=== PATIENT | male | born 1950 | race Caucasian/White ===

== ENCOUNTER → 2020-05-10 09:50 | Outpatient (BNVA) | payer OTHER, MEDICARE, SELFPAY | PROVIDERS: PCP Family Medicine; Visit Provider Anesthesiology | DX: S24.102D Unspecified injury at T2-T6 level of thoracic spinal cord, subsequent encounter (principal); G82.20 Paraplegia, unspecified; G89.4 Chronic pain syndrome; G89.0 Central pain syndrome | CPT/HCPCS: 99202 ==

== ENCOUNTER 2020-10-02 02:15 | Emergency (ER) | payer OTHER, SELFPAY ==
--- NOTE | 2020-10-02 | ECG_ITS ---
Test Reason : ABN LAB Blood Pressure : / mmHG Vent. Rate : 063 BPM Atrial Rate : 063 BPM P-R Int : 156 ms QRS Dur : 080 ms QT Int : 386 ms P-R-T Axes : 055 031 040 degrees QTc Int : 395 ms Normal sinus rhythm Normal ECG When compared with ECG of 20-JUN-2009 01:33, Vent. rate has decreased BY 67 BPM Non-specific change in ST segment in Inferior leads ST no longer depressed in Lateral leads Nonspecific T wave abnormality, improved in Inferior leads Nonspecific T wave abnormality no longer evident in Lateral leads Referred By: Generic ED Physician Electronically Signed By:BERRY MATT
[2020-10-02 02:21] VITALS: BP 155/72; PULSE 75; RESP 16; TEMP 36.9; O2SAT 98
[2020-10-02 02:29] VITALS: BP 125/60; BP 155/72; PULSE 63; PULSE 80; RESP 11; TEMP 36.9; O2SAT 98; O2SAT 99; BMI 21.6
[2020-10-02 02:38] VITALS: BP 138/72; PULSE 71; RESP 12; O2SAT 98
[2020-10-02 03:01] LABS: MANUAL DIFF FLAG NO
[2020-10-02 03:05] LABS: Basophils Absolute Auto 0.1 X10*3/uL (0.0-0.2); Eosinophils Absolute Auto 0.3 X10*3/uL (0.0-0.4); Eosinophils Percent Auto 3.4 % (0-4); Hematocrit 38.6 % (42-52); Hemoglobin 12.8 g/dl (14.0-18.0); Imm Gran Pct Auto 1.1 % (0.0-0.4); Lymphocytes Absolute Auto 2.2 X10*3/uL (1.2-4.9); Lymphocytes Percent Auto 23.4 % (20-40); Mean Corpuscular HGB Conc 33.2 g/dl (31.0-36.0); Mean Corpuscular Hemoglobin 29.6 pg (27.0-33.0); Mean Corpuscular Volume 89.1 fL (80-98); Mean Platelet Volume 9.3 fL (9.4-12.4); Monocytes Absolute Auto 1.1 X10*3/uL (0.1-1.2); Monocytes Percent Auto 11.9 % (2-11); Neutrophils Absolute Auto 5.5 X10*3/uL (2.0-8.3); Neutrophils Percent Auto 59.2 % (45-73); Platelet Count 299 X10*3/uL (160-400); Red Blood Count 4.33 X10*6/uL (4.60-5.80); Red Cell Distribution Width 14.1 % (11.0-16.0); White Blood Count 9.3 X10*3/uL (4.8-10.8)
[2020-10-02 03:26] LABS: Glucose Urine UA NEG (NEG); Leukocyte Esterase Urine 3+ (NEG); Nitrite Urine POS (NEG); PH 6.5 (5.0-8.0); Specific Gravity - Urine <= 1.005 (1.005-1.025); UACC Culture Trigger YES; Urine Blood TRACE (NEG); Urine Ketones NEG (NEG); Urine Protein NEG (NEG-TRACE)
[2020-10-02 03:27] LABS: Appearance Urine CLEAR; Color Urine STRAW
[2020-10-02 03:45] LABS: Amorphous Sediment Urine 3+ /LPF; Bacteria Urine 1+ /LPF; RBC Urine 0-2 /HPF (0)
[2020-10-02 04:30] VITALS: BP 101/53; PULSE 70; RESP 13; O2SAT 98
[2020-10-02 04:46] LABS: Osmolality Urine 169 mosm/kg (373-1093)
[2020-10-02 05:33] LABS: Alanine Aminotransferase 15 U/L (0-40); Albumin Level 4.1 g/dL (3.5-5.0); Alkaline Phosphatase 110 U/L (39-117); Anion Gap 13 (12-20); Aspartate Amino Transferase 16 U/L (5-37); Blood Urea Nitrogen 12 mg/dL (9-16); Calcium 9.4 mg/dL (8.4-10.2); Carbon Dioxide 25 mmol/L (22-29); Chloride 104 mmol/L (96-108); Creatinine Clr Calc Pharmacy 101.9; Estimated Glomerular Filt Rate > 60; Glucose Random 92 mg/dL (60-115); Potassium 4.4 mmol/L (3.3-5.1); Sodium 138 mmol/L (135-145); Total Protein 7.3 g/dL (6.5-8.0)
[2020-10-02 05:49] LABS: Bilirubin Total 0.4 mg/dL (0.0-1.0)
--- NOTE | 2020-10-02 06:03 | PC.NURSE ---
Addendum entered by Devika Lawson 10/02/20 07:00: Dr Florez's response to this RN and [place], vendor representatives when being made aware of pt's requests for home meds states he will be discharged home and he can take his home meds then. Original Note: Pt rang call [facility] requesting his home doses of gabapentin and valium. Dr Florez made aware.
[2020-10-02 06:46] VITALS: BP 103/63; PULSE 72; RESP 14; O2SAT 98
--- NOTE | 2020-10-02 07:00 | ED_ITS ---
HPI - Recheck/Abnormal Lab/Rx General Chief Complaint: Recheck/Abnormal Lab/Rx Stated Complaint: low sodium Time Seen by Provider: 10/02/20 06:51 Source: patient History of Present Illness HPI narrative: I started my shift at 6.30 I went to see a very upset pt , I want to get out now give me a phone so I can call for ride .pt was sent here by Dr Conklin because low sodium,sodium was rechecked here and was 138 MD complaint: abnormal lab Description of abnormal result: reported low sodium Symptoms since prior visit: no new symptoms Associated symptoms: none Related Data Home Medications Medication Instructions Recorded Confirmed baclofen 10/02/20 diazepam 10 mg tablet 10 mg PO QID 10/02/20 10/02/20 gabapentin 600 mg tablet 600 mg PO Q4H 10/02/20 10/02/20 Allergies Allergy/AdvReac Type Severity Reaction Status Date / Time No Known Allergies Allergy Mild NOT Verified 10/02/20 02:28 APPLICABLE Review of Systems Review of Systems: Yes all other systems are reviewed and are negative Constitutional: Constitutional: Reports no additional constitutional complaints Cardiovascular: Cardiovascular: Reports no additional cardiovascular [facility] Past Medical History Medical History Central pain syndrome Chronic pain syndrome Paraplegia T5 spinal cord injury Social History Social History Advance Directives: No Advance Directives Information Provided: No Physical Exam Vital Signs: Vital Signs: Last Vital Signs Temp 98.5 F 10/02/20 02:29 Pulse 72 10/02/20 06:46 Resp 14 10/02/20 06:46 BP 103/63 10/02/20 06:46 Pulse Ox 98 10/02/20 06:46 Body Mass Index 21.6 Const: General: alert, awake and other (uncoperative,belligerant) Nutritional Appearance: well nourished Orientation/consciousness: oriented to time HENMT: Head: Yes normal to inspection Resp: Effort & Inspection: normal respiratory effort and able to speak in complete sentences Cardio: Jugular venous distension: no JVD Rate: regular rate GI: Inspection: Yes normal to inspection Skin: General skin exam: no rashes or lesions noted Neuro: General: oriented to time Psych: Mental Status: mental status grossly normal Affect: Animated affect present and Anxious affect present Course Course Course Narrative: pt was very uncoperative,upset,he signed AMA his sodium was wnl; I came for nothing MDM - Recheck/Abnormal Lab/Rx Lab Data Result diagrams: 10/02/20 02:53 10/02/20 02:53 Labs: Lab Results 10/02/20 10/02/20 10/02/20 Range/Units 02:44 02:44 02:53 WBC 9.3 (4.8-10.8) X10*3/uL RBC 4.33 L (4.60-5.80) X10*6/uL Hgb 12.8 L (14.0-18.0) g/dl Hct 38.6 L (42-52) % MCV 89.1 (80-98) fL MCH 29.6 (27.0-33.0) pg MCHC 33.2 (31.0-36.0) g/dl RDW 14.1 (11.0-16.0) % Plt Count 299 (160-400) X10*3/uL MPV 9.3 L (9.4-12.4) fL Immature Gran % (Auto) 1.1 H (0.0-0.4) % Neut % (Auto) 59.2 (45-73) % Lymph % (Auto) 23.4 (20-40) % [place] % (Auto) 11.9 H (2-11) % Eos % (Auto) 3.4 (0-4) % Baso % (Auto) 1.0 (0-2) % Lymph # (Auto) 2.2 (1.2-4.9) X10*3/uL [place] # (Auto) 1.1 (0.1-1.2) X10*3/uL Eos # (Auto) 0.3 (0.0-0.4) X10*3/uL Baso # (Auto) 0.1 (0.0-0.2) X10*3/uL Abs Immat Gran (auto) 0.10 H (0.00-0.03) X10*3/uL Absolute Neuts (auto) 5.5 (2.0-8.3) X10*3/uL Absolute Nucleated RBC 0.000 (0.0-0.012) X10*3/uL Nucleated RBC % (auto) 0.0 (0.0-0.2) /100WBC Sodium (135-145) mmol/L Potassium (3.3-5.1) mmol/L Chloride (96-108) mmol/L Carbon Dioxide (22-29) mmol/L Anion Gap (12-20) BUN (9-16) mg/dL Creatinine (0.5-1.4) mg/dL Estim Creat Clear Calc Estimated GFR Random Glucose (60-115) mg/dL Calcium (8.4-10.2) mg/dL Total Bilirubin (0.0-1.0) mg/dL AST (5-37) U/L ALT (0-40) U/L Alkaline Phosphatase (39-117) U/L Total Protein (6.5-8.0) g/dL Albumin (3.5-5.0) g/dL Urine Color STRAW Urine Appearance CLEAR Urine pH 6.5 (5.0-8.0) Ur Specific [place] <= 1.005 (1.005-1.025) Urine Protein NEG (NEG-TRACE) MG/DL Urine Glucose (UA) NEG (NEG) MG/DL Urine Ketones NEG (NEG) MG/DL Urine Blood TRACE (NEG) Urine Nitrite POS H (NEG) Ur Leukocyte Esterase 3+ H (NEG) Urine RBC 0-2 (0) /HPF Urine WBC 5-9 H (0-4) /HPF Ur Squamous Epith Cells NONE /LPF Amorphous Sediment 3+ /LPF Urine Bacteria 1+ /LPF Urine Osmolality 169 L (373-1093) mosm/kg 10/02/20 Range/Units 02:53 WBC (4.8-10.8) X10*3/uL RBC (4.60-5.80) X10*6/uL Hgb (14.0-18.0) g/dl Hct (42-52) % MCV (80-98) fL MCH (27.0-33.0) pg MCHC (31.0-36.0) g/dl RDW (11.0-16.0) % Plt Count (160-400) X10*3/uL MPV (9.4-12.4) fL Immature Gran % (Auto) (0.0-0.4) % Neut % (Auto) (45-73) % Lymph % (Auto) (20-40) % [place] % (Auto) (2-11) % Eos % (Auto) (0-4) % Baso % (Auto) (0-2) % Lymph # (Auto) (1.2-4.9) X10*3/uL [place] # (Auto) (0.1-1.2) X10*3/uL Eos # (Auto) (0.0-0.4) X10*3/uL Baso # (Auto) (0.0-0.2) X10*3/uL Abs Immat Gran (auto) (0.00-0.03) X10*3/uL Absolute Neuts (auto) (2.0-8.3) X10*3/uL Absolute Nucleated RBC (0.0-0.012) X10*3/uL Nucleated RBC % (auto) (0.0-0.2) /100WBC Sodium 138 (135-145) mmol/L Potassium 4.4 (3.3-5.1) mmol/L Chloride 104 (96-108) mmol/L Carbon Dioxide 25 (22-29) mmol/L Anion Gap 13 (12-20) BUN 12 (9-16) mg/dL Creatinine 0.68 (0.5-1.4) mg/dL Estim Creat Clear Calc 101.9 Estimated GFR > 60 Random Glucose 92 (60-115) mg/dL Calcium 9.4 (8.4-10.2) mg/dL Total Bilirubin 0.4 (0.0-1.0) mg/dL AST 16 (5-37) U/L ALT 15 (0-40) U/L Alkaline Phosphatase 110 (39-117) U/L Total Protein 7.3 (6.5-8.0) g/dL Albumin 4.1 (3.5-5.0) g/dL Urine Color Urine Appearance Urine pH (5.0-8.0) Ur Specific [place] (1.005-1.025) Urine Protein (NEG-TRACE) MG/DL Urine Glucose (UA) (NEG) MG/DL Urine Ketones (NEG) MG/DL Urine Blood (NEG) Urine Nitrite (NEG) Ur Leukocyte Esterase (NEG) Urine RBC (0) /HPF Urine WBC (0-4) /HPF Ur Squamous Epith Cells /LPF Amorphous Sediment /LPF Urine Bacteria /LPF Urine Osmolality (373-1093) mosm/kg Discharge Plan Discharge Clinical Impression: Chronic pain syndrome, Acute hyponatremia Patient Disposition: Home, Self-Care Prescriptions: No Action gabapentin 600 mg Tablet 600 mg PO Q4H RF: 0 diazepam 10 mg Tablet 10 mg PO QID RF: 0 baclofen RF: 0 Interventions: ED Discharge Assessment Last Done: 10/02/20 07:20 Discharge Date/Time: 10/02/20 07:55
== END 2020-10-02 07:55 | disposition home or self-care (01) ==
PROVIDERS: Emergency Provider Emergency Medicine
DX: G89.4 Chronic pain syndrome (principal); E87.1 Hypo-osmolality and hyponatremia; G82.20 Paraplegia, unspecified
CPT/HCPCS: 36415; 80053; 81001; 81003; 83935; 85025; 87086; 87088; 87186; 93005; 99283; 99284

== ENCOUNTER → 2021-10-13 10:40 | Outpatient (BNVA) | payer OTHER, SELFPAY | PROVIDERS: PCP Family Medicine; Visit Provider Surgery | DX: L89.159 Pressure ulcer of sacral region, unspecified stage (principal); K59.09 Other constipation; G82.20 Paraplegia, unspecified | CPT/HCPCS: 99202 ==

== ENCOUNTER 2021-11-02 07:15 | Inpatient (IN) | payer OTHER, SELFPAY ==
[2021-11-02] VITALS (17 sets, daily range): BP systolic 98–141; BP diastolic 54–78; PULSE 58–80; RESP 12–18; TEMP 36.1–36.8; O2SAT 94–99; BMI 23.0
--- NOTE | 2021-11-02 07:16 | MHC.SHP ---
Pre-Procedural Eval Section A Date of Service: 11/02/21 The patient is an INPATIENT: No Changes since office visit: Yes Patient answered all questions; No Cold of Flu in the past 2 weeks, No New Medical Problems and No Changes in Medication The History & Physical has been completed within 30 days and I have reviewed it.: Yes Section B Chief Complaint: Paraplegia, pressure ulcer of sacral region Allergies: Allergies Allergy/AdvReac Type Severity Reaction Status Date / Time No Known Allergies Allergy Mild NOT Verified 10/13/21 10:46 APPLICABLE Plan Diagnosis/Plan: Unchanged I have reviewed the history and physical and performed a pertinent physical examination on my patient. No changes have occurred unless specified.
--- NOTE | 2021-11-02 07:35 | PC.NURSE ---
open area to buttock and right heel noted
[2021-11-02 07:44] LABS: Hematocrit 35.5 % (42.0-52.0); Hemoglobin 11.9 g/dl (14.0-18.0); Mean Corpuscular HGB Conc 33.5 g/dl (31.0-36.0); Mean Corpuscular Hemoglobin 29.2 pg (27.0-33.0); Mean Platelet Volume 9.2 fL (9.4-12.4); Platelet Count 310 X10*3/uL (160-400); Red Blood Count 4.08 X10*6/uL (4.60-5.80); Red Cell Distribution Width 14.4 % (11.0-16.0); White Blood Count 9.1 X10*3/uL (4.8-10.8)
[2021-11-02 07:48] LABS: COVID-19 Test Negative (Negative); IDNOW Serial# 9DB6401D
[2021-11-02] MEDS: Lactated Ringers 1,000 ML 100 ML IVCONT (07:54)
[2021-11-02 08:00] LABS: Anion Gap 14 (12-20); Blood Urea Nitrogen 11 mg/dL (9-16); Calcium 9.4 mg/dL (8.4-10.2); Carbon Dioxide 26 mmol/L (22-29); Chloride 100 mmol/L (96-108); Estimated Glomerular Filt Rate > 60; Glucose Fasting 92 mg/dL (60-99); Potassium 4.8 mmol/L (3.3-5.1); Sodium 135 mmol/L (135-145)
--- NOTE | 2021-11-02 08:00 | PC.NURSE ---
pt has rivera cath emptied for 100ml
--- NOTE | 2021-11-02 09:27 | P.CONAN_ITS ---
[facility] Active Problems Active Problems: All Active Problems (Updated 10/13/21 @ 16:26 by Riley Serrano MD) Chronic constipation (Acute) Sacral decubitus ulcer (Acute) Acute hyponatremia (Acute) Central pain syndrome (Acute) Chronic pain syndrome (Acute) Paraplegia (Acute) T5 spinal cord injury (Acute) Past Medical History Medical History Central pain syndrome Chronic pain syndrome Paraplegia T5 spinal cord injury Family History Family history of problems with anesthesia: No Surgical History History of Problems with Anesthesia: No Social History Social History Patient Tobacco Use Status: Never used Tobacco Substance Use Type: Marijuana Are you DNR?: Yes Advance Directives: No Advance Directives Information Provided: No Recently lost weight without trying: No Meds Allergies Allergy/AdvReac Type Severity Reaction Status Date / Time No Known Allergies Allergy Mild NOT Verified 10/13/21 10:46 APPLICABLE Active Medications: Current Medications Fentanyl (Fentanyl Citrate/Pf 100 Mcg/2 Ml Vial) 25 mcg IVPUSH Q5M PRN; Protocol PRN Reason: Pain, Moderate (Pain Scale 4-6 Lactated Ringer's (Lr) 1,000 mls @ 100 mls/hr IVCONT .Q10H [facility] Last Admin: 11/02/21 07:54 Dose: 100 mls/hr Ondansetron HCl (Ondansetron Hcl 4 Mg/2 Ml Vial) 4 mg IVPUSH ONCE PRN PRN Reason: Nausea and Vomiting Oxycodone HCl (Oxycodone Hcl Immed Release 5 Mg Tablet) 5 mg PO ONCE PRN PRN Reason: Pain, Severe (Pain Scale 7-10) Home Medications Medication Instructions Recorded Confirmed Last Taken Type baclofen 10/02/20 Unknown History diazepam 10 mg tablet 10 mg PO QID 10/02/20 10/02/20 11/01/21 History gabapentin 600 mg tablet 600 mg PO Q4H 10/02/20 11/02/21 11/02/21 History sulfamethoxazole 800 1 tab PO BID 11/02/21 11/02/21 11/02/21 History mg-trimethoprim 160 mg tablet Exam Exam Date and Time: November 02, [id number] Height,Weight and Vital Signs: Height 5 ft 11 in Weight 74.843 kg Last Vital Signs Temp 97 F 11/02/21 08:01 Pulse 64 11/02/21 08:01 Resp 18 11/02/21 08:01 BP 103/61 11/02/21 08:01 Pulse Ox 97 11/02/21 08:01 O2 Del Method 11/02/21 08:01 Pertinent Lab Results Pertinent Lab Results: Laboratory Tests 11/02/21 11/02/21 11/02/21 07:08 07:30 07:30 WBC 9.1 RBC 4.08 L Hgb 11.9 L Hct 35.5 L MCV 87.0 MCH 29.2 MCHC 33.5 RDW 14.4 Plt Count 310 MPV 9.2 L Absolute Nucleated RBC 0.000 Nucleated RBC % (auto) 0.0 Sodium 135 Potassium 4.8 Chloride 100 Carbon Dioxide 26 Anion Gap 14 BUN 11 Creatinine 0.72 Estim Creat Clear Calc 101.0 Estimated GFR > 60 Fasting Glucose 92 Calcium 9.4 COVID-19 (NIKUNJ) Negative COVID-19 Clin Com See Note Blood Type Antibody Screen 11/02/21 07:30 WBC RBC Hgb Hct MCV MCH MCHC RDW Plt Count MPV Absolute Nucleated RBC Nucleated RBC % (auto) Sodium Potassium Chloride Carbon Dioxide Anion Gap BUN Creatinine Estim Creat Clear Calc Estimated GFR Fasting Glucose Calcium COVID-19 (NIKUNJ) COVID-19 Clin Com Blood Type O Negative Antibody Screen NEGATIVE Airway Mallampati Class: I Neck ROM: Full Loose/Missing/Broken Teeth: No Heart: rrr Lungs: clear Assessment and Plan Final Anesthetic Review Family History of Problems with Anesthesia: No History of Problems with Anesthesia: No NPO: Yes ASA Class: II Final Preanesthetic Review: No Changes in Pt Med Stat, Meds/Allgs Chart Reviewed, Consent Obtained/Reviewed and Anes Risks/Benef Reviewed Patient Risk: Intermediate Procedure Risk: Intermediate Anesthetic Plan Anesthetic Plan: GA Disposition: Standard PACU
--- NOTE | 2021-11-02 11:27 | P.OP_ITS ---
Operative Note Operative Note Date of Service: 11/02/21 Narrative: Preoperative diagnosis: paraplegia, sacral decubitus ulcer Postoperative diagnosis: same Procedure: laparoscopic diverting loop transverse colostomy Surgeon: Riley Serrano MD Upholsterer Assembly Line: JOELLE Boothe Anesthesia: general endotracheal Indications for procedure: 71-year-old male patient with a history of paraplegia now with a nonhealing decubitus ulcer related to the need for prolonged sitting on the toilet. Patient presents today for diverting loop colostomy. Operative findings: Normal appearing transverse colon. Specimen: none Estimated blood loss: 10 mL Complications: none Procedure details: patient was brought to the OR placed in a supine position. After administering general anesthesia patient's abdomen was prepped with ChloraPrep and draped in a sterile fashion. A surgical time-out was called the consent confirmed. Patient received preoperative antibiotics and Venodyne boots placed. A 5 mm incision was then made in the periumbilical skin carried out through subcutaneous tissue. A Veress needle was then inserted while elevating abdominal cavity with towel clips. After a positive drop test the abdomen was insufflated to a pressure of 15 mmHg. The Veress needle was removed and a 5 mm trocar inserted under direct vision. The camera was then inserted in the abdomen explored. A 5 mm trocar was placed in the right upper quadrant and a 2nd 12 mm trocar placed in a periumbilical locations on the right side. The abdomen was again explored and the transverse colon identified. An area to the left of midline was identified in the transverse colon. The omentum was cole en down off of the upper portion of the colon along the gastrocolic ligament. This the mesentery was then below this and a [place] drain placed below the bowel wall. The insufflation was then evacuated and a circular incision made in the left upper quadrant. This was carried out through subcutaneous tissue up to fascia. A cruciate incision was then made in the fascia. The peritoneum was then entered and the opening dilated with 2 fingers. The Jolly drain was then brought up through the circular incision and the transverse colostomy pulled up into the incision. A bridge was placed below the [place] drain. The transverse colostomy was then matured using 3-0 Polysorb sutures circumferentially. With this was completed the incisions were all closed using interrupted 4-0 Polysorb sutures. Dressings were applied including Steri- Strips, 2 x 2 gauze and Tegaderm. An ostomy appliance was then applied to the colostomy. The patient tolerated the procedure well. Sponge, instrument, and needle counts were reported as correct. The patient was transferred to PACU in stable condition.
[2021-11-02] MEDS: Dextrose 5 % and Lactated Ring 1,000 ML 125 ML IVCONT ×2 (12:05→20:39)
--- NOTE | 2021-11-02 13:00 | PHA.MEDREC ---
Pharmacy Consult ? Medication Reconciliation Pharmacy has completed the medication reconciliation. Patient confirmed all medicaiton. Report he has one more tablet of the Bactrim left. Patient also has a balcofen pump. Kori Hartman, PeteD
[2021-11-02] MEDS: HYDROmorphone HCl 0.5 MG/0.5 ML SYRINGE IVPUSH (13:16)
[2021-11-02] MEDS: Gabapentin 600 MG TABLET PO ×3 (13:24→20:40)
[2021-11-02] MEDS: 0.9 % Sodium Chloride Flush 3 ML SYRINGE IVFLUSH (15:22)
--- NOTE | 2021-11-02 15:45 | PC.NURSE ---
Patient has baclofen pump to right side of abdomen. Patient unsure of dose that he gets through it. Pharmacy notified and MD aware.
--- NOTE | 2021-11-02 16:18 | MHC.CLN ---
NUTRITION CONSULT FOR NON HEALING PRESSURE ULCER. PATIENT WITH STAGE II PRESSURE INJURY TO COCCYX. DIET=CLEAR LIQUID. ADDED ENSURE CLEAR TID TO PROVIDE 720 KCALS, 24 G PROTEIN. PATIENT STATED THAT HE TAKES BOOST AT HOME. WHEN DIET ADVANCES, CHANGE SUPPLEMENT TO ENSURE TID. WILL PROVIDE ADDITIONAL 1050 KCALS, 60 G PROTEIN TO PROMOTE WOUND HEALING.
[2021-11-02] MEDS: diazePAM 5 MG TABLET 10 MG PO (20:40)
[2021-11-02] MEDS: Sulfamethox/Trimeth 800/160 TABLET 1 TAB PO (20:40)
[2021-11-03] MEDS: Gabapentin 600 MG TABLET PO ×7 (00:55→23:58)
[2021-11-03 03:14] VITALS: BP 151/73; PULSE 94; RESP 18; TEMP 36.6; O2SAT 97
[2021-11-03] MEDS: Dextrose 5 % and Lactated Ring 1,000 ML 125 ML IVCONT (04:52)
[2021-11-03 06:15] LABS: MANUAL DIFF FLAG NO
[2021-11-03 06:20] LABS: Basophils Percent Auto 0.3 % (0-2); Eosinophils Absolute Auto 0.1 X10*3/uL (0.0-0.4); Eosinophils Percent Auto 0.9 % (0-4); Hematocrit 33.3 % (42.0-52.0); Hemoglobin 10.9 g/dl (14.0-18.0); Imm Gran Abs Auto 0.11 X10*3/uL (0.00-0.03); Imm Gran Pct Auto 0.7 % (0.0-0.4); Lymphocytes Absolute Auto 1.6 X10*3/uL (1.2-4.9); Lymphocytes Percent Auto 10.1 % (20-40); Mean Corpuscular HGB Conc 32.7 g/dl (31.0-36.0); Mean Corpuscular Hemoglobin 28.8 pg (27.0-33.0); Mean Corpuscular Volume 87.9 fL (80.0-98.0); Mean Platelet Volume 9.2 fL (9.4-12.4); Monocytes Absolute Auto 1.5 X10*3/uL (0.1-1.2); Monocytes Percent Auto 9.6 % (2-11); Neutrophils Absolute Auto 12.3 x10*3/uL (2.0-8.3); Neutrophils Percent Auto 78.4 % (45-73); Platelet Count 262 X10*3/uL (160-400); Red Blood Count 3.79 X10*6/uL (4.60-5.80); Red Cell Distribution Width 14.3 % (11.0-16.0); White Blood Count 15.7 X10*3/uL (4.8-10.8)
[2021-11-03 06:33] LABS: Anion Gap 12 (12-20); Blood Urea Nitrogen 7 mg/dL (9-16); Calcium 8.7 mg/dL (8.4-10.2); Carbon Dioxide 27 mmol/L (22-29); Chloride 103 mmol/L (96-108); Creatinine Clr Calc Pharmacy 110.2; Estimated Glomerular Filt Rate > 60; Glucose Random 114 mg/dL (60-115); Potassium 4.5 mmol/L (3.3-5.1); Sodium 137 mmol/L (135-145)
[2021-11-03 07:29] VITALS: BP 121/60; PULSE 80; RESP 18; TEMP 36.2; O2SAT 97
[2021-11-03] MEDS: diazePAM 5 MG TABLET 10 MG PO ×2 (08:07→20:03)
[2021-11-03] MEDS: Sulfamethox/Trimeth 800/160 TABLET 1 TAB PO ×2 (08:07→20:08)
--- NOTE | 2021-11-03 09:09 | PM.PNGS ---
Subjective Subjective Date of Service: 11/03/21 Interval history: Patient reports nerve pain this morning which is limiting his ability to move around in bed this morning. He was able to eat the liquids yesterday but would like to try a regular diet today. Physical Exam Vital Signs: Vital Signs: Last Vital Signs Temp 97.2 F 11/03/21 07:29 Pulse 80 11/03/21 07:29 Resp 18 11/03/21 07:29 BP 121/60 11/03/21 07:29 Pulse Ox 97 11/03/21 07:29 O2 Del Method 11/03/21 07:29 O2 Flow Rate 2 11/03/21 07:29 BMI result Body Mass Index 23.0 Const: General: comfortable and no acute distress Nutritional Appearance: well nourished Orientation/consciousness: patient oriented x3 Limitations: wheelchair Resp: Effort & Inspection: normal respiratory effort, no audible wheezes, no cough and no respiratory distress GI: Other: Trocar incisions are clean, dry, and intact. Ostomy is pink and viable, no stool or gas noted bag. Skin: Other: Warm, dry, no rash Neuro: General: patient oriented x3 Extrem: Other: No peripheral edema Objective Data Active Medications Diazepam (Diazepam 5 Mg Tablet) 10 mg PO BID [facility] Last Admin: 11/03/21 08:07 Dose: 10 mg Documented By: ANDRE Diazepam (Diazepam 5 Mg Tablet) 1 mg PO DAILY PRN PRN Reason: Insomnia Gabapentin (Gabapentin 600 Mg Tablet) 600 mg PO Q4H [facility] Last Admin: 11/03/21 08:08 Dose: 600 mg Documented By: ANDRE Hydromorphone HCl (Hydromorphone Hcl 0.5 Mg/0.5 Ml Syringe) 0.5 mg IVPUSH Q10M PRN; Protocol PRN Reason: Pain, Moderate (Pain Scale 4-6 Last Admin: 11/02/21 13:16 Dose: 0.5 mg Documented By: KHADAR Hydromorphone HCl (Hydromorphone Hcl 0.5 Mg/0.5 Ml Syringe) 0.5 mg IVPUSH Q3H PRN; Protocol PRN Reason: Pain, Severe (Pain Scale 7-10) Dextrose/Lactated Ringer's (D5lr) 1,000 mls @ 125 mls/hr IVCONT .Q8H [facility] Last Admin: 11/03/21 04:52 Dose: 125 mls/hr Documented By: ALLYSON Non-Formulary Medication (Baclofen) 0 device .ROUTE .COMPLEX [facility] Ondansetron HCl (Ondansetron Hcl 4 Mg/2 Ml Vial) 4 mg IVPUSH QID PRN PRN Reason: Nausea Oxycodone HCl (Oxycodone Hcl Immed Release 5 Mg Tablet) 5 mg PO Q4H PRN PRN Reason: Pain, Moderate (Pain Scale 4-6 Pharmacy Consult (Consult Rx Perform Med Rec) 1 each MISCELLANE ONCE PRN PRN Reason: Consult order Sodium Chloride (0.9 % Sodium Chloride Flush 3 Ml Syringe) 3 ml IVFLUSH QSHIFT [facility] Last Admin: 11/03/21 08:09 Dose: Not Given Documented By: ANDRE Non-Admin Reason: IV Running Trimethoprim/Sulfamethoxazole (Sulfamethox/Trimeth 800/160 Tablet) 1 tab PO BID [facility] Last Admin: 11/03/21 08:07 Dose: 1 tab Documented By: ANDRE Zolpidem Tartrate (Zolpidem Tartrate 5 Mg Tablet) 5 mg PO BEDTIME PRN PRN Reason: Insomnia Labs CBC & Chem 7: 11/03/21 05:38 11/03/21 05:38 Labs: Laboratory Results - last 24 hr 11/03/21 11/03/21 05:38 05:38 MCV 87.9 MCH 28.8 MCHC 32.7 RDW 14.3 Plt Count 262 MPV 9.2 L Immature Gran % (Auto) 0.7 H Neut % (Auto) 78.4 H Lymph % (Auto) 10.1 L [place] % (Auto) 9.6 Eos % (Auto) 0.9 Baso % (Auto) 0.3 Lymph # (Auto) 1.6 [place] # (Auto) 1.5 H Eos # (Auto) 0.1 Baso # (Auto) 0.0 Abs Immat Gran (auto) 0.11 H Absolute Neuts (auto) 12.3 H Absolute Nucleated RBC 0.000 Nucleated RBC % (auto) 0.0 Anion Gap 12 Estim Creat Clear Calc 110.2 Estimated GFR > 60 Random Glucose 114 Calcium 8.7 D Procedures Date of Service Date of Service: 11/03/21 Progress Note: A&P Assessment and plan (1) Sacral decubitus ulcer: Status: Acute (2) Chronic constipation: Status: Acute (3) Colostomy in place: Status: Acute Plan 71-year-old male patient with a nonhealing sacral wound presenting for a diverting loop transverse colostomy. He has pod 1 following a laparoscopic colostomy placement. He tolerated the procedure well. Wounds are clean and intact. There is increase in the WBC this morning, likely reactive. Awaiting return to bowel function. Will advance to a regular diet today. Time Spent With Patient Time: Total time spent is greater than 50% in coordination of care (as documented) at patient's floor/unit and/or counseling patient: Quality Stroke Does the patient have a stroke diagnosis?: No VTE Prior VTE?: No VTE Risk Level:: Surgical - moderate VTE Device Contraindication: N/A - Device Ordered VTE Drug Contraindication: Treatment Not Indicated
--- NOTE | 2021-11-03 09:52 | MHC.CM.PN ---
EMR REVIEWED IMM DELIVERED 11/03 CM MET WITH PATIENT, LIVES WITH SPOUSE IN A SINGLE FAMILY HOME. SPOUSE ASSISTS WITH SOME ASPECTS OF CARE. PT IS A PARAPLEGIC, HAS A BACLOFEN PUMP, GUIDO CATHETER.SPOUSE TRANSPORTS TO APPOINTMENTS BUT PATIENT HAS THE ABILITY TO DRIVE VIA CUSTOM VAN DESIRED. PT HAS ELECTRIC W/C, SLIDE BOARD AND STANDING FRAME. PT ATTEN[facility]. NO HOME SERVICES BUT IS OPEN TO A REFERRAL FOR HOME SERVICES IF NEEDED. + HCP AT HOME, WILL REQUEST BRING IN, NOT COVID VAXXED.
[2021-11-03 11:30] VITALS: BP 117/62; PULSE 86; RESP 18; TEMP 36.7; O2SAT 95
[2021-11-03 16:17] VITALS: BP 124/58; PULSE 88; RESP 18; TEMP 37.6; O2SAT 94
[2021-11-03] MEDS: 0.9 % Sodium Chloride Flush 3 ML SYRINGE IVFLUSH (16:23)
[2021-11-03 19:24] VITALS: BP 124/58; PULSE 102; RESP 16; TEMP 37.7; O2SAT 95
--- NOTE | 2021-11-03 20:46 | PC.NURSE ---
P patient c/o nausea,refuses Zofran,unable to eat supper,states he feels like his lunch still sitting in his stomache I abdomen round,positive bowel sounds,,small amt of bloody drainage present in colostomy,Dr. Kim made aware E will keep patient NPO,IV fluids ordered
[2021-11-03] MEDS: Lactated Ringers 1,000 ML 80 ML IVCONT (21:01)
[2021-11-03 23:37] VITALS: BP 132/67; PULSE 104; RESP 18; TEMP 37; O2SAT 96
[2021-11-04] VITALS (7 sets, daily range): BP systolic 127–160; BP diastolic 66–79; PULSE 65–90; RESP 16–18; TEMP 36.3–37; O2SAT 91–99
[2021-11-04] MEDS: Gabapentin 600 MG TABLET PO ×5 (04:57→20:23)
[2021-11-04] MEDS: diazePAM 5 MG TABLET 10 MG PO ×2 (08:06→20:23)
[2021-11-04] MEDS: Lactated Ringers 1,000 ML 80 ML IVCONT ×2 (08:07→19:55)
[2021-11-04] MEDS: Sulfamethox/Trimeth 800/160 TABLET 1 TAB PO ×2 (08:07→20:23)
--- NOTE | 2021-11-04 13:33 | MHC.CLN ---
F/U DIET CHANGED TO NPO 11/03 DUE TO NAUSEA. ADVANCED TO FULL LIQUID 11/04. ADDED ENSURE TID TO PROVIDE ADDITIONAL 1050 KCALS, 60 G PROTEIN, STAGE II WOUND TO COCCYX. SUPPLEMENT TO PROMOTE WOUND HEALING. FOLLOW FOR DIET ADVANCEMENT, INTAKE, AND WOUND HEALING.
--- NOTE | 2021-11-04 14:16 | MHC.CM.PN ---
EMR REVIEWED, PER SURGICAL PT STILL AWAITING RETURN OF BOWEL FX, DIET ADVANCED TO FULL LIQUIDS, [facility] UPDATED OVER [facility].
--- NOTE | 2021-11-04 14:56 | P.PNGS_ITS ---
Subjective Subjective Date of Service: 11/04/21 Interval history: Patient complaining of nerve pain mainly in the right side. Was nauseous after eating a regular diet yesterday there for his meal was stopped. Feels left nauseous today. Physical Exam Vital Signs: Vital Signs: Last Vital Signs Temp 97.9 F 11/04/21 11:18 Pulse 76 11/04/21 11:18 Resp 16 11/04/21 11:18 BP 127/71 11/04/21 11:18 Pulse Ox 99 11/04/21 11:18 O2 Del Method 11/04/21 11:18 O2 Flow Rate 2 11/03/21 07:29 BMI result Body Mass Index 23.0 Const: General: no acute distress Nutritional Appearance: well nourished Orientation/consciousness: patient oriented x3 Resp: Effort & Inspection: normal respiratory effort, no audible wheezes and Actively coughing Auscultation: rhonchi GI: Other: Trocar incisions are clean, dry, and intact. Ostomy is pink and patent with some stool within the bag. Minimal gas noted. Inspection: Yes normal to inspection Palpation (GI): Soft to palpation, nontender, no guarding and not rigid Skin: General skin exam: no rashes or lesions noted Neuro: General: patient oriented x3 Extrem: General: Yes no clubbing, cyanosis or edema Objective Data Active Medications Diazepam (Diazepam 5 Mg Tablet) 10 mg PO BID [facility] Last Admin: 11/04/21 08:06 Dose: 10 mg Documented By: REGINALDO Diazepam (Diazepam 5 Mg Tablet) 10 mg PO DAILY PRN PRN Reason: Insomnia Gabapentin (Gabapentin 600 Mg Tablet) 600 mg PO Q4H [facility] Last Admin: 11/04/21 12:09 Dose: 600 mg Documented By: REGINALDO Hydromorphone HCl (Hydromorphone Hcl 0.5 Mg/0.5 Ml Syringe) 0.5 mg IVPUSH Q10M PRN; Protocol PRN Reason: Pain, Moderate (Pain Scale 4-6 Last Admin: 11/02/21 13:16 Dose: 0.5 mg Documented By: KHADAR Hydromorphone HCl (Hydromorphone Hcl 0.5 Mg/0.5 Ml Syringe) 0.5 mg IVPUSH Q3H PRN; Protocol PRN Reason: Pain, Severe (Pain Scale 7-10) Lactated Ringer's (Lr) 1,000 mls @ 80 mls/hr IVCONT .[id number] [facility] Last Admin: 11/04/21 08:07 Dose: 80 mls/hr Documented By: REGINALDO Non-Formulary Medication (Baclofen) 0 device .ROUTE .COMPLEX [facility] Ondansetron HCl (Ondansetron Hcl 4 Mg/2 Ml Vial) 4 mg IVPUSH QID PRN PRN Reason: Nausea Oxycodone HCl (Oxycodone Hcl Immed Release 5 Mg Tablet) 5 mg PO Q4H PRN PRN Reason: Pain, Moderate (Pain Scale 4-6 Pharmacy Consult (Consult Rx Perform Med Rec) 1 each MISCELLANE ONCE PRN PRN Reason: Consult order Sodium Chloride (0.9 % Sodium Chloride Flush 3 Ml Syringe) 3 ml IVFLUSH QSHIFT [facility] Last Admin: 11/04/21 08:06 Dose: Not Given Documented By: REGINALDO Non-Admin Reason: IV Running Trimethoprim/Sulfamethoxazole (Sulfamethox/Trimeth 800/160 Tablet) 1 tab PO BID [facility] Last Admin: 11/04/21 08:07 Dose: 1 tab Documented By: REGINALDO Zolpidem Tartrate (Zolpidem Tartrate 5 Mg Tablet) 5 mg PO BEDTIME PRN PRN Reason: Insomnia Labs CBC & Chem 7: 11/03/21 05:38 11/03/21 05:38 Procedures Date of Service Date of Service: 11/04/21 Progress Note: A&P Assessment and plan (1) Colostomy in place: Status: Acute (2) Sacral decubitus ulcer: Status: Acute (3) Paraplegia: Status: Acute Plan Pod 2 following laparoscopic transverse colostomy. Wounds are clean and intact in abdomen is soft. There is some stool in his ostomy bag although he is still having the nerve pain on the right side. Recommended patient get out of bed. He has not gotten out of bed since surgery and is becoming deconditioned as a results. Will consult physical therapy to assist in and out of bed. Continue incentive spirometry. Will restart full liquid diet today. Consult neurology for persistent nerve pain. Patient due for Daniels catheter change. Will check urine culture. Patient has a chronic indwelling Daniels catheter changed weekly. Time Spent With Patient Time: Total time spent is greater than 50% in coordination of care (as documented) at patient's floor/unit and/or counseling patient: Quality Stroke Does the patient have a stroke diagnosis?: No VTE Prior VTE?: No VTE Risk Level:: Surgical - moderate VTE Device Contraindication: N/A - Device Ordered VTE Drug Contraindication: Treatment Not Indicated
--- NOTE | 2021-11-04 18:21 | PC.NURSE ---
Daniels changed per MD order. Specimen sent to lab. Dressing to coccyx changed. Colostomy beginning to drain small amount brown stool. Verbally instructed pt how to empty ostomy bag and release gas when bag fills. Verfbalized understanding
[2021-11-05 04:00] VITALS: RESP 17
[2021-11-05] MEDS: Gabapentin 600 MG TABLET PO ×6 (05:29→21:03)
[2021-11-05] MEDS: diazePAM 5 MG TABLET 10 MG PO ×3 (05:34→21:03)
[2021-11-05 07:21] VITALS: BP 160/86; PULSE 76; RESP 18; TEMP 36.4; O2SAT 93
[2021-11-05] MEDS: Lactated Ringers 1,000 ML 80 ML IVCONT (08:57)
[2021-11-05] MEDS: 0.9 % Sodium Chloride Flush 3 ML SYRINGE IVFLUSH ×2 (08:57→16:58)
[2021-11-05] MEDS: Sulfamethox/Trimeth 800/160 TABLET 1 TAB PO ×2 (08:57→21:03)
--- NOTE | 2021-11-05 10:26 | P.PNGS_ITS ---
Subjective Subjective Date of Service: 11/05/21 Interval history: Abdominal pain is improving. Ostomy is producing stool. He felt a little nauseous after eating this morning but would like to try a regular diet. He was able to sit up several times yesterday. Physical Exam Vital Signs: Vital Signs: Last Vital Signs Temp 97.6 F 11/05/21 07:21 Pulse 76 11/05/21 07:21 Resp 18 11/05/21 07:21 BP 160/86 H 11/05/21 07:21 Pulse Ox 93 11/05/21 07:21 O2 Del Method 11/05/21 07:21 O2 Flow Rate 2 11/03/21 07:29 BMI result Body Mass Index 23.0 Const: General: cooperative and comfortable Nutritional Appearance: well nourished Orientation/consciousness: patient oriented x3 Limitations: no limitations Resp: Effort & Inspection: normal respiratory effort, no audible wheezes, no cough and no respiratory distress GI: Other: Trocar incisions are clean and intact. Ostomy is producing solid and liquid stool Inspection: Yes normal to inspection Palpation (GI): Soft to palpation, nontender, no guarding and not rigid Skin: General skin exam: no rashes or lesions noted Neuro: General: patient oriented x3 Objective Data Active Medications Diazepam (Diazepam 5 Mg Tablet) 10 mg PO BID [facility] Last Admin: 11/05/21 08:57 Dose: 10 mg Documented By: ELAYNE Diazepam (Diazepam 5 Mg Tablet) 10 mg PO DAILY PRN PRN Reason: Insomnia Last Admin: 11/05/21 05:34 Dose: 10 mg Documented By: JULIANA Gabapentin (Gabapentin 600 Mg Tablet) 600 mg PO Q4H [facility] Last Admin: 11/05/21 08:57 Dose: 600 mg Documented By: ELAYNE Hydromorphone HCl (Hydromorphone Hcl 0.5 Mg/0.5 Ml Syringe) 0.5 mg IVPUSH Q10M PRN; Protocol PRN Reason: Pain, Moderate (Pain Scale 4-6 Last Admin: 11/02/21 13:16 Dose: 0.5 mg Documented By: KHADAR Hydromorphone HCl (Hydromorphone Hcl 0.5 Mg/0.5 Ml Syringe) 0.5 mg IVPUSH Q3H PRN; Protocol PRN Reason: Pain, Severe (Pain Scale 7-10) Lactated Ringer's (Lr) 1,000 mls @ 80 mls/hr IVCONT .[id number] [facility] Last Admin: 11/05/21 08:57 Dose: 80 mls/hr Documented By: ELAYNE Patient Own(Baclofen 20,000 Mcg/20ml (1, 000 Mcg/Ml) Solution ) 0 device INTRATHECA .COMPLEX [facility] Ondansetron HCl (Ondansetron Hcl 4 Mg/2 Ml Vial) 4 mg IVPUSH QID PRN PRN Reason: Nausea Oxycodone HCl (Oxycodone Hcl Immed Release 5 Mg Tablet) 5 mg PO Q4H PRN PRN Reason: Pain, Moderate (Pain Scale 4-6 Pharmacy Consult (Consult Rx Perform Med Rec) 1 each MISCELLANE ONCE PRN PRN Reason: Consult order Sodium Chloride (0.9 % Sodium Chloride Flush 3 Ml Syringe) 3 ml IVFLUSH QSHIFT [facility] Last Admin: 11/05/21 08:57 Dose: 3 ml Documented By: ELAYNE Trimethoprim/Sulfamethoxazole (Sulfamethox/Trimeth 800/160 Tablet) 1 tab PO BID [facility] Last Admin: 11/05/21 08:57 Dose: 1 tab Documented By: ELAYNE Zolpidem Tartrate (Zolpidem Tartrate 5 Mg Tablet) 5 mg PO BEDTIME PRN PRN Reason: Insomnia Labs CBC & Chem 7: 11/03/21 05:38 11/03/21 05:38 Procedures Date of Service Date of Service: 11/05/21 Progress Note: A&P Assessment and plan (1) Colostomy in place: Status: Acute Plan Patient is making progress with decreased abdominal pain and increased output the ostomy. Will advance his diet to a regular this morning. Anticipate discharge in 1-2 days. Continue to encourage patient to get out of bed and into his wheelchair. Continue incentive spirometry. Time Spent With Patient Time: Total time spent is greater than 50% in coordination of care (as documented) at patient's floor/unit and/or counseling patient: Quality Stroke Does the patient have a stroke diagnosis?: No VTE Prior VTE?: No VTE Risk Level:: Surgical - moderate VTE Device Contraindication: N/A - Device Ordered VTE Drug Contraindication: Treatment Not Indicated
[2021-11-05 11:39] VITALS: BP 149/72; PULSE 73; RESP 18; TEMP 36.8; O2SAT 95
--- NOTE | 2021-11-05 13:16 | PM.NEUROCN ---
History of Present Illness Data of Consult Service Date: 11/05/21 Primary Care Provider: DO FROY Real Reason for consult: Neuropathic pain 71 years old man with paraplegia related to a work related injury in [address] Paz and pine years poor since spine for pain management. He was in hospital for a colostomy procedure and also suffered from decubitus ulcer. He stated that he used to suffer from constant pain for number of years until high dose of gabapentin was given which took care of his pain. He said that as long as he was getting his medicine pain was not there otherwise his whole body including both legs and his waist up to mid of his waist suffered from constant pain. [facility] Past Medical History Medical History Central pain syndrome Chronic pain syndrome Paraplegia T5 spinal cord injury Social History Social History Household Members: Spouse Housing: House Do you presently have visiting nurse or other home services: Yes Patient Tobacco Use Status: Never used Tobacco Substance Use Type: Marijuana service: No Current occupational status: retired Meds Allergies Allergy/AdvReac Type Severity Reaction Status Date / Time No Known Allergies Allergy Mild NOT Verified 10/13/21 10:46 APPLICABLE Active Medications: Current Medications Diazepam (Diazepam 5 Mg Tablet) 10 mg PO BID [facility] Last Admin: 11/05/21 08:57 Dose: 10 mg Diazepam (Diazepam 5 Mg Tablet) 10 mg PO DAILY PRN PRN Reason: Insomnia Last Admin: 11/05/21 05:34 Dose: 10 mg Gabapentin (Gabapentin 600 Mg Tablet) 600 mg PO Q4H [facility] Last Admin: 11/05/21 12:55 Dose: 600 mg Hydromorphone HCl (Hydromorphone Hcl 0.5 Mg/0.5 Ml Syringe) 0.5 mg IVPUSH Q3H PRN; Protocol PRN Reason: Pain, Severe (Pain Scale 7-10) Patient Own(Baclofen 20,000 Mcg/20ml (1, 000 Mcg/Ml) Solution ) 0 device INTRATHECA .COMPLEX [facility] Ondansetron HCl (Ondansetron Hcl 4 Mg/2 Ml Vial) 4 mg IVPUSH QID PRN PRN Reason: Nausea Oxycodone HCl (Oxycodone Hcl Immed Release 5 Mg Tablet) 5 mg PO Q4H PRN PRN Reason: Pain, Moderate (Pain Scale 4-6 Pharmacy Consult (Consult Rx Perform Med Rec) 1 each MISCELLANE ONCE PRN PRN Reason: Consult order Sodium Chloride (0.9 % Sodium Chloride Flush 3 Ml Syringe) 3 ml IVFLUSH QSHIFT [facility] Last Admin: 11/05/21 08:57 Dose: 3 ml Trimethoprim/Sulfamethoxazole (Sulfamethox/Trimeth 800/160 Tablet) 1 tab PO BID [facility] Last Admin: 11/05/21 08:57 Dose: 1 tab Zolpidem Tartrate (Zolpidem Tartrate 5 Mg Tablet) 5 mg PO BEDTIME PRN PRN Reason: Insomnia Home Medications Medication Instructions Recorded Confirmed Last Taken Type diazepam 10 mg tablet 10 mg PO BID 10/02/20 11/02/21 11/01/21 History gabapentin 600 mg tablet 600 mg PO Q4H 10/02/20 11/02/21 11/02/21 05:00 History baclofen 20,000 mcg/20 mL (1,000 See Rx Instructions .Route .COMPLEX 11/02/21 11/02/21 Unknown History mcg/mL) intrathecal solution diazepam 10 mg tablet 1 tab PO DAILY PRN Insomnia 11/02/21 11/02/21 Unknown History sulfamethoxazole 800 1 tab PO BID 11/02/21 11/02/21 11/02/21 History mg-trimethoprim 160 mg tablet Physical Exam Vital Signs: Vital Signs: Last Vital Signs Temp 98.3 F 11/05/21 11:39 Pulse 73 11/05/21 11:39 Resp 18 11/05/21 11:39 BP 149/72 H 11/05/21 11:39 Pulse Ox 95 11/05/21 11:39 O2 Del Method 11/05/21 11:39 O2 Flow Rate 2 11/03/21 07:29 BMI result Body Mass Index 23.0 Neuro: Other: Alert and awake with normal spontaneity of speech fluency comprehension and affect. There was no obvious arm weakness. He was not able to move his legs. Deep tendon reflexes were absent in legs. Results Labs CBC & Chem 7: 11/03/21 05:38 11/03/21 05:38 Assessment and Plan (1) Neuropathic pain: Status: Acute 72 years old man with traumatic paraplegia and constant neuropathic pain controlled with gabapentin. In many patients gabapentin is effective in high doses and if patient does not have any obvious side effects it could be utilized. In this case he was not suffering from any significant side effects from this medicine and stated that taken this way his pain was controlled. I would recommend continuing the medicine and follow up with his regular pain management doctor Procedures Date of Service Date of Service: 11/05/21
[2021-11-05 15:51] VITALS: BP 144/73; PULSE 75; RESP 17; TEMP 36.5; O2SAT 95
[2021-11-05 19:37] VITALS: BP 136/66; PULSE 80; RESP 20; TEMP 36.8; O2SAT 94
[2021-11-06] VITALS: BP 141/74; PULSE 70; RESP 20; TEMP 37.1; O2SAT 93
[2021-11-06] MEDS: Gabapentin 600 MG TABLET PO ×6 (01:00→20:37)
[2021-11-06] MEDS: 0.9 % Sodium Chloride Flush 3 ML SYRINGE IVFLUSH ×4 (01:02→20:38)
[2021-11-06 04:00] VITALS: BP 130/60; PULSE 73; RESP 18; TEMP 36.8; O2SAT 93
[2021-11-06 07:41] VITALS: BP 145/72; PULSE 72; RESP 18; TEMP 37.2; O2SAT 92
[2021-11-06] MEDS: Sulfamethox/Trimeth 800/160 TABLET 1 TAB PO (08:15)
--- NOTE | 2021-11-06 09:18 | PM.PNGS ---
Subjective Subjective Date of Service: 11/06/21 Interval history: Overall the patient is feeling improved with decreased nerve pain. He does have the sensation of need to have a bowel movement per rectum. Ostomy is now producing liquid stool and gas. He is tolerating a regular diet without nausea or vomiting. He does not have much of an appetite at night but was able to take Ensure with each meal. Physical Exam Vital Signs: Vital Signs: Last Vital Signs Temp 98.9 F 11/06/21 07:41 Pulse 72 11/06/21 07:41 Resp 18 11/06/21 07:41 BP 145/72 H 11/06/21 07:41 Pulse Ox 92 11/06/21 07:41 O2 Del Method 11/06/21 07:41 O2 Flow Rate 2 11/03/21 07:29 BMI result Body Mass Index 23.0 Const: General: cooperative and comfortable Nutritional Appearance: well nourished Orientation/consciousness: patient oriented x3 Limitations: no limitations Resp: Effort & Inspection: normal respiratory effort, no audible wheezes, no cough and no respiratory distress GI: Other: Trocar incisions are clean and intact. Ostomy is producing solid and liquid stool Inspection: Yes normal to inspection Palpation (GI): Soft to palpation, nontender, no guarding and not rigid Skin: General skin exam: no rashes or lesions noted Neuro: General: patient oriented x3 Objective Data Active Medications Diazepam (Diazepam 5 Mg Tablet) 10 mg PO BID [facility] Last Admin: 11/06/21 08:14 Dose: Not Given Documented By: CHELO Non-Admin Reason: Patient Refused Diazepam (Diazepam 5 Mg Tablet) 10 mg PO DAILY PRN PRN Reason: Insomnia Last Admin: 11/05/21 05:34 Dose: 10 mg Documented By: JULIANA Gabapentin (Gabapentin 600 Mg Tablet) 600 mg PO Q4H [facility] Last Admin: 11/06/21 08:15 Dose: 600 mg Documented By: CHELO Hydromorphone HCl (Hydromorphone Hcl 0.5 Mg/0.5 Ml Syringe) 0.5 mg IVPUSH Q3H PRN; Protocol PRN Reason: Pain, Severe (Pain Scale 7-10) Patient Own(Baclofen 20,000 Mcg/20ml (1, 000 Mcg/Ml) Solution ) 0 device INTRATHECA .COMPLEX [facility] Ondansetron HCl (Ondansetron Hcl 4 Mg/2 Ml Vial) 4 mg IVPUSH QID PRN PRN Reason: Nausea Oxycodone HCl (Oxycodone Hcl Immed Release 5 Mg Tablet) 5 mg PO Q4H PRN PRN Reason: Pain, Moderate (Pain Scale 4-6 Pharmacy Consult (Consult Rx Perform Med Rec) 1 each MISCELLANE ONCE PRN PRN Reason: Consult order Psyllium Hydrophilic Mucilloid (Psyllium Seed 3.4 Gm Powd.Pack) 3.4 gm PO DAILY [facility] Sodium Chloride (0.9 % Sodium Chloride Flush 3 Ml Syringe) 3 ml IVFLUSH QSHIFT [facility] Last Admin: 11/06/21 08:15 Dose: 3 ml Documented By: CHELO Trimethoprim/Sulfamethoxazole (Sulfamethox/Trimeth 800/160 Tablet) 1 tab PO BID [facility] Last Admin: 11/06/21 08:15 Dose: 1 tab Documented By: CHELO Zolpidem Tartrate (Zolpidem Tartrate 5 Mg Tablet) 5 mg PO BEDTIME PRN PRN Reason: Insomnia Labs CBC & Chem 7: 11/03/21 05:38 11/03/21 05:38 Microbiology Microbiology Results: Microbiology 11/04/21 15:57 Urine Culture - Preliminary Urine Catheterized - Daniels Catheter Enterococcus faecalis Gram negative karine Procedures Date of Service Date of Service: 11/06/21 Progress Note: A&P Assessment and plan (1) Colostomy in place: Status: Acute Plan Patient is making progress with decreased abdominal pain and increased output the ostomy. Continue with regular diet and add Metamucil. Anticipate discharge in 1-2 days. Continue to encourage patient to get out of bed and into his wheelchair. Continue incentive spirometry. Time Spent With Patient Time: Total time spent is greater than 50% in coordination of care (as documented) at patient's floor/unit and/or counseling patient: Quality Stroke Does the patient have a stroke diagnosis?: No VTE Prior VTE?: No VTE Risk Level:: Surgical - moderate VTE Device Contraindication: N/A - Device Ordered VTE Drug Contraindication: Treatment Not Indicated
[2021-11-06] MEDS: levoFLOXacin 500 MG TABLET PO (10:43)
[2021-11-06 11:32] VITALS: BP 157/69; PULSE 87; RESP 18; TEMP 37.2; O2SAT 95
[2021-11-06 15:30] VITALS: BP 130/62; PULSE 70; RESP 19; TEMP 37.2; O2SAT 92
[2021-11-06] MEDS: diazePAM 5 MG TABLET 10 MG PO ×2 (17:02→20:37)
[2021-11-06 20:08] VITALS: BP 138/66; PULSE 63; RESP 18; TEMP 36.9; O2SAT 95
[2021-11-06] MEDS: Zolpidem Tartrate 5 MG TABLET PO (20:37)
[2021-11-07] MEDS: Gabapentin 600 MG TABLET PO ×6 (01:02→20:10)
[2021-11-07 01:07] VITALS: BP 148/78; PULSE 83; RESP 16; TEMP 36.9; O2SAT 93
[2021-11-07 07:40] VITALS: BP 137/67; PULSE 70; RESP 18; TEMP 36.8; O2SAT 95
[2021-11-07 07:47] LABS: Hemoglobin 10.8 g/dl (14.0-18.0); Mean Corpuscular HGB Conc 33.8 g/dl (31.0-36.0); Mean Corpuscular Hemoglobin 29.1 pg (27.0-33.0); Mean Corpuscular Volume 86.3 fL (80.0-98.0); Mean Platelet Volume 9.6 fL (9.4-12.4); Platelet Count 241 X10*3/uL (160-400); Red Blood Count 3.71 X10*6/uL (4.60-5.80); Red Cell Distribution Width 14.5 % (11.0-16.0); White Blood Count 12.3 X10*3/uL (4.8-10.8)
[2021-11-07 08:28] LABS: Anion Gap 14 (12-20); Blood Urea Nitrogen 15 mg/dL (9-16); Calcium 8.7 mg/dL (8.4-10.2); Carbon Dioxide 22 mmol/L (22-29); Chloride 102 mmol/L (96-108); Creatinine Clr Calc Pharmacy 113.6; Estimated Glomerular Filt Rate > 60; Glucose Random 100 mg/dL (60-115); Potassium 3.9 mmol/L (3.3-5.1); Sodium 134 mmol/L (135-145)
[2021-11-07] MEDS: diazePAM 5 MG TABLET 10 MG PO ×3 (08:47→20:10)
[2021-11-07] MEDS: 0.9 % Sodium Chloride Flush 3 ML SYRINGE IVFLUSH ×3 (08:47→20:10)
--- NOTE | 2021-11-07 09:58 | PM.PNGS ---
Subjective Subjective Date of Service: 11/07/21 <Kylah Mosley PA-C - Last Filed: 11/07/21 10:11> 11/07/21 <Riley Serrano MD - Last Filed: 11/07/21 11:53> Interval history: Feels better this morning. Was able to sleep better last night. Nerve pain improved overall with air loss bed. Abdominal pain improved. <Kylah Mosley PA-C - Last Filed: 11/07/21 10:11> Physical Exam Vital Signs: Vital Signs: Last Vital Signs Temp 98.3 F 11/07/21 07:40 Pulse 70 11/07/21 07:40 Resp 18 11/07/21 07:40 BP 137/67 11/07/21 07:40 Pulse Ox 95 11/07/21 07:40 O2 Del Method 11/07/21 07:40 O2 Flow Rate 2 11/03/21 07:29 BMI result Body Mass Index 23.0 <Kylah Mosley PA-C - Last Filed: 11/07/21 10:11> Const: General: comfortable and no acute distress <Kylah Mosley PA-C - Last Filed: 11/07/21 10:11> Orientation/consciousness: patient oriented x3 <Kylah Mosley PA-C - Last Filed: 11/07/21 10:11> Resp: Effort & Inspection: normal respiratory effort <Kylah Mosley PA-C - Last Filed: 11/07/21 10:11> GI: Other: ostomy pink, slightly edematous, large amount of flatus in appliance <Kylah Mosley PA-C - Last Filed: 11/07/21 10:11> Inspection: Yes distended and Yes incision (clean) <JOSUE Ureña Last Filed: 11/07/21 10:11> Palpation (GI): Soft to palpation and Tenderness to palpation present (GI) (mild, incisional) <JOSUE Ureña Last Filed: 11/07/21 10:11> Percussion: Yes tympanic to percussion <JOSUE Ureña Last Filed: 11/07/21 10:11> Neuro: General: patient oriented x3 <Kylah Mosley PA-C - Last Filed: 11/07/21 10:11> Objective Data Active Medications Diazepam (Diazepam 5 Mg Tablet) 10 mg PO BID [facility] Last Admin: 11/07/21 08:47 Dose: 10 mg Documented By: REGINALDO Diazepam (Diazepam 5 Mg Tablet) 10 mg PO DAILY PRN PRN Reason: Insomnia Last Admin: 11/06/21 17:02 Dose: 10 mg Documented By: CHELO Gabapentin (Gabapentin 600 Mg Tablet) 600 mg PO Q4H [facility] Last Admin: 11/07/21 08:47 Dose: 600 mg Documented By: REGINALDO Hydromorphone HCl (Hydromorphone Hcl 0.5 Mg/0.5 Ml Syringe) 0.5 mg IVPUSH Q3H PRN; Protocol PRN Reason: Pain, Severe (Pain Scale 7-10) Levofloxacin (Levofloxacin 500 Mg Tablet) 500 mg PO Q24H [facility] Last Admin: 11/06/21 10:43 Dose: 500 mg Documented By: CHELO Patient Own(Baclofen 20,000 Mcg/20ml (1, 000 Mcg/Ml) Solution ) 0 device INTRATHECA .COMPLEX [facility] Ondansetron HCl (Ondansetron Hcl 4 Mg/2 Ml Vial) 4 mg IVPUSH QID PRN PRN Reason: Nausea Oxycodone HCl (Oxycodone Hcl Immed Release 5 Mg Tablet) 5 mg PO Q4H PRN PRN Reason: Pain, Moderate (Pain Scale 4-6 Pharmacy Consult (Consult Rx Perform Med Rec) 1 each MISCELLANE ONCE PRN PRN Reason: Consult order Psyllium Hydrophilic Mucilloid (Psyllium Seed 3.4 Gm Powd.Pack) 3.4 gm PO DAILY [facility] Last Admin: 11/07/21 08:48 Dose: 3.4 gm Documented By: REGINALDO Sodium Chloride (0.9 % Sodium Chloride Flush 3 Ml Syringe) 3 ml IVFLUSH QSHIFT [facility] Last Admin: 11/07/21 08:47 Dose: 3 ml Documented By: REGINALDO Zolpidem Tartrate (Zolpidem Tartrate 5 Mg Tablet) 5 mg PO BEDTIME PRN PRN Reason: Insomnia Last Admin: 11/06/21 20:37 Dose: 5 mg Documented By: BREANNA <Kylah Mosley PA-C - Last Filed: 11/07/21 10:11> Labs CBC & Chem 7: : 11/07/21 07:25 11/07/21 07:25 <Kylah Mosley PA-C - Last Filed: 11/07/21 10:11> Labs: Laboratory Results - last 24 hr 11/07/21 11/07/21 07:25 07:25 MCV 86.3 MCH 29.1 MCHC 33.8 RDW 14.5 Plt Count 241 MPV 9.6 Absolute Nucleated RBC 0.000 Nucleated RBC % (auto) 0.0 Anion Gap 14 Estim Creat Clear Calc 113.6 Estimated GFR > 60 Random Glucose 100 Calcium 8.7 <Kylah Mosley PA-C - Last Filed: 11/07/21 10:11> Microbiology Microbiology Results: Microbiology 11/04/21 15:57 Urine Culture - Preliminary Urine Catheterized - Daniels Catheter Enterococcus faecalis Gram negative karine <Kylah Mosley PA-C - Last Filed: 11/07/21 10:11> Procedures Date of Service Date of Service: 11/07/21 <Kylah Mosley PA-C - Last Filed: 11/07/21 10:11> Progress Note: A&P Assessment and plan (1) Colostomy in place: Status: Acute <Kylah Mosley PA-C - Last Filed: 11/07/21 10:11> (2) Chronic constipation: Status: Acute <Kylah Mosley PA-C - Last Filed: 11/07/21 10:11> (3) Sacral decubitus ulcer: Status: Acute <JOSUE Ureña Last Filed: 11/07/21 10:11> (4) Paraplegia: Status: Acute <JOSUE Ureña Last Filed: 11/07/21 10:11> Assessment and Plan: Patient with nonhealing sacral decubitus ulcer aggravated by the need for prolonged sitting to have a bowel movement s/p diverting loop colostomy for assistance of wound care and closure. Feeling improved today with overall decreased pain. Ostomy functioning well. Continue with regular diet and add Metamucil. Ostomy care and education today, appliance change. Continue to encourage patient to get out of bed and into his wheelchair. Plan for discharge tomorrow. <Kylah Mosley PA-C - Last Filed: 11/07/21 10:11> Patient with nonhealing sacral decubitus ulcer aggravated by the need for prolonged sitting to have a bowel movement s/p diverting loop colostomy for assistance of wound care and closure. Feeling improved today with overall decreased pain. Ostomy functioning well. Continue with regular diet and add Metamucil. Ostomy care and education today, appliance change. Continue to encourage patient to get out of bed and into his wheelchair. Plan for discharge tomorrow. Patient feels improved today with decreased nerve pain. Agree with the above assessment and plan. Abdomen is soft and nondistended. Ostomy pink with liquid stool. Incisions are clean and intact. Ostomy training plan for today. Possible discharge in a.m.. <Riley Serrano MD - Last Filed: 11/07/21 11:53> Time Spent With Patient Time: Total time spent is greater than 50% in coordination of care (as documented) at patient's floor/unit and/or counseling patient: <Kylah Mosley PA-C - Last Filed: 11/07/21 10:11> Quality Stroke Does the patient have a stroke diagnosis?: No <Kylah Mosley PA-C - Last Filed: 11/07/21 10:11> VTE Prior VTE?: No <Kylah Mosley PA-C - Last Filed: 11/07/21 10:11> VTE Risk Level:: Surgical - moderate <Kylah Mosley PA-C - Last Filed: 11/07/21 10:11> VTE Device Contraindication: N/A - Device Ordered <Kylah Mosley PA-C - Last Filed: 11/07/21 10:11> VTE Drug Contraindication: Treatment Not Indicated <Kylah Mosley PA-C - Last Filed: 11/07/21 10:11>
--- NOTE | 2021-11-07 10:27 | MHC.CLN ---
F/U DIET ADVANCED TO REGULAR ON 11/05.[facility] PROVIDES ADDITIONAL 1050 KCALS, 60 G PROTEIN STAGE II WOUND TO COCCYX. SUPPLEMENT TO PROMOTE WOUND HEALING. INTAKE X 2 DAYS=50-100%. FOLLOW FOR DIET TOLERANCE, INTAKE, AND WOUND HEALING.
[2021-11-07] MEDS: levoFLOXacin 500 MG TABLET PO (10:38)
[2021-11-07 11:24] VITALS: BP 155/77; PULSE 66; RESP 18; TEMP 37.4; O2SAT 95
--- NOTE | 2021-11-07 13:08 | P.DS_ITS ---
DS: Providers Provider Date of Service: 11/08/21 Date of admission: 11/02/21 07:15 Primary care physician: Ish Umanzor DO Attending physician on admission: Riley Serrano Consults: 11/04/21 13:20 Consult to Neurology Routine Consulting Provider: [facility] Reason for consultation: paraplegia, persistent nerve pain, s/p colostomy Attending physician on discharge: Riley Serrano DS: Diagnosis Discharge Diagnosis (1) Colostomy in place: Status: Acute (2) Chronic constipation: Status: Acute (3) Sacral decubitus ulcer: Status: Acute (4) Paraplegia: Status: Acute DS: Summary Hospital Course Hospital Course: BRIEF HPI: 71-year-old male patient with a history of paraplegia now with a nonhealing decubitus ulcer related to the need for prolonged sitting on the toilet. Patient presents today for diverting loop colostomy. HOSPITAL COURSE: On 11/02/21,a laparoscopic diverting loop transverse colostomy was performed by Dr. Serrano without complication. The patient tolerated the procedure well and was admitted for observation. The patient had an uncomplicated but slower recovery course due to his nerve pain. He was started on clear liquids post operatively which he was tolerating and he was therefore advanced to solid food. He however developed some nausea and was put back on clears. This resolved and his diet was advanced as tolerated again. His ostomy remained viable appearing and began to have stool output on POD #3. Ostomy education was performed. His indwelling catheter, which is changed weekly, was changed during his stay on 11/04/21. The patient felt overrall improved and ready for discharge. He was tolerating a solid diet, only had mild abdominal pain and good ostomy function. He was discharged to home on 11/08/21 in stable condition with VNA services. Neurology was consulted during his stay given his persistent nerve pain who recommended continuing current medication and follow up with his pain specialist. Status at Discharge Functional status at discharge: wheelchair bound Overall status at discharge: patient is progressing back to baseline Time Spent with Patient Time attestation: Total time spent providing and/or coordinating discharge services: Discharge coordination time: Greater than 30 minutes Quality: Safe Use of Opioids Does Pt have an Active Cancer Diagnosis on the Problem List?: No Quality: Stroke Does the patient have a stroke diagnosis?: No Physical Exam Vital Signs: Vital Signs: Last Vital Signs Temp 99.3 F 11/07/21 11:24 Pulse 66 11/07/21 11:24 Resp 18 11/07/21 11:24 BP 155/77 H 11/07/21 11:24 Pulse Ox 95 11/07/21 11:24 O2 Del Method 11/07/21 11:24 O2 Flow Rate 2 11/03/21 07:29 BMI result Body Mass Index 23.0 Const: General: comfortable, no acute distress and alert Orientation/consciousness: patient oriented x3 Resp: Effort & Inspection: normal respiratory effort GI: Other: colostomy pink, stool and gas in appliance Inspection: No distended and Yes incision (clean) Palpation (GI): Soft to palpation, nontender, no guarding and not rigid Skin: General skin exam: no rashes or lesions noted Neuro: General: patient oriented x3 DS: Data Data Completed and Pending Labs on day of discharge: Laboratory Results - last 24 hr 11/07/21 11/07/21 07:25 07:25 WBC 12.3 H RBC 3.71 L Hgb 10.8 L Hct 32.0 L MCV 86.3 MCH 29.1 MCHC 33.8 RDW 14.5 Plt Count 241 MPV 9.6 Absolute Nucleated RBC 0.000 Nucleated RBC % (auto) 0.0 Sodium 134 L Potassium 3.9 Chloride 102 Carbon Dioxide 22 Anion Gap 14 BUN 15 D Creatinine 0.64 Estim Creat Clear Calc 113.6 Estimated GFR > 60 Random Glucose 100 Calcium 8.7 Preliminary micro results at discharge 11/04/21 15:57 Urine Culture - Preliminary Urine Catheterized - Daniels Catheter Enterococcus faecalis Gram negative karine Discharge Plan Discharge Anticipated Discharge Date/Time: 11/08/21 13:15 Patient Disposition: Home Health Service Discharge Diagnosis: s/p diverting loop colostomy Referrals: Riley Serrano MD [Physician] - 1 Week Ish Umanzor DO [Primary Care Provider] - 1 Week Discharge Medications: New levofloxacin 500 mg Tablet 500 mg PO Q24H Qty: 10 0RF oxycodone 5 mg Tablet 5 mg PO Q4H PRN (Reason: Pain, Moderate (Pain Scale 4-6) Qty: 15 0RF Rx Instructions: Partial Fill upon patient request. Continued gabapentin 600 mg Tablet 600 mg PO Q4H diazepam 10 mg Tablet 10 mg PO BID diazepam 10 mg tablet 1 tab PO DAILY PRN (Reason: Insomnia) baclofen 20,000 mcg/20mL (1,000 mcg/mL) Solution See Rx Instructions .ROUTE .COMPLEX Rx Instructions: patient has a pump Discontinued sulfamethoxazole-trimethoprim 800-160 mg tablet 1 tab PO BID Label Comments: patient only has 1 more tablets Discharge Orders: Discharge Order (Routine); Ordered 11/08/21 Ordered By: Riley Serrano Diet: Advance to usual diet Activity on Discharge: No heavy lifting Stand Alone Forms: Patient Portal Discharge page Activity Restrictions/Additional Instructions: If the incision area is tender, you may apply an ice pack for short intervals (No more than 20 minutes on, followed by at least 20 minutes off). Do not apply heat. Do not use creams, lotions, or topical antibiotics unless instructed to do so by your surgeon. These can cause infection or allergic reaction. Ok to shower. You have steri strips covering your incision and these will fall off in ~1 week. COLOSTOMY APPLIANCE: COLOPLAST #[id number] APPLY TO COLOSTOMY Q3-4 DAYS AND PRN. Follow up in office. ([phone]) Call Your Doctor If: -Your temperature exceeds 101.5? F -You experience excessive pain or swelling -You have an unexpected reaction to medication -You have excessive bleeding -You experience continued vomiting/nausea -Your incision begins to separate -Your incision shows signs of infection such as increased redness, swelling , excessive pain, drainage (light blood or clear fluid is normal) or heat Care Plan Goals: Return to baseline health and gradual return to normal activity following recovery period. Health Concerns: sacral decubitus ulcer, paraplegia, s/p diverting loop colostomy Plan of Treatment: Pain management Colostomy care Assessment: Doing well post op, colostomy functioning well.
[2021-11-07 15:11] VITALS: BP 141/75; PULSE 75; RESP 15; TEMP 37.2; O2SAT 95
[2021-11-07 19:21] VITALS: BP 153/74; PULSE 77; RESP 15; TEMP 37.2; O2SAT 97
[2021-11-08] VITALS: BP 160/79; PULSE 76; RESP 16; TEMP 36.8; O2SAT 98
[2021-11-08] MEDS: Gabapentin 600 MG TABLET PO ×4 (00:55→12:42)
[2021-11-08] MEDS: Zolpidem Tartrate 5 MG TABLET PO (00:55)
[2021-11-08 04:00] VITALS: BP 166/91; PULSE 83; RESP 16; TEMP 37; O2SAT 94
[2021-11-08 07:24] VITALS: BP 143/82; PULSE 78; RESP 18; TEMP 37; O2SAT 94
--- NOTE | 2021-11-08 07:40 | P.PNGS_ITS ---
Subjective Subjective Date of Service: 11/08/21 Interval history: Had difficulty sleeping, being did not help. Nerve pain is okay today. Passing lots of flatus and some liquid stool. Physical Exam Vital Signs: Vital Signs: Last Vital Signs Temp 98.6 F 11/08/21 07:24 Pulse 78 11/08/21 07:24 Resp 18 11/08/21 07:24 BP 143/82 H 11/08/21 07:24 Pulse Ox 94 11/08/21 07:24 O2 Del Method 11/08/21 07:24 O2 Flow Rate 2 11/03/21 07:29 BMI result Body Mass Index 23.0 Const: General: comfortable and no acute distress Nutritional Appearance: well nourished Orientation/consciousness: patient oriented x3 Limitations: wheelchair Resp: Effort & Inspection: normal respiratory effort, no cough, respiratory effort not decreased and no respiratory distress GI: Other: Ostomy pink and viable, back full of gas and stool. Trocar sites clean Inspection: Yes normal to inspection and No distended Palpation (GI): Soft to palpation, nontender, no guarding and not rigid Percussion: Yes normal to percussion Auscultation: normal bowel sounds Skin: General skin exam: no rashes or lesions noted Neuro: General: patient oriented x3 Objective Data Active Medications Diazepam (Diazepam 5 Mg Tablet) 10 mg PO BID [facility] Last Admin: 11/07/21 20:10 Dose: 10 mg Documented By: BREANNA Diazepam (Diazepam 5 Mg Tablet) 10 mg PO DAILY PRN PRN Reason: Insomnia Last Admin: 11/07/21 17:01 Dose: 10 mg Documented By: REGINALDO Gabapentin (Gabapentin 600 Mg Tablet) 600 mg PO Q4H [facility] Last Admin: 11/08/21 04:47 Dose: 600 mg Documented By: BREANNA Hydromorphone HCl (Hydromorphone Hcl 0.5 Mg/0.5 Ml Syringe) 0.5 mg IVPUSH Q3H PRN; Protocol PRN Reason: Pain, Severe (Pain Scale 7-10) Levofloxacin (Levofloxacin 500 Mg Tablet) 500 mg PO Q24H [facility] Last Admin: 11/07/21 10:38 Dose: 500 mg Documented By: REGINALDO Patient Own(Baclofen 20,000 Mcg/20ml (1, 000 Mcg/Ml) Solution ) 0 device INTRATHECA .COMPLEX GONZÁLEZ Ondansetron HCl (Ondansetron Hcl 4 Mg/2 Ml Vial) 4 mg IVPUSH QID PRN PRN Reason: Nausea Oxycodone HCl (Oxycodone Hcl Immed Release 5 Mg Tablet) 5 mg PO Q4H PRN PRN Reason: Pain, Moderate (Pain Scale 4-6 Pharmacy Consult (Consult Rx Perform Med Rec) 1 each MISCELLANE ONCE PRN PRN Reason: Consult order Psyllium Hydrophilic Mucilloid (Psyllium Seed 3.4 Gm Powd.Pack) 3.4 gm PO DAILY [facility] Last Admin: 11/07/21 08:48 Dose: 3.4 gm Documented By: REGINALDO Sodium Chloride (0.9 % Sodium Chloride Flush 3 Ml Syringe) 3 ml IVFLUSH QSHIFT [facility] Last Admin: 11/07/21 20:10 Dose: 3 ml Documented By: RAJNIILManfred Zolpidem Tartrate (Zolpidem Tartrate 5 Mg Tablet) 5 mg PO BEDTIME PRN PRN Reason: Insomnia Last Admin: 11/08/21 00:55 Dose: 5 mg Documented By: BREANNA Labs CBC & Chem 7: 11/07/21 07:25 11/07/21 07:25 Labs: Laboratory Results - last 24 hr 11/07/21 11/07/21 07:25 07:25 MCV 86.3 MCH 29.1 MCHC 33.8 RDW 14.5 Plt Count 241 MPV 9.6 Absolute Nucleated RBC 0.000 Nucleated RBC % (auto) 0.0 Anion Gap 14 Estim Creat Clear Calc 113.6 Estimated GFR > 60 Random Glucose 100 Calcium 8.7 Microbiology Microbiology Results: Microbiology 11/04/21 15:57 Urine Culture - Preliminary Urine Catheterized - Daniels Catheter Enterococcus faecalis Gram negative karine Procedures Date of Service Date of Service: 11/08/21 Progress Note: A&P Assessment and plan (1) Colostomy in place: Status: Acute (2) Chronic constipation: Status: Acute (3) Sacral decubitus ulcer: Status: Acute Plan Patient doing well, tolerating regular diet. Ostomy is functioning properly. Wounds are clean and intact. Patient is ready for discharge to home. Will need visiting nurses to assist with transition to home, ostomy care. Plan follow-up in 1 week in office. Time Spent With Patient Time: Total time spent is greater than 50% in coordination of care (as documented) at patient's floor/unit and/or counseling patient: Quality Stroke Does the patient have a stroke diagnosis?: No VTE Prior VTE?: No VTE Risk Level:: Surgical - moderate VTE Device Contraindication: N/A - Device Ordered VTE Drug Contraindication: Treatment Not Indicated
--- NOTE | 2021-11-08 07:48 | W.MHC.F2F ---
Service Date Service Date: 11/08/21 Encounter Date of encounter: 11/08/21 Encounter: In-hospital examination Reasons for Services Signs and symptoms assessed: Vital signs reviewed, abdominal exam an ostomy output reviewed. Reason for fpc: wound care, postoperative assessment and/or care and other (Daniels catheter chronically indwelling) Reason for physical therapy: home safety and mobility, therapeutic exercises and gait/transfer training Overseeing Care: Riley Serrano Homebound: Leaving the home is medically contraindicated at this time without the asist of a device and/or another person due th the listed conditions above and below. Reason homebound: unsteady gait / fall risk, bedbound/chairbound and weakness related to hospital stay Homebound supporting statement: Status post transverse colostomy to assist with wound healing, sacral decubitus. Certification: Based on the above findings, I certify that this patient is confined to the home and needs intermittent fpc care, physical therapy and/or speech therapy, or continues to need occupational therapy. The patient is under my care, and I have initiated the establishment of the plan of care. The patient will be followed by a physician who will periodically review the plan of care.
--- NOTE | 2021-11-08 08:14 | P.CDIC_ITS ---
CDI Concurrent Query Documentation Clarification: PHYSICIAN'S DOCUMENTATION REQUEST Date of Query: 11/08/2114 Patient Name: Timothy Keating Admit Date: 11/02/21 Dear Doctor, A review of the medical record indicates additional documentation may be indicated. Please review below and update the documentation accordingly. Clinical Indicators: Is there a diagnosis that correlates with the findings below: Risk Factors/Clinical Indicators/Treatments Per provider note: Patient with rivera catheter chronically indwelling Catheter Urine Culture on 11/04 (+) for: -enterococcus faecalis -gram negative rods LABS on 11/03: WBC - 15.7 Please provide further specificity regarding the site, etiology, acuity, and known or suspected organism: * Device associated UTI (i.e. indwelling catheter, etc.) * UTI (please specify organism if known) * Other (please specify) * Unable to determine site Use of terms such as suspected, likely, concern for, or probable (associated with a specific diagnosis that is being evaluated, monitored, or treated as if it exists) are acceptable and can be coded in the inpatient setting, when documented at the time of discharge. Thank you, Martha Mccormick MS, RN, CCRN Extension: [phone] Please use your independent medical judgment in providing your response. THIS QUERY IS PART OF THE PERMANENT MEDICAL RECORD Provider Response: Other Other Diagnosis: Chronic UTI due to chronic indwelling catheter, changed weekly.
[2021-11-08] MEDS: diazePAM 5 MG TABLET 10 MG PO (08:58)
[2021-11-08] MEDS: 0.9 % Sodium Chloride Flush 3 ML SYRINGE IVFLUSH (08:58)
--- NOTE | 2021-11-08 09:18 | MHC.CM.PN ---
IMM DELIVERED 11/08 ,PT MEDICALLY CLEARED FOR DC HOME TODAY, [facility] NOTIFIED OF DC, OSTOMY SUPPLIES TO BE SENT HOME WITH PT, NURSE AWARE. WILL TRANSPORT HOME
[2021-11-08] MEDS: levoFLOXacin 500 MG TABLET PO (10:59)
[2021-11-08 11:08] VITALS: BP 137/85; PULSE 95; RESP 18; TEMP 36.9; O2SAT 95
== END 2021-11-08 14:19 | disposition home health service (06) | DRG 982 ==
LOC: HO.SSSA 07:20 → HO.S3 13:26
PROVIDERS: Nurse Practitioner; Admitting Provider Surgery; PCP Family Medicine; Visit Provider Surgery
PROC: 0D1L4Z4 Bypass Transverse Colon to Cutaneous, Percutaneous Endoscopic Approach (ICD-10-PCS; principal; 2021-11-02 09:50)
DX: L89.152 Pressure ulcer of sacral region, stage 2 (principal); G82.20 Paraplegia, unspecified; N39.0 Urinary tract infection, site not specified; T83.518A Infection and inflammatory reaction due to other urinary catheter, initial encounter; B95.2 Enterococcus as the cause of diseases classified elsewhere; K59.09 Other constipation; S24.102S Unspecified injury at T2-T6 level of thoracic spinal cord, sequela; G89.0 Central pain syndrome; Z20.822 Contact with and (suspected) exposure to COVID-19; Z79.2 Long term (current) use of antibiotics; Z79.899 Other long term (current) drug therapy
CPT/HCPCS: 36415; 80048; 85025; 85027; 86850; 86900; 86901; 87086; 87088; 87186; 87635; 97162; C1758; J0131; J1100; J1170; J2250; J2405; J2795; J3010

== ENCOUNTER → 2021-12-01 14:01 | Outpatient (RCR) | payer OTHER, SELFPAY ==
[2020-11-24 12:46] LABS: MANUAL DIFF FLAG NO
[2020-11-24 13:14] LABS: Basophils Absolute Auto 0.1 X10*3/uL (0.0-0.2); Basophils Percent Auto 0.4 % (0-2); Eosinophils Absolute Auto 0.1 X10*3/uL (0.0-0.4); Eosinophils Percent Auto 0.8 % (0-4); Hematocrit 36.8 % (42-52); Hemoglobin 12.1 g/dl (14.0-18.0); Imm Gran Pct Auto 0.7 % (0.0-0.4); Lymphocytes Absolute Auto 1.8 X10*3/uL (1.2-4.9); Lymphocytes Percent Auto 13.3 % (20-40); Mean Corpuscular HGB Conc 32.9 g/dl (31.0-36.0); Mean Corpuscular Hemoglobin 29.9 pg (27.0-33.0); Mean Corpuscular Volume 90.9 fL (80-98); Mean Platelet Volume 9.6 fL (9.4-12.4); Monocytes Absolute Auto 1.4 X10*3/uL (0.1-1.2); Monocytes Percent Auto 10.4 % (2-11); Neutrophils Percent Auto 74.4 % (45-73); Platelet Count 302 X10*3/uL (160-400); Red Blood Count 4.05 X10*6/uL (4.60-5.80); Red Cell Distribution Width 13.8 % (11.0-16.0); White Blood Count 13.4 X10*3/uL (4.8-10.8)
[2020-11-24 13:22] LABS: Estimated Average Glucose 100 mg/dL; Hemoglobin A1c % 5.1 %
[2020-11-24 13:40] LABS: Anion Gap 10 (12-20); Blood Urea Nitrogen 15 mg/dL (9-16); C Reactive Protein 2.86 mg/dL (< or = 0.50); Calcium 9.5 mg/dL (8.4-10.2); Carbon Dioxide 29 mmol/L (22-29); Chloride 101 mmol/L (96-108); Estimated Glomerular Filt Rate > 60; Glucose Random 90 mg/dL (60-115); Potassium 4.3 mmol/L (3.3-5.1); Sodium 136 mmol/L (135-145)
[2020-11-24 13:55] LABS: Erythrocyte Sedimentation Rate 42 MM/HR (0-15)
--- NOTE | ~2021-12-01 | XR_ITS ---
EXAMINATION: XR SACRUM AND COCCYX CLINICAL INFORMATION: Chronic sacral bone. COMPARISON: None TECHNIQUE: 2 views of the sacrum and 2 views of the coccyx were obtained. FINDINGS: The SI joints are symmetrical with mild sclerosis of the right SI joint.. Large calcified stone is seen in the right bladder. No bony erosive changes seen involving the sacrum is a large hypertrophied bone overlying the right iliac bone likely hypertrophic bony changes. XR/XR sacrum coccyx min 2V IMPRESSION: Mild sacroiliitis right SI joint. Hypertrophic bone overlying the right iliac bone and the hip joint.
== END | disposition home or self-care (01) ==
LOC: HO.WCC 11-22 12:26
PROVIDERS: Absent Provider Physical Medicine & Rehabilitation; PCP Family Medicine; Visit Provider Physician Assistant
DX: L89.153 Pressure ulcer of sacral region, stage 3 (principal); G82.21 Paraplegia, complete; E44.1 Mild protein-calorie malnutrition; N18.30 Chronic kidney disease, stage 3 unspecified; F12.90 Cannabis use, unspecified, uncomplicated; F17.200 Nicotine dependence, unspecified, uncomplicated; Z93.2 Ileostomy status; Z86.19 Personal history of other infectious and parasitic diseases
CPT/HCPCS: 11042; 15271; 36415; 72220; 80048; 83036; 84134; 85025; 85652; 86140; 97597; 99212; 99213; Q4187

== ENCOUNTER 2022-09-17 16:27 | Emergency (ER) | payer OTHER, SELFPAY ==
--- NOTE | 2022-09-17 | ECG_ITS ---
Test Reason : chest pain Blood Pressure : / mmHG Vent. Rate : 082 BPM Atrial Rate : 082 BPM P-R Int : 142 ms QRS Dur : 084 ms QT Int : 346 ms P-R-T Axes : 054 032 043 degrees QTc Int : 404 ms Normal sinus rhythm Low voltage QRS Borderline ECG When compared with ECG of 02-OCT-2020 02:33, No significant change was found Referred By: Jordan Beebe Electronically Signed By:GHISLAINE ROBERSON MD
--- NOTE | ~2022-09-17 | XR_ITS ---
EXAMINATION: XR CHEST CLINICAL INFORMATION: Shortness of breath. COMPARISON: CTA chest 06/20/2009. Chest radiograph 06/20/2009. TECHNIQUE: Frontal view of the chest was obtained. FINDINGS: No significant cardiomediastinal contour abnormality. Increased asymmetric elevation of the left hemidiaphragm. Increase mild diffuse interstitial prominence as well as bibasilar streaky opacities. No pleural effusion or pneumothorax. Chronic right-sided rib deformities with associated pleural-based thickening. Chronic left-sided anterior first and second rib deformities. Redemonstration of extensive thoracic hardware. XR/XR chest 1V IMPRESSION: 1. Findings are most suggestive of small airways disease or atypical/viral infection with bibasilar subsegmental atelectasis versus less likely early bibasilar infiltrates. 2. Nonspecific asymmetric elevation of the left hemidiaphragm.
[2022-09-17 16:36] VITALS: BP 108/72; BP 126/82; PULSE 101; PULSE 98; RESP 18; O2SAT 92; O2SAT 98; BMI 23.8
--- NOTE | 2022-09-17 16:36 | ED_ITS ---
HPI - General Adult General Chief complaint: General Medical Stated complaint: ABD PAIN NAUSEA VOMITING Time Seen by Provider: 09/17/22 16:36 Source: patient, EMS and old records reviewed Mode of arrival: EMS Limitations: no limitations History of Present Illness HPI narrative: Patient is a 72 year old assigned male at with a history of paraplegia, colostomy in place, and urinary catheter in place presenting to the emergency department today with nausea, vomiting, and lower abdominal pain. Patient states that over the last 2 days he has had nausea, vomiting, and lower abdominal pain. Patient denies any dizziness, lightheadedness, fever, chills, blurry vision, double vision, loss of vision, chest pain, difficulty breathing, shortness of breath, back pain, night sweats, pain with urination, increased urinary frequency, increased urinary urgency, blood in his urine or stool, syncope or a near syncopal episode, recent trauma or falls, bowel incontinence, bladder incontinence, bowel retention, bladder retention, or any other complaints at this time. Onset (ago): day(s) (2) Location: abdomen Radiation: non-radiation Severity: mild Severity scale (1-10): 3 Quality: aching and dull Pain Consistency: constant Relieving factors: none Exacerbating factors: none Associated symptoms: nausea/vomiting Treatments prior to arrival: none Related Data Home Medications Medication Instructions Recorded Confirmed diazepam 10 mg tablet 10 mg PO BID 10/02/20 11/21/21 gabapentin 600 mg tablet 600 mg PO Q4H 10/02/20 11/21/21 baclofen 20,000 mcg/20 mL (1,000 See Rx Instructions .Route .COMPLEX 11/02/21 11/21/21 mcg/mL) intrathecal solution diazepam 10 mg tablet 1 tab PO DAILY PRN Insomnia 11/02/21 11/21/21 Previous Rx's Medication Instructions Recorded levofloxacin 500 mg tablet 500 mg PO Q24H #10 tabs 11/08/21 oxycodone 5 mg tablet 5 mg PO Q4H PRN Pain, Moderate 11/08/21 (Pain Scale 4-6 #15 tabs levofloxacin 750 mg tablet 750 mg PO DAILY #7 tabs 09/17/22 Allergies Allergy/AdvReac Type Severity Reaction Status Date / Time No Known Allergies Allergy Mild NOT Verified 09/17/22 16:36 APPLICABLE Review of Systems Constitutional: Constitutional: Reports no additional constitutional complaints, Denies chills, Denies fever(s) and Denies night sweats Eyes: Eyes: Reports no additional eye complaints, Denies blurry vision, Denies change in vision, Denies diplopia, Denies eye discharge, Denies loss of vision and Denies eye pain ENT: Denies dizziness Cardiovascular: Cardiovascular: Reports no additional cardiovascular complaints, Denies chest pain, Denies lightheadedness, Denies Loss of Consciousness and Denies dyspnea Respiratory: Respiratory: Reports no additional respiratory complaints and Denies dyspnea Gastrointestinal: Gastrointestinal: Reports no additional gastrointestinal complaints, Reports abdominal pain, Denies melena, Denies hematochezia, Denies change in bowel habits, Denies change in stool character, Reports nausea and Reports vomiting Genitourinary: Genitourinary: Reports no additional male genitourinary complaints, Denies hematuria, Denies oliguria, Denies difficulty urinating, Denies dysuria, Denies urinary frequency, Denies urinary hesitancy, Denies urinary incontinence and Denies urinary urgency Musculoskeletal: Musculoskeletal: Reports no additional musculoskeletal complaints, Denies numbness and Denies tingling Neurologic: Denies dizziness, Denies loss of vision, Denies numbness and Denies tingling Psychiatric: Psychiatric: Reports no additional psychiatric complaints Endocrine: Endocrine: Reports no additional endocrine complaints Hematologic/Lymphatic: Hematologic/Lymphatic: Reports no additional hematologic/lymphatic complaints Allergic/Immunologic: Allergic/Immunologic: Reports no additional allergic/immunologic complaints [facility] Past Medical History Attestation statement: The following information was validated with the patient. Source: old records reviewed and nursing notes reviewed Medical History Acute hyponatremia Central pain syndrome Chronic pain syndrome Paraplegia T5 spinal cord injury Surgical History History of creation of ostomy (11/02/21) Social History Social History Household Members: Spouse Housing: House Do you presently have visiting nurse or other home services: Yes Alcohol intake: never Patient Tobacco Use Status: Never used Tobacco Smoked in Last 30 Days: No Use of substances other than those prescribed or required for medical reasons: No Substance Use Type: Marijuana Advance Directives: No Advance Directives Information Provided: No service: No Current occupational status: retired Physical Exam ED Vital Signs: Vital Signs - 24 hr 09/17/22 16:36 09/17/22 19:05 Pulse Rate 101 H 77 Respiratory Rate 18 16 Blood Pressure 108/72 132/85 Pulse Oximetry 92 99 Oxygen Delivery Method Room Air Nasal Cannula Oxygen Flow Rate 3 BMI result Body Mass Index 23.8 Const General: cooperative, no acute distress, alert and awake Nutritional Appearance: well nourished Orientation/consciousness: patient oriented x3 Limitations: no limitations HENMT Head: Yes normal to inspection and Yes atraumatic Ears: hearing grossly normal bilaterally and external ears normal General nose exam: Normal external nose present, no nasal discharge noted and no epistaxis Face and sinus: Yes normal facial exam, No abrasion and No laceration Mouth: Normal oral and palatal mucosa present, no drooling and no muffled voice Eyes General: appearance normal, both eyes and all related structures Periorbital: periorbital findings normal Eyelids: Yes eyelids normal Conjunctivae: conjunctivae normal Pupils: Equal, round and reactive pupils present EOM: EOMs intact bilaterally Neck Neck: Yes normal visual inspection, Yes full ROM and Yes no lymphadenopathy Chest Chest palpation & inspection: normal inspection of the chest Resp Effort & Inspection: normal respiratory effort and able to speak in complete sentences Auscultation: clear to auscultation bilaterally Cardio Rate: regular rate Rhythm: regular rhythm GI Other: colostomy in place - working appropriately Palpation (GI): Soft to palpation, not firm, nontender and no guarding Other: rivera catheter in place - draining appropriately Neuro Other: patient is paraplegic General: patient oriented x3 Cranial nerves: Yes Equal, round and reactive pupils present Cognition (Neuro): normal cognition Coordination: [id number] test normal Extrem General: Yes normal to inspection and Yes capillary refill normal Psych Appearance: grossly normal Mental Status: mental status grossly normal Affect: normal affect Attitude: cooperative Thought process: Normal thought process present Thought content: Normal thought content present Insight: Good insight present (Psych) Medications Administered Discontinued Medications Generic Name Dose Route Start Last Admin Trade Name Freq PRN Reason Stop Dose Admin Sodium Chloride 1,000 mls @ 999 mls/hr 09/17/22 18:30 09/17/22 19:03 Ns IV 09/17/22 19:30 999 mls/hr .Q1H1M GONZÁLEZ Administration Levofloxacin 750 mg 09/17/22 18:40 09/17/22 19:03 Levofloxacin 750 Mg Tablet PO 09/17/22 18:41 750 mg ONCE ONE Administration Medical Decision Making Medical Decision Making [facility] Narrative: Patient is a 72 year old assigned male at with a history of paraplegia, colostomy in place, and rivera catheter in place presenting to the emergency department today with lower abdominal pain, nausea, and vomiting. Patient's physical exam was as noted in the physical exam portion of this chart. Patient's blood work was showed a WBC count of 12 which is chronic for the patient and a sodium of 131. The rest of the patient's lab results are grossly normal. Patient's urine showed a possible urinary tract infection. Given the patient's symptoms, will treat it. When reviewing the patient's previous urine cultures, the grown bacteria are only susceptible to one out patient antibiotic and that is levaquin. Patient's EKG was unremarkable. Patient's chest x-ray showed no acute process. I explained my physical exam findings as well as all test results to the patient. I answered all questions asked by the patient. Patient received a liter of fluids while in the department. I stressed the importance of the patient taking his medication as prescribed. I stressed the importance of the patient following up with his primary care provider. I stressed the importance of the patient returning to the emergency department immediately if his symptoms were to worsen or if he were to develop any dizziness, shortness of breath, difficulty breathing, chest pain, blurry vision, loss of vision, nausea, vomiting, abdominal pain, fever, chills, back pain, or any other complaints. Patient verbalized agreement and understanding with this treatment plan and discharge. Differential Diagnosis Differential Diagnoses: The differential diagnosis associated with the presentation includes Abdominal pain Nausea Vomiting Urinary tract infection Admission/Observation Consideration of admission/observation: Escalation of care including admission/observation considered Patient would have been admitted to the hospital had his work up had any finding s where hospital admission was appropriate and his clinical presentation warranted hospital admission. Lab Data [facility] Lab Attestation statement: I reviewed the patient's lab results. My interpretation of the patient's lab results are in the MDM portion of this note. 09/17/22 17:26 09/17/22 17:26 Labs: Lab Results 09/17/22 09/17/22 09/17/22 Range/Units 17:26 17:26 17:26 WBC 12.0 H (4.8-10.8) X10*3/uL RBC 4.15 L (4.60-5.80) X10*6/uL Hgb 12.1 L (14.0-18.0) g/dl Hct 36.0 L (42.0-52.0) % MCV 86.7 (80.0-98.0) fL MCH 29.2 (27.0-33.0) pg MCHC 33.6 (31.0-36.0) g/dl RDW 14.6 (11.0-16.0) % Plt Count 294 (160-400) X10*3/uL MPV 9.3 L (9.4-12.4) fL Immature Gran % (Auto) 1.8 H (0.0-0.4) % Neut % (Auto) 73.5 H (45-73) % Lymph % (Auto) 11.9 L (20-40) % Long % (Auto) 10.7 (2-11) % Eos % (Auto) 1.3 (0-4) % Baso % (Auto) 0.8 (0-2) % Lymph # (Auto) 1.4 (1.2-4.9) X10*3/uL Long # (Auto) 1.3 H (0.1-1.2) X10*3/uL Eos # (Auto) 0.2 (0.0-0.4) X10*3/uL Baso # (Auto) 0.1 (0.0-0.2) X10*3/uL Abs Immat Gran (auto) 0.21 H (0.00-0.03) X10*3/uL Absolute Neuts (auto) 8.8 H (2.0-8.3) x10*3/uL Absolute Nucleated RBC 0.000 (0.0-0.012) X10*3/uL Nucleated RBC % (auto) 0.0 (0.0-0.2) /100WBC Sodium 131 L (135-145) mmol/L Potassium 4.1 (3.3-5.1) mmol/L Chloride 100 (96-108) mmol/L Carbon Dioxide 22 (22-29) mmol/L Anion Gap 13 (12-20) BUN 15 (9-16) mg/dL Creatinine 0.70 (0.5-1.4) mg/dL Estim Creat Clear Calc 103.0 Estimated GFR > 60 Random Glucose 108 (60-115) mg/dL Calcium 9.8 D (8.4-10.2) mg/dL Total Bilirubin 0.4 (0.0-1.0) mg/dL AST 14 (5-37) U/L ALT 12 (0-40) U/L Alkaline Phosphatase 94 (39-117) U/L Troponin I High Sens < 2.7 (<3.5-35.0) ng/L Total Protein 7.4 (6.5-8.0) g/dL Albumin 3.8 (3.5-5.0) g/dL Urine Color Urine Appearance Urine pH (5.0-9.0) Ur Specific [place] (1.005-1.025) Urine Protein (Neg-Trace) mg/dL Urine Glucose (UA) (Negative) mg/dL Urine Ketones (Negative) mg/dL Urine Blood (Negative) Urine Nitrite (Negative) Ur Leukocyte Esterase (Negative) Urine RBC (0-2) /HPF Urine WBC (0-5) /HPF Ur Squamous Epith Cells (0-2) /HPF Urine Bacteria (None Seen) Hyaline Casts (0-2) /LPF COVID-19 (NIKUNJ) (Negative) COVID-19 Clin Com Influenza Type A (ANTONIETA) (Negative) Influenza Type B (ANTONIETA) (Negative) Influenza A & B Note 09/17/22 09/17/22 09/17/22 Range/Units 17:26 17:26 17:28 WBC (4.8-10.8) X10*3/uL RBC (4.60-5.80) X10*6/uL Hgb (14.0-18.0) g/dl Hct (42.0-52.0) % MCV (80.0-98.0) fL MCH (27.0-33.0) pg MCHC (31.0-36.0) g/dl RDW (11.0-16.0) % Plt Count (160-400) X10*3/uL MPV (9.4-12.4) fL Immature Gran % (Auto) (0.0-0.4) % Neut % (Auto) (45-73) % Lymph % (Auto) (20-40) % Long % (Auto) (2-11) % Eos % (Auto) (0-4) % Baso % (Auto) (0-2) % Lymph # (Auto) (1.2-4.9) X10*3/uL Long # (Auto) (0.1-1.2) X10*3/uL Eos # (Auto) (0.0-0.4) X10*3/uL Baso # (Auto) (0.0-0.2) X10*3/uL Abs Immat Gran (auto) (0.00-0.03) X10*3/uL Absolute Neuts (auto) (2.0-8.3) x10*3/uL Absolute Nucleated RBC (0.0-0.012) X10*3/uL Nucleated RBC % (auto) (0.0-0.2) /100WBC Sodium (135-145) mmol/L Potassium (3.3-5.1) mmol/L Chloride (96-108) mmol/L Carbon Dioxide (22-29) mmol/L Anion Gap (12-20) BUN (9-16) mg/dL Creatinine (0.5-1.4) mg/dL Estim Creat Clear Calc Estimated GFR Random Glucose (60-115) mg/dL Calcium (8.4-10.2) mg/dL Total Bilirubin (0.0-1.0) mg/dL AST (5-37) U/L ALT (0-40) U/L Alkaline Phosphatase (39-117) U/L Troponin I High Sens (<3.5-35.0) ng/L Total Protein (6.5-8.0) g/dL Albumin (3.5-5.0) g/dL Urine Color Yellow Urine Appearance Cloudy Urine pH 7.0 (5.0-9.0) Ur Specific [place] 1.015 (1.005-1.025) Urine Protein Negative (Neg-Trace) mg/dL Urine Glucose (UA) Negative (Negative) mg/dL Urine Ketones Trace (Negative) mg/dL Urine Blood Small (1+) H (Negative) Urine Nitrite Negative (Negative) Ur Leukocyte Esterase Large (3+) H (Negative) Urine RBC 6-10 H (0-2) /HPF Urine WBC >50 H (0-5) /HPF Ur Squamous Epith Cells 0-2 (0-2) /HPF Urine Bacteria 4+ (None Seen) Hyaline Casts 0-2 (0-2) /LPF COVID-19 (NIKUNJ) Negative (Negative) COVID-19 Clin Com See Note Influenza Type A (ANTONIETA) Negative (Negative) Influenza Type B (ANTONIETA) Negative (Negative) Influenza A & B Note See Note Independent Interpretation I performed an independent interpretation of an: EKG and Plain X-Ray Interpretation: My interpretation is in agreement with the radiologist's impression of this imaging study. EXAMINATION: XR CHEST CLINICAL INFORMATION: Shortness of breath. COMPARISON: CTA chest 06/20/2009. Chest radiograph 06/20/2009. TECHNIQUE: Frontal view of the chest was obtained. FINDINGS: No significant cardiomediastinal contour abnormality. Increased asymmetric elevation of the left hemidiaphragm. Increase mild diffuse interstitial prominence as well as bibasilar streaky opacities. No pleural effusion or pneumothorax. Chronic right-sided rib deformities with associated pleural-based thickening. Chronic left-sided anterior first and second rib deformities. Redemonstration of extensive thoracic hardware. XR/XR chest 1V IMPRESSION: 1.? Findings are most suggestive of small airways disease or atypical/viral infection with bibasilar subsegmental atelectasis versus less likely early bibasilar infiltrates. 2.? Nonspecific asymmetric elevation of the left hemidiaphragm. Dictated By: Theodora Crow Signed By: Electronically signed by Theodora Crow 09/17/22 3652 --- Vent. Rate: 082 BPM ? ? Atrial Rate: 082 BPM P-R Int: 142 ms? QRS Dur: 084 ms QT Int: 346 ms ? ? ? P-R-T Axes: 054 032 043 degrees QTc Int: 404 ms ? Normal sinus rhythm Low voltage QRS Borderline ECG When compared with ECG of 02-OCT-2020 02:33, No significant change was found ? DD/ [id number] Radiology Impression Discussion of test interpretation with radiology: I have reviewed the radiologist's reading. Independent Historian Clinical information obtained from an independent historian. History obtained from or confirmed by: EMS (EMS provided additional history and confirmed the history provided by the patient.) External Record Review External record reviewed: Other (previous lab results and ED records reviewed) Prescription Management I considered prescription management with: Antibiotic (patient prescribed levaquin as noted in the MDM portion of this note) Chronic Conditions Patient?s care impacted by: Other (paraplegia, chronic rivera catheter, chronic colostomy ) Discharge Plan Discharge Clinical Impression: Urinary tract infection, Acute hyponatremia Patient Disposition: Home, Self-Care Instructions: Urinary Tract Infection in Men (DC), Hyponatremia (ED) Additional Instructions: Follow up with your primary care provider. Return to the emergency department immediately if your symptoms worsen or if you develop any dizziness, shortness of breath, difficulty breathing, chest pain, blurry vision, loss of vision, nausea, vomiting, abdominal pain, fever, chills, back pain, or any other complaints. Prescriptions: New levofloxacin 750 mg tablet 750 mg PO DAILY Qty: 7 0RF No Action gabapentin 600 mg Tablet 600 mg PO Q4H diazepam 10 mg Tablet 10 mg PO BID diazepam 10 mg tablet 1 tab PO DAILY PRN (Reason: Insomnia) baclofen 20,000 mcg/20mL (1,000 mcg/mL) Solution See Rx Instructions .ROUTE .COMPLEX Rx Instructions: patient has a pump levofloxacin 500 mg Tablet 500 mg PO Q24H Qty: 10 0RF oxycodone 5 mg Tablet 5 mg PO Q4H PRN (Reason: Pain, Moderate (Pain Scale 4-6) Qty: 15 0RF Rx Instructions: Partial Fill upon patient request. Referrals: Christina Lovell NP [Primary Care Provider] - Interventions: ED Discharge Assessment Last Done: 09/17/22 21:13 Discharge Date/Time: 09/17/22 21:13 Print Language: Angolan
--- NOTE | 2022-09-17 17:12 | PC.NURSE ---
pt a&ox3, vss, nsr on the diagnostic cardiac sonographer. ekg performed, documented and given to provider. 20gIV placed in the right AC w/o complications. tech currently drawing labs - will send when completed.
[2022-09-17 17:39] LABS: MANUAL DIFF FLAG NO
[2022-09-17 17:44] LABS: Basophils Absolute Auto 0.1 X10*3/uL (0.0-0.2); Basophils Percent Auto 0.8 % (0-2); Eosinophils Absolute Auto 0.2 X10*3/uL (0.0-0.4); Eosinophils Percent Auto 1.3 % (0-4); Hemoglobin 12.1 g/dl (14.0-18.0); Imm Gran Abs Auto 0.21 X10*3/uL (0.00-0.03); Imm Gran Pct Auto 1.8 % (0.0-0.4); Lymphocytes Absolute Auto 1.4 X10*3/uL (1.2-4.9); Lymphocytes Percent Auto 11.9 % (20-40); Mean Corpuscular HGB Conc 33.6 g/dl (31.0-36.0); Mean Corpuscular Hemoglobin 29.2 pg (27.0-33.0); Mean Corpuscular Volume 86.7 fL (80.0-98.0); Mean Platelet Volume 9.3 fL (9.4-12.4); Monocytes Absolute Auto 1.3 X10*3/uL (0.1-1.2); Monocytes Percent Auto 10.7 % (2-11); Neutrophils Absolute Auto 8.8 x10*3/uL (2.0-8.3); Neutrophils Percent Auto 73.5 % (45-73); Platelet Count 294 X10*3/uL (160-400); Red Blood Count 4.15 X10*6/uL (4.60-5.80); Red Cell Distribution Width 14.6 % (11.0-16.0)
[2022-09-17 17:46] LABS: Appearance Urine Cloudy; Color Urine Yellow; Glucose Urine UA Negative (Negative); Leukocyte Esterase Urine Large (3+) (Negative); Nitrite Urine Negative (Negative); Specific Gravity - Urine 1.015 (1.005-1.025); UMIC TRIGGER UACC YES; Urine Blood Small (1+) (Negative); Urine Ketones Trace mg/dL (Negative); Urine Protein Negative (Neg-Trace)
[2022-09-17 17:52] LABS: Bacteria Urine 4+ (None Seen); Hyaline Casts Urine 0-2 /LPF (0-2); Squamous Epithelial Cell Urine 0-2 /HPF (0-2); UACC Culture Trigger YES; WBC Urine >50 /HPF (0-5)
[2022-09-17 17:53] LABS: COVID-19 Test Negative (Negative); IDNOW Serial# 08D9AD1C
[2022-09-17 17:59] LABS: IDNOW Serial# BCCEAD1C; Influenza A Negative (Negative); Influenza B2 Negative (Negative)
[2022-09-17 18:00] LABS: Alanine Aminotransferase 12 U/L (0-40); Albumin Level 3.8 g/dL (3.5-5.0); Alkaline Phosphatase 94 U/L (39-117); Anion Gap 13 (12-20); Aspartate Amino Transferase 14 U/L (5-37); Bilirubin Total 0.4 mg/dL (0.0-1.0); Blood Urea Nitrogen 15 mg/dL (9-16); Calcium 9.8 mg/dL (8.4-10.2); Carbon Dioxide 22 mmol/L (22-29); Chloride 100 mmol/L (96-108); Estimated Glomerular Filt Rate > 60; Glucose Random 108 mg/dL (60-115); Potassium 4.1 mmol/L (3.3-5.1); Sodium 131 mmol/L (135-145); Total Protein 7.4 g/dL (6.5-8.0)
[2022-09-17 18:18] LABS: Troponin-I High Sensitivity < 2.7 ng/L (<3.5-35.0)
[2022-09-17] MEDS: levoFLOXacin 750 MG TABLET PO (19:03)
[2022-09-17] MEDS: 0.9 % Sodium Chloride 1,000 ML 999 ML IV (19:03)
--- NOTE | 2022-09-17 19:04 | PC.NURSE ---
medications administered per provider order.
[2022-09-17 19:05] VITALS: BP 132/85; PULSE 77; RESP 16; O2SAT 99
== END 2022-09-17 21:13 | disposition home or self-care (01) ==
PROVIDERS: Physician Assistant Medical; Emergency Provider Internal Medicine; PCP Nurse Practitioner Family
DX: N39.0 Urinary tract infection, site not specified (principal); E87.1 Hypo-osmolality and hyponatremia; R07.89 Other chest pain; Z20.822 Contact with and (suspected) exposure to COVID-19; Z20.828 Contact with and (suspected) exposure to other viral communicable diseases; Z79.899 Other long term (current) drug therapy
CPT/HCPCS: 36415; 71045; 80053; 81001; 84484; 85025; 87086; 87502; 87635; 93005; 96360; 99285

== ENCOUNTER → 2022-09-17 16:56 | Outpatient (BNV) | payer OTHER, SELFPAY | PROVIDERS: Emergency Provider Internal Medicine; PCP Nurse Practitioner Family; Visit Provider Internal Medicine Cardiovascular Disease | DX: R07.9 Chest pain, unspecified (principal) | CPT/HCPCS: 93010 ==

== ENCOUNTER 2022-10-10 08:23 | Emergency (ER) | payer OTHER, MEDICARE, SELFPAY ==
--- NOTE | ~2022-10-10 | CT_ITS ---
EXAMINATION: CT ABDOMEN AND PELVIS WITH CONTRAST CLINICAL INFORMATION: Abdominal pain, nausea and vomiting. History of paraplegia. COMPARISON: 06/20/2018 TECHNIQUE: Multidetector volumetric images were obtained from the superior aspect of the liver through the pubic symphysis following administration 85 mL of Omnipaque 350 intravenous contrast. Sagittal and coronal reformatted images were obtained on the technologist's workstation. This CT examination was performed using dose optimization techniques as appropriate, variously including the following: *Automated exposure control *Adjustment of mA and/or kV according to patient size (this includes techniques or standardized protocols for targeted exams where dose is matched to indication/reason for exam; i.e. extremities or head) *Use of iterative reconstruction technique DLP: 504 mGy-cm FINDINGS: LUNG BASES: Chronic findings include old curvilinear opacity of scarring in the right lower lobe. No pulmonary consolidation or pleural effusion. HEPATOBILIARY: Liver has normal size and contour. No evidence of liver mass or abscess. Cholecystectomy. No dilated bile ducts. PANCREAS: Normal. No edema, pancreatic ductal dilatation or mass. SPLEEN: Normal. ADRENAL GLANDS: Normal. KIDNEYS AND URETERS: The kidneys have normal size and cortical thickness. No perinephric edema or fluid collection. No urolithiasis or hydroureteronephrosis. BLADDER: Daniels catheter within the bladder. The bladder wall is chronically thickened. Increased size of a stone within the bladder; this stone measures up to 4 cm AP diameter. BOWEL, PERITONEUM AND ABDOMINAL WALL: Moderate hiatal hernia. Although there appears to be thickened mucosa within the hernia, the stomach is underdistended and pseudothickening of the wall from lack of distention is possible. A prominent paraesophageal lymph node in the lower posterior mediastinum is 1.1 cm in short axis dimension. No dilated bowel loops. No evidence of edematous wall thickening of small or large bowel. There is a diverting colostomy of the abdominal wall. No abdominal free fluid or free air. VASCULATURE: Atherosclerotic calcification of the abdominal aorta without aortic aneurysm. 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 Inferior vena cava filter in place. One of the arms of the IVC filter has chronically penetrated into/through the wall of the abdominal aorta. LYMPH NODES: Prominent lymph nodes are seen in the region of the gastrohepatic ligament, largest 1.2 cm in short axis dimension. No retroperitoneal, iliac or inguinal lymphadenopathy. PELVIC VISCERA: Prostate gland is chronically enlarged. No pelvic free fluid. MUSCULOSKELETAL: Thoracic spine fusion hardware is partially included in [id number]. Chronic severe multilevel degenerative disc disease of the lumbar spine. Chronic foci of calcification or ossification are present within the left multifidus muscle of the lumbar spine. Chronic degenerative arthropathy of sacroiliac joints. There appear to be old healed decubitus ulcers overlying regions of femoral greater trochanters. Findings include chronic dystrophic calcification lateral to left greater trochanter and heterotopic ossification around right hip region. Neurostimulator wire enters the lumbar spinal canal at L1-L2 and ascends into the thoracic canal. CT/CT abdomen pelvis w IV con IMPRESSION: * Compared to 06/20/2018, interval development of lymphadenopathy in the visualized lower posterior mediastinum and along the gastrohepatic ligament. * Moderate hiatal hernia. Given presence of lymphadenopathy in the region, consider correlation with upper endoscopy to exclude proximal gastric carcinoma in this patient with abdominal pain, nausea and vomiting. * No evidence of bowel obstruction. * Chronic prostatomegaly and chronically thickened urinary bladder wall. Urinary bladder wall thickening can seen in patients with neurogenic bladder, detrusor muscle hypertrophy or cystitis. A large stone within the bladder has increased in size compared to 06/20/2018.
--- NOTE | ~2022-10-10 | XR_ITS ---
EXAMINATION: XR CHEST CLINICAL INFORMATION: Cough COMPARISON: Chest x-ray September 17, 2022 TECHNIQUE: Frontal view of the chest was obtained. FINDINGS: Cardiac silhouette is normal in size. The lungs are adequately aerated. Subtle patchy opacity of the right lower lung, nonspecific. Chronic right-sided pleural thickening adjacent to several healed right-sided rib fractures. No gross pleural effusion. 1 cm nodular density projecting over the right costophrenic angle is nonspecific but felt to represent a nipple shadow. Extensive postsurgical changes of the visualized spine. XR/XR chest 1V IMPRESSION: Subtle patchy opacity of the right lower lung. This is a nonspecific finding. This may represent atelectasis, however, a developing infiltrate is also within the differential. Follow-up imaging recommended status post treatment to ensure resolution.
[2022-10-10 08:29] VITALS: BP 135/79; BP 148/94; PULSE 72; PULSE 74; RESP 18; TEMP 36.7; O2SAT 97; O2SAT 98; BMI 22.3
--- NOTE | 2022-10-10 08:33 | ED_ITS ---
HPI - General Adult General Chief complaint: General Medical Stated complaint: paraplegic w/ nerve pain, abd pain Time Seen by Provider: 10/10/22 08:25 Source: patient, EMS, RN notes reviewed and old records reviewed Mode of arrival: EMS History of Present Illness HPI narrative: 72-year-old male with past medical history paraplegia, colostomy, urinary catheter, presenting to the via EMS complaining of abdominal pain/discomfort, nausea, vomiting, and decreased p.o. intake x2 weeks. Also reports loose diarrhea x1 day, resolved at present, nonproductive cough, mild SOB, and dark urine. Of note patient was recently seen and treated in our ED on 09/17 diagnosed with UTI and hyponatremia discharge on Levaquin which he reports compliance/finishing course. Denies fever/chills, CP, dysuria Onset (ago): week(s) Related Data Home Medications Medication Instructions Recorded Confirmed diazepam 10 mg tablet 10 mg PO BID 10/02/20 11/21/21 gabapentin 600 mg tablet 600 mg PO Q4H 10/02/20 11/21/21 baclofen 20,000 mcg/20 mL (1,000 See Rx Instructions .Route .COMPLEX 11/02/21 11/21/21 mcg/mL) intrathecal solution diazepam 10 mg tablet 1 tab PO DAILY PRN Insomnia 11/02/21 11/21/21 Previous Rx's Medication Instructions Recorded levofloxacin 500 mg tablet 500 mg PO Q24H #10 tabs 11/08/21 oxycodone 5 mg tablet 5 mg PO Q4H PRN Pain, Moderate 11/08/21 (Pain Scale 4-6 #15 tabs levofloxacin 750 mg tablet 750 mg PO DAILY #7 tabs 09/17/22 Allergies Allergy/AdvReac Type Severity Reaction Status Date / Time No Known Allergies Allergy Mild NOT Verified 09/17/22 16:36 APPLICABLE Review of Systems Review of Systems: Constitutional: No Fever, No Chills, No Fatigue, No Malaise ENT/Mouth: No Ear Pain, No Nasal Congestion, No sore throat, No Rhinorrhea, No Swallowing Difficulty Eyes: No Eye Pain, No Swelling, No Redness, No Vision Changes Cardiovascular: No Chest Pain, + SOB, No Dyspnea on Exertion, No Orthopnea, No Edema, No Palpitations Respiratory: + Cough, No Sputum, No Wheezing, No Dyspnea Gastrointestinal: + Nausea, + Vomiting, + Diarrhea, No Constipation, + Abdominal pain Genitourinary:No Dysuria, No Urinary Frequency, No Hematuria, No Urinary Incontinence/retention, No Flank Pain Musculoskeletal: No joint pain, No Myalgias, No Joint Swelling Skin: No Skin Lesions, No rash Neuro: No Weakness, No Dizziness, No Headache Yes all other systems are reviewed and are negative Constitutional: Constitutional: Reports as per [facility] Past Medical History Attestation statement: The following information was validated with the patient. Source: old records reviewed Medical History Acute hyponatremia Central pain syndrome Chronic pain syndrome Paraplegia T5 spinal cord injury Surgical History History of creation of ostomy (11/02/21) Social History Social History Household Members: Spouse Housing: House Do you presently have visiting nurse or other home services: Yes Alcohol intake: never Patient Tobacco Use Status: Never used Tobacco Substance Use Type: Marijuana Advance Directives: Yes Advance Directives Information Provided: Yes Advance Directives on File: No service: No Current occupational status: retired Physical Exam ED Vital Signs: Vital Signs - 24 hr 10/10/22 08:29 Temperature 98.1 F Pulse Rate 72 Respiratory Rate 18 Blood Pressure 148/94 H Pulse Oximetry 98 Oxygen Delivery Method Room Air BMI result Body Mass Index 22.3 Const General: cooperative, healthy appearing and no acute distress Orientation/consciousness: patient oriented x3 Limitations: no limitations HENNV Head: Yes normal to inspection and Yes atraumatic Ears: hearing grossly normal bilaterally General nose exam: Normal external nose present Face and sinus: Yes normal facial exam Eyes General: appearance normal, both eyes and all related structures EOM: EOMs intact bilaterally Neck Neck: Yes normal visual inspection and Yes no meningeal signs Resp Other: coarse lung sounds bibasilarly Effort & Inspection: normal respiratory effort and no respiratory distress Cardio Rate: regular rate Heart sounds: S1 normal heart sound present and S2 normal heart sound present GI Other: colostomy in place Inspection: Yes normal to inspection Palpation (GI): Soft to palpation, nontender, no guarding and not rigid Skin Rashes: no rashes Wounds: no wounds Neuro General: patient oriented x3 and no meningeal signs Cranial nerves: Yes CN's II-XII intact bilaterally Extrem General: Yes normal to inspection Course Course Course Narrative: -1017--no leukocytosis, labs otherwise reassuring. UA infected -viral testing negative XR chest 1V IMPRESSION: Subtle patchy opacity of the right lower lung. This is a nonspecific finding. This may represent atelectasis, however, a developing infiltrate is also within the differential. Follow-up imaging recommended status post treatment to ensure resolution. > due to symptomatology will obtain lactic/blood cultures in given. IV Zosyn 1347--CT abdomen pelvis w IV con IMPRESSION: *? Compared to 06/20/2018, interval development of lymphadenopathy in the visualized lower posterior mediastinum and along the gastrohepatic ligament. *? Moderate hiatal hernia. Given presence of lymphadenopathy in the region, consider correlation with upper endoscopy to exclude proximal gastric carcinoma in this patient with abdominal pain, nausea and vomiting. *? No evidence of bowel obstruction. *? Chronic prostatomegaly and chronically thickened urinary bladder wall. Urinary bladder wall thickening can seen in patients with neurogenic bladder, detrusor muscle hypertrophy or cystitis. A large stone within the bladder has increased in size compared to 06/20/2018. > abdomen remains soft and nontender despite patient complaining of abdominal discomfort. Tolerating p.o., discussed results including need close follow-up with Urology and GI for outpatient further workup Results discussed with patient including worrisome signs and symptoms and strict return precautions, and when to return to the emergency department. They verbalized understanding and feel safe for discharge at this time. Medications Administered Discontinued Medications Generic Name Dose Route Start Last Admin Trade Name Jb PRN Reason Stop Dose Admin Gabapentin 600 mg 10/10/22 10:39 10/10/22 10:55 Gabapentin 600 Mg Tablet PO 10/10/22 10:40 600 mg ONCE ONE Administration Sodium Chloride 1,000 mls @ 999 mls/hr 10/10/22 09:00 10/10/22 09:49 Ns IV 10/10/22 10:00 Infused .Q1H1M GONZÁLEZ Infusion Piperacillin Sod/Tazobactam 50 mls @ 100 mls/hr 10/10/22 10:17 10/10/22 12:52 Sod 3.375 gm/ Sodium Chloride IV 10/10/22 10:46 Infused ONCE ONE Infusion Iohexol 100 ml 10/10/22 12:09 10/10/22 12:10 Iohexol 350 Mg/Ml 100 Ml Infus..Btl IV 10/10/22 12:10 85 ml ONCE ONE Administration Ondansetron HCl 4 mg 10/10/22 08:47 10/10/22 08:57 Ondansetron Hcl 4 Mg/2 Ml Vial IVPUSH 10/10/22 08:48 4 mg ONCE ONE Administration Medical Decision Making Medical Decision Making [facility] Narrative: 72-year-old male with past medical history paraplegia, colostomy, urinary catheter, presenting to the via EMS complaining of abdominal pain/discomfort, nausea, vomiting, and decreased p.o. intake x2 weeks. Also reports loose diar lisa x1 day, resolved at present, nonproductive cough, mild SOB, and dark urine. On exam vital signs stable, NAD, nontoxic appearing, coarse lung sounds noted bibasilarly, abdomen soft/nontender with colostomy in place. Urine in catheter bag appears clean. Concern for metabolic abnormalities/dehydration vs intra- abdominal pathology including gastroenteritis/SBO vs UTI vs PNA. Lower suspicion for diverticulitis/appendicitis at this time. Unlikely sepsis or ACS Plan: EKG, labs, UA, CXR, CT AP, IVF, Zofran, re-evaluate Please refer to course for remaining clinical decision making, interpretation of labs/imaging results, and discussions with consultants and/or family members. Differential Diagnosis Differential Diagnoses: The differential diagnosis associated with the presentation includes As above Admission/Observation Consideration of admission/observation: Escalation of care including admission/observation considered Lab Data [facility] Lab Attestation statement: I reviewed the patient's lab results. 10/10/22 09:30 10/10/22 09:30 Labs: Lab Results 10/10/22 10/10/22 10/10/22 Range/Units 09:30 09:30 09:30 WBC 8.5 (4.8-10.8) X10*3/uL RBC 4.05 L (4.60-5.80) X10*6/uL Hgb 11.7 L (14.0-18.0) g/dl Hct 35.3 L (42.0-52.0) % MCV 87.2 (80.0-98.0) fL MCH 28.9 (27.0-33.0) pg MCHC 33.1 (31.0-36.0) g/dl RDW 14.9 (11.0-16.0) % Plt Count 268 (160-400) X10*3/uL MPV 9.7 (9.4-12.4) fL Immature Gran % (Auto) 0.9 H (0.0-0.4) % Neut % (Auto) 66.7 (45-73) % Lymph % (Auto) 19.1 L (20-40) % [place] % (Auto) 10.4 (2-11) % Eos % (Auto) 2.1 (0-4) % Baso % (Auto) 0.8 (0-2) % Lymph # (Auto) 1.6 (1.2-4.9) X10*3/uL [place] # (Auto) 0.9 (0.1-1.2) X10*3/uL Eos # (Auto) 0.2 (0.0-0.4) X10*3/uL Baso # (Auto) 0.1 (0.0-0.2) X10*3/uL Abs Immat Gran (auto) 0.08 H (0.00-0.03) X10*3/uL Absolute Neuts (auto) 5.6 (2.0-8.3) x10*3/uL Absolute Nucleated RBC 0.000 (0.0-0.012) X10*3/uL Nucleated RBC % (auto) 0.0 (0.0-0.2) /100WBC PT 13.1 (11.1-13.3) SEC INR 1.1 (0.9-1.1) Sodium 136 (135-145) mmol/L Potassium 3.8 (3.3-5.1) mmol/L Chloride 106 (96-108) mmol/L Carbon Dioxide 25 (22-29) mmol/L Anion Gap 9 L (12-20) BUN 9 (9-16) mg/dL Creatinine 0.60 (0.5-1.4) mg/dL Estim Creat Clear Calc 115.9 Estimated GFR > 60 Random Glucose 84 (60-115) mg/dL Lactic Acid (0.5-2.0) mmol/L Calcium 8.9 D (8.4-10.2) mg/dL Magnesium 1.9 (1.6-2.6) mg/dL Total Bilirubin 0.5 (0.0-1.0) mg/dL Direct Bilirubin 0.2 (0.0-0.5) mg/dL AST 13 (5-37) U/L ALT 11 (0-40) U/L Alkaline Phosphatase 84 (39-117) U/L B-Natriuretic Peptide (<100) pg/mL Total Protein 6.6 (6.5-8.0) g/dL Albumin 3.5 (3.5-5.0) g/dL Lipase 12 (8-78) U/L Urine Color Urine Appearance Urine pH (5.0-9.0) Ur Specific [place] (1.005-1.025) Urine Protein (Neg-Trace) mg/dL Urine Glucose (UA) (Negative) mg/dL Urine Ketones (Negative) mg/dL Urine Blood (Negative) Urine Nitrite (Negative) Ur Leukocyte Esterase (Negative) Urine RBC (0-2) /HPF Urine WBC (0-5) /HPF Ur Squamous Epith Cells (0-2) /HPF Urine Bacteria (None Seen) Hyaline Casts (0-2) /LPF COVID-19 (NIKUNJ) (Negative) COVID-19 Clin Com Influenza Type A (ANTONIETA) (Negative) Influenza Type B (ANTONIETA) (Negative) Influenza A & B Note 10/10/22 10/10/22 10/10/22 Range/Units 09:30 09:30 09:30 WBC (4.8-10.8) X10*3/uL RBC (4.60-5.80) X10*6/uL Hgb (14.0-18.0) g/dl Hct (42.0-52.0) % MCV (80.0-98.0) fL MCH (27.0-33.0) pg MCHC (31.0-36.0) g/dl RDW (11.0-16.0) % Plt Count (160-400) X10*3/uL MPV (9.4-12.4) fL Immature Gran % (Auto) (0.0-0.4) % Neut % (Auto) (45-73) % Lymph % (Auto) (20-40) % [place] % (Auto) (2-11) % Eos % (Auto) (0-4) % Baso % (Auto) (0-2) % Lymph # (Auto) (1.2-4.9) X10*3/uL [place] # (Auto) (0.1-1.2) X10*3/uL Eos # (Auto) (0.0-0.4) X10*3/uL Baso # (Auto) (0.0-0.2) X10*3/uL Abs Immat Gran (auto) (0.00-0.03) X10*3/uL Absolute Neuts (auto) (2.0-8.3) x10*3/uL Absolute Nucleated RBC (0.0-0.012) X10*3/uL Nucleated RBC % (auto) (0.0-0.2) /100WBC PT (11.1-13.3) SEC INR (0.9-1.1) Sodium (135-145) mmol/L Potassium (3.3-5.1) mmol/L Chloride (96-108) mmol/L Carbon Dioxide (22-29) mmol/L Anion Gap (12-20) BUN (9-16) mg/dL Creatinine (0.5-1.4) mg/dL Estim Creat Clear Calc Estimated GFR Random Glucose (60-115) mg/dL Lactic Acid (0.5-2.0) mmol/L Calcium (8.4-10.2) mg/dL Magnesium (1.6-2.6) mg/dL Total Bilirubin (0.0-1.0) mg/dL Direct Bilirubin (0.0-0.5) mg/dL AST (5-37) U/L ALT (0-40) U/L Alkaline Phosphatase (39-117) U/L B-Natriuretic Peptide 34 (<100) pg/mL Total Protein (6.5-8.0) g/dL Albumin (3.5-5.0) g/dL Lipase (8-78) U/L Urine Color Urine Appearance Urine pH (5.0-9.0) Ur Specific [place] (1.005-1.025) Urine Protein (Neg-Trace) mg/dL Urine Glucose (UA) (Negative) mg/dL Urine Ketones (Negative) mg/dL Urine Blood (Negative) Urine Nitrite (Negative) Ur Leukocyte Esterase (Negative) Urine RBC (0-2) /HPF Urine WBC (0-5) /HPF Ur Squamous Epith Cells (0-2) /HPF Urine Bacteria (None Seen) Hyaline Casts (0-2) /LPF COVID-19 (NIKUNJ) Negative (Negative) COVID-19 Clin Com See Note Influenza Type A (ANTONIETA) Negative (Negative) Influenza Type B (ANTONIETA) Negative (Negative) Influenza A & B Note See Note 10/10/22 10/10/22 Range/Units 09:30 11:41 WBC (4.8-10.8) X10*3/uL RBC (4.60-5.80) X10*6/uL Hgb (14.0-18.0) g/dl Hct (42.0-52.0) % MCV (80.0-98.0) fL MCH (27.0-33.0) pg MCHC (31.0-36.0) g/dl RDW (11.0-16.0) % Plt Count (160-400) X10*3/uL MPV (9.4-12.4) fL Immature Gran % (Auto) (0.0-0.4) % Neut % (Auto) (45-73) % Lymph % (Auto) (20-40) % [place] % (Auto) (2-11) % Eos % (Auto) (0-4) % Baso % (Auto) (0-2) % Lymph # (Auto) (1.2-4.9) X10*3/uL [place] # (Auto) (0.1-1.2) X10*3/uL Eos # (Auto) (0.0-0.4) X10*3/uL Baso # (Auto) (0.0-0.2) X10*3/uL Abs Immat Gran (auto) (0.00-0.03) X10*3/uL Absolute Neuts (auto) (2.0-8.3) x10*3/uL Absolute Nucleated RBC (0.0-0.012) X10*3/uL Nucleated RBC % (auto) (0.0-0.2) /100WBC PT (11.1-13.3) SEC INR (0.9-1.1) Sodium (135-145) mmol/L Potassium (3.3-5.1) mmol/L Chloride (96-108) mmol/L Carbon Dioxide (22-29) mmol/L Anion Gap (12-20) BUN (9-16) mg/dL Creatinine (0.5-1.4) mg/dL Estim Creat Clear Calc Estimated GFR Random Glucose (60-115) mg/dL Lactic Acid 1.7 (0.5-2.0) mmol/L Calcium (8.4-10.2) mg/dL Magnesium (1.6-2.6) mg/dL Total Bilirubin (0.0-1.0) mg/dL Direct Bilirubin (0.0-0.5) mg/dL AST (5-37) U/L ALT (0-40) U/L Alkaline Phosphatase (39-117) U/L B-Natriuretic Peptide (<100) pg/mL Total Protein (6.5-8.0) g/dL Albumin (3.5-5.0) g/dL Lipase (8-78) U/L Urine Color Yellow Urine Appearance Cloudy Urine pH 8.0 (5.0-9.0) Ur Specific [place] 1.010 (1.005-1.025) Urine Protein Negative (Neg-Trace) mg/dL Urine Glucose (UA) Negative (Negative) mg/dL Urine Ketones 15 (Negative) mg/dL Urine Blood Trace H (Negative) Urine Nitrite Positive H (Negative) Ur Leukocyte Esterase Large (3+) H (Negative) Urine RBC 3-5 H (0-2) /HPF Urine WBC >50 H (0-5) /HPF Ur Squamous Epith Cells 0-2 (0-2) /HPF Urine Bacteria 4+ (None Seen) Hyaline Casts 3-5 (0-2) /LPF COVID-19 (NIKUNJ) (Negative) COVID-19 Clin Com Influenza Type A (ANTONIETA) (Negative) Influenza Type B (ANTONIETA) (Negative) Influenza A & B Note Independent Interpretation I performed an independent interpretation of an: EKG Radiology Impression Discussion of test interpretation with radiology: I have reviewed the radiologist's reading. Independent Historian Clinical information obtained from an independent historian. History obtained from or confirmed by: EMS External Record Review External record reviewed: Inpatient record, Office record, Outpatient record, Prior outpatient labs, Prior outpatient radiology, Primary care record and Outside ED record Tests considered The following testing was considered but not selected: As above Prescription Management I considered prescription management with: Pain Medication and Antibiotic Chronic Conditions Patient?s care impacted by: Other (Paraplegic, colostomy, indwelling catheter) Discharge Plan Discharge Clinical Impression: Acute UTI, Pneumonia, Bladder stone, Lymphadenopathy Prescriptions: No Action gabapentin 600 mg Tablet 600 mg PO Q4H diazepam 10 mg Tablet 10 mg PO BID diazepam 10 mg tablet 1 tab PO DAILY PRN (Reason: Insomnia) baclofen 20,000 mcg/20mL (1,000 mcg/mL) Solution See Rx Instructions .ROUTE .COMPLEX Rx Instructions: patient has a pump levofloxacin 500 mg Tablet 500 mg PO Q24H Qty: 10 0RF oxycodone 5 mg Tablet 5 mg PO Q4H PRN (Reason: Pain, Moderate (Pain Scale 4-6) Qty: 15 0RF Rx Instructions: Partial Fill upon patient request. levofloxacin 750 mg tablet 750 mg PO DAILY Qty: 7 0RF
--- NOTE | 2022-10-10 08:48 | ECG_ITS ---
Test Reason : ABD PAIN Blood Pressure : / mmHG Vent. Rate : 062 BPM Atrial Rate : 062 BPM P-R Int : 126 ms QRS Dur : 092 ms QT Int : 394 ms P-R-T Axes : 053 040 032 degrees QTc Int : 399 ms Normal sinus rhythm Low voltage QRS Septal infarct , age undetermined Abnormal ECG When compared with ECG of 17-SEP-2022 16:56, No significant change was found Referred By: Suzy Mehta Electronically Signed By:BERRY MATT
[2022-10-10] MEDS: ondansetron HCL 4 MG/2 ML VIAL IVPUSH (08:57)
[2022-10-10] MEDS: 0.9 % Sodium Chloride 1,000 ML 999 ML IV (08:58)
--- NOTE | 2022-10-10 09:38 | PC.NURSE ---
patient resting in bed, appears to be in no distress, VSS. patient has iv in the right hand from EMS, NS running. patient has call mascorro at side, able to make needs known
[2022-10-10 09:42] LABS: MANUAL DIFF FLAG NO
[2022-10-10 09:45] LABS: Basophils Absolute Auto 0.1 X10*3/uL (0.0-0.2); Basophils Percent Auto 0.8 % (0-2); Eosinophils Absolute Auto 0.2 X10*3/uL (0.0-0.4); Eosinophils Percent Auto 2.1 % (0-4); Hematocrit 35.3 % (42.0-52.0); Hemoglobin 11.7 g/dl (14.0-18.0); Imm Gran Abs Auto 0.08 X10*3/uL (0.00-0.03); Imm Gran Pct Auto 0.9 % (0.0-0.4); Lymphocytes Absolute Auto 1.6 X10*3/uL (1.2-4.9); Lymphocytes Percent Auto 19.1 % (20-40); Mean Corpuscular HGB Conc 33.1 g/dl (31.0-36.0); Mean Corpuscular Hemoglobin 28.9 pg (27.0-33.0); Mean Corpuscular Volume 87.2 fL (80.0-98.0); Mean Platelet Volume 9.7 fL (9.4-12.4); Monocytes Absolute Auto 0.9 X10*3/uL (0.1-1.2); Monocytes Percent Auto 10.4 % (2-11); Neutrophils Absolute Auto 5.6 x10*3/uL (2.0-8.3); Neutrophils Percent Auto 66.7 % (45-73); Platelet Count 268 X10*3/uL (160-400); Red Blood Count 4.05 X10*6/uL (4.60-5.80); Red Cell Distribution Width 14.9 % (11.0-16.0); White Blood Count 8.5 X10*3/uL (4.8-10.8)
[2022-10-10 09:51] LABS: INTERNATIONAL NORM RATIO 1.1 (0.9-1.1); Prothrombin Time 13.1 SEC (11.1-13.3)
[2022-10-10 09:59] LABS: Appearance Urine Cloudy; Color Urine Yellow; Glucose Urine UA Negative (Negative); Leukocyte Esterase Urine Large (3+) (Negative); Nitrite Urine Positive (Negative); UMIC TRIGGER UACC YES; Urine Blood Trace (Negative); Urine Ketones 15 mg/dL (Negative); Urine Protein Negative (Neg-Trace)
[2022-10-10 10:01] LABS: COVID-19 Test Negative (Negative); IDNOW Serial# 08D9AD1C
[2022-10-10 10:04] LABS: IDNOW Serial# BCCEAD1C; Influenza A Negative (Negative); Influenza B2 Negative (Negative)
[2022-10-10 10:08] LABS: Alanine Aminotransferase 11 U/L (0-40); Albumin Level 3.5 g/dL (3.5-5.0); Alkaline Phosphatase 84 U/L (39-117); Anion Gap 9 (12-20); Aspartate Amino Transferase 13 U/L (5-37); Bilirubin Direct 0.2 mg/dL (0.0-0.5); Bilirubin Total 0.5 mg/dL (0.0-1.0); Blood Urea Nitrogen 9 mg/dL (9-16); Calcium 8.9 mg/dL (8.4-10.2); Carbon Dioxide 25 mmol/L (22-29); Chloride 106 mmol/L (96-108); Creatinine Clr Calc Pharmacy 115.9; Estimated Glomerular Filt Rate > 60; Glucose Random 84 mg/dL (60-115); Lipase 12 U/L (8-78); Magnesium 1.9 mg/dL (1.6-2.6); Potassium 3.8 mmol/L (3.3-5.1); Sodium 136 mmol/L (135-145); Total Protein 6.6 g/dL (6.5-8.0)
[2022-10-10 10:09] LABS: B Type Natriuretic Peptide 34 pg/mL (<100)
[2022-10-10 10:15] LABS: Bacteria Urine 4+ (None Seen); Squamous Epithelial Cell Urine 0-2 /HPF (0-2); UACC Culture Trigger YES; WBC Urine >50 /HPF (0-5)
[2022-10-10] MEDS: Gabapentin 600 MG TABLET PO (10:55)
[2022-10-10] MEDS: Piperacillin Sodium/Tazobactam 3.375 GM in 0.9 % Sodium Chloride 50 ML IV (11:47)
[2022-10-10 12:00] LABS: Lactic Acid 1.7 mmol/L (0.5-2.0)
[2022-10-10] MEDS: iohexoL 350 MG/ML 100 ML INFUS..BTL IV (12:10)
--- NOTE | 2022-10-10 12:54 | PC.NURSE ---
patient is resting in bed, able to make needs known. call mascorro within reach, awaiting test results
[2022-10-10 14:23] VITALS: BP 138/79; PULSE 80; RESP 18; TEMP 36.6; O2SAT 97
== END 2022-10-10 14:45 | disposition home or self-care (01) ==
PROVIDERS: Physician Assistant; Emergency Provider Emergency Medicine
DX: J18.9 Pneumonia, unspecified organism (principal); G82.20 Paraplegia, unspecified; N39.0 Urinary tract infection, site not specified; R06.02 Shortness of breath; N21.0 Calculus in bladder; R59.1 Generalized enlarged lymph nodes; R10.2 Pelvic and perineal pain; Z20.822 Contact with and (suspected) exposure to COVID-19; Z20.828 Contact with and (suspected) exposure to other viral communicable diseases; Z79.899 Other long term (current) drug therapy
CPT/HCPCS: 36415; 71045; 74177; 80048; 80076; 81001; 83605; 83690; 83735; 83880; 85025; 85610; 87040; 87086; 87502; 87635; 93005; 96361; 96365; 96375; 99284; J2405; J2543; Q9967

== ENCOUNTER 2022-10-17 06:21 | Emergency (ER) | payer OTHER, MEDICARE, SELFPAY ==
--- NOTE | ~2022-10-17 | XR_ITS ---
EXAMINATION: XR CHEST CLINICAL INFORMATION: Cough COMPARISON: 10/10/2022 TECHNIQUE: Frontal view of the chest was obtained. FINDINGS: Lungs are well expanded and grossly clear, although there appears to be a curvilinear opacity of chronic scarring of the right lower lung. No acute abnormality. No consolidation, pleural effusion or pneumothorax. Cardiac silhouette is normal in size. Pulmonary vascular pattern is normal. Multiple old right rib fracture deformities. Old healed fracture of left anterior second rib and healed fracture of left clavicle. No evidence of loosening of the visualized thoracic spinal fusion hardware. XR/XR chest 1V IMPRESSION: No evidence of pneumonia. No acute cardiopulmonary abnormality.
--- NOTE | ~2022-10-17 | CT_ITS ---
EXAMINATION: CT ABDOMEN AND PELVIS WITH CONTRAST CLINICAL INFORMATION: Abdominal pain, rectal leak, post colostomy. COMPARISON: 10/10/2022 TECHNIQUE: Multidetector volumetric images were obtained from the superior aspect of the liver through the pubic symphysis following administration 85 mL of Omnipaque 350 intravenous contrast. Sagittal and coronal reformatted images were obtained on the technologist's workstation. Oral contrast: No This CT examination was performed using dose optimization techniques as appropriate, variously including the following: *Automated exposure control *Adjustment of mA and/or kV according to patient size (this includes techniques or standardized protocols for targeted exams where dose is matched to indication/reason for exam; i.e. extremities or head) *Use of iterative reconstruction technique DLP: 466 mGy-cm FINDINGS: LUNG BASES: Secretions are present within multiple right lower lobe bronchi. This could be a manifestation of bronchitis or aspiration. Mild atelectasis in lower lobes. Chronic curvilinear opacity of scarring in right lower lobe. No pleural effusion. HEPATOBILIARY: Liver has normal size and contour. No evidence of liver mass or abscess. Cholecystectomy interval development of mild intrahepatic ductal dilatation. The mildly dilated common bile duct is 0.8 cm diameter. No stones are seen within the common duct. Also, no evidence of an obstructing mass. PANCREAS: Normal. No edema, pancreatic ductal dilatation or mass. SPLEEN: Normal. ADRENAL GLANDS: Normal. KIDNEYS AND URETERS: The kidneys have normal size and enhance symmetrically. No renal mass. No perinephric edema. No urolithiasis or hydroureteronephrosis. BLADDER: Daniels catheter within the bladder. The bladder wall is chronically thickened. Large 3.6 x 4.2 cm calcified stone within the bladder. BOWEL, PERITONEUM AND ABDOMINAL WALL: Again noted is a moderate hiatal hernia. There is either true thickening of gastric mucosa within the herniated stomach or an apparent thickening due to the lack of gastric distention. Two prominent paraesophageal lymph nodes in the lower posterior mediastinum are approximately 1.2 cm in short axis dimension. No dilated bowel loops. No evidence of edematous wall thickening of small or large bowel. There is a diverting colostomy of the abdominal wall. No abdominal free fluid or free air. VASCULATURE: Atherosclerotic calcification of the abdominal aorta without aortic aneurysm. 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 Inferior vena cava filter in place. One of the arms of the IVC filter has chronically penetrated into the wall of the abdominal aorta. LYMPH NODES: No change in lymphadenopathy along the gastrohepatic ligament compared to 10/10/2022. The left periaortic lymph nodes are in the normal size range. No retroperitoneal, iliac or inguinal lymphadenopathy. PELVIC VISCERA: Prostate gland is chronically enlarged. No pelvic free fluid. MUSCULOSKELETAL: Thoracic spine fusion hardware is intact. Chronic severe multilevel degenerative disc disease of the lumbar spine. Hypertrophic degenerative changes of the spine. Articular surface irregularity and sclerosis at multiple vertebral endplates. Chronic foci of calcification or ossification are present within the left multifidus muscle of the lumbar spine. There is symmetric appearance of erosive change at sacroiliac joints. Query if there is any history of HLA-B27 test positivity. Again, there appear to be old healed decubitus ulcers overlying regions of femoral greater trochanters. Findings include chronic dystrophic calcification lateral to left greater trochanter and heterotopic ossification around right hip region. Neurostimulator wire enters the lumbar spinal canal at L1-L2 and ascends into the thoracic canal. CT/CT abdomen pelvis w IV con IMPRESSION: * Again noted is the lymphadenopathy in the visualized lower posterior mediastinum and along the gastrohepatic ligament, and a moderate hiatal hernia. Given presence of lymphadenopathy in the region, if not already performed, consider correlation with upper endoscopy to exclude proximal gastric carcinoma. * No evidence of bowel obstruction. No acute findings in smaller large bowel compared to 10/10/2022. * Chronic prostatomegaly and chronically thickened urinary bladder wall. A large stone is present within the bladder. * Interval development of intrahepatic ductal dilatation. Mildly dilated common bile duct is 0.8 cm diameter. The cause of the ductal dilatation is uncertain. No stones are seen within the common duct. Consider correlation with bilirubin levels and liver function tests.
[2022-10-17 06:43] VITALS: BP 139/70; BP 150/90; PULSE 87; PULSE 99; RESP 18; TEMP 36.9; O2SAT 95; O2SAT 97; BMI 24.3
--- NOTE | 2022-10-17 07:02 | ED.GENADULT ---
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 He feels weakness, cramping and now for the past week his rectum has been leaking stool. He has been on augmentin for pneumonia dx recently. He also had recent UTI - kleb and entero S to levofloxacin. He has a chronic catheter. He states he just feels bad. MD complaint: pain Onset (ago): month(s) (1) Location: chest, back, abdomen, left, right and lower extremity Radiation: non-radiation Severity: moderate Quality: other (spasms) Pain Consistency: constant Relieving factors: none Exacerbating factors: none Associated symptoms: loss of appetite and malaise Treatments prior to arrival: other (has 4 doses of augmentin left) Related Data Home Medications Medication Instructions Recorded Confirmed diazepam 10 mg tablet 10 mg PO BID 10/02/20 11/21/21 gabapentin 600 mg tablet 600 mg PO Q4H 10/02/20 11/21/21 baclofen 20,000 mcg/20 mL (1,000 See Rx Instructions .Route .COMPLEX 11/02/21 11/21/21 mcg/mL) intrathecal solution diazepam 10 mg tablet 1 tab PO DAILY PRN Insomnia 11/02/21 11/21/21 Previous Rx's Medication Instructions Recorded levofloxacin 500 mg tablet 500 mg PO Q24H #10 tabs 11/08/21 oxycodone 5 mg tablet 5 mg PO Q4H PRN Pain, Moderate 11/08/21 (Pain Scale 4-6 #15 tabs levofloxacin 750 mg tablet 750 mg PO DAILY #7 tabs 09/17/22 amoxicillin 875 mg-potassium 1 tab PO BID 7 days #14 tabs 10/10/22 clavulanate 125 mg tablet azithromycin 250 mg tablet See Rx Instructions PO .COMPLEX #6 10/10/22 tabs ascorbate calcium (vitamin C) 500 500 mg PO DAILY #30 tabs 10/17/22 mg tablet famotidine 20 mg tablet (Pepcid) 20 mg PO DAILY #30 tabs 10/17/22 levofloxacin 500 mg tablet 500 mg PO Q24H #6 tabs 10/17/22 ondansetron 4 mg disintegrating 4 mg PO Q8H PRN nausea and 10/17/22 tablet vomiting #20 tabs Allergies Allergy/AdvReac Type Severity Reaction Status Date / Time No Known Allergies Allergy Mild NOT Verified 09/17/22 16:36 APPLICABLE Review of Systems Review of Systems: Constitutional : No Weight loss, No Fever, No Chills ENT/Mouth : No sore throat, No Rhinorrhea Eyes: No Swelling, No Redness Cardiovascular : pos Chest Pain, No SOB, NoEdema Respiratory : No Cough, No Sputum, No Wheezing Gastrointestinal : Positive Nausea, no Vomiting, positive Diarrhea, positive abdominal Pain, No Hematochezia, No Melena Genitourinary : No Dysuria, No Urinary Frequency, No Hematuria, No Urgency Musculoskeletal : No joint pain, pos Myalgias, No Joint Swelling Skin : No Skin Lesions, No rash Neuro : pos Weakness, No Numbness, No Dizziness, No Headache Psych : No Anxiety/Panic, No Depression Heme/Lymph: No Bruising, No Lymphadenopathy Endocrine : No Polyuria, No Polydipsia All other systems reviewed and are negative. [facility] Past Medical History Medical History Acute hyponatremia Central pain syndrome Chronic pain syndrome Paraplegia T5 spinal cord injury Surgical History History of creation of ostomy (11/02/21) Social History Social History Household Members: Spouse Housing: House Do you presently have visiting nurse or other home services: Yes Alcohol intake: never Patient Tobacco Use Status: Never used Tobacco Smoked in Last 30 Days: No Use of substances other than those prescribed or required for medical reasons: Yes Substance Use Type: Marijuana Advance Directives: Yes Advance Directives Information Provided: Yes Advance Directives on File: No service: No Current occupational status: retired Physical Exam ED Vital Signs: Vital Signs - 24 hr 10/17/22 06:43 10/17/22 07:12 10/17/22 09:15 Temperature 98.4 F 98.8 F Pulse Rate 87 94 96 Respiratory Rate 18 16 16 Blood Pressure 139/70 125/75 138/81 Pulse Oximetry 95 97 100 Oxygen Delivery Method Room Air Room Air Room Air 10/17/22 10:38 Temperature 98.7 F Pulse Rate 82 Respiratory Rate 16 Blood Pressure 108/73 Pulse Oximetry 97 Oxygen Delivery Method Room Air BMI result Body Mass Index 24.3 Appearance: Alert. Oriented X3. No acute distress. Eyes: Pupils equal, round and reactive to light. ENT: Pharynx normal. Neck: Normal inspection. Neck supple. CVS: Normal heart rate and rhythm. Pulses normal. Respiratory: No respiratory distress. Breath sounds diminished at the bases : urine is clean and clear yellow Abdomen: Soft and nontender. ostomy is pink/patent/productive Skin: Skin warm and dry. Normal skin color. Normal skin turgor. Extremities: No lower extremity edema. No calf ttp Neuro: Oriented X 3. T5 paraplegia Course Course Course Narrative: pending CT scan will hold off antibiotics - suspect due to colonization from chronic rivera could have colitis will hold antibiotics. 1031am Reevaluation(s) Reevaluation #1: at this time possible UTI 1033am infection suspected will dose with levofloxacin Medications Administered Discontinued Medications Generic Name Dose Route Start Last Admin Trade Name Hadleyq PRN Reason Stop Dose Admin Hydromorphone HCl 1 mg 10/17/22 10:07 10/17/22 10:12 Hydromorphone Hcl 1 Mg/Ml Syringe IVPUSH 10/17/22 10:08 1 mg ONCE ONE Administration Protocol Sodium Chloride 500 mls @ 500 mls/hr 10/17/22 07:30 10/17/22 08:23 Ns IV 10/17/22 08:29 Infused .Q1H GONZÁLEZ Infusion Levofloxacin 750 mg in 150 mls @ 100 mls/hr 10/17/22 10:34 10/17/22 10:51 Levaquin IV 10/17/22 12:03 100 mls/hr ONCE ONE Administration Iohexol 85 ml 10/17/22 09:37 10/17/22 09:39 Iohexol 350 Mg/Ml 100 Ml Infus..Btl IV 10/17/22 09:38 85 ml ONCE ONE Administration Morphine Sulfate 4 mg 10/17/22 07:18 10/17/22 07:28 Morphine Sulfate 4 Mg/Ml Cartridge IVPUSH 10/17/22 07:19 4 mg ONCE ONE Administration Protocol Ondansetron HCl 4 mg 10/17/22 07:18 10/17/22 07:28 Ondansetron Hcl 4 Mg/2 Ml Vial IVPUSH 10/17/22 07:19 4 mg ONCE ONE Administration Medical Decision Making Medical Decision Making [facility] Narrative: 72 yo male wihth PMH of ulcers, 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 UA, CXR for pneumonia, basic labs and EKG. IV morphine for pain. Differential Diagnosis Differential Diagnoses: The differential diagnosis associated with the presentation includes colitis, obstruction, pneumonia, UTI Admission/Observation Consideration of admission/observation: Escalation of care including admission/observation considered this seems chronic no acute findings on CT scan will switch antibiotics to levofloxacin and he is not vomiting, pain is chronic he notes it's inside this is not something he needs to be admitted for. he has pain medications at home. Consult Healthcare Provider Management of the patient was discussed with: Bankruptcy Paralegal (Dr. Zach mitchell - normal post surgery anticipated) Dr. Tom mitchell will see as outpatient - start on antibiotics and Vit C for bladder stone Lab Data [facility] Lab Attestation statement: I reviewed the patient's lab results. 10/17/22 07:54 10/17/22 07:54 Labs: Lab Results 10/17/22 10/17/22 Range/Units 07:53 07:54 WBC 9.2 (4.8-10.8) X10*3/uL RBC 4.10 L (4.60-5.80) X10*6/uL Hgb 12.0 L (14.0-18.0) g/dl Hct 35.1 L (42.0-52.0) % MCV 85.6 (80.0-98.0) fL MCH 29.3 (27.0-33.0) pg MCHC 34.2 (31.0-36.0) g/dl RDW 14.9 (11.0-16.0) % Plt Count 262 (160-400) X10*3/uL MPV 9.5 (9.4-12.4) fL Immature Gran % (Auto) 1.1 H (0.0-0.4) % Neut % (Auto) 73.4 H (45-73) % Lymph % (Auto) 7.2 L (20-40) % [place] % (Auto) 16.0 H (2-11) % Eos % (Auto) 1.9 (0-4) % Baso % (Auto) 0.4 (0-2) % Lymph # (Auto) 0.7 L (1.2-4.9) X10*3/uL [place] # (Auto) 1.5 H (0.1-1.2) X10*3/uL Eos # (Auto) 0.2 (0.0-0.4) X10*3/uL Baso # (Auto) 0.0 (0.0-0.2) X10*3/uL Abs Immat Gran (auto) 0.10 H (0.00-0.03) X10*3/uL Absolute Neuts (auto) 6.7 (2.0-8.3) x10*3/uL Absolute Nucleated RBC 0.000 (0.0-0.012) X10*3/uL Nucleated RBC % (auto) 0.0 (0.0-0.2) /100WBC Sodium 133 L (135-145) mmol/L Potassium 4.2 (3.3-5.1) mmol/L Chloride 101 (96-108) mmol/L Carbon Dioxide 25 (22-29) mmol/L Anion Gap 11 L (12-20) BUN 7 L (9-16) mg/dL Creatinine 0.55 (0.5-1.4) mg/dL Estim Creat Clear Calc 131.2 Estimated GFR > 60 Random Glucose 98 (60-115) mg/dL Lactic Acid 0.8 (0.5-2.0) mmol/L Calcium 9.1 (8.4-10.2) mg/dL Magnesium 2.0 (1.6-2.6) mg/dL Total Bilirubin 0.8 (0.0-1.0) mg/dL Direct Bilirubin 0.3 (0.0-0.5) mg/dL AST 14 (5-37) U/L ALT 13 (0-40) U/L Alkaline Phosphatase 86 (39-117) U/L Total Creatine Kinase 21 L (38-174) U/L Troponin I High Sens < 2.7 (<3.5-35.0) ng/L Total Protein 7.1 (6.5-8.0) g/dL Albumin 3.7 (3.5-5.0) g/dL Lipase 10 (8-78) U/L Urine Color Yellow Urine Appearance Clear Urine pH 7.0 (5.0-9.0) Ur Specific Moran 1.010 (1.005-1.025) Urine Protein Negative (Neg-Trace) mg/dL Urine Glucose (UA) Negative (Negative) mg/dL Urine Ketones 15 (Negative) mg/dL Urine Blood Small (1+) H (Negative) Urine Nitrite Positive H (Negative) Ur Leukocyte Esterase Large (3+) H (Negative) Urine RBC 6-10 H (0-2) /HPF Urine WBC >50 H (0-5) /HPF Ur Squamous Epith Cells 0-2 (0-2) /HPF Urine Bacteria Trace (None Seen) Hyaline Casts 0-2 (0-2) /LPF COVID-19 (NIKUNJ) Negative (Negative) COVID-19 Clin Com See Note Independent Interpretation I performed an independent interpretation of an: EKG and CT Scan Interpretation: Rate: 84 Rhythm: NSR [place]: normal Normal P waves. Normal OFE. Normal QRS complex. ST T wave : normal no GRACE qTC: normal prior studies: no acute ischemia The study has been interpreted contemporaneously by me. . Radiology Impression Discussion of test interpretation with radiology: I have reviewed the radiologist's reading. Independent Historian Clinical information obtained from an independent historian. History obtained from or confirmed by: Spouse External Record Review External record reviewed: Inpatient record Prescription Management I considered prescription management with: Antibiotic Discharge Plan Discharge Clinical Impression: Recurrent UTI, Bladder stone, Abdominal pain, Hernia, hiatal Patient Disposition: Home, Self-Care Instructions: Hiatal Hernia (ED), Urinary Tract Infection in Men (ED), Acute Abdominal Pain (DC), Chronic Abdominal Pain (ED) Additional Instructions: STOP TAKING ALL OTHER ANTIBIOTICS. NEXT DOSE OF LEVOFLOXACIN IS TOMORROW. RETURN FOR FEVERS, WORSENING PAIN, CONFUSION, OR ANY OTHER CONCERNS. Prescriptions: New levofloxacin 500 mg tablet 500 mg PO Q24H Qty: 6 0RF famotidine [Pepcid] 20 mg tablet 20 mg PO DAILY Qty: 30 0RF ondansetron 4 mg tablet,disintegrating 4 mg PO Q8H PRN (Reason: nausea and vomiting) Qty: 20 0RF ascorbate calcium (vitamin C) 500 mg tablet 500 mg PO DAILY Qty: 30 0RF No Action gabapentin 600 mg Tablet 600 mg PO Q4H diazepam 10 mg Tablet 10 mg PO BID diazepam 10 mg tablet 1 tab PO DAILY PRN (Reason: Insomnia) baclofen 20,000 mcg/20mL (1,000 mcg/mL) Solution See Rx Instructions .ROUTE .COMPLEX Rx Instructions: patient has a pump levofloxacin 500 mg Tablet 500 mg PO Q24H Qty: 10 0RF oxycodone 5 mg Tablet 5 mg PO Q4H PRN (Reason: Pain, Moderate (Pain Scale 4-6) Qty: 15 0RF Rx Instructions: Partial Fill upon patient request. levofloxacin 750 mg tablet 750 mg PO DAILY Qty: 7 0RF azithromycin 250 mg tablet See Rx Instructions .ROUTE .COMPLEX Qty: 6 0RF Rx Instructions: take 500 mg today (day 1), then 250 mg for 4 days (days 2-5) amoxicillin-pot clavulanate 875-125 mg tablet 1 tab PO BID 7 Days Qty: 14 0RF Referrals: Rocky Santos MD [Physician] - (urologist call for appointment) Joan Doty MD [Physician] - (punchboard filling machine operator call for appointment)
[2022-10-17 07:12] VITALS: BP 125/75; PULSE 94; RESP 16; TEMP 37.1; O2SAT 97
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
--- NOTE | 2022-10-17 07:20 | ECG_ITS ---
Test Reason : WEAKNESS Blood Pressure : / mmHG Vent. Rate : 084 BPM Atrial Rate : 084 BPM P-R Int : 138 ms QRS Dur : 092 ms QT Int : 346 ms P-R-T Axes : 060 029 042 degrees QTc Int : 408 ms Normal sinus rhythm Low voltage QRS Borderline ECG When compared with ECG of 10-OCT-2022 09:01, Criteria for Septal infarct are no longer Present Referred By: Oriana Ortiz Electronically Signed By:BERRY MATT
[2022-10-17] MEDS: 0.9 % Sodium Chloride 500 ML IV (07:23)
[2022-10-17] MEDS: Morphine Sulfate 4 MG/ML CARTRIDGE IVPUSH (07:28)
[2022-10-17] MEDS: ondansetron HCL 4 MG/2 ML VIAL IVPUSH (07:28)
--- NOTE | 2022-10-17 07:33 | PC.NURSE ---
medications and IVF administered per provider order. ekg performed and seen by ED provider. pt being changed over by techs and are preparing to obtain labs.
[2022-10-17 08:01] LABS: MANUAL DIFF FLAG NO
[2022-10-17 08:03] LABS: Basophils Percent Auto 0.4 % (0-2); Eosinophils Absolute Auto 0.2 X10*3/uL (0.0-0.4); Eosinophils Percent Auto 1.9 % (0-4); Hematocrit 35.1 % (42.0-52.0); Imm Gran Pct Auto 1.1 % (0.0-0.4); Lymphocytes Absolute Auto 0.7 X10*3/uL (1.2-4.9); Lymphocytes Percent Auto 7.2 % (20-40); Mean Corpuscular HGB Conc 34.2 g/dl (31.0-36.0); Mean Corpuscular Hemoglobin 29.3 pg (27.0-33.0); Mean Corpuscular Volume 85.6 fL (80.0-98.0); Mean Platelet Volume 9.5 fL (9.4-12.4); Monocytes Absolute Auto 1.5 X10*3/uL (0.1-1.2); Neutrophils Absolute Auto 6.7 x10*3/uL (2.0-8.3); Neutrophils Percent Auto 73.4 % (45-73); Platelet Count 262 X10*3/uL (160-400); Red Cell Distribution Width 14.9 % (11.0-16.0); White Blood Count 9.2 X10*3/uL (4.8-10.8)
[2022-10-17 08:07] LABS: Appearance Urine Clear; Color Urine Yellow; Glucose Urine UA Negative (Negative); Leukocyte Esterase Urine Large (3+) (Negative); Nitrite Urine Positive (Negative); UMIC TRIGGER UACC YES; Urine Blood Small (1+) (Negative); Urine Ketones 15 mg/dL (Negative); Urine Protein Negative (Neg-Trace)
--- NOTE | 2022-10-17 08:07 | PC.NURSE ---
pain level reassessed and pt verbalizing that pain level did not change despite medication administration.
[2022-10-17 08:13] LABS: Bacteria Urine Trace (None Seen); Hyaline Casts Urine 0-2 /LPF (0-2); Squamous Epithelial Cell Urine 0-2 /HPF (0-2); UACC Culture Trigger YES; WBC Urine >50 /HPF (0-5)
[2022-10-17 08:20] LABS: Lactic Acid 0.8 mmol/L (0.5-2.0)
[2022-10-17 08:26] LABS: Alanine Aminotransferase 13 U/L (0-40); Albumin Level 3.7 g/dL (3.5-5.0); Alkaline Phosphatase 86 U/L (39-117); Anion Gap 11 (12-20); Aspartate Amino Transferase 14 U/L (5-37); Bilirubin Direct 0.3 mg/dL (0.0-0.5); Bilirubin Total 0.8 mg/dL (0.0-1.0); Blood Urea Nitrogen 7 mg/dL (9-16); Calcium 9.1 mg/dL (8.4-10.2); Carbon Dioxide 25 mmol/L (22-29); Chloride 101 mmol/L (96-108); Creatinine Clr Calc Pharmacy 131.2; Estimated Glomerular Filt Rate > 60; Glucose Random 98 mg/dL (60-115); Lipase 10 U/L (8-78); Potassium 4.2 mmol/L (3.3-5.1); Sodium 133 mmol/L (135-145); Total Protein 7.1 g/dL (6.5-8.0)
[2022-10-17 08:26] LABS: COVID-19 Test Negative (Negative); IDNOW Serial# 08D9AD1C
[2022-10-17 08:36] LABS: Troponin-I High Sensitivity < 2.7 ng/L (<3.5-35.0)
--- NOTE | 2022-10-17 09:04 | PC.NURSE ---
pt currently in CT.
[2022-10-17 09:15] VITALS: BP 138/81; PULSE 96; RESP 16; O2SAT 100
--- NOTE | 2022-10-17 09:17 | PC.NURSE ---
pt returned from CT. vss. pt verbalizes that pain level has increased since returning from CT and since medication administration. pt resting comfortably with the lights dimmed in no apparent distress. respirations even and unlabored. call mascorro placed within reach.
[2022-10-17] MEDS: iohexoL 350 MG/ML 100 ML INFUS..BTL 85 ML IV (09:39)
[2022-10-17] MEDS: HYDROmorphone HCl 1 MG/ML SYRINGE IVPUSH (10:12)
--- NOTE | 2022-10-17 10:17 | PC.NURSE ---
medication administered per provider order. will reassess pain level shortly.
[2022-10-17 10:38] VITALS: BP 108/73; PULSE 82; RESP 16; TEMP 37.1; O2SAT 97
[2022-10-17] MEDS: levoFLOXacin/D5W 750 MG/150 ML PIGGYBACK 100 MG IV (10:51)
--- NOTE | 2022-10-17 10:57 | PC.NURSE ---
provider w/ pt and spoke to him about results of CT scan. pt aware of plan of care. abx administered per provider order d/t pt's UTI. pt resting comfortably in no apparent distress. respirations even and unlabored. call mascorro placed within reach.
--- NOTE | 2022-10-17 11:43 | PC.NURSE ---
pt's ostomy emptied and cleaned. 350ml of dark yellow urine drained from rivera bag. pt resting comfortably in no apparent distress. respirations even and unlabored. will d/c pt when abx are completely infused. call mascorro placed within reach.
--- NOTE | 2022-10-17 12:40 | PC.NURSE ---
pt's medication completely infused per provider order. pt verbalizing that he needs his dose of gabapentin for 1300. pt states that he takes 1, 600mg tablet 6 times a day. will notify provider of pt's request.
[2022-10-17] MEDS: Gabapentin 600 MG TABLET PO (12:47)
== END 2022-10-17 13:10 | disposition home or self-care (01) ==
PROVIDERS: Emergency Provider Emergency Medicine; PCP Internal Medicine
DX: N21.0 Calculus in bladder (principal); N39.0 Urinary tract infection, site not specified; B96.5 Pseudomonas (aeruginosa) (mallei) (pseudomallei) as the cause of diseases classified elsewhere; Z20.822 Contact with and (suspected) exposure to COVID-19; R07.9 Chest pain, unspecified; G82.20 Paraplegia, unspecified; F12.90 Cannabis use, unspecified, uncomplicated; Z87.440 Personal history of urinary (tract) infections; Z79.899 Other long term (current) drug therapy
CPT/HCPCS: 36415; 71045; 74177; 80048; 80076; 81001; 82550; 83605; 83690; 83735; 84484; 85025; 87040; 87086; 87088; 87186; 87635; 93005; 96361; 96365; 96375; 99284; J1170; J1956; J2270; J2405; Q9967

== ENCOUNTER 2022-11-01 12:29 | Outpatient (AMB) | payer OTHER, MEDICARE, SELFPAY ==
--- NOTE | 2022-11-01 12:39 | MHC.OFFVIS ---
Intake Vital Signs 11/01/22 12:42 Height 5 ft 11 in BMI Reason not done Patient refused/unable BP 128/78 Blood Pressure Location Lt brachial Position Sitting Pulse 67 Intake Visit Reasons: ER follow up for abdominal pain Intake Note: Timothy presents in the office as a ER follow up for abdominal pains. CC: He states that he is unsure of his weight but he has been losing weight. He has a loss of appetite. Allergies No Known Allergies Allergy (Mild, Verified 11/01/22 12:43) NOT APPLICABLE HPI HPI Comments History of Present Illness Details 72y.o F with hx of T5 injury leading to paraplegia, who is here for poor PO intake. Pt reports that around a month ago he had rather rapid onset of postprandial abdominal pain and nausea that limits his intake. Occurs with both solids and fluids. Only able to take 25-30% of what he used to eat. Has a colostomy due to hx of perineal ulcers. Stools are formed without any blood. No discharge from the rectum at baseline but did have it one day while he was taking levaquin. No fevers or chills. Has lost significant weight subjectively, where he his baclofen pump is now visible dermally, whereas previously needed to be palpated to locate the pump. Last colo was 10 years ago at [facility]. Labs reviewed and notable for chronic normocytic anemia which has not progressed in a few years and hyponatremia. CT Abd/pel done in ER showed: BOWEL, PERITONEUM AND ABDOMINAL WALL: Again noted is a moderate hiatal hernia. There is either true thickening of gastric mucosa within the herniated stomach or an apparent thickening due to the lack of gastric distention. Two prominent paraesophageal lymph nodes in the lower posterior mediastinum are approximately 1.2 cm in short axis dimension. No dilated bowel loops. No evidence of edematous wall thickening of small or large bowel. There is a diverting colostomy of the abdominal wall. No abdominal free fluid or free air. VASCULATURE: Atherosclerotic calcification of the abdominal aorta without aortic aneurysm. 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 Inferior vena cava filter in place. One of the arms of the IVC filter has chronically penetrated into the wall of the abdominal aorta. LYMPH NODES: No change in lymphadenopathy along the gastrohepatic ligament compared to 10/10/2022. The left periaortic lymph nodes are in the normal size range. No retroperitoneal, iliac or inguinal lymphadenopathy. [facility] Medical History (Updated 11/01/22 @ 14:51 by Joan Doty MD) Acute hyponatremia Central pain syndrome Chronic pain syndrome Paraplegia T5 spinal cord injury Surgical History (Updated 11/01/22 @ 12:43 by KATHE Miller) Hx of colonoscopy History of esophagogastroduodenoscopy (EGD) History of creation of ostomy (11/02/21) Social History Household Members: Spouse Housing: House Do you presently have visiting nurse or other home services: Yes Alcohol intake: never Patient Tobacco Use Status: Never used Tobacco Substance Use Type: Marijuana service: No Current occupational status: retired Review of Systems Const All systems reviewed & are unremarkable except as noted in HPI and below Physical Exam Vital Signs: Last Vital Signs Pulse 67 11/01/22 12:42 BP 128/78 11/01/22 12:42 Seated in wheelchair Undernourished Nontoxic appearing Abd soft, nontender, ostomy in LUQ with formed brown stool Assessment & Plan Assessment & Plan (1) Abdominal pain: Code(s): R10.9 - Unspecified abdominal pain Qualifiers: Abdominal location: generalized Qualified Code(s): R10.84 - Generalized abdominal pain (2) Abnormal CT of the abdomen: Code(s): R93.5 - Abnormal findings on diagnostic imaging of other abdominal regions, including retroperitoneum (3) Lymphadenopathy of lesser curvature of stomach: Code(s): R59.0 - Localized enlarged lymph nodes Plan Discussed with the pt that given relatively rapid and severe onset of abdominal pain with early satiety, weight loss and abnormal lymphadenopathy on CT scan, would recommend urgent endoscopic evaluation. Ddx include malignancy, PUD, gastritis/esophagitis. No GOO noted on contrasted CT scan. Since also due for colonoscopy, ideally can do this at the same time as EGD however pt declines this at this time as does not think he will be able to drink enough of the prep due to severe abdominal pain. Willing to review this at a later time. Plan: - Urgent EGD as above Coding Level of Care Code New Pt Level 4 (91875) Diagnoses Abdominal pain R10.84 Abdominal location: generalized Abnormal CT of the abdomen R93.5 Lymphadenopathy of lesser curvature of stomach R59.0
[2022-11-01 12:42] VITALS: BP 128/78; PULSE 67
== END 2022-11-01 13:48 | disposition home or self-care (01) ==
PROVIDERS: PCP Internal Medicine; Visit Provider Internal Medicine
DX: R10.84 Generalized abdominal pain (principal); R93.5 Abnormal findings on diagnostic imaging of other abdominal regions, including retroperitoneum; R59.0 Localized enlarged lymph nodes
CPT/HCPCS: 99204

== ENCOUNTER → 2022-11-01 12:29 | Outpatient (BNVA) | payer OTHER, MEDICARE, SELFPAY | PROVIDERS: PCP Internal Medicine; Visit Provider Internal Medicine ==

== ENCOUNTER 2022-11-02 13:33 | Day surgery (SDC) | payer MEDICARE, SELFPAY ==
[2022-11-02 13:53] VITALS: BMI 20.9
[2022-11-02 13:57] VITALS: BP 124/73; PULSE 74; RESP 16; TEMP 36.4; O2SAT 97
--- NOTE | 2022-11-02 14:08 | PC.NURSE ---
patient is parapelegic, able to transfer to bed with minimal assistance. He has a rivera catheter with yellow output ostomy bag in place
--- NOTE | 2022-11-02 14:35 | P.CONAN_ITS ---
[facility] Active Problems Active Problems: All Active Problems (Updated 11/01/22 @ 14:51 by Joan Doty MD) Lymphadenopathy of lesser curvature of stomach (Acute) Abnormal CT of the abdomen (Acute) Neuropathic pain (Acute) Colostomy in place (Acute) Chronic constipation (Acute) Sacral decubitus ulcer (Acute) Central pain syndrome (Acute) Chronic pain syndrome (Acute) Paraplegia (Acute) T5 spinal cord injury (Acute) Past Medical History Medical History Acute hyponatremia Central pain syndrome Chronic pain syndrome Paraplegia T5 spinal cord injury Family History Family history of problems with anesthesia: No Surgical History Surgical History Hx of colonoscopy History of esophagogastroduodenoscopy (EGD) History of creation of ostomy (11/02/21) History of Problems with Anesthesia: No Social History Social History Household Members: Spouse Housing: House Do you presently have visiting nurse or other home services: Yes Alcohol intake: never Patient Tobacco Use Status: Never used Tobacco Use of substances other than those prescribed or required for medical reasons: Yes Substance Use Type: Marijuana Substance Use Frequency: Occasionally Advance Directives: No Advance Directives Information Provided: Yes Nutrition Risks: Anorexia service: No Current occupational status: retired [employer] Allergies Allergy/AdvReac Type Severity Reaction Status Date / Time No Known Allergies Allergy Mild NOT Verified 11/01/22 12:43 APPLICABLE Home Medications Medication Instructions Recorded Confirmed Last Taken Type diazepam 10 mg tablet 10 mg PO BID 10/02/20 11/21/21 11/01/21 History gabapentin 600 mg tablet 600 mg PO Q4H 10/02/20 11/21/21 11/02/21 05:00 History baclofen 20,000 mcg/20 mL (1,000 See Rx Instructions .Route .COMPLEX 11/02/21 11/21/21 Unknown History mcg/mL) intrathecal solution diazepam 10 mg tablet 1 tab PO DAILY PRN Insomnia 11/02/21 11/21/21 Unknown History Exam Exam Date and Time: November 02, 2022 1435 Height,Weight and Vital Signs: Height 5 ft 11 in Weight 68.06 kg Last Vital Signs Temp 97.6 F 11/02/22 13:57 Pulse 74 11/02/22 13:57 Resp 16 11/02/22 13:57 BP 124/73 11/02/22 13:57 Pulse Ox 97 11/02/22 13:57 O2 Del Method Room Air 11/02/22 13:57 Airway Mallampati Class: II TM Dist: >3cm Neck ROM: Full Loose/Missing/Broken Teeth: No Heart: RRR Lungs: CTA Assessment and Plan Assessment Anesthesia Assessment: Anesthesia Plan Discussed and Chart Reviewed Final Anesthetic Review Family History of Problems with Anesthesia: No History of Problems with Anesthesia: No ASA Class: III Final Preanesthetic Review: Meds/Allgs Chart Reviewed, Consent Obtained/Reviewed and Anes Risks/Benef Reviewed Patient Risk: Intermediate Procedure Risk: Intermediate Anesthetic Plan Anesthetic Plan: MAC: Disposition: Standard PACU
--- NOTE | 2022-11-02 15:00 | MHC.SHP ---
Pre-Procedural Eval Section A Date of Service: 11/02/22 The History & Physical has been completed within 30 days and I have reviewed it.: Yes Section B Chief Complaint: Abnormal CT scan, weight loss Allergies: Allergies Allergy/AdvReac Type Severity Reaction Status Date / Time No Known Allergies Allergy Mild NOT Verified 11/01/22 12:43 APPLICABLE Plan Diagnosis/Plan: Unchanged I have reviewed the history and physical and performed a pertinent physical examination on my patient. No changes have occurred unless specified. Time Spent With Patient Time: Total time managing care of this patient today ____ minutes.
--- NOTE | 2022-11-02 15:04 | P.OP_ITS ---
Operative Note Operative Note Date of Service: 11/02/22 Narrative: Procedure: Esophagogastroduodenoscopy Endoscopist: Joan Doty MD Indication: Abd pain, weight loss Anesthesia Provider: Maribel Lima CRNA Anesthesia Type: MAC ?? EGD Procedure:?? The procedure, indications, preparation and potential complications were reviewed with the patient, who indicated understanding and gave written informed consent to proceed. A physical exam was performed. The endoscope was introduced through the mouth, and advanced to the second part of duodenum. The mucosa was carefully examined on slow withdrawal of the endoscope. The patient tolerated the procedure well. There were no immediate complications.? ? EGD Findings:? * Esophagus:? Friable, ulcerated and fungating partially obstructing mass was noted at the GEJ from 37 cm to 40 cm. The gastroscope was able to traverse through this with contact oozing. Multiple cold forceps biopsies were taken for histology. * Stomach:? Abnormal mucosa was noted in the cardia with prominent reticular pattern. Cold forceps biopsies were taken. Remaing stomach mucosa appeared no rmal. * Duodenum:? Normal mucosa was noted in the whole of the examined duodenum. ? EGD Impressions:? * 3 cm partially obstructing GEJ mass suspicious for malignancy (biopsy) * Abnormal mucosa in cardia (biopsy) * Normal duodenum ?? Recommendations:?? * Follow biopsy results. Our office will call or send a letter with results within 7-10 days. * CT chest ordered * If biopsies confirm malignant mass, referral to oncology and thoracic surgery will be placed. Above has been reviewed with the patient.
[2022-11-02 15:08] VITALS: BP 114/74; PULSE 83; RESP 16; TEMP 36.4; O2SAT 96
[2022-11-02 15:23] VITALS: BP 134/82; PULSE 73; RESP 14; TEMP 36.1; O2SAT 97
== END 2022-11-02 15:44 | disposition home or self-care (01) ==
PROVIDERS: PCP Internal Medicine; Visit Provider Internal Medicine
PROC: 0DJ08ZZ Inspection of Upper Intestinal Tract, Via Natural or Artificial Opening Endoscopic (ICD-10-PCS; CPT 43235; principal; 2022-11-02 15:40)
DX: C16.9 Malignant neoplasm of stomach, unspecified (principal); R59.0 Localized enlarged lymph nodes; R10.84 Generalized abdominal pain; E87.1 Hypo-osmolality and hyponatremia; G89.0 Central pain syndrome; G89.4 Chronic pain syndrome; R63.4 Abnormal weight loss; L98.499 Non-pressure chronic ulcer of skin of other sites with unspecified severity; G82.20 Paraplegia, unspecified; S24.102S Unspecified injury at T2-T6 level of thoracic spinal cord, sequela; X58.XXXS Exposure to other specified factors, sequela; Z93.3 Colostomy status; F12.90 Cannabis use, unspecified, uncomplicated; Z79.899 Other long term (current) drug therapy
CPT/HCPCS: 43239; 88305; 88341; 88342; 88360

== ENCOUNTER → 2022-11-02 13:33 | Outpatient (BNV) | payer MEDICARE, SELFPAY | PROVIDERS: PCP Internal Medicine; Visit Provider Internal Medicine | DX: R10.9 Unspecified abdominal pain (principal); R63.4 Abnormal weight loss; C16.1 Malignant neoplasm of fundus of stomach | CPT/HCPCS: 43239 ==

== ENCOUNTER → 2022-11-06 10:38 | Outpatient (BNV) | payer MEDICARE, SELFPAY | PROVIDERS: PCP Internal Medicine; Visit Provider Internal Medicine Medical Oncology | DX: C15.9 Malignant neoplasm of esophagus, unspecified (principal) | CPT/HCPCS: 99204; 99214 ==

== ENCOUNTER 2022-11-08 11:45 | Outpatient (REF) | payer MEDICARE, SELFPAY ==
--- NOTE | ~2022-11-08 | CT_ITS ---
EXAMINATION: CT CHEST WITH CONTRAST CLINICAL INFORMATION: Mass at the gastroesophageal junction. COMPARISON: CT abdomen/pelvis 10/17/2022 CTA chest 06/20/2009 TECHNIQUE: Multidetector volumetric CT imaging of the chest was obtained after the administration of 65 mL of Omnipaque 350 intravenous contrast without immediate adverse reactions. Axial MIP volume rendering provided. Sagittal and coronal reformatted images were obtained. This CT examination was performed using dose optimization techniques as appropriate, variously including the following: *Automated exposure control *Adjustment of mA and/or kV according to patient size (this includes techniques or standardized protocols for targeted exams where dose is matched to indication/reason for exam; i.e. extremities or head) *Use of iterative reconstruction technique DLP: 195 mGy-cm FINDINGS: LUNGS: No suspicious pulmonary nodule. No focal consolidation. Central airways are patent. MEDIASTINUM: The thyroid gland is unremarkable. Left paratracheal lymph nodes measure 1.1 x 1.2 cm and 0.8 x 1.1 cm. Dilated fluid-filled esophagus. Paraesophageal lymph nodes measure 1.5 x 1.0 cm, 1.4 x 1.9 cm, 1.7 x 1.7 cm, 1.1 x 1.4 cm and 1.3 x 1.4 cm. Great vessels are of normal caliber. Heart size is normal. No pericardial effusion. PLEURA: No pleural effusion. UPPER ABDOMEN: There is marked irregular wall thickening/soft tissue mass with luminal narrowing at the gastroesophageal junction extending to the gastric cardia. IVC filter is in place with apex below the level of the renal veins. No adrenal mass. Hepatic steatosis. Status post cholecystectomy. Gastrohepatic ligament lymph nodes measure 1.9 x 1.5 cm and 1.3 x 1.4 cm. OSSEOUS STRUCTURES: Multiple old healed right-sided rib fractures. Spinal fixation hardware in the thoracic spine with destruction of the T7 vertebral body. There is marked sclerosis of the T12-L3 vertebral bodies. CT/CT chest w IV con IMPRESSION: Marked irregular wall thickening/soft tissue mass at the gastroesophageal junction extending to the gastric cardia with luminal narrowing and proximal dilatation of the esophagus. Enlarged mediastinal, paraesophageal and gastrohepatic ligament lymph nodes most likely pathologic.
[2022-11-08] MEDS: iohexoL 350 MG/ML 100 ML INFUS..BTL IV (14:24)
[2022-11-15 09:44] LABS: HCV RNA PCR Qn <1.18 NOT DETECTED Log IU/mL (NOT DETECTED); HCV RNA PCR Qn <15 NOT DETECTED IU/mL (NOT DETECTED)
== END 2022-11-08 11:46 | disposition home or self-care (01) ==
LOC: HO.CT 11:45
PROVIDERS: PCP Internal Medicine; Visit Provider Internal Medicine
DX: K31.89 Other diseases of stomach and duodenum (principal); R76.8 Other specified abnormal immunological findings in serum
CPT/HCPCS: 36415; 71260; 87522; Q9967

== ENCOUNTER 2022-11-15 11:22 | Outpatient (AMB) | payer MEDICARE, SELFPAY ==
--- NOTE | 2022-11-15 11:29 | A.OFFVIS_ITS ---
Intake Vital Signs 11/15/22 11:35 Height 5 ft 11 in BP 119/69 Blood Pressure Location Lt brachial Position Sitting Pulse 75 Intake Visit Reasons: S/p egd Intake Note: Timothy presents in the office as a follow up EGD. CC: He states that he is not having any concerns since his procedure. He states he is feeling the same and he is still unable to eat. [employer] Required: No Allergies No Known Allergies Allergy (Mild, Verified 11/15/22 11:32) NOT APPLICABLE HPI HPI Comments History of Present Illness Details 72y.o F with hx of T5 injury leading to paraplegia, who is here for follow up after recent diagnosis of GEJ malignancy. 11/01/22: Pt reports that around a month ago he had rather rapid onset of postprandial abdominal pain and nausea that limits his intake. Occurs with both solids and fluids. Only able to take 25-30% of what he used to eat. Has a colostomy due to hx of perineal ulcers. Stools are formed without any blood. No discharge from the rectum at baseline but did have it one day while he was taking levaquin. No fevers or chills. Has lost significant weight subjectively, where he his baclofen pump is now visible dermally, whereas previously needed to be palpated to locate the pump. Last colo was 10 years ago at [facility]. Labs reviewed and notable for chronic normocytic anemia which has not progressed in a few years and hyponatremia. CT Abd/pel done in ER showed: BOWEL, PERITONEUM AND ABDOMINAL WALL: Again noted is a moderate hiatal hernia. T here is either true thickening of gastric mucosa within the herniated stomach or an apparent thickening due to the lack of gastric distention. Two prominent paraesophageal lymph nodes in the lower posterior mediastinum are approximately 1.2 cm in short axis dimension. No dilated bowel loops. No evidence of edematous wall thickening of small or large bowel. There is a diverting colostomy of the abdominal wall. No abdominal free fluid or free air. VASCULATURE: Atherosclerotic calcification of the abdominal aorta without aortic aneurysm. 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 Inferior vena cava filter in place. One of the arms of the IVC filter has chronically penetrated into the wall of the abdominal aorta. LYMPH NODES: No change in lymphadenopathy along the gastrohepatic ligament compared to 10/10/2022. The left periaortic lymph nodes are in the normal size range. No retroperitoneal, iliac or inguinal lymphadenopathy. 11/02/22: EGD 3 cm partially obstructing GEJ mass susp icious for malignancy (biopsy) Abnormal mucosa in cardia (biopsy) Normal duodenum Path: A. Gastric cardia, biopsy: Gastric mucosa with moderate chronic inflammation; negative for intestinal metaplasia, dysplasia and carcinoma (see comment). B. Gastroesophageal junction, mass, biopsy: Poorly-differentiated adenocarcinoma with signet ring cells, within ulcerated squamocolumnar mucosa, with no intestinal metaplasia or dysplasia seen (see comment) 11/15/22: Comes in with his . Has been seen by Oncology and awaiting PET scan as well as visit with thoracic surgery for further management. Reports nutrition remains the main concern as limited to mostly liquid diet. Accurate weights difficult to determine since hes on wheelchair but he again shows the baclofen pump which is now easily visible subdermally i.e has been losing body fat and muscle mass. A new Boost shakes Rx was sent for TID shakes by our office which he is still waiting to hear if it got approved through his insurance. He also voices frustration with scheduling imaging/office visits that they are not getting booked as quickly as he thought they would. [facility] Medical History Acute hyponatremia Central pain syndrome Chronic pain syndrome Paraplegia T5 spinal cord injury Surgical History Hx of colonoscopy History of esophagogastroduodenoscopy (EGD) History of creation of ostomy (11/02/21) Family History Brother Liver cancer Social History Household Members: Spouse Housing: House Do you presently have visiting nurse or other home services: Yes Alcohol intake: never Patient Tobacco Use Status: Never used Tobacco Substance Use Type: Marijuana service: No Current occupational status: retired Review of Systems Const All systems reviewed & are unremarkable except as noted in HPI and below Physical Exam Vital Signs: Last Vital Signs Pulse 75 11/15/22 11:35 BP 119/69 11/15/22 11:35 Seated in wheelchair Undernourished Nontoxic appearing Abd soft, nontender, ostomy in LUQ with formed brown stool Assessment & Plan Assessment & Plan (1) Mass of gastroesophageal junction: Code(s): K31.89 - Other diseases of stomach and duodenum (2) Abdominal pain: Code(s): R10.9 - Unspecified abdominal pain Qualifiers: Abdominal location: generalized Qualified Code(s): R10.84 - Generalized abdominal pain (3) Abnormal CT of the abdomen: Code(s): R93.5 - Abnormal findings on diagnostic imaging of other abdominal regions, including retroperitoneum (4) Lymphadenopathy of lesser curvature of stomach: Code(s): R59.0 - Localized enlarged lymph nodes Plan Reviewed with the pt that main management will be through his Oncologist, surgeon as well as possibly Rad Onc. He was advised to call our office if Boost shakes not covered so we may assist with PA or peer to peer. For sustainable nutrition however he will likely need a feeding tube. - Given partial obstruction noted during EGD as well as the theoretical risk of tumor implantation would recommend this to be placed surgically vs under fluoroscopic guidance with IR. - Pt has been already referred to thoracic surgery by Dr Sebastian and was encouraged to discuss this with his surgeon. If a surgical G tube is not feasible, will be happy to refer him to IR. At previous office visit prior to this diagnosis, we also reviewed indication for screening colo. This of course is being deferred for now given new diagnosis of poorly differentiated adenoca of the GEJ. A follow up is not being scheduled at this time but patient was encouraged to call our office for any questions or concerns that may arise in future. Coding Level of Care Code Est Pt Level 4 (26114) Diagnoses Mass of gastroesophageal junction K31.89 Abdominal pain R10.84 Abdominal location: generalized Abnormal CT of the abdomen R93.5 Lymphadenopathy of lesser curvature of stomach R59.0
[2022-11-15 11:35] VITALS: BP 119/69; PULSE 75
== END 2022-11-15 13:14 | disposition home or self-care (01) ==
PROVIDERS: PCP Internal Medicine; Visit Provider Internal Medicine
DX: K31.89 Other diseases of stomach and duodenum (principal); R10.84 Generalized abdominal pain; R93.5 Abnormal findings on diagnostic imaging of other abdominal regions, including retroperitoneum; R59.0 Localized enlarged lymph nodes
CPT/HCPCS: 99214

== ENCOUNTER → 2022-11-15 11:22 | Outpatient (BNVA) | payer MEDICARE, SELFPAY | PROVIDERS: PCP Internal Medicine; Visit Provider Internal Medicine | DX: K31.89 Other diseases of stomach and duodenum (principal); R10.84 Generalized abdominal pain; R93.5 Abnormal findings on diagnostic imaging of other abdominal regions, including retroperitoneum; R59.0 Localized enlarged lymph nodes | CPT/HCPCS: 99212 ==

== ENCOUNTER 2022-11-24 11:09 | Outpatient (AMB) | payer OTHER, MEDICARE, SELFPAY ==
--- NOTE | 2022-11-24 11:20 | A.OFFVIS_ITS ---
Intake Intake Visit Reasons: bladder stone, chronic rivera, UTI Intake Note: NEW Patient presents today to established treatment for Bladder Stone, Chronic Rivera & UTI: Meds- None Allergies to Antibiotic- No Known Allergies Blood Thinner- None Patient Symptoms: None Personnel Administrator Required: No Accompanied by: Self / Same As Patient Allergies No Known Allergies Allergy (Mild, Verified 11/24/22 11:40) NOT APPLICABLE HPI HPI Comments History of Present Illness Details Timothy is a 72-year-old male who presents today to the office to establish as a new patient for an evaluation of bladder stone, chronic Rivera, UTI. 11/24/2022? 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 The patient states he changes the rivera himself, every 2 - 3 weeks, depending on if the catheter clogs. He is here today because he had a bladder stone found in recent CT imaging. He states he was told there was a small stone in the bladder in 2019. Patient has a history of creation of colostomy, 11/02/21. He states that he had a recent endoscopy and a biopsy done which was positive for cancer. 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 He has followed up scheduledwith general surgery, and pending PET scan. Review of testing: I reviewed the urine culture results from 10/17/2022 which came back Pseudomonas fluorescens 10,000 to 50,000 cfu/mL. I reviewed the CT abdomen/pelvis results from 10/17/2022 revealed chronic prostatomegaly and chronically thickened urinary bladder wall. A large stone is present within the bladder- Plan: Office Cystoscopy for further evaluation. I have discussed with Dr. Santos and we will work together in regards to the treatment and plan of care. [facility] Medical History Acute hyponatremia Central pain syndrome Chronic pain syndrome Paraplegia T5 spinal cord injury Surgical History Hx of colonoscopy History of esophagogastroduodenoscopy (EGD) History of creation of ostomy (11/02/21) Family History Brother Liver cancer Social History Household Members: Spouse Housing: House Do you presently have visiting nurse or other home services: Yes Alcohol intake: never Patient Tobacco Use Status: Never used Tobacco Substance Use Type: Marijuana service: No Current occupational status: retired Review of Systems Const All systems reviewed & are unremarkable except as noted in HPI and below Reports no additional complaints Eyes Reports no additional complaints ENT Reports no additional complaints Card Denies dyspnea Resp Denies cough and Denies dyspnea GI Reports no additional complaints Musc Reports no additional complaints Skin/Breast Denies rash and Denies unusual bruising Neuro Reports no additional complaints Psych Reports no additional complaints Endo Reports no additional complaints Garfield/Lymph Reports no additional complaints Aller/Immun Reports no additional complaints Physical Exam Const General: healthy appearing, no acute distress and well developed Orientation/consciousness: patient oriented x3 HEENT Head: Yes normocephalic and Yes atraumatic Eyes Conjunctivae: conjunctivae normal Neck Neck: Yes normal visual inspection Chest Chest palpation & inspection: normal inspection of the chest Resp Effort & Inspection: normal respiratory effort Cardio Rate: regular rate GI Other: colostomy present, stool in bag Palpation (GI): Soft to palpation Other: Rivera in place Penis: normal penis Scrotum: scrotum normal Skin General skin exam: no rashes or lesions noted Neuro General: patient oriented x3 Extrem Other: lower extremity paraplegia General: No pedal edema Psych Appearance: grossly normal Affect: normal affect Results Reviewed Results Reviewed: Date of Service: 10/17/22 EXAMINATION: CT ABDOMEN AND PELVIS WITH CONTRAST?? CLINICAL INFORMATION: Abdominal pain, rectal leak, post colostomy.?? COMPARISON: 10/10/2022 FINDINGS: LUNG BASES: Secretions are present within multiple right lower lobe bronchi. This could be a manifestation of bronchitis or aspiration. Mild atelectasis in lower lobes. Chronic curvilinear opacity of scarring in right lower lobe. No pleural effusion.? HEPATOBILIARY: Liver has normal size and contour. No evidence of liver mass or abscess. Cholecystectomy interval development of mild intrahepatic ductal dilatation. The mildly dilated common bile duct is 0.8 cm diameter. No stones are seen within the common duct. Also, no evidence of an obstructing mass. PANCREAS: Normal. No edema, pancreatic ductal dilatation or mass.?? SPLEEN: Normal.?? ADRENAL GLANDS: Normal.?? KIDNEYS AND URETERS: The kidneys have normal size and enhance symmetrically. No renal mass. No perinephric edema. No urolithiasis or hydroureteronephrosis. BLADDER:? Rivera catheter within the bladder. The bladder wall is chronically thickened. Large 3.6 x 4.2 cm calcified stone within the bladder. BOWEL, PERITONEUM AND ABDOMINAL WALL: Again noted is a moderate hiatal hernia. There is either true thickening of gastric mucosa within the herniated stomach or an apparent thickening due to the lack of gastric distention. Two prominent paraesophageal lymph nodes in the lower posterior mediastinum are approximately 1.2 cm in short axis dimension. No dilated bowel loops. No evidence of edematous wall thickening of small or large bowel. There is a diverting colostomy of the abdominal wall. No abdominal free fluid or free air. VASCULATURE: Atherosclerotic calcification of the abdominal aorta without aortic aneurysm. 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 Inferior vena cava filter in place. One of the arms of the IVC filter has chronically penetrated into the wall of the abdominal aorta. LYMPH NODES: No change in lymphadenopathy along the gastrohepatic ligament compared to 10/10/2022. The left periaortic lymph nodes are in the normal size range. No retroperitoneal, iliac or inguinal lymphadenopathy. PELVIC VISCERA: Prostate gland is chronically enlarged. No pelvic free fluid. MUSCULOSKELETAL: Thoracic spine fusion hardware is intact. Chronic severe multilevel degenerative disc disease of the lumbar spine. Hypertrophic degenerative changes of the spine. Articular surface irregularity and sclerosis at multiple vertebral endplates. Chronic foci of calcification or ossification are present within the left multifidus muscle of the lumbar spine. There is symmetric appearance of erosive change at sacroiliac joints. Query if there is any history of? HLA-B27 test positivity. Again, there appear to be old healed decubitus ulcers overlying regions of femoral greater trochanters. Findings include chronic dystrophic calcification lateral to left greater trochanter and heterotopic ossification around right hip region. Neurostimulator wire enters the lumbar spinal canal at L1-L2 and ascends into the thoracic canal. IMPRESSION:? *? Again noted is the lymphadenopathy in the visualized lower posterior mediastinum and along the gastrohepatic ligament, and a moderate hiatal hernia. Given presence of lymphadenopathy in the region, if not already performed, consider correlation with upper endoscopy to exclude proximal gastric carcinoma. *? No evidence of bowel obstruction. No acute findings in smaller large bowel compared to 10/10/2022. *? Chronic prostatomegaly and chronically thickened urinary bladder wall. A large stone is present within the bladder. *? Interval development of intrahepatic ductal dilatation. Mildly dilated common bile duct is 0.8 cm diameter. The cause of the ductal dilatation is uncertain. No stones are seen within the common duct. Consider correlation with bilirubin levels and liver function tests. Ordered:? Urine Culture? Procedure?Result?Verified?Site ? Urine Culture? Final?10/20/22 ? ? ?Organism 1?Pseudomonas aeruginosa ? Quant?> 100,000 cfu/mL ? ? ?Organism 2?Pseudomonas fluorescens ? Quant?10,000 to 50,000 cfu/mL ? P aerugino?P fluoresc? M.I.C.? ? RX? ? ?M.I.C.? ? RX? --------- ---? ? --------- ---?Cefepime?4? S?Gentamicin?8? I? ? ?4? S?Levofloxacin?1? S? ? ?2? S?Meropenem? <=0.25? ? ?S? ? ?4? S?Tetracycline? >=16?R?Piperacillin/Tazobactam? 8? S? Assessment & Plan Assessment & Plan (1) Colostomy in place: Code(s): Z93.3 - Colostomy status (2) T5 spinal cord injury: Code(s): S24.102A - Unspecified injury at T2-T6 level of thoracic spinal cord, initial encounter (3) Paraplegia: Code(s): G82.20 - Paraplegia, unspecified (4) Bladder stone: Code(s): N21.0 - Calculus in bladder (5) Chronic indwelling Rivera catheter: Code(s): Z97.8 - Presence of other specified devices Plan Office Cystoscopy for further evaluation. I have discussed with Dr. Santos and we will work together in regards to the treatment and plan of care. Orders: Orders AMB Urinalysis Automated 11/24/22 Z13.9 - Encounter for screening, unspecified Patient Instructions: The patient had an opportunity to ask questions regarding treatment plan. All questions were answered. Imaging, Laboratory studies and physical exam results were discussed and reviewed in detail. No major barriers to understanding were identified. The patient expressed understanding and agreement with the above treatment plan.? ? ? The patient is aware they should contact our office by phone for worsening of their current condition or the appearance of new symptoms. Compliance is encouraged with any medications and followup testing that is ordered.? ? ? It is a privilege to be allowed the opportunity to participate in the urologic care of your patient. If you have any questions or concerns regarding treatment for the above conditions please do not hesitate to contact me. The office telephone contact is [phone].? ? ? This note is constructed in part using voice recognition software. While every effort has been made to ensure accuracy employee relations advisor errors may have been included.? ? ? Yours sincerely,? ? ? Les Flores MD? Coding Level of Care Code New Pt Level 4 (70654) Diagnoses Colostomy in place Z93.3 T5 spinal cord injury S24.102A Paraplegia G82.20 Bladder stone N21.0 Chronic indwelling Rivera catheter Z97.8
== END 2022-11-24 12:20 | disposition home or self-care (01) ==
PROVIDERS: PCP Internal Medicine; Visit Provider Urology
DX: Z93.3 Colostomy status (principal); S24.102A Unspecified injury at T2-T6 level of thoracic spinal cord, initial encounter; G82.20 Paraplegia, unspecified; N21.0 Calculus in bladder; Z97.8 Presence of other specified devices
CPT/HCPCS: 99204

== ENCOUNTER → 2022-11-24 11:09 | Outpatient (BNVA) | payer OTHER, MEDICARE, SELFPAY | PROVIDERS: PCP Internal Medicine; Visit Provider Urology ==

== ENCOUNTER 2022-12-04 10:58 | Outpatient (AMB) | payer MEDICARE, SELFPAY ==
[2022-12-04 11:11] VITALS: PULSE 78; BMI 20.9
--- NOTE | 2022-12-04 11:11 | A.OFFVIS_ITS ---
Intake Vital Signs 12/04/22 11:11 Height 5 ft 11 in Weight 150 lb BMI 20.9 Blood Pressure Location Lt brachial Position Sitting Pulse 78 Intake Visit Reasons: Carcinoma of the GE junction Intake Note: Patient referred by Dr. Sebastian for carcinoma of the GE junction. Hemotherapist Required: No Accompanied by: Spouse Allergies No Known Allergies Allergy (Mild, Verified 12/04/22 11:13) NOT APPLICABLE HPI HPI Comments History of Present Illness Details Patient presents for his for evaluation of recently diagnosed GE junction carcinoma. Patient has had dysphagia for the last few months time is Saleh appreciable amount of weight. He has had endoscopy and PET scan at [facility], the latter of which demonstrated significant regional and distant adenopathy as well as the GE junction tumor. Patient is a very complicated past medical surgical history. He currently has a left upper quadrant her colostomy as diversion for significant sacral decubitus. Chart was reviewed patient evaluated. [facility] Medical History Acute hyponatremia Central pain syndrome Chronic pain syndrome Paraplegia T5 spinal cord injury Surgical History Hx of colonoscopy History of esophagogastroduodenoscopy (EGD) History of creation of ostomy (11/02/21) Family History Brother Liver cancer Social History Household Members: Spouse Housing: House Do you presently have visiting nurse or other home services: Yes Alcohol intake: never Patient Tobacco Use Status: Never used Tobacco Substance Use Type: Marijuana service: No Current occupational status: retired Physical Exam Vital Signs: Last Vital Signs Pulse 78 12/04/22 11:11 BMI result Body Mass Index 20.9 HEENT Other: No obvious cervical periclavicular or axillary adenopathy demonstrated although the PET scan demonstrates and left supraclavicular lymph node which I could not appreciate. Chest Other: Chest breath sounds bilaterally, HS 1 in 2 GI Other: Abdomen soft. Left upper quadrant ostomy. Right flank generator for sacral pain stimulator. Daniels catheter Assessment & Plan Assessment & Plan (1) Mass of gastroesophageal junction: Code(s): K31.89 - Other diseases of stomach and duodenum Plan At the present time, patient would most likely be best served with neoadjuvant or definitive radiation and chemotherapy. In the meantime, he would most likely benefit from a G-tube placement as well as Port-A-Cath placement for nutrition and IV access for his therapy, respectively. I will discuss the case Dr. Sebastian and direct further therapy based on the consensus of opinion and recommendations. Coding Level of Care Code New Pt Level 5 (38178) Diagnoses Mass of gastroesophageal junction K31.89
== END 2022-12-04 11:36 | disposition home or self-care (01) ==
PROVIDERS: PCP Internal Medicine; Referring Provider Internal Medicine Medical Oncology; Visit Provider Surgery
DX: K31.89 Other diseases of stomach and duodenum (principal)
CPT/HCPCS: 99204

== ENCOUNTER → 2022-12-04 10:58 | Outpatient (BNVA) | payer MEDICARE, SELFPAY | PROVIDERS: PCP Internal Medicine; Referring Provider Internal Medicine Medical Oncology; Visit Provider Surgery | DX: K31.89 Other diseases of stomach and duodenum (principal) | CPT/HCPCS: 99202 ==

== ENCOUNTER 2022-12-07 09:41 | Day surgery (SDC) | payer MEDICARE, SELFPAY ==
--- NOTE | 2022-12-06 13:00 | MHC.SHP ---
Pre-Procedural Eval Section A Date of Service: 12/06/22 The patient is an INPATIENT: No Changes since office visit: No Cold of Flu in the past 2 weeks, No New Medical Problems, No Changes in Medication and No Patient answered all questions The History & Physical has been completed within 30 days and I have reviewed it.: Yes Section B Chief Complaint: Other diseases of stomach and duodenum Allergies: Allergies Allergy/AdvReac Type Severity Reaction Status Date / Time No Known Allergies Allergy Mild NOT Verified 12/04/22 11:13 APPLICABLE Plan I have reviewed the history and physical and performed a pertinent physical examination on my patient. No changes have occurred unless specified. Time Spent With Patient Time: Total time managing care of this patient today ____ minutes.
--- NOTE | 2022-12-06 13:44 | HO.ANESPROP2 ---
Documented by User: Betty Orozco NP 12/13/22 14:41 HPI - Anesthesia Eval Consult details Narrative: 72yo M for Port-a-Cath Insertion, Gastrostomy Tube Open Placement T5 spinal cord injury with paraplegia PMFSH Active Problems Active Problems: All Active Problems (Updated 11/26/22 @ 17:57 by Les Flores MD) Chronic indwelling Daniels catheter (Acute) Hepatitis C antibody positive in blood (Acute) Mass of gastroesophageal junction (Acute) Lymphadenopathy of lesser curvature of stomach (Acute) Abnormal CT of the abdomen (Acute) Neuropathic pain (Acute) Colostomy in place (Acute) Chronic constipation (Acute) Sacral decubitus ulcer (Acute) Central pain syndrome (Acute) Chronic pain syndrome (Acute) Paraplegia (Acute) T5 spinal cord injury (Acute) Past Medical History Medical History Acute hyponatremia Central pain syndrome Chronic pain syndrome Paraplegia T5 spinal cord injury Family History Family History Brother Liver cancer Family history of problems with anesthesia: No Surgical History Surgical History Hx of colonoscopy History of esophagogastroduodenoscopy (EGD) History of creation of ostomy (11/02/21) History of Problems with Anesthesia: No Social History Social History Household Members: Spouse Housing: House Do you presently have visiting nurse or other home services: Yes Alcohol intake: never Patient Tobacco Use Status: Never used Tobacco Substance Use Type: Marijuana service: No Current occupational status: retired [employer] Allergies Allergy/AdvReac Type Severity Reaction Status Date / Time No Known Allergies Allergy Mild NOT Verified 12/11/22 13:02 APPLICABLE Home Medications Medication Instructions Recorded Confirmed Last Taken Type gabapentin 600 mg tablet 600 mg PO Q4H 10/02/20 12/11/22 12/07/22 06:00 History baclofen 20,000 mcg/20 mL (1,000 See Rx Instructions .Route .COMPLEX 11/02/21 12/11/22 Unknown History mcg/mL) intrathecal solution diazepam 10 mg tablet 10 mg PO DAILY PRN Insomnia 11/24/22 12/11/22 Unknown History Exam Exam Date and Time: December 06, 2022 1344 Pertinent Lab Results Pertinent Lab Results: Laboratory Tests 11/06/22 11:40 WBC 8.6 Hgb 12.2 L Hct 37.4 L Plt Count 283 Sodium 137 Potassium 4.7 Chloride 102 Carbon Dioxide 28 BUN 8 L Creatinine 0.63 Narrative Narrative: EKG 10/2022 Vent. Rate : 084 BPM Atrial Rate : 084 BPM P-R Int : 138 ms QRS Dur : 092 ms QT Int : 346 ms P-R-T Axes : 060 029 042 degrees QTc Int : 408 ms Normal sinus rhythm Low voltage QRS Borderline ECG When compared with ECG of 10-OCT-2022 09:01, Criteria for Septal infarct are no longer Present Assessment and Plan Assessment Anesthesia Assessment: Chart Reviewed Final Anesthetic Review Family History of Problems with Anesthesia: No History of Problems with Anesthesia: No Documented by User: Ernst Kenyon MD 12/17/22 12:14 PMF Past Medical History Medical History Acute hyponatremia Central pain syndrome Chronic pain syndrome Paraplegia T5 spinal cord injury Family History Family History Brother Liver cancer Surgical History Surgical History Hx of colonoscopy History of esophagogastroduodenoscopy (EGD) History of creation of ostomy (11/02/21) Social History Social History Household Members: Spouse Housing: House Do you presently have visiting nurse or other home services: Yes Alcohol intake: never Patient Tobacco Use Status: Never used Tobacco Substance Use Type: Marijuana service: No Current occupational status: retired Meds Allergies Allergy/AdvReac Type Severity Reaction Status Date / Time No Known Allergies Allergy Mild NOT Verified 12/11/22 13:02 APPLICABLE Home Medications Medication Instructions Recorded Confirmed Last Taken Type gabapentin 600 mg tablet 600 mg PO Q4H 10/02/20 12/11/22 12/07/22 06:00 History baclofen 20,000 mcg/20 mL (1,000 See Rx Instructions .Route .COMPLEX 11/02/21 12/11/22 Unknown History mcg/mL) intrathecal solution diazepam 10 mg tablet 10 mg PO DAILY PRN Insomnia 11/24/22 12/11/22 Unknown History Exam Airway Mallampati Class: II TM Dist: >3cm Neck ROM: Limited Heart: rrr Lungs: cta Assessment and Plan Assessment Anesthesia Assessment: Anesthesia Plan Discussed Final Anesthetic Review NPO: Yes ASA Class: III Final Preanesthetic Review: No Changes in Pt Med Stat, Meds/Allgs Chart Reviewed, Consent Obtained/Reviewed and Anes Risks/Benef Reviewed Patient Risk: Intermediate Procedure Risk: Intermediate Anesthetic Plan Anesthetic Plan: GA Disposition: Standard PACU
[2022-12-07] VITALS (7 sets, daily range): BP systolic 109–146; BP diastolic 76–90; PULSE 69–99; RESP 16–18; TEMP 36.1–36.6; O2SAT 97–100; BMI 20.9
--- NOTE | ~2022-12-07 | FL_ITS ---
EXAMINATION: XR FLUOROSCOPY WITH IMAGES CLINICAL INFORMATION: Port placement. COMPARISON: None available. TECHNIQUE: Fluoroscopy Supervised By: Dr. Felix Fluoroscopy Time: 10.2 seconds. Cumulative Dose: 1.41 mGy. DAP: Gycm2. Images: 2. FINDINGS: Images demonstrate right jugular port with tip projecting over the SVC. FL/FL guidance in OR IMPRESSION: Fluoroscopy guidance for Port-A-Cath placement
--- OUTSIDE RECORDS SUMMARY | 2022-12-07 09:43 | XMS_ITS | Continuity of Care Document ---
Author Name Unknown Organization [facility] Address [address], [address], [address] [place] [id number] Care Team Providers Care Radio News Anchor Name Role Phone Nas EVERETT, García Primary Care Physician [phone] Encounter [facility] Date(s): 10/10/22 - 11/09/22 [facility] [address], [address], [address] [place] [id number] Allergies, Adverse Reactions, Alerts No Known Allergies Immunizations Given and Recorded Vaccine Date Status Refusal Reason Influenza Virus Vaccine (oldterm) 1 10/22/08 Given Tetanus Toxoid Vaccine (oldterm) 02/05/06 Given 1Admin Note: declines Medications acetaminophen-oxycodone 325 mg-5 mg oral tablet 2 tablet, By Mouth, Every 4 hours, PRN Pain , Moderate, May take less, # 24 tablet, 0 Refills, Maintenance, Tablet Start Date: 05/07/09 Status: Ordered baclofen 0.5 mg/mL intrathecal solution See Instructions, 500MCG/ML X 20ML KIT#[id number], # 1 kit, 0 Refills, Maintenance, 01/02/17 9:13:57 Start Date: 01/02/17 Status: Ordered Colace sodium 100 mg oral capsule 1 capsule = 100 mg, By Mouth, 2 times a day, Hold for loose stool or diarrhea, # 30 capsule, 0 Refills, Maintenance, Capsule Start Date: 05/07/09 Status: Ordered collagenase topical 250 u/gm ointment 30 gm tube, Topically, Every Sunday and , 1, each, 1, 1, 10/22/06 14:02:59, apply nickel thick to wound, cover with duoderm CGF, change every 3 days, Print SLIM Number, [id number], [id number], Constant Indicator Start Date: 10/22/06 Stop Date: 11/19/06 Status: Ordered Diazepam = 10 mg, By Mouth, 4 times a day, PRN as needed for muscle spasm, 0 Refills, Maintenance, 01/12/17 15:27:59 Start Date: 01/12/17 Status: Ordered Fentanyl 37.5mg/patch, Every 48 hours, 0 Refills, Maintenance, 01/12/17 15:30:59 Start Date: 01/12/17 Status: Ordered ferrous sulfate 325 mg oral enteric coated tablet 325, mg, 1, tablet, By Mouth, Daily, 30, tablet, 5, 5, 06/18/06 10:25:40, Print SLIM Number, [id number], Constant Indicator Start Date: 06/18/06 Stop Date: 12/15/06 Status: Ordered Gabapentin = 900 mg, By Mouth, 4 times a day, 0 Refills, Maintenance, 01/12/17 15:28:40 Start Date: 01/12/17 Status: Ordered omeprazole 20 mg oral enteric coated tablet 1 tablet = 20 mg, By Mouth, Daily, # 90 tablet, 3 Refills, Maintenance Start Date: 04/21/09 Status: Ordered Problem List Condition Confirmation Course Effective Dates Status Health St atus Informant Erosive esophagitis Confirmed Active Hepatitis C Confirmed Active Paraplegia Confirmed 03/08/06 Active Paraplegic immobility syndrome Confirmed Active Pressure ulcer Confirmed Active Urinary tract infection Confirmed Active Patient Care team information Care Team Personnel Name: García Lovell MD Position: [facility] Physician - Pediatrics Member Role: PCP Address: Address: [address] [place] [id number] Name: Alfredo Donnelly RN Position: [facility] RN Member Role: Primary Care Nurse Name: Radha Kulkarni RN Position: [facility] RN Member Role: Primary Care Nurse Name: Tianna Traore RN Position: [facility] RN Member Role: Primary Care Nurse Name: Rafa Peterson RN Position: [facility] RN Member Role: Primary Care Nurse Name: Liliana Rojas RN Position: [facility] ED RN W/OE and Tasks Member Role: Primary Care Nurse Name: Alexia Rey RN Position: S RN Member Role: Primary Care Nurse Care Team Related Persons Name: NILAY DAVILA Address: home [address] [place] [address] Name: JUAN TAPIA Address: home [address] [place] [id number]
[2022-12-07] MEDS: Lactated Ringers 1,000 ML 100 ML IVCONT (10:24)
--- NOTE | 2022-12-07 12:39 | W.PM.OPN ---
Operative Note Operative Note Date of Service: 12/07/22 Narrative: Preoperative diagnosis: [] Advanced esophageal cancer, dysphagia Postop diagnosis: [] Same Procedure [] 1. Right internal jugular vein Port-A-Cath placement with Doppler ultrasound guidance and fluoroscopy 2. Open G-tube placement Surgeon: [] [employer] Brake Technician: [] Melany Type of Anesthesia: [] MAC Indication for surgery: [] Patient is an unfortunate man with history of paraplegia and has a left upper quadrant ostomy. 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 He requires IV access for chemotherapy as well as enteral nutrition Findings: [] Patient brought to the operating room, placed on operative table supine position, after adequate level of MAC anesthesia was induced, 1. Patient's right neck and chest were prepped and draped in usual sterile fashion. Using Doppler ultrasound guidance, the right internal jugular vein was identified and cannulated using Seldinger technique. A wire was advanced level of superior vena cava under fluoroscopic guidance. A pocket was fashioned approximately 3 finger breaths below the the wire and tunnel to the wire. Catheter was placed the subcutaneous tunnel, connected to a port, and the port secured to the pocket using 3-0 Vicryl sutures. Dilating sheath was then placed over the wire again under fluoroscopic guidance and the wire retrieved. Pre hep flush catheter was advanced to the level of the distal superior vena cava under fluoroscopic guidance. Peel-away sheath was removed without incident. Antegrade and retrograde flow were easily established. Wounds were irrigated, secured hemostasis, and closed using interrupted inverted dermal 3-0 Vicryl sutures followed by Steri-Strips and sterile dressings. Postprocedure film in operating room demonstrated catheter in good position with no pneumothorax. 2. Patient has a left upper quadrant ostomy. This was prepped out of the operative field and the abdomen was approached through an upper midline incision and carried down through skin, subcutaneous tissue, and linea alba. Posterior fascia and peritoneum were opened and extended along the length of the incision. Stomach was identified and brought onto the field and grasped using Alireza cock clamps. Two pursestring sutures of 2-0 silk were placed on the mid stomach. The right upper quadrant stab wound incision, a 24 [place] Daniels catheter was advanced into the abdominal cavity. A gastrotomy was made in the center of the 2 pursestring sutures and the feeding tube was advanced into the distal stomach. Approximately 3 cc of saline was infused into the 5 cc balloon. Pursestring sutures were each secured. Stomach was then pexied to the anterior abdominal wall using interrupted 2-0 silk sutures. G- tube was flushed and gastric contents were retrieved. Plug was then placed in distal end of feeding tube. Wound was irrigated and secured hemostasis. Feeding tube was secured to the skin using 2-0 nylon. Incision was closed in the following manner; mass closure using 0. Maxon suture was used to close fascia. Interrupted inverted deep dermal 3-0 Vicryl sutures followed by running subcuticular 4-0 Vicryl sutures were placed. Steri-Strips and sterile dressings applied. Sponge, needle, instrument counts reported correct. Patient tolerated the procedure well and emerged anesthesia stable condition. EBL minimal
[2022-12-07] MEDS: Gabapentin 300 MG CAPSULE 600 MG PO (13:30)
[2022-12-07] MEDS: Acetaminophen 1,000 MG/100 ML PIGGYBACK 400 MG IV (13:33)
== END 2022-12-07 15:12 | disposition home or self-care (01) ==
PROVIDERS: PCP Internal Medicine; Visit Provider Surgery
PROC: (CPT 36561; principal; 2022-12-07 11:40)
PROC: (CPT 36561; 2022-12-07 11:40)
DX: Z45.2 Encounter for adjustment and management of vascular access device (principal); Z93.3 Colostomy status; C16.0 Malignant neoplasm of cardia; R13.10 Dysphagia, unspecified; R59.9 Enlarged lymph nodes, unspecified; G89.4 Chronic pain syndrome; G89.0 Central pain syndrome; G82.20 Paraplegia, unspecified; E87.1 Hypo-osmolality and hyponatremia; R63.4 Abnormal weight loss; Z68.20 Body mass index [BMI] 20.0-20.9, adult
CPT/HCPCS: 36561; 49440; C1788; J0131; J0690; J1643; J2371; J2795

== ENCOUNTER → 2022-12-07 09:41 | Outpatient (BNV) | payer MEDICARE, SELFPAY | PROVIDERS: PCP Internal Medicine; Visit Provider Surgery | DX: C15.9 Malignant neoplasm of esophagus, unspecified (principal) | CPT/HCPCS: 36561; 76937; 77001 ==

== ENCOUNTER 2023-01-02 10:39 | Outpatient (AMB) | payer OTHER, MEDICARE, SELFPAY ==
--- NOTE | 2023-01-02 11:16 | MHC.OFFVIS ---
Intake Intake Visit Reasons: cysto Intake Note: Patient is Present for follow up Urology Med: None Antibiotic Allergy: Blood Thinner: Pharmacy: Allergies No Known Allergies Allergy (Mild, Verified 01/30/23 10:49) NOT APPLICABLE HPI HPI Comments History of Present Illness Details Timothy is a pleasant male. He is a patient Dr. Lovell. He seen for the following urologic cnditions - neurogenic bladder - history of T5 spinal injury in 2006 with equipment malfunction - bladder stone with recurrent UTI Manages with Daniels catheter which he changes every 2-3 weeks. This could secondary to bladder spasm with leakage when performing intermittent catheterization. Has not seen Urology in many years. Recent diagnosis of GE junction adenocarcinoma. Scheduled for radiation with chemotherapy Has consents chemotherapy result and UTI given stone in bladder Prior surgery consist of colostomy Recommendation for high-powered holmium laser of bladder stone with suprapubic tube placement He understands this may disrupt his radiation Printed copy of CT scan provided [facility] Medical History Acute hyponatremia Central pain syndrome Chronic pain syndrome Paraplegia T5 spinal cord injury Surgical History Hx of colonoscopy History of esophagogastroduodenoscopy (EGD) History of creation of ostomy (11/02/21) Family History Brother Liver cancer Social History Household Members: Spouse Housing: House Do you presently have visiting nurse or other home services: Yes Alcohol intake: never Comment: . Patient Tobacco Use Status: Never used Tobacco Substance Use Type: Marijuana service: No Current occupational status: retired Review of Systems Const Denies chills and Denies fever(s) Card Reports no additional complaints and Denies syncope Resp Denies cough GI Denies abdominal pain and Denies heartburn Reports as per HPI and Denies change in libido Neuro Denies syncope Psych Denies change in libido Endo Denies change in libido Physical Exam Const General: cooperative, healthy appearing, comfortable and no acute distress Orientation/consciousness: patient oriented x3 HEENT Face and sinus: Yes normal facial exam Mouth: moist mucous membranes Neck Neck: Yes normal visual inspection, Yes full ROM and Yes trachea midline Chest Chest palpation & inspection: normal inspection of the chest Resp Effort & Inspection: normal respiratory effort, able to speak in complete sentences and no respiratory distress GI Inspection: Yes normal to inspection Back/Spine/Pelvis Cervical Spine: normal cervical lordosis Thoracic/Lumbar Spine: thoracic and lumbar spine normal to inspection Skin General skin exam: no rashes or lesions noted Neuro General: patient oriented x3, gait normal, tone normal and moves all extremities Extrem General: Yes normal to inspection and Yes capillary refill normal Assessment & Plan Assessment & Plan (1) Chronic indwelling Daniels catheter: Code(s): Z97.8 - Presence of other specified devices (2) Bladder stone: Code(s): N21.0 - Calculus in bladder (3) T5 spinal cord injury: Code(s): S24.102A - Unspecified injury at T2-T6 level of thoracic spinal cord, initial encounter Plan Risks, benefits and alternatives to therapy were discussed. These include but are not limited to infection, bleeding, damage to local organs and tissues, need for further interventions. Anesthetic risks regarding cardiac arrhythmia, blood clots, and potential mortality were discussed. The patient understands the typical recovery time and the outpatient nature of the procedure. After consideration of these risks the patient gives full informed consent and they wish to move ahead with the procedure. Cystoscopy, bladder stone holmium laser, suprapubic tube placement Patient Instructions: Imaging studies, laboratory and physical exam results were discussed and reviewed in detail. No major barriers to patient understanding were identified. An opportunity to ask questions regarding the treatment plan was provided. All questions were answered. The patient expressed understanding and agreement with the above treatment plan. The patient is aware they should contact our office by phone for worsening of their current condition or the appearance of new urologic symptoms. Compliance is encouraged with any medications and followup testing that is ordered. It is a privilege to participate in the urologic care of your patient. If you have any questions or concerns regarding treatment for the above conditions, or other urologic issues, please do not hesitate to contact me. The office telephone contact is [phone]. This note is constructed using voice recognition software. While every effort has been made to ensure accuracy pharmaceutical laboratory technician errors may have been included. Yours sincerely, Dr Rocky Santos MD, [facility] - Urology Providers of Expert, Compassionate Care for the Genitourinary System Coding Level of Care Code Est Pt Level 4 (50415) Diagnoses Chronic indwelling Daniels catheter Z97.8 Bladder stone N21.0 T5 spinal cord injury S24.102A
== END 2023-01-02 14:03 | disposition home or self-care (01) ==
PROVIDERS: PCP Internal Medicine; Visit Provider Urology
DX: Z97.8 Presence of other specified devices (principal); N21.0 Calculus in bladder; S24.102A Unspecified injury at T2-T6 level of thoracic spinal cord, initial encounter
CPT/HCPCS: 99214

== ENCOUNTER → 2023-01-02 10:39 | Outpatient (BNVA) | payer OTHER, MEDICARE, SELFPAY | PROVIDERS: PCP Internal Medicine; Visit Provider Urology ==

== ENCOUNTER 2023-01-10 11:41 | Outpatient (REF) | payer MEDICARE, SELFPAY ==
--- NOTE | ~2023-01-10 | MR_ITS ---
EXAMINATION: MR ABDOMEN WITHOUT AND WITH CONTRAST CLINICAL INFORMATION: Esophageal carcinoma, liver mass lesion found on PET scan, evaluate metastatic tumor. COMPARISON: CT scan of abdomen and pelvis on 10/17/2022 TECHNIQUE: Examination was performed in a high field strength MRI scanner. Multiplanar multiphasic imaging of the abdomen was performed without IV contrast enhancement. Multiphasic Axial T1 weighted fat suppressed images of the upper abdomen were obtained after IV injection of 6.5 mL Gadavist. Coronal T1 weighted fat-suppressed images of the abdomen were obtained following the dynamic axial series. FINDINGS: LIVER: The liver shows no focal lesion in the visualized portion. However, the lower portion of right hepatic lobe segment 5 and segment 6 are obscured by extensive signal drop off, presumably caused by the baclofen pump. The calculated hepatic fat percentage is 3.7%, compatible with normal. HEPATOBILIARY: Gallbladder is surgically absent. Common bile duct is not dilated. PANCREAS: No focal pancreatic lesion with abnormal signal can be seen. SPLEEN: Spleen is normal in size without focal lesion. ADRENAL: Bilateral adrenal glands are normal in shape and size. KIDNEYS: Bilateral kidneys are normal in size without focal lesion. Extensive circumferential mural thickening of the lower thoracic esophagus extending to gastroesophageal junction is seen compatible with diffuse tumor infiltration. Right parasagittal upper abdominal percutaneous gastrostomy feeding tube is seen, possibly ending in the descending duodenum. Left parasagittal anterior abdominal colostomy is present. Lower thoracic spine fixation with transpedicular screws and vertical bars is seen. Multilevel significant lumbar spinal stenosis is seen from L2-L3 to L3-L4 level due to posterior disc protrusion and impingement by hypertrophic ligamentum flavum. MR/MR abdomen wo/w con IMPRESSION: 1. Very limited examination, unable to evaluate the lower lateral portion of right hepatic lobe due to magnetic artifact is from the right abdominal baclofen pump. No definite liver mass lesion could be seen in the visible portion. 2. Status post cholecystectomy. No evidence of hepatobiliary duct dilatation. 3. No focal pancreatic lesion is found. 4. Diffuse mural thickening of the lower thoracic esophagus and gastroesophageal junction could be due to hiatus hernia or tumor infiltration.
[2023-01-10] MEDS: gadobutroL 7.5 ML VIAL IVPUSH (12:54)
== END 2023-01-10 11:42 | disposition home or self-care (01) ==
LOC: HO.MRI 11:41
PROVIDERS: PCP Internal Medicine; Visit Provider Internal Medicine Medical Oncology
DX: K76.9 Liver disease, unspecified (principal)
CPT/HCPCS: 74183; A9585

== ENCOUNTER 2023-01-17 13:06 | Outpatient (REF) | payer MEDICARE, SELFPAY ==
--- NOTE | ~2023-01-17 | CT_ITS ---
EXAMINATION: CT ABDOMEN AND PELVIS WITH CONTRAST CLINICAL INFORMATION: Evaluate liver lesion. COMPARISON: MRI abdomen 01/10/2023. CT abdomen and pelvis 01/30/2023. TECHNIQUE: Exam submitted for interpretation 02/01/2023. Multidetector volumetric images were obtained from the superior aspect of the liver through the pubic symphysis following administration 85 mL of Omnipaque 350 intravenous contrast. Sagittal and coronal reformatted images were obtained on the technologist's workstation. Oral contrast: No This CT examination was performed using dose optimization techniques as appropriate, variously including the following: *Automated exposure control *Adjustment of mA and/or kV according to patient size (this includes techniques or standardized protocols for targeted exams where dose is matched to indication/reason for exam; i.e. extremities or head) *Use of iterative reconstruction technique DLP: 312 mGy-cm FINDINGS: LUNG BASES: No evidence of pulmonary metastasis. LIVER, GALLBLADDER, AND BILIARY TREE: Exam was performed in portal venous phase only. No discrete lesion within the liver no biliary ductal dilatation. Cholecystectomy. PANCREAS: No discrete pancreatic mass. No pancreatic ductal dilatation. SPLEEN: Normal size. No discrete mass. ADRENAL GLANDS: Normal; no mass. KIDNEYS AND URETERS: The kidneys are normal in size, shape, and attenuation. No hydronephrosis, hydroureter, or calculi seen. No perinephric stranding. BLADDER: Daniels catheter. Diffusely thick-walled urinary bladder may relate to chronic bladder outlet obstruction or chronic cystitis. There is a large right posterolateral lamellated calculus measuring 7.8 x 3.7 cm with adjacent 2.2 cm calculus. GASTROINTESTINAL TRACT: Moderate hiatal hernia. Large mass involving the distal esophagus and proximal stomach consistent with the given history of carcinoma. There is new gastroenteric tube placement with catheter tip in the second portion of the duodenum. The small bowel and large bowel are normal in caliber. Transverse colostomy. ABDOMINAL WALL: No significant hernia is appreciated. Baclofen pump in the right lateral superficial abdominal wall. Nodular densities in the omentum consistent with peritoneal carcinomatosis. LYMPH NODES: There are abnormal lymph nodes in the celiac and gastrohepatic regions with largest single node measuring approximately 2.5 x 1.6 cm. These are new compared to the study of 10/17/2022. Additional paraesophageal, peripancreatic lymphadenopathy. VASCULAR: Moderate aortic atherosclerosis. 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 IVC filter. PELVIC VISCERA: Enlarged prostate. OSSEOUS STRUCTURES: Severe degenerative changes in the spine. No discrete metastatic disease. Severe posttraumatic and degenerative changes in the right hip. CT/CT abdomen pelvis w IV con IMPRESSION: Single phase imaging of the liver reveals no focal liver mass. Large mass involving the distal esophagus and proximal stomach in keeping with history of esophageal carcinoma. Paraesophageal, gastrohepatic, peripancreatic lymphadenopathy. Carcinomatosis. Fleischner guidelines were followed.
[2023-01-17] MEDS: iohexoL 350 MG/ML 75 ML INFUS..BTL 85 ML IV (14:22)
== END 2023-01-17 13:07 | disposition home or self-care (01) ==
LOC: HO.CT 13:06
PROVIDERS: PCP Internal Medicine; Visit Provider Internal Medicine Medical Oncology
DX: K76.9 Liver disease, unspecified (principal)
CPT/HCPCS: 74177; Q9967

== ENCOUNTER 2023-01-24 15:45 | Emergency (ER) | payer MEDICARE, SELFPAY ==
[2023-01-24 15:52] VITALS: BP 130/70; PULSE 80; O2SAT 95
[2023-01-24 15:54] VITALS: BP 118/69; PULSE 100; RESP 20; TEMP 37.2; O2SAT 95
--- NOTE | 2023-01-24 16:06 | PC.NURSE ---
Addendum entered by Leah العلي 01/24/23 16:08: Correction: pt has baseline paraplegia Original Note: Pt BIBA from home, per his he had an episode of unresponsiveness at home followed by weakness. Pt has baseline weakness in general. Pt is alert and oriented x3, is completely responsive at this time, denies any complaints
--- NOTE | 2023-01-24 16:14 | ECG_ITS ---
Test Reason : SYNCOPE Blood Pressure : / mmHG Vent. Rate : 080 BPM Atrial Rate : 080 BPM P-R Int : 130 ms QRS Dur : 084 ms QT Int : 344 ms P-R-T Axes : 066 054 054 degrees QTc Int : 396 ms Normal sinus rhythm with sinus arrhythmia Normal ECG When compared with ECG of 17-OCT-2022 07:27, No significant change was found Referred By: Olivia Florez Electronically Signed By:GHISLAINE ROBERSON MD
[2023-01-24 16:26] LABS: Appearance Urine Cloudy; Color Urine Yellow; Glucose Urine UA 250 mg/dL (Negative); Leukocyte Esterase Urine Large (3+) (Negative); Nitrite Urine Positive (Negative); PH 5.5 (5.0-9.0); UMIC TRIGGER UACC YES; Urine Blood Moderate (2+) (Negative); Urine Ketones 15 mg/dL (Negative); Urine Protein 30 (1+) mg/dL (Neg-Trace)
--- NOTE | 2023-01-24 16:51 | ED_ITS ---
HPI - General Adult General Chief complaint: Weakness Stated complaint: syncopal episode,ams Time Seen by Provider: 01/24/23 16:14 Source: patient, family and EMS Mode of arrival: EMS History of Present Illness HPI narrative: 72-year-old male arrives via EMS with history of chronic paraplegia, indwelling catheter, esophageal cancer with reports that shortly after he gave himself his tube feeds and disconnected the 2 being he began to shake he otherwise remembers no parts of the event, his is at bedside and relates the remainder history and states that she noted that he started to shake and then did not respond her and was breathing heavily but denies any cyanotic skin changes, but states he was cool and diaphoretic. Patient states that he has chronically been feeling unwell for approximately an hour after his tube feeds. Patient states that today was the 1st time he had increase the volume and also his 1st radiation treatment. Related Data Home Medications Medication Instructions Recorded Confirmed gabapentin 600 mg tablet 600 mg PO Q4H 10/02/20 12/11/22 baclofen 20,000 mcg/20 mL (1,000 See Rx Instructions .Route .COMPLEX 11/02/21 12/11/22 mcg/mL) intrathecal solution diazepam 10 mg tablet 10 mg PO DAILY PRN Insomnia 11/24/22 12/11/22 Previous Rx's Medication Instructions Recorded food supplemt, lactose-reduced 1 ea PO TID 30 days #21,330 mL 11/06/22 0.06 gram-1 kcal/mL oral liquid (Boost High Protein) cefdinir 250 mg/5 mL oral 300 mg (6 mL) PO Q12H 14 days #168 01/24/23 suspension mL Allergies Allergy/AdvReac Type Severity Reaction Status Date / Time No Known Allergies Allergy Mild NOT Verified 12/11/22 13:02 APPLICABLE Review of Systems 2 Review of Systems: Pertinent positives and negatives as stated in HPI PMF Past Medical History Source: nursing notes reviewed Medical History Acute hyponatremia Central pain syndrome Chronic pain syndrome Paraplegia T5 spinal cord injury Surgical History Hx of colonoscopy History of esophagogastroduodenoscopy (EGD) History of creation of ostomy (11/02/21) Family History Family History Brother Liver cancer Social History Social History Household Members: Spouse Housing: House Do you presently have visiting nurse or other home services: Yes Alcohol intake: never Comment: . Patient Tobacco Use Status: Never used Tobacco Smoked in Last 30 Days: No Use of substances other than those prescribed or required for medical reasons: No Substance Use Type: Marijuana Advance Directives: No service: No Current occupational status: retired Physical Exam ED Vital Signs: Vital Signs - 24 hr 01/24/23 15:54 01/24/23 16:55 01/24/23 17:52 Temperature 99.0 F Pulse Rate 100 83 83 Respiratory Rate 20 16 15 Blood Pressure 118/69 99/70 111/69 Pulse Oximetry 95 96 97 Oxygen Delivery Method Room Air Room Air Room Air BMI result Body Mass Index 20.0 VITAL SIGNS: Reviewed. GENERAL: Well developed, well nourished, in no acute distress. HEAD: Normocephalic/atraumatic EYES: PERRLA, EOMI EARS: Ext canals without abnormality NOSE: Nares patent bilateral OROPHARYNX: no oral lesions noted, posterior pharynx clear NECK: Supple, no adenopathy LUNGS: Normal breath sounds. No adventitious sounds or accessory muscle use. SpO2<95> CARDIOVASCULAR: Regular rate and rhythm without noted murmurs, no JVD or lower extremity edema. ABDOMEN: Soft, non-tender, non-distended with bowel sounds, ostomy is positive for brown stool and gas. MUSCULOSKELETAL: No tenderness, deformities, or effusions noted on gross inspection. EXTREMITIES: No cyanosis, clubbing or edema. SKIN: Inspection of the skin reveals no rashes, ulcerations, jaundice, pallor, or petechiae. NEUROLOGIC: Alert and oriented x 4, contracted at baseline from the mid abdomen down Medications Administered Discontinued Medications Generic Name Dose Route Start Last Admin Trade Name Freq PRN Reason Stop Dose Admin Sodium Chloride 1,000 mls @ 999 mls/hr 01/24/23 16:45 01/24/23 18:25 Ns IV 01/24/23 17:45 Infused .Q1H1M GONZÁLEZ Infusion Ceftriaxone Sodium 1 gm/ 50 mls @ 100 mls/hr 01/24/23 17:44 01/24/23 18:24 Sodium Chloride IV 01/24/23 18:13 Infused ONCE ONE Infusion Medical Decision Making Medical Decision Making [facility] Narrative: 1645: 72-year-old male with history and clinical presentation, DDX: Vasovagal syncope for which we will rule out volume/infection/electrolyte/anemia/arrhythmia etiologies 1700: I discussed case with Kayleigh Umanozr at at [facility] oncology: Recommends that patient go back to original tube feeding volumes and call Tianna in the morning. I reviewed all investigations and hematologic indices demonstrate a leukocytosis with left shift and given positive values of the urinalysis will treat for urinary tract infection as well as administer IV fluids. Patient has a stable normocytic anemia no thrombocytopenia. Likely dominguez studies are within normal limits. Chemistry indices are grossly within normal limits and there is no demonstrated MARINA her electrolytes/liver enzyme derangements, patient does demonstrate a lactic acidosis for which he received IV fluids and on re- evaluation patient is feeling much better. As mentioned above urinalysis is significantly positive for nitrites with 4+ bacteria and greater than 50 wbc's. Patient does have a known bladder stone and given the fact that he has experienced a vasovagal syncopal episode as well as chills and nausea will treat for the urinary tract infection and he received 1 g of Rocephin. Viral testing negative for COVID/influenza. I discussed all findings and results with patient at bedside and he understands and is otherwise discharged home. Differential Diagnosis Differential Diagnoses: The differential diagnosis associated with the presentation includes Please see the discussion above Admission/Observation Consideration of admission/observation: Escalation of care including admission/observation considered Please see the discussion above Consult Healthcare Provider Management of the patient was discussed with: [employer] Please see the discussion above Lab Data [facility] Lab Attestation statement: I reviewed the patient's lab results. Please see the discussion above 01/24/23 17:13 01/24/23 17:13 Labs: Lab Results 01/24/23 01/24/23 01/24/23 Range/Units 15:59 17:13 17:34 WBC 12.2 H (4.8-10.8) X10*3/uL RBC 3.12 L (4.60-5.80) X10*6/uL Hgb 9.4 L (14.0-18.0) g/dl Hct 28.4 L (42.0-52.0) % MCV 91.0 (80.0-98.0) fL MCH 30.1 (27.0-33.0) pg MCHC 33.1 (31.0-36.0) g/dl RDW 15.0 (11.0-16.0) % Plt Count 349 (160-400) X10*3/uL MPV 9.3 L (9.4-12.4) fL Immature Gran % (Auto) 1.6 H (0.0-0.4) % Neut % (Auto) 79.6 H (45-73) % Lymph % (Auto) 5.2 L (20-40) % Campbell % (Auto) 12.8 H (2-11) % Eos % (Auto) 0.3 (0-4) % Baso % (Auto) 0.5 (0-2) % Lymph # (Auto) 0.6 L (1.2-4.9) X10*3/uL Campbell # (Auto) 1.6 H (0.1-1.2) X10*3/uL Eos # (Auto) 0.0 (0.0-0.4) X10*3/uL Baso # (Auto) 0.1 (0.0-0.2) X10*3/uL Abs Immat Gran (auto) 0.20 H (0.00-0.03) X10*3/uL Absolute Neuts (auto) 9.7 H (2.0-8.3) x10*3/uL Absolute Nucleated RBC 0.000 (0.0-0.012) X10*3/uL Nucleated RBC % (auto) 0.0 (0.0-0.2) /100WBC Smear Tech's Comments VERIFIED PT 12.2 (11.1-13.3) SEC INR 1.0 (0.9-1.1) Sodium 136 (135-145) mmol/L Potassium 3.8 (3.3-5.1) mmol/L Chloride 102 (96-108) mmol/L Carbon Dioxide 26 (22-29) mmol/L Anion Gap 12 (12-20) BUN 11 (9-16) mg/dL Creatinine 0.60 (0.5-1.4) mg/dL Estim Creat Clear Calc 103.9 Estimated GFR > 60 Random Glucose 95 (60-115) mg/dL Lactic Acid 2.8 H* (0.5-2.0) mmol/L Calcium 9.3 (8.4-10.2) mg/dL Total Bilirubin 0.4 (0.0-1.0) mg/dL AST 20 (5-37) U/L ALT 10 (0-40) U/L Alkaline Phosphatase 107 (39-117) U/L Total Protein 6.7 (6.5-8.0) g/dL Albumin 3.6 (3.5-5.0) g/dL Urine Color Yellow Urine Appearance Cloudy Urine pH 5.5 (5.0-9.0) Ur Specific [place] 1.020 (1.005-1.025) Urine Protein 30 (1+) H (Neg-Trace) mg/dL Urine Glucose (UA) 250 H (Negative) mg/dL Urine Ketones 15 (Negative) mg/dL Urine Blood Moderate (2+) H (Negative) Urine Nitrite Positive H (Negative) Ur Leukocyte Esterase Large (3+) H (Negative) Urine RBC >20 H (0-2) /HPF Urine WBC >50 H (0-5) /HPF Ur Squamous Epith Cells 0-2 (0-2) /HPF Urine Bacteria 4+ (None Seen) Hyaline Casts 6-10 (0-2) /LPF Granular Casts Present COVID-19 (NIKUNJ) Negative (Negative) COVID-19 Clin Com See Note Influenza Type A (ANTONIETA) Negative (Negative) Influenza Type B (ANTONIETA) Negative (Negative) Influenza A & B Note See Note Independent Interpretation I performed an independent interpretation of an: EKG Interpretation: Normal sinus rhythm, HR-80, no STEMI, AR/QRS/QTC is within normal limits. External Record Review External record reviewed: Outpatient record, Prior outpatient labs and Prior outpatient radiology Critical Care Time Critical Care Time Critical Care Time: Yes Total Critical Care Time: 30 Attestation: I personally attest to this time spent taking care of the patient. Discharge Plan Discharge Clinical Impression: Pyelonephritis, Indwelling Daniles catheter present, Acute UTI, Bladder stone Patient Disposition: Home, Self-Care Instructions: Kidney Infection (ED), Catheter-associated Urinary Tract Infection (ED), Bladder Stones (ED) Additional Instructions: 1. Resume all home medications as prescribed. 2. Complete the entire course of antibiotics as prescribed. 3. Please follow-up with primary care doctor and urologist in the next 1-2 days. 4. Please follow-up with Tianna by calling her in the morning and discussing the volume of your tube feeds. Return to the ER for any worsening symptoms. Prescriptions: New cefdinir 250 mg/5 mL suspension for reconstitution 300 mg PO Q12H 14 Days Qty: 168 0RF No Action Boost High Protein 0.06 gram- 1 kcal/mL liquid 1 ea PO TID 30 Days Qty: 14130 3RF gabapentin 600 mg Tablet 600 mg PO Q4H baclofen 20,000 mcg/20mL (1,000 mcg/mL) Solution See Rx Instructions .ROUTE .COMPLEX Rx Instructions: patient has a pump diazepam 10 mg tablet 10 mg PO DAILY PRN (Reason: Insomnia) Rx Instructions: 4 TABS Referrals: Les Flores MD [Physician] -
[2023-01-24 16:55] VITALS: BP 99/70; PULSE 83; RESP 16; O2SAT 96
[2023-01-24 17:02] LABS: Bacteria Urine 4+ (None Seen); Granular Casts Urine Present; RBC Urine >20 /HPF (0-2); Squamous Epithelial Cell Urine 0-2 /HPF (0-2); UACC Culture Trigger YES; WBC Urine >50 /HPF (0-5)
[2023-01-24] MEDS: 0.9 % Sodium Chloride 1,000 ML 999 ML IV (17:16)
[2023-01-24 17:23] LABS: Basophils Absolute Auto 0.1 X10*3/uL (0.0-0.2); Basophils Percent Auto 0.5 % (0-2); Eosinophils Percent Auto 0.3 % (0-4); Hematocrit 28.4 % (42.0-52.0); Hemoglobin 9.4 g/dl (14.0-18.0); Imm Gran Pct Auto 1.6 % (0.0-0.4); Lymphocytes Absolute Auto 0.6 X10*3/uL (1.2-4.9); Lymphocytes Percent Auto 5.2 % (20-40); MANUAL DIFF FLAG SCAN; Mean Corpuscular HGB Conc 33.1 g/dl (31.0-36.0); Mean Corpuscular Hemoglobin 30.1 pg (27.0-33.0); Mean Platelet Volume 9.3 fL (9.4-12.4); Monocytes Absolute Auto 1.6 X10*3/uL (0.1-1.2); Monocytes Percent Auto 12.8 % (2-11); Neutrophils Absolute Auto 9.7 x10*3/uL (2.0-8.3); Neutrophils Percent Auto 79.6 % (45-73); Platelet Count 349 X10*3/uL (160-400); Red Blood Count 3.12 X10*6/uL (4.60-5.80); SCAN SMEAR FLAG 1; White Blood Count 12.2 X10*3/uL (4.8-10.8)
[2023-01-24 17:29] LABS: Prothrombin Time 12.2 SEC (11.1-13.3)
[2023-01-24 17:41] LABS: SLIDE REVIEW VERIFIED
[2023-01-24 17:43] LABS: Alanine Aminotransferase 10 U/L (0-40); Albumin Level 3.6 g/dL (3.5-5.0); Alkaline Phosphatase 107 U/L (39-117); Anion Gap 12 (12-20); Aspartate Amino Transferase 20 U/L (5-37); Bilirubin Total 0.4 mg/dL (0.0-1.0); Blood Urea Nitrogen 11 mg/dL (9-16); Calcium 9.3 mg/dL (8.4-10.2); Carbon Dioxide 26 mmol/L (22-29); Chloride 102 mmol/L (96-108); Creatinine Clr Calc Pharmacy 103.9; Estimated Glomerular Filt Rate > 60; Glucose Random 95 mg/dL (60-115); Lactic Acid 2.8 mmol/L (0.5-2.0); Potassium 3.8 mmol/L (3.3-5.1); Sodium 136 mmol/L (135-145); Total Protein 6.7 g/dL (6.5-8.0)
[2023-01-24] MEDS: cefTRIAXone sodium 1 GM in 0.9 % Sodium Chloride 50 ML IV (17:51)
[2023-01-24 17:52] VITALS: BP 111/69; PULSE 83; RESP 15; O2SAT 97
[2023-01-24 18:12] LABS: COVID-19 Test Negative (Negative); IDNOW Serial# 08D9AD1C
[2023-01-24 18:14] LABS: IDNOW Serial# BCCEAD1C; Influenza A Negative (Negative); Influenza B2 Negative (Negative)
[2023-01-24 19:18] LABS: Reflex Lactate? Lactic Acid Added
== END 2023-01-24 19:14 | disposition home or self-care (01) ==
PROVIDERS: Emergency Provider Student in an Organized Health Care Education/Training Program
DX: N12 Tubulo-interstitial nephritis, not specified as acute or chronic (principal); N39.0 Urinary tract infection, site not specified; R55 Syncope and collapse; N21.0 Calculus in bladder; Z11.52 Encounter for screening for COVID-19; Z20.822 Contact with and (suspected) exposure to COVID-19; Z79.899 Other long term (current) drug therapy
CPT/HCPCS: 36415; 80053; 81001; 83605; 85025; 85610; 87040; 87086; 87502; 87635; 93005; 96361; 96374; 99284; 99285; J0696

== ENCOUNTER → 2023-01-24 16:14 | Outpatient (BNV) | payer MEDICARE, SELFPAY | PROVIDERS: Emergency Provider Student in an Organized Health Care Education/Training Program; Visit Provider Internal Medicine Cardiovascular Disease | DX: R55 Syncope and collapse (principal) | CPT/HCPCS: 93010 ==

== ENCOUNTER 2023-01-30 10:41 | Inpatient (IN) | payer MEDICARE, SELFPAY ==
[2023-01-30] VITALS (9 sets, daily range): BP systolic 117–146; BP diastolic 69–95; PULSE 77–97; RESP 14–21; TEMP 35.9–37.4; O2SAT 96–100; BMI 19.4
--- NOTE | ~2023-01-30 | CT_ITS ---
EXAMINATION: CT ABDOMEN AND PELVIS WITH CONTRAST CLINICAL INFORMATION: Abdominal pain. GI bleed. COMPARISON: Previous CT of the abdomen and pelvis 01/17/2023 and abdominal MRI 01/10/2023 TECHNIQUE: Multidetector volumetric images were obtained from the superior aspect of the liver through the pubic symphysis following administration 85 mL of Omnipaque 350 intravenous contrast. Sagittal and coronal reformatted images were obtained on the technologist's workstation. Oral contrast: Yes This CT examination was performed using dose optimization techniques as appropriate, variously including the following: *Automated exposure control *Adjustment of mA and/or kV according to patient size (this includes techniques or standardized protocols for targeted exams where dose is matched to indication/reason for exam; i.e. extremities or head) *Use of iterative reconstruction technique DLP: 422 mGy-cm FINDINGS: LUNG BASES: Small bibasilar pulmonary nodules. Question new peripheral or subpleural 4 mm right lower lobe nodule axial image 46 series 4. Small left cardiophrenic angle or anterior diaphragmatic lymph nodes axial image 7 series 3. These prior exam. LIVER, GALLBLADDER, AND BILIARY TREE: The liver is normal in size, shape, and attenuation. Question small peripheral or subcapsular lesion adjacent to the lateral segment of the left lobe of the liver measuring 1 cm 12 series 3. Question subcapsular lesion versus adjacent lymph node next to the caudate lobe measuring 1 x 1.5 cm axial image 12. No other focal liver lesion. No biliary duct dilatation. Previously identified intra and extrahepatic biliary duct dilatation January 17 appears improved. The gallbladder has been removed. PANCREAS: Unremarkable. SPLEEN: Unremarkable. ADRENAL GLANDS: Unremarkable. KIDNEYS AND URETERS: The kidneys are normal in size, shape, and attenuation. No hydronephrosis, hydroureter, or calculi seen. No perinephric stranding. BLADDER: Daniels catheter in the bladder. Large bladder stone measuring 3.5 cm. Diffuse bladder wall thickening. GASTROINTESTINAL TRACT: G-tube with tip in the second portion of the duodenum. Transverse colostomy. A haustral appearance of the colon with mild bowel wall thickening equivocal for mild colitis. Abnormal wall thickening of the distal thoracic esophagus and stomach. Appendix not seen. There are innumerable wall peritoneal nodules greatest under both diaphragms. Stranding of the surrounding fat. Findings are suggestive of peritoneal disease. There is a small amount of ascites. These findings are new or increased January 2023 exam. ABDOMINAL WALL: No significant hernia is appreciated. LYMPH NODES: There are enlarged upper abdominal retroperitoneal, paraesophageal and gastrohepatic periportal and peripancreatic lymph nodes. These appear increased from January 17. Largest lymph node is a gastrohepatic space lymph node measuring 1.7 cm in short axis. VASCULAR: There is an IVC filter unchanged. There is severe atherosclerotic disease. There is a severe stenosis/ occlusion of the right common and external iliac arteries. PELVIC VISCERA: The prostate gland is enlarged. OSSEOUS STRUCTURES: Extensive old trauma to the pelvis. Spinal stimulator thoracic and upper lumbar spinal canal with battery in the right lower quadrant abdominal wall. Postsurgical changes to the lower thoracic spine. Severe the level degenerative changes of the spine. Severe degenerative changes at the hip joints. CT/CT abdomen pelvis w IV con IMPRESSION: Large mass involving the distal thoracic esophagus and stomach. Increasing peritoneal disease, new small amount of ascites and increasing lymphadenopathy. Question new small subcapsular implants in the liver. Increasing pulmonary nodules. Question mild colitis of the distal colon. Enlarged prostate gland that protrudes into the base of the bladder. Daniels catheter. Large 3.5 cm bladder stone and diffuse bladder wall thickening. Severe stenosis /occlusion of the right common and external iliac artery. Fleischner guidelines were followed.
--- NOTE | ~2023-01-30 | CT_ITS ---
EXAMINATION: CT HEAD WITHOUT CONTRAST CLINICAL INFORMATION: Right upper extremity weakness. History of esophageal cancer. COMPARISON: CT head from 02/16/2008. TECHNIQUE: Contiguous axial imaging was performed from the skull base to vertex without intravenous administration of contrast. This CT examination was performed using dose optimization techniques as appropriate, variously including the following: *Automated exposure control. *Adjustment of mA and/or kV according to patient size (this includes techniques or standardized protocols for targeted exams where dose is matched to indication/reason for exam; i.e. extremities or head). *Use of iterative reconstruction technique. DLP: 680 mGy-cm FINDINGS: There is a 2.2 cm hyperattenuating mass in the high left frontoparietal junction. There is a 2.6 cm hypoattenuating mass in the right occipital lobe. Moderate perilesional edema associated with these lesions. There is no evidence of acute intracranial hemorrhage or edematous territorial infarction. There is a region of encephalomalacia in the right frontal lobe along the tract of a previous right frontal approach ventriculostomy catheter. Partial effacement of the left lateral ventricle. Otherwise, proportional prominence of the ventricles and sulcal spaces without evidence of obstructive hydrocephalus. No midline shift. No extra-axial fluid collections. No acute soft tissue or osseous abnormalities. Mild mucosal thickening of the paranasal sinuses. The mastoid air cells and middle ear cavities are clear. CT/CT head/brain wo IV con IMPRESSION: 1. There is a 2.2 cm mass in the high left frontoparietal junction and a 2.6 cm mass in the right occipital lobe. Moderate perilesional edema associated with these lesions. Findings are suggestive of metastatic disease. 2. No evidence of acute intracranial hemorrhage or edematous territorial infarction. This critical result was discussed with Dr. Rowland at 15:48 on 01/30/2023 and it was ascertained that the content and urgency of the report was understood at the time of direct communication.
[2023-01-30 12:17] LABS: COVID-19 Test Negative (Negative); IDNOW Serial# BCCEAD1C
[2023-01-30 12:27] LABS: MANUAL DIFF FLAG NO
[2023-01-30 12:31] LABS: Basophils Percent Auto 0.6 % (0-2); Eosinophils Absolute Auto 0.1 X10*3/uL (0.0-0.4); Hematocrit 26.5 % (42.0-52.0); Hemoglobin 8.7 g/dl (14.0-18.0); Imm Gran Abs Auto 0.06 X10*3/uL (0.00-0.03); Imm Gran Pct Auto 0.8 % (0.0-0.4); Lymphocytes Absolute Auto 0.5 X10*3/uL (1.2-4.9); Lymphocytes Percent Auto 7.4 % (20-40); Mean Corpuscular HGB Conc 32.8 g/dl (31.0-36.0); Mean Corpuscular Hemoglobin 29.9 pg (27.0-33.0); Mean Corpuscular Volume 91.1 fL (80.0-98.0); Monocytes Absolute Auto 0.7 X10*3/uL (0.1-1.2); Monocytes Percent Auto 9.5 % (2-11); Neutrophils Absolute Auto 5.9 x10*3/uL (2.0-8.3); Neutrophils Percent Auto 80.7 % (45-73); Platelet Count 313 X10*3/uL (160-400); Red Blood Count 2.91 X10*6/uL (4.60-5.80); Red Cell Distribution Width 15.3 % (11.0-16.0); White Blood Count 7.3 X10*3/uL (4.8-10.8)
--- NOTE | 2023-01-30 12:33 | PC.NURSE ---
pt aox4. comes in with cramping central abdomen pain that has been increasing over the past several days. Pt also has productive cough. Pt is paraplegic, has a colostomy bag, and a g-tube. Pt has a port for chemo for esophageal cancer. Pt localizes the pain has sub sternal to lower abdomen - abd is non-tender, non distended. additionally, pt reports that over the past week or two, his right arm has become progressively weaker and now he is unable to lift it. If his right arm is manually raised, he can keep it in the air, and he can use strength to press back against resistance,. but is unable to lift his arm. full use of fingers and wrist. PA notified of this finding. Neuo exam intact otherwise.
--- NOTE | 2023-01-30 12:39 | PC.NURSE ---
per patient, port was cleared by oncology for access, per PA, access port for labs and IV access. labs drawn and sent to lab
[2023-01-30 12:53] LABS: Alanine Aminotransferase 8 U/L (0-40); Albumin Level 3.4 g/dL (3.5-5.0); Alkaline Phosphatase 84 U/L (39-117); Anion Gap 12 (12-20); Aspartate Amino Transferase 18 U/L (5-37); Bilirubin Total 0.5 mg/dL (0.0-1.0); Blood Urea Nitrogen 7 mg/dL (9-16); Carbon Dioxide 24 mmol/L (22-29); Chloride 104 mmol/L (96-108); Creatinine Clr Calc Pharmacy 116.2; Estimated Glomerular Filt Rate > 60; Glucose Random 100 mg/dL (60-115); Potassium 3.8 mmol/L (3.3-5.1); Sodium 136 mmol/L (135-145); Total Protein 6.1 g/dL (6.5-8.0)
--- NOTE | 2023-01-30 13:23 | ED_ITS ---
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 Patient just feels like something is not right. He is a paraplegic and he usually does not feel pain however he is having some pain in his abdomen. Reports normal urinary habits and is requesting for his indwelling Daniels catheter to be changed in today's visit Related Data Home Medications Medication Instructions Recorded Confirmed gabapentin 600 mg tablet 600 mg PO Q4H 10/02/20 12/11/22 baclofen 20,000 mcg/20 mL (1,000 See Rx Instructions .Route .COMPLEX 11/02/21 12/11/22 mcg/mL) intrathecal solution diazepam 10 mg tablet 10 mg PO DAILY PRN Insomnia 11/24/22 12/11/22 Previous Rx's Medication Instructions Recorded food supplemt, lactose-reduced 1 ea PO TID 30 days #21,330 mL 11/06/22 0.06 gram-1 kcal/mL oral liquid (Boost High Protein) cefdinir 250 mg/5 mL oral 300 mg (6 mL) PO Q12H 14 days #168 01/24/23 suspension mL Allergies Allergy/AdvReac Type Severity Reaction Status Date / Time No Known Allergies Allergy Mild NOT Verified 01/30/23 10:49 APPLICABLE Review of Systems Review of Systems Constitutional : No Weight loss, No Fever, No Chills, + Fatigue, + Malaise ENT/Mouth : No sore throat, No Rhinorrhea Eyes: No Eye Pain, No Swelling, No Redness Cardiovascular : No Chest Pain, No SOB, No Dyspnea on Exertion, No Orthopnea, No Edema, No Palpitations Respiratory : No Cough, No Sputum, No Wheezing Gastrointestinal : No Nausea, No Vomiting, No Diarrhea, No Constipation, + abdominal Pain, No Hematochezia, No Melena Genitourinary : No Dysuria, No Urinary Frequency, No Hematuria, Musculoskeletal : No joint pain, No Myalgias, No Joint Swelling Skin : No Skin Lesions, No rash Neuro : + Weakness, No Numbness, No Dizziness, No Headache Psych : No Anxiety/Panic, No Depression Heme/Lymph: No Bruising, No Bleeding,No Lymphadenopathy Endocrine : No Polyuria, No Polydipsia All other systems reviewed and are negative Yes all other systems are reviewed and are negative PMFSH Past Medical History Attestation statement: The following information was validated with the patient. Source: old records reviewed Medical History Acute hyponatremia Central pain syndrome Chronic pain syndrome Paraplegia T5 spinal cord injury Surgical History Hx of colonoscopy History of esophagogastroduodenoscopy (EGD) History of creation of ostomy (11/02/21) Family History Family History Brother Liver cancer Social History Social History Household Members: Spouse Housing: House Do you presently have visiting nurse or other home services: Yes Alcohol intake: never Comment: . Patient Tobacco Use Status: Never used Tobacco Smoked in Last 30 Days: No Use of substances other than those prescribed or required for medical reasons: Yes Substance Use Type: Marijuana Advance Directives: No Advance Directives Information Provided: Yes service: No Current occupational status: retired Physical Exam ED Vital Signs: Vital Signs - 24 hr 01/30/23 10:52 01/30/23 13:16 01/30/23 13:49 Temperature 98.6 F 99.3 F Pulse Rate 90 78 87 Respiratory Rate 18 18 21 H Blood Pressure 120/75 143/77 H 128/71 Pulse Oximetry 100 99 99 Oxygen Delivery Method Room Air Room Air Room Air 01/30/23 15:25 Temperature Pulse Rate 77 Respiratory Rate 18 Blood Pressure 126/69 Pulse Oximetry 100 Oxygen Delivery Method Room Air BMI result Body Mass Index 19.4 vss Appearance: Alert.? Oriented X3.? No acute distress.? Head: Normocephalic, atraumatic, no step-offs or deformities Eyes: Pupils equal, round and reactive to light.? CVS: Normal heart rate and rhythm.? Pulses normal.? Respiratory: No respiratory distress.? Breath sounds normal.? Abdomen: Soft and + colostomy in place w/ mild diffuse abd discomfort .? Skin: Skin warm and dry.? Normal skin color.? Normal skin turgor.? Extremities: No lower extremity edema.? No calf ttp. Global weakness. Patient with difficulty raising his right upper extremity, he has normal hand land leasing examiner however. If I raise his right upper extremity for him he is able to maintain his right upper extremity in the air. Normal shoulder shrug bilaterally. Does not report associated pain. Normal sensation distally. No wrist drop. Capillary refill less than 2 seconds. Back: No midline tenderness, no C-spine tenderness, full range of motion, no CVA tenderness bilaterally Neuro: Oriented X 3.? No motor deficit.? No sensory deficit Course Reevaluation(s) Reevaluation #1: CBC appears to have a worsening normocytic anemia. Will obtain OBS as patient also reports fatigue and maliase. chemistry unremarkable. Normal lipase. OBS +. UA pending. Head and abd CT pending. Time: 13:58 Reevaluation #2: Discussed this case with GI Dr. Ortez. No need for emergent transfusion. Only transfuse if cardiac hx, and if HGB trends to low 8 or 7. Could be bleeding from a tumor. CT abd pending Also discussed this case with Urology as patient does have a large bladder stone head is due for lithotripsy in mid February, this can be expedited if needed and is suspected to be causing patient discomfort Time: 14:25 Reevaluation #3: CT head showing critical result 2 lesions in left hemisphere the brain, likely reason as to why patient is losing motor function in his right upper extremity. Will discuss this with patient. Plan is for hospital admission. Will discuss this case with Neurology. Time: 15:53 Additional Reevaluation(s): Plan admission to hospital. I did speak to Neurology that recommends 4 mg t.i.d. of Decadron for new brain mass. Patient aware of these findings. Medical Decision Making Medical Decision Making [facility] Narrative: 72-year-old male presents for evaluation of abdominal pain fatigue, malaise, weakness worsening. On exam diffuse abdominal discomfort. Patient with difficulty raising his right upper extremity, he has normal hand land leasing examiner however. If I raise his right upper extremity for him he is able to maintain his right upper extremity in the air. Normal shoulder shrug bilaterally. Does not report associated pain. Normal sensation distally. No wrist drop. Capillary refill less than 2 seconds. concerns for possible GI bleed versus electrolyte abnormalities versus gastroenteritis versus viral illness. Unlikely acute abdomen, diverticulitis, pancreatitis, cholecystitis, pancreatitis. No signs of systemic illness. Right upper extremity compalint out of window for acute stroke, this is likely weakness that has been worsening vs metastatic disease. I did suspect intracranial hemorrhage. Plan labs, imaging, OBS, urine Differential Diagnosis Differential Diagnoses: The differential diagnosis associated with the presentation includes concerns for possible GI bleed versus electrolyte abnormalities versus gastroenteritis versus viral illness. Unlikely acute abdomen, diverticulitis, pancreatitis, cholecystitis, pancreatitis. No signs of systemic illness. Right upper extremity compalint out of window for acute stroke, this is likely weakness that has been worsening vs metastatic disease. I did suspect intracranial hemorrhage. Admission/Observation Consideration of admission/observation: Escalation of care including admission/observation considered likely Consult Healthcare Provider Management of the patient was discussed with: Hospitalist and Field Manager Lab Data MDM Lab Attestation statement: I reviewed the patient's lab results. 01/30/23 12:22 01/30/23 12:22 Labs: Lab Results 01/30/23 01/30/23 01/30/23 Range/Units 11:53 12:22 13:17 WBC 7.3 (4.8-10.8) X10*3/uL RBC 2.91 L (4.60-5.80) X10*6/uL Hgb 8.7 L (14.0-18.0) g/dl Hct 26.5 L (42.0-52.0) % MCV 91.1 (80.0-98.0) fL MCH 29.9 (27.0-33.0) pg MCHC 32.8 (31.0-36.0) g/dl RDW 15.3 (11.0-16.0) % Plt Count 313 (160-400) X10*3/uL MPV 9.0 L (9.4-12.4) fL Immature Gran % (Auto) 0.8 H (0.0-0.4) % Neut % (Auto) 80.7 H (45-73) % Lymph % (Auto) 7.4 L (20-40) % [place] % (Auto) 9.5 (2-11) % Eos % (Auto) 1.0 (0-4) % Baso % (Auto) 0.6 (0-2) % Lymph # (Auto) 0.5 L (1.2-4.9) X10*3/uL [place] # (Auto) 0.7 (0.1-1.2) X10*3/uL Eos # (Auto) 0.1 (0.0-0.4) X10*3/uL Baso # (Auto) 0.0 (0.0-0.2) X10*3/uL Abs Immat Gran (auto) 0.06 H (0.00-0.03) X10*3/uL Absolute Neuts (auto) 5.9 (2.0-8.3) x10*3/uL Absolute Nucleated RBC 0.000 (0.0-0.012) X10*3/uL Nucleated RBC % (auto) 0.0 (0.0-0.2) /100WBC Sodium 136 (135-145) mmol/L Potassium 3.8 (3.3-5.1) mmol/L Chloride 104 (96-108) mmol/L Carbon Dioxide 24 (22-29) mmol/L Anion Gap 12 (12-20) BUN 7 L (9-16) mg/dL Creatinine 0.52 (0.5-1.4) mg/dL Estim Creat Clear Calc 116.2 Estimated GFR > 60 Random Glucose 100 (60-115) mg/dL Calcium 9.0 (8.4-10.2) mg/dL Magnesium 2.0 (1.6-2.6) mg/dL Total Bilirubin 0.5 (0.0-1.0) mg/dL AST 18 (5-37) U/L ALT 8 (0-40) U/L Alkaline Phosphatase 84 (39-117) U/L Total Protein 6.1 L (6.5-8.0) g/dL Albumin 3.4 L (3.5-5.0) g/dL Lipase 13 (8-78) U/L Urine Color Urine Appearance Urine pH (5.0-9.0) Ur Specific [place] (1.005-1.025) Urine Protein (Neg-Trace) mg/dL Urine Glucose (UA) (Negative) mg/dL Urine Ketones (Negative) mg/dL Urine Blood (Negative) Urine Nitrite (Negative) Ur Leukocyte Esterase (Negative) Urine RBC (0-2) /HPF Urine WBC (0-5) /HPF Ur Squamous Epith Cells (0-2) /HPF Urine Bacteria (None Seen) Hyaline Casts (0-2) /LPF Stool Occult Blood POSITIVE (NEGATIVE) COVID-19 (NIKUNJ) Negative (Negative) COVID-19 Clin Com See Note 01/30/23 Range/Units 15:27 WBC (4.8-10.8) X10*3/uL RBC (4.60-5.80) X10*6/uL Hgb (14.0-18.0) g/dl Hct (42.0-52.0) % MCV (80.0-98.0) fL MCH (27.0-33.0) pg MCHC (31.0-36.0) g/dl RDW (11.0-16.0) % Plt Count (160-400) X10*3/uL MPV (9.4-12.4) fL Immature Gran % (Auto) (0.0-0.4) % Neut % (Auto) (45-73) % Lymph % (Auto) (20-40) % [place] % (Auto) (2-11) % Eos % (Auto) (0-4) % Baso % (Auto) (0-2) % Lymph # (Auto) (1.2-4.9) X10*3/uL [place] # (Auto) (0.1-1.2) X10*3/uL Eos # (Auto) (0.0-0.4) X10*3/uL Baso # (Auto) (0.0-0.2) X10*3/uL Abs Immat Gran (auto) (0.00-0.03) X10*3/uL Absolute Neuts (auto) (2.0-8.3) x10*3/uL Absolute Nucleated RBC (0.0-0.012) X10*3/uL Nucleated RBC % (auto) (0.0-0.2) /100WBC Sodium (135-145) mmol/L Potassium (3.3-5.1) mmol/L Chloride (96-108) mmol/L Carbon Dioxide (22-29) mmol/L Anion Gap (12-20) BUN (9-16) mg/dL Creatinine (0.5-1.4) mg/dL Estim Creat Clear Calc Estimated GFR Random Glucose (60-115) mg/dL Calcium (8.4-10.2) mg/dL Magnesium (1.6-2.6) mg/dL Total Bilirubin (0.0-1.0) mg/dL AST (5-37) U/L ALT (0-40) U/L Alkaline Phosphatase (39-117) U/L Total Protein (6.5-8.0) g/dL Albumin (3.5-5.0) g/dL Lipase (8-78) U/L Urine Color Yellow Urine Appearance Turbid Urine pH 7.0 (5.0-9.0) Ur Specific [place] >= 1.030 H (1.005-1.025) Urine Protein 30 (1+) H (Neg-Trace) mg/dL Urine Glucose (UA) Negative (Negative) mg/dL Urine Ketones 15 (Negative) mg/dL Urine Blood Moderate (2+) H (Negative) Urine Nitrite Positive H (Negative) Ur Leukocyte Esterase Large (3+) H (Negative) Urine RBC >20 H (0-2) /HPF Urine WBC >50 H (0-5) /HPF Ur Squamous Epith Cells 0-2 (0-2) /HPF Urine Bacteria 4+ (None Seen) Hyaline Casts >20 (0-2) /LPF Stool Occult Blood (NEGATIVE) COVID-19 (NIKUNJ) (Negative) COVID-19 Clin Com Independent Interpretation I performed an independent interpretation of an: CT Scan ( CT/CT head/brain wo IV con IMPRESSION: 1. There is a 2.2 cm mass in the high left frontoparietal junction and a 2.6 cm mass in the right occipital lobe. Moderate perilesional edema associated with these lesions. Findings are suggestive of metastatic disease. 2. No evidence of acute intracranial h) Radiology Impression Discussion of test interpretation with radiology: I have reviewed the radiologist's reading. Medications Administered Discontinued Medications Generic Name Dose Route Start Last Admin Trade Name Freq PRN Reason Stop Dose Admin Iohexol 85 ml 01/30/23 16:00 01/30/23 16:00 Iohexol 350 Mg/Ml 100 Ml Infus..Btl IV 01/30/23 16:01 85 ml ONCE ONE Administration Critical Care Time Critical Care Time Critical Care Time: Yes Total Critical Care Time: 60 Attestation: I attest to this time spent taking care of the patient, obtaining history, physical, reviewing labs, imaging, speaking to my attending, speaking to specialist. Discharge Plan Discharge Clinical Impression: Acute GI bleeding, Anemia, Bladder stone, Metastatic cancer to brain, Acute UTI Patient Disposition: Admitted As Inpatient Prescriptions: No Action Boost High Protein 0.06 gram- 1 kcal/mL liquid 1 ea PO TID 30 Days Qty: 05189 3RF gabapentin 600 mg Tablet 600 mg PO Q4H baclofen 20,000 mcg/20mL (1,000 mcg/mL) Solution See Rx Instructions .ROUTE .COMPLEX Rx Instructions: patient has a pump diazepam 10 mg tablet 10 mg PO DAILY PRN (Reason: Insomnia) Rx Instructions: 4 TABS cefdinir 250 mg/5 mL suspension for reconstitution 300 mg PO Q12H 14 Days Qty: 168 0RF
[2023-01-30 13:24] LABS: Lipase 13 U/L (8-78)
[2023-01-30 13:25] LABS: OBS Int Ctl Valid YES; OBS1 POSITIVE (NEGATIVE)
--- NOTE | 2023-01-30 15:42 | P.HPHOSP_ITS ---
History of Present Illness Date of Service: 01/30/23 Attending physician on admission: Parmjit Lara Chief Complaint: Abdominal pain, fatigue Pt is a 72-year-old male with a PMH significant for?esophageal cancer currently on radiation, central pain syndrome, paraplegia from work-related accident in 2005, chronic indwelling Daniels catheter, and colostomy who presents to the ED with?multiple complaints but primarily of suprapubic abdominal pain x1 week. Patient is a paraplegic and normally does not feel anything below T5 level, however has been experiencing what he describes as a suprapubic ?nerve pain for approximately the past week. Also experienced multiple other symptoms, including tiredness, fatigue, not sleeping well. Patient has also noticed that he has been having difficulty thinking in speaking during this time, and also lost most of the function of his right arm. Denies any headache or acute vision changes. No difficulty breathing. No chest pain/pressure, palpitations. Patient has a complex PMH and was recently diagnosed with esophageal cancer is started on radiation at [facility] for which he has received 3 different treatments. Is scheduled to begin chemotherapy sometime in the near future. Had an elective colostomy 2 years ago d/t chronic decubitus ulcers. And more recently at the end of December of this year had a G-tube placed. Reports having difficulty finding a formula that ?agrees? with him, currently on Peptamen. Patient denies any diarrhea, but reports dark-colored stools since starting on G-tube feeding. Denies any hematochezia. In the ED pt with mildly elevated temperature of 99.3 degrees, tachypneic up to 21, otherwise vitals grossly WNL. Labs were significant for anemia of 8.7/26.5 (down from 9.4 over 28.4 on 01/24/2023) and stool positive for occult blood, otherwise grossly unremarkable. No leukocytosis, electrolytes WNL. Kidney function baseline. Renal function WNL. UA positive for UTI. CT?of head showed 2.2 cm mass in the high left frontoparietal junction and a 2.6 cm mass in the right occipital lobe with moderate perilesional edema, finding suggestive of metastatic disease. Did not find any evidence of acute intracranial hemorrhage or edematous territorial infarction. CT of abdomen and pelvis found large mass involving the distal thoracic esophagus and stomach with increasing peritoneal disease, new small ascites, and increasing lymphadenopathy. Also found large 3.5 cm bladder stone and diffuse bladder wall thickening. Pt was treated with morphine and ceftriaxone. Pt will be admitted to the hospital for treatment and further evaluation of likely GI bleed in the setting of esophageal cancer with new metastasis to the brain. Review of Systems 2 Review of Systems: Suprapubic abdominal pain Fatigue Difficulty speaking and thinking Loss of function of right upper extremity Denies chest pain/pressure, palpitations No fever, chills, nausea, vomiting PMFSH Medical History Acute hyponatremia Central pain syndrome Chronic pain syndrome Paraplegia T5 spinal cord injury Family History Brother Liver cancer Surgical History Hx of colonoscopy History of esophagogastroduodenoscopy (EGD) History of creation of ostomy (11/02/21) Social History Household Members: Spouse Housing: House Do you presently have visiting nurse or other home services: Yes Alcohol intake: never Comment: . Patient Tobacco Use Status: Never used Tobacco Smoked in Last 30 Days: No Use of substances other than those prescribed or required for medical reasons: Yes Substance Use Type: Marijuana Advance Directives: No Advance Directives Information Provided: Yes service: No Current occupational status: retired Meds Allergies Allergy/AdvReac Type Severity Reaction Status Date / Time No Known Allergies Allergy Mild NOT Verified 01/30/23 10:49 APPLICABLE Home Medications Medication Instructions Recorded Confirmed Last Taken Type baclofen 20,000 mcg/20 mL (1,000 See Rx Instructions .Route .COMPLEX 11/02/21 01/30/23 Unknown History mcg/mL) intrathecal solution gabapentin 250 mg/5 mL oral 500 mg PO Q4H 01/30/23 01/30/23 01/30/23 09:00 History solution Physical Exam 2 Vital Signs and Narrative: Vital Signs: Last Vital Signs Temp 99.3 F 01/30/23 13:49 Pulse 77 01/30/23 15:25 Resp 18 01/30/23 15:25 BP 126/69 01/30/23 15:25 Pulse Ox 100 12/26/23 15:25 O2 Del Method Room Air 01/30/23 15:25 BMI result Body Mass Index 19.4 Constitutional: Alert, with some difficulty speaking, in no acute distress. Mental Status: Oriented to person, place and time. Eyes: Pupils are equal, round, and reactive to light. Ear, Nose, and Throat: Oropharynx clear, mucous membranes moist. Ears and nose without deformities. Trachea midline. Respiratory: Clear to auscultation bilaterally. No wheezing, rales, or rhonchi. Cardiovascular: S1, S2 regular. No murmurs, rubs, or gallops. Gastrointestinal: Abdomen soft, non-distended with suprapubic abdominal pain. Colostomy bag in place. Normal bowel sounds. Neurologic: Cranial nerves II-XII are grossly intact bilaterally. Patient paraplegic. Severely reduced active ROM and strength right upper extremity. Skin: Small chronic pubic wound with purulent discharge. As pictured below Musculoskeletal: No cyanosis or clubbing. Extremities: No edema. Psychiatric: Normal mood and affect. Results Labs 01/30/23 12:22 01/30/23 12:22 Labs: Laboratory Results - last 24 hr 01/30/23 01/30/23 01/30/23 11:53 12:22 13:17 MCV 91.1 MCH 29.9 MCHC 32.8 RDW 15.3 Plt Count 313 MPV 9.0 L Immature Gran % (Auto) 0.8 H Neut % (Auto) 80.7 H Lymph % (Auto) 7.4 L [place] % (Auto) 9.5 Eos % (Auto) 1.0 Baso % (Auto) 0.6 Lymph # (Auto) 0.5 L [place] # (Auto) 0.7 Eos # (Auto) 0.1 Baso # (Auto) 0.0 Abs Immat Gran (auto) 0.06 H Absolute Neuts (auto) 5.9 Absolute Nucleated RBC 0.000 Nucleated RBC % (auto) 0.0 Anion Gap 12 Estim Creat Clear Calc 116.2 Estimated GFR > 60 Random Glucose 100 Calcium 9.0 Magnesium 2.0 Total Bilirubin 0.5 AST 18 ALT 8 Alkaline Phosphatase 84 Total Protein 6.1 L Albumin 3.4 L Lipase 13 Stool Occult Blood POSITIVE COVID-19 (NIKUNJ) Negative COVID-19 Clin Com See Note Assessment and Plan (1) Metastatic cancer to brain: Status: Acute (2) Bladder stone: Status: Acute (3) Acute GI bleeding: Status: Acute Plan Pt is a 72-year-old male with a PMH significant for?esophageal cancer currently on radiation, central pain syndrome, paraplegia from work-related accident in 2005, chronic indwelling Daniels catheter, and colostomy who presents to the ED with?multiple complaints but primarily of suprapubic abdominal pain x1 week. Pt will be admitted to the hospital for treatment and further evaluation of likely GI bleed in the setting of esophageal cancer with new metastasis to the brain. GI bleed In the setting of esophageal cancer H&H 8.7/26.5, down from 9.42/8.8 on 01/24; stool positive for occult blood GI consulted and will likely do EGD tomorrow IV Protonix Will be made NPO Follow CBC Pneumatic boots for DVT prophylaxis RUE weakness CT of head shows 2.2 cm mass in left frontoparietal junction in 2.6 cm mass in right occipital lobe, concerning for metastasis Oncology consult Bladder stone Pt with suprapubic abdominal pain, CT showing 3.5 cm bladder stone Patient was scheduled for lithotripsy in February Urology consult for possible inpatient lithotripsy Diet Pt with PEG tube since end of December Has had difficulty finding formula that agrees with him, currently on Peptamen Currently NPO pending EGD tomorrow Nutrition consult Acute UTI Diagnosed with UTI on 01/24, started on cefdinir 01/25 UA still positive Will treat with ceftriaxone started, 01/30/2023 Patient does not meet sepsis criteria: Tachypneic, but no tachycardia, leukocytosis, or fever; lactic acid 0.8 Chronic wounds Pt with chronic pelvic wound with purulent discharge and healed wound on right buttock Wound care consult DNR/DNI Attending:?Dr. Lara DVT Prophylaxis: Pneumatic boots due to GI bleed Pt will require a hospitalization of at least two nights for treatment of?and further evaluation of likely GI bleed in the setting of esophageal cancer with new metastasis to the brain. Patient will be treated with IV antibiotics for UTI, and will require specialist consultation GI for EGD tomorrow for evaluation of possible upper GI bleed, specialist consultation with Urology for lithotripsy of bladder stone, and specialist consultation with Oncology for likely metastasis of esophageal cancer. Quality Stroke Does the patient have a stroke diagnosis?: No VTE Prior VTE?: No VTE Risk Level:: Medical - moderate - high VTE Device Contraindication: N/A - Device Ordered VTE Drug Contraindication: Treatment Not Indicated
[2023-01-30 15:43] LABS: Appearance Urine Turbid; Color Urine Yellow; Glucose Urine UA Negative (Negative); Leukocyte Esterase Urine Large (3+) (Negative); Nitrite Urine Positive (Negative); Specific Gravity - Urine >= 1.030 (1.005-1.025); UMIC TRIGGER UACC YES; Urine Blood Moderate (2+) (Negative); Urine Ketones 15 mg/dL (Negative); Urine Protein 30 (1+) mg/dL (Neg-Trace)
[2023-01-30 16:00] LABS: Bacteria Urine 4+ (None Seen); Hyaline Casts Urine >20 /LPF (0-2); RBC Urine >20 /HPF (0-2); Squamous Epithelial Cell Urine 0-2 /HPF (0-2); UACC Culture Trigger YES; WBC Urine >50 /HPF (0-5)
[2023-01-30] MEDS: iohexoL 350 MG/ML 100 ML INFUS..BTL 85 ML IV (16:00)
--- NOTE | 2023-01-30 16:32 | MHC.EDTECH ---
ELEANOR ROMAN SAID TO THIS PCT ,NOT TO DRAW PATIENT LABS , SHE WILL ACCESS PATIENT PORT .
[2023-01-30] MEDS: Morphine Sulfate 4 MG/ML CARTRIDGE IVPUSH ×2 (16:47→21:15)
[2023-01-30] MEDS: cefTRIAXone sodium 1 GM in 0.9 % Sodium Chloride 50 ML IV (16:55)
--- NOTE | 2023-01-30 16:59 | PHA.MEDREC ---
Pharmacy Consult ? Medication Reconciliation Pharmacy has completed the medication reconciliation.Med rec complete, patient has a baclofen pump.
[2023-01-30 17:09] LABS: Lactic Acid 0.8 mmol/L (0.5-2.0)
--- NOTE | 2023-01-30 18:41 | MHC.EDTECH ---
Consults sent on [place] at [phone].
[2023-01-30] MEDS: 0.9 % Sodium Chloride 1,000 ML 100 ML IVCONT (19:03)
[2023-01-30] MEDS: Pantoprazole Sodium 40 MG/10 ML VIAL IVPUSH (19:19)
[2023-01-30] MEDS: dexAMETHasone 4 MG TABLET PO (22:41)
[2023-01-31 03:15] VITALS: BP 143/75; PULSE 98; RESP 19; TEMP 36; O2SAT 98
[2023-01-31] MEDS: Morphine Sulfate 4 MG/ML CARTRIDGE IVPUSH ×2 (03:16→20:31)
[2023-01-31] MEDS: Pantoprazole Sodium 40 MG/10 ML VIAL IVPUSH ×2 (05:36→17:34)
[2023-01-31] MEDS: 0.9 % Sodium Chloride 1,000 ML 100 ML IVCONT ×2 (05:36→22:50)
--- NOTE | 2023-01-31 06:18 | PC.NURSE ---
pt when admitted to [facility] was not connected to tube feeding. pt alert and oritented x4 but refuses to start feeding. explained importance of tube feeding to pt but still refuses. MD notified with no further orders placed.
--- NOTE | 2023-01-31 06:51 | P.CNGI_ITS ---
History of Present Illness Data of Consult Service Date: 01/31/23 Primary Care Provider: Unknown Physician HPI 72-year-old male with hx of?esophageal cancer -XRT, central pain syndrome, paraplegia from work-related accident in 2005, chronic indwelling Daniels catheter, and colostomy who I am seeing for assessment for anemia. Patient presented with suprapubic pain for 1 week along with poor sleep and fatigue but does say that he has background discomfort in the same area for many months. There are no releiving or exacerbating factors and not related to stool o/p or urine. He had also noted right arm weakness and speech disturbance increasingly getting worse over 1 month. Denies any headache or acute vision changes. No difficulty breathing. No chest pain/pressure, palpitations LABS: anemia of 8.7/26.5 (down from 9.4 over 28.4 on 01/24/2023) and stool positive for occult blood, Renal function WNL. UA positive for blood, nitrites, leuk esterase IMAGING: CT?head: 2.2 cm mass in the high left frontoparietal junction and a 2.6 cm mass in the right occipital lobe with moderate perilesional edema, finding suggestive of metastatic disease. CT abdomen and pelvis: large mass involving the distal thoracic esophagus and stomach with increasing peritoneal disease, new small ascites, and increasing lymphadenopathy. large 3.5 cm bladder stone and diffuse bladder wall thickening Review of Systems 2 Review of Systems: Constitutional : + Weight loss, No Fever, No Chills ENT/Mouth : No sore throat, No Rhinorrhea Eyes: No Swelling, No Redness Cardiovascular : No Chest Pain, No SOB, No Edema Respiratory : No Cough, No Sputum, No Wheezing Gastrointestinal : see HPI Genitourinary : NO Dysuria, No Urinary Frequency, No Hematuria, No Urgency Musculoskeletal : No joint pain, No Myalgias, No Joint Swelling Skin : No Skin Lesions, No rash Neuro : + Weakness, No Numbness, No Dizziness, No Headache Psych : No Anxiety/Panic, No Depression Heme/Lymph: No Bruising, No Lymphadenopathy Endocrine : No Polyuria, No Polydipsia All other systems reviewed and are negative. [facility] Past Medical History Medical History Acute hyponatremia Central pain syndrome Chronic pain syndrome Paraplegia T5 spinal cord injury Family History Family History Brother Liver cancer Surgical History Surgical History Hx of colonoscopy History of esophagogastroduodenoscopy (EGD) History of creation of ostomy (11/02/21) Social History Social History Household Members: Spouse Housing: House Do you presently have visiting nurse or other home services: Yes Alcohol intake: never Comment: . Patient Tobacco Use Status: Never used Tobacco Substance Use Type: Marijuana service: No Current occupational status: retired Meds Allergies Allergy/AdvReac Type Severity Reaction Status Date / Time No Known Allergies Allergy Mild NOT Verified 01/30/23 10:49 APPLICABLE Active Medications: Current Medications Acetaminophen (Acetaminophen 325 Mg Tablet) 650 mg PO Q6H PRN PRN Reason: Pain, Mild (Pain Scale 1-3) Benzonatate (Benzonatate 100 Mg Capsule) 100 mg PO TID PRN PRN Reason: Cough Dexamethasone (Dexamethasone 4 Mg Tablet) 4 mg PO TID ON LICENSE OF [facility] Last Admin: 01/30/23 22:41 Dose: 4 mg Docusate Sodium (Docusate Sodium 100 Mg Capsule) 100 mg PO DAILY PRN PRN Reason: Constipation Sodium Chloride (Ns) 1,000 mls @ 100 mls/hr IVCONT .Q10H ON LICENSE OF [facility] Last Admin: 01/31/23 05:36 Dose: 100 mls/hr Ceftriaxone Sodium 1 gm/ (Sodium Chloride) 50 mls @ 100 mls/hr IV Q24H ON LICENSE OF [facility] Melatonin (Melatonin 3 Mg Tablet) 6 mg PO BEDTIME PRN PRN Reason: Insomnia Morphine Sulfate (Morphine Sulfate 4 Mg/Ml Cartridge) 4 mg IVPUSH Q4H PRN; Protocol PRN Reason: Pain, Severe (Pain Scale 7-10) Last Admin: 01/31/23 03:16 Dose: 4 mg Patient Own Med ( Gabapentin 250 Mg/5 Ml Solution) 500 mg PO Q4H ON LICENSE OF [facility] Last Admin: 01/31/23 03:17 Dose: 500 mg Ondansetron HCl (Ondansetron Hcl 4 Mg/2 Ml Vial) 4 mg IVPUSH Q8H PRN PRN Reason: Nausea and Vomiting Pantoprazole Sodium (Pantoprazole Sodium 40 Mg/10 Ml Vial) 40 mg IVPUSH BID@0630,1630 ON LICENSE OF [facility] Last Admin: 01/31/23 05:36 Dose: 40 mg Sodium Chloride (0.9 % Sodium Chloride Flush 3 Ml Syringe) 3 ml IVFLUSH QSHIFT ON LICENSE OF [facility] Last Admin: 01/31/23 00:54 Dose: Not Given Home Medications Medication Instructions Recorded Confirmed Last Taken Type baclofen 20,000 mcg/20 mL (1,000 See Rx Instructions .Route .COMPLEX 11/02/21 01/30/23 Unknown History mcg/mL) intrathecal solution gabapentin 250 mg/5 mL oral 500 mg PO Q4H 01/30/23 01/30/23 01/30/23 09:00 History solution Physical Exam 2 Vital Signs: Vital Signs: Last Vital Signs Temp 96.8 F 01/31/23 03:15 Pulse 98 01/31/23 03:15 Resp 19 01/31/23 03:15 BP 143/75 H 01/31/23 03:15 Pulse Ox 98 01/31/23 03:15 O2 Del Method Room Air 01/31/23 03:15 BMI result Body Mass Index 19.4 EXAM: GENERAL: The patient is frail VITAL SIGNS:see workflow HEENT: Nonicteric sclerae, PERRLA, EOMI. Oropharynx clear. Moist mucous membranes. Conjunctivae appear well perfused. No thyroid mass. CHEST: Chest wall is nontender. HEART: Regular rate and rhythm without murmurs. LUNGS: Clear to auscultation bilaterally. ABDOMEN: Soft, positive bowel sounds, nontender, no organomegaly.no flank tenderness--stoma with brown liquid stools, no fresh blood or melena, G tube noted SKIN: No rash, no excessive bruising, petechiae, or purpura. NEUROLOGIC: Cranial nerves II-XII intact without motor/sensory deficit. right arm withotu any movement or power, paraplegia both legs, psych--nml Results Labs 01/31/23 08:26 01/31/23 08:26 Labs: Short CBC 01/30/23 Range/Units 12: WBC 7.3 (4.8-10.8) X10*3/uL Hgb 8.7 L (14.0-18.0) g/dl Hct 26.5 L (42.0-52.0) % Plt Count 313 (160-400) X10*3/uL BMP 01/30/23 12:22 Sodium 136 Potassium 3.8 Chloride 104 Carbon Dioxide 24 BUN 7 L Creatinine 0.52 Calcium 9.0 Liver Function 01/30/23 Range/Units 12:22 Total Bilirubin 0.5 (0.0-1.0) mg/dL AST 18 (5-37) U/L ALT 8 (0-40) U/L Alkaline Phosphatase 84 (39-117) U/L Albumin 3.4 L (3.5-5.0) g/dL Urine 01/30/23 Range/Units 15:27 Urine Color Yellow Urine Appearance Turbid Urine pH 7.0 (5.0-9.0) Ur Specific Ramsay >= 1.030 H (1.005-1.025) Urine Protein 30 (1+) H (Neg-Trace) mg/dL Urine Glucose (UA) Negative (Negative) mg/dL Imaging CT scan - abdomen: Attestation: I personally reviewed and interpreted this imaging study as follows: (thickened GEJ, irregular, ) Assessment and Plan (1) Anemia: Qualifiers: Anemia type: unspecified type Qualified Code(s): D64.9 - Anemia, unspecified Status: Acute Plan 1/ 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 also found to have brain mets. PLAN: 1/ Recommend carafate BID 1 g as well as PPI, endoscopic treatment of friable tumour or radiation esophagitis is difficult, and may exacerbate bleeding at this time 2/ treat for UTI as doing, consider consulting urology for input on the large bladder stone Procedures Date of Service Date of Service: 01/31/23
[2023-01-31 07:41] VITALS: BP 133/71; PULSE 84; RESP 20; TEMP 36.2; O2SAT 99
[2023-01-31 09:34] LABS: Hematocrit 26.7 % (42.0-52.0); Hemoglobin 8.6 g/dl (14.0-18.0); Mean Corpuscular HGB Conc 32.2 g/dl (31.0-36.0); Mean Corpuscular Hemoglobin 30.6 pg (27.0-33.0); Mean Platelet Volume 10.1 fL (9.4-12.4); Platelet Count 354 X10*3/uL (160-400); Red Blood Count 2.81 X10*6/uL (4.60-5.80); Red Cell Distribution Width 15.7 % (11.0-16.0); White Blood Count 4.9 X10*3/uL (4.8-10.8)
--- NOTE | 2023-01-31 09:35 | P.CNHO_ITS ---
Subjective - Subjective Chief complaint: Right arm weakness Patient: known to practice within the last 3 years Consult date: 01/31/23 Requesting Physician: Hospitalist service Primary Care Provider: Unknown Physician Medical Summary: Diagnosis: Esophageal adenocarcinoma He was referred by Dr. Doty on account of recently diagnosed mass at the GEJ. He presented to the ED on 10/17 with the 1 month history of feeling inside pain. He felt spasms from chest down to the top of the legs. He felt weak. His rectum was leaking stool he even though he has a colostomy. He was on Augmentin for pneumonia and had a recent UTI: Klebsiella and Enterococcus for which he was given Levaquin He has a chronic catheter. He just felt bad. CT scan of the abdomen from 10/17: * Again noted is the lymphadenopathy in the visualized lower posterior mediastinum and along the gastrohepatic ligament, and a moderate hiatal hernia. Given presence of lymphadenopathy in the region, if not already performed, consider correlation with upper endoscopy to exclude proximal gastric carcinoma. * No evidence of bowel obstruction. No acute findings in smaller large bowel compared to 10/10/2022. * Chronic prostatomegaly and chronically thickened urinary bladder wall. A large stone is present within the bladder. * Interval development of intrahepatic ductal dilatation. Mildly dilated common bile duct is 0.8 cm diameter. The cause of the ductal dilatation is uncertain. No stones are seen within the common duct. EGD Findings:? * Esophagus:? Friable, ulcerated and fungating partially obstructing mass was noted at the GEJ from 37 cm to 40 cm. The gastroscope was able to traverse through this with contact oozing. Multiple cold forceps biopsies were taken for histology. * Stomach:? Abnormal mucosa was noted in the cardia with prominent reticular pattern. Cold forceps biopsies were taken. Remaing stomach mucosa appeared normal. * Duodenum:? Normal mucosa was noted in the whole of the examined duodenum. ? EGD Impressions:? * 3 cm partially obstructing GEJ mass suspicious for malignancy (biopsy) * Abnormal mucosa in cardia (biopsy) * Normal duodenum ?? HPI - Consult Narrative Reason for consult: Metastatic esophageal cancer, new brain metastasis Narrative: Timothy Keating is a 72 year old male with history of advanced esophageal cancer was receiving palliative chemotherapy and recently started palliative radiation therapy to the esophageal mass at [facility]. He presents with symptoms of right upper extremity weakness. 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 This has been ongoing or worsening for about a week. He also reports worsening generalized weakness. No headache, fever or chills. No loss of vision or speech difficulty. He has difficulty swallowing or eating anything by mouth since his diagnosis of esophageal cancer. He has been getting G tubes feeds but not tolerating it well. He has received 3 cycles of palliative chemotherapy so far. Unfortunately, imaging has revealed progressive disease including brain metastasis. [facility] Medical History: Medical History (Last Reviewed 01/30/23 @ 13:54 by TWAN Eduardo) Acute hyponatremia Central pain syndrome Chronic pain syndrome Paraplegia T5 spinal cord injury Family History: Family History (Last Reviewed 01/30/23 @ 13:54 by TWAN Eduardo) Brother Liver cancer Surgical History: Surgical History (Last Reviewed 01/30/23 @ 13:54 by TWAN Eduardo) History of creation of ostomy Onset Date: 11/02/21 History of esophagogastroduodenoscopy (EGD) Hx of colonoscopy Social History: Social History (Last Reviewed 01/30/23 @ 13:54 by TWAN Eduardo) Living Situation History: Household Members: Spouse Housing: House Do you presently have visiting nurse or other home services: Yes Tobacco History: Patient Tobacco Use Status: Never used Tobacco Substance Use History: Substance Use Type: Marijuana Occupation Assessmet: service: No Current occupational status: retired Home Medications and Allergies Current Medications: Current Medications Acetaminophen (Acetaminophen 325 Mg Tablet) 650 mg PO Q6H PRN PRN Reason: Pain, Mild (Pain Scale 1-3) Benzonatate (Benzonatate 100 Mg Capsule) 100 mg PO TID PRN PRN Reason: Cough Dexamethasone (Dexamethasone 4 Mg Tablet) 4 mg PO TID [facility] Last Admin: 01/30/23 22:41 Dose: 4 mg Docusate Sodium (Docusate Sodium 100 Mg Capsule) 100 mg PO DAILY PRN PRN Reason: Constipation Sodium Chloride (Ns) 1,000 mls @ 100 mls/hr IVCONT .Q10H [facility] Last Admin: 01/31/23 05:36 Dose: 100 mls/hr Ceftriaxone Sodium 1 gm/ (Sodium Chloride) 50 mls @ 100 mls/hr IV Q24H [facility] Melatonin (Melatonin 3 Mg Tablet) 6 mg PO BEDTIME PRN PRN Reason: Insomnia Morphine Sulfate (Morphine Sulfate 4 Mg/Ml Cartridge) 4 mg IVPUSH Q4H PRN; Protocol PRN Reason: Pain, Severe (Pain Scale 7-10) Last Admin: 01/31/23 03:16 Dose: 4 mg Patient Own Med ( Gabapentin 250 Mg/5 Ml Solution) 500 mg PO Q4H [facility] Last Admin: 01/31/23 03:17 Dose: 500 mg Ondansetron HCl (Ondansetron Hcl 4 Mg/2 Ml Vial) 4 mg IVPUSH Q8H PRN PRN Reason: Nausea and Vomiting Pantoprazole Sodium (Pantoprazole Sodium 40 Mg/10 Ml Vial) 40 mg IVPUSH BID@0630,1630 [facility] Last Admin: 01/31/23 05:36 Dose: 40 mg Sodium Chloride (0.9 % Sodium Chloride Flush 3 Ml Syringe) 3 ml IVFLUSH QSHIFT [facility] Last Admin: 01/31/23 00:54 Dose: Not Given Home Medications Medication Instructions Recorded Confirmed Type baclofen 20,000 mcg/20 mL (1,000 See Rx Instructions .Route .COMPLEX 11/02/21 01/30/23 History mcg/mL) intrathecal solution gabapentin 250 mg/5 mL oral 500 mg PO Q4H 01/30/23 01/30/23 History solution Allergies Allergy/AdvReac Type Severity Reaction Status Date / Time No Known Allergies Allergy Mild NOT Verified 01/30/23 10:49 APPLICABLE Physical Exam Vital signs: Vital Signs Temp 97.1 F 01/31/23 07:41 Pulse 84 01/31/23 07:41 Resp 20 01/31/23 07:41 BP 133/71 01/31/23 07:41 Pulse Ox 99 01/31/23 07:41 O2 Del Method Room Air 01/31/23 07:41 Intake & Output 01/30/23 01/31/23 01/31/23 18:59 06:59 18:59 Intake Total 50 / 1050 1000 / 1050 Output Total 400 / 400 Balance 50 / 650 600 / 650 Urine Output (Average ml/kg/hr) 0.53 Intake: Intake, Oral Amount 0 / 0 Intake, IV Amount 50 / 1050 1000 / 1050 cefTRIAXone sodium 1 gm In 0.9 50 / 50 % Sodium Chloride 50 ml @ 100 mls/hr IV ONCE ONE Rx#: [id number] 0.9 % Sodium Chloride 1,000 ml 1000 / 1000 @ 100 mls/hr IVCONT .Q10H [facility] Rx#:[id number] Output: Output, Urine Amount 400 / 400 Other: Number of Incontinent Voids 1 Urine rivera cath Urine Color Yellow Stool Ostomy Stool Amount Small Stool Consistency Watery Weight 63.1 kg Weight 63.1 kg - Constitutional Present: mild distress, cachectic, chronically ill appearing - Routine HEENT Exam Head: Present: normal inspection Eye: Present: conjunctivae pale - Routine Neck Exam Absent: tracheal deviation - Routine Respiratory Exam Absent: accessory muscle use - Routine Cardiovascular Exam Cardiovascular: Present: S1, S2 - Routine Skin Exam Present: intact - Routine Neurological Exam Present: alert, oriented X3 Paraplegic with atrophy of lower extremity muscles. Significant weakness of right upper extremity more proximal than distal. Hem/Onc Consult Result - Labs CBC & Chem 7: 01/31/23 08:26 01/31/23 08:26 Labs: Short CBC 01/30/23 01/31/23 Range/Units 12:22 08:26 WBC 7.3 4.9 (4.8-10.8) X10*3/uL Hgb 8.7 L 8.6 L (14.0-18.0) g/dl Hct 26.5 L 26.7 L (42.0-52.0) % Plt Count 313 354 (160-400) X10*3/uL BMP 01/30/23 12:22 Sodium 136 Potassium 3.8 Chloride 104 Carbon Dioxide 24 BUN 7 L Creatinine 0.52 Calcium 9.0 Liver Function 01/30/23 Range/Units 12:22 Total Bilirubin 0.5 (0.0-1.0) mg/dL AST 18 (5-37) U/L ALT 8 (0-40) U/L Alkaline Phosphatase 84 (39-117) U/L Albumin 3.4 L (3.5-5.0) g/dL Urine 01/30/23 Range/Units 15:27 Urine Color Yellow Urine Appearance Turbid Urine pH 7.0 (5.0-9.0) Ur Specific [place] >= 1.030 H (1.005-1.025) Urine Protein 30 (1+) H (Neg-Trace) mg/dL Urine Glucose (UA) Negative (Negative) mg/dL Assessment and Plan Patient Active problem list reviewed?: Yes (1) Metastatic cancer to brain Status: Acute Assessment and plan: 1. 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 Biopsy revealed poorly differentiated adenocarcinoma with signet ring features. HER2 negative. PET scan revealed uptake in left supraclavicular region, retroperitoneal/gastrohepatic lymphadenopathy as well as liver lesion. He was started on palliative systemic therapy with FOLFOX plus nivolumab, he received 3 cycles so far. He started palliative radiation therapy to the esophageal mass at [facility] last week. He now presents with brain metastasis as well as increasing peritoneal disease and lymphadenopathy. Head CT without contrast performed 01/30/2023 shows a 2.2 cm mass in the left frontoparietal junction and a 2.6 cm mass in the right occipital lobe. Moderate perilesional edema is seen. CT abdomen/pelvis without IV contrast shows large mass involving distal thoracic esophagus and stomach. Increasing peritoneal disease, new small ascites and increasing lymphadenopathy. Sub capsular implants in the liver, increasing pulmonary nodules and enlarged prostate with a large 3.5 cm bladder stone and diffuse bladder wall thickening. Severe stenosis/occlusion of right common and external iliac artery. I discussed above findings with patient. He has been started on dexamethasone 4 mg t.i.d. for the brain lesions. Please continue this. He will be referred back to Dr. Santos for palliative radiation therapy for these brain lesions. Unfortunately, he does not seem to be responding to ongoing systemic therapy. He will talk to his primary oncologist, Dr. Sebastian next week about goals of care. Switching palliative treatment versus supportive care. Thank you for the consultation. - Time Spent With Patient Time Spent with Patient (in minutes): 20
--- NOTE | 2023-01-31 09:43 | P.PNIM_ITS ---
Subjective Subjective Date of Service: 01/31/23 Interval History: Seen and evaluated this morning RUE weakness overall weak and fatigued Unable to tolerate tube feed because of pain No reported bleeding Review of Systems Review of Systems: Yes all other systems are reviewed and are negative Physical Exam 2 Vital Signs: Vital Signs: Last Vital Signs Temp 97.1 F 01/31/23 07:41 Pulse 84 01/31/23 07:41 Resp 20 01/31/23 07:41 BP 133/71 01/31/23 07:41 Pulse Ox 99 01/31/23 07:41 O2 Del Method Room Air 01/31/23 07:41 BMI result Body Mass Index 19.4 Const: Other: Constitutional : Awake, interactive, not in distress Neck : Normal inspection, Supple Cardiovascular : RRR, no JVP, no lower extremity edema Respiratory : good bilateral air entry, no crackles, wheezes or rhonchi Gastrointestinal: soft, lax, Normal bowel sounds, Non tender, G-tube, Colostomy in place Skin : Warm, Dry Neurological : Alert & oriented x3, RUE weakness, below T5 paraplegia Objective Data Active Medications Acetaminophen (Acetaminophen 325 Mg Tablet) 650 mg PO Q6H PRN PRN Reason: Pain, Mild (Pain Scale 1-3) Benzonatate (Benzonatate 100 Mg Capsule) 100 mg PO TID PRN PRN Reason: Cough Dexamethasone (Dexamethasone 4 Mg Tablet) 4 mg PO TID [facility] Last Admin: 01/30/23 22:41 Dose: 4 mg Documented By: GEOVANNI Docusate Sodium (Docusate Sodium 100 Mg Capsule) 100 mg PO DAILY PRN PRN Reason: Constipation Sodium Chloride (Ns) 1,000 mls @ 100 mls/hr IVCONT .Q10H [facility] Last Admin: 01/31/23 05:36 Dose: 100 mls/hr Documented By: GEOVANNI Ceftriaxone Sodium 1 gm/ (Sodium Chloride) 50 mls @ 100 mls/hr IV Q24H [facility] Melatonin (Melatonin 3 Mg Tablet) 6 mg PO BEDTIME PRN PRN Reason: Insomnia Morphine Sulfate (Morphine Sulfate 4 Mg/Ml Cartridge) 4 mg IVPUSH Q4H PRN; Protocol PRN Reason: Pain, Severe (Pain Scale 7-10) Last Admin: 01/31/23 03:16 Dose: 4 mg Documented By: GEOVANNI Patient Own Med ( Gabapentin 250 Mg/5 Ml Solution) 500 mg PO Q4H [facility] Last Admin: 01/31/23 03:17 Dose: 500 mg Documented By: GEOVANNI Ondansetron HCl (Ondansetron Hcl 4 Mg/2 Ml Vial) 4 mg IVPUSH Q8H PRN PRN Reason: Nausea and Vomiting Pantoprazole Sodium (Pantoprazole Sodium 40 Mg/10 Ml Vial) 40 mg IVPUSH BID@0630,1630 [facility] Last Admin: 01/31/23 05:36 Dose: 40 mg Documented By: GEOVANNI Sodium Chloride (0.9 % Sodium Chloride Flush 3 Ml Syringe) 3 ml IVFLUSH QSHIFT [facility] Last Admin: 01/31/23 00:54 Dose: Not Given Documented By: GEOVANNI Non-Admin Reason: IV Running Labs 01/31/23 08:26 01/30/23 12:22 Labs: Laboratory Results - last 24 hr 01/30/23 01/30/23 01/30/23 11:53 12:22 13:17 MCV 91.1 MCH 29.9 MCHC 32.8 RDW 15.3 Plt Count 313 MPV 9.0 L Immature Gran % (Auto) 0.8 H Neut % (Auto) 80.7 H Lymph % (Auto) 7.4 L [place] % (Auto) 9.5 Eos % (Auto) 1.0 Baso % (Auto) 0.6 Lymph # (Auto) 0.5 L [place] # (Auto) 0.7 Eos # (Auto) 0.1 Baso # (Auto) 0.0 Abs Immat Gran (auto) 0.06 H Absolute Neuts (auto) 5.9 Absolute Nucleated RBC 0.000 Nucleated RBC % (auto) 0.0 Anion Gap 12 Estim Creat Clear Calc 116.2 Estimated GFR > 60 Random Glucose 100 Lactic Acid Calcium 9.0 Magnesium 2.0 Total Bilirubin 0.5 AST 18 ALT 8 Alkaline Phosphatase 84 Total Protein 6.1 L Albumin 3.4 L Lipase 13 Urine Color Urine Appearance Urine pH Ur Specific [place] Urine Protein Urine Glucose (UA) Urine Ketones Urine Blood Urine Nitrite Ur Leukocyte Esterase Urine RBC Urine WBC Ur Squamous Epith Cells Urine Bacteria Hyaline Casts Stool Occult Blood POSITIVE COVID-19 (NIKUNJ) Negative COVID-19 Clin Com See Note 01/30/23 01/30/23 01/31/23 15:27 16:45 08:26 MCV 95.0 MCH 30.6 MCHC 32.2 RDW 15.7 Plt Count 354 MPV 10.1 Immature Gran % (Auto) Neut % (Auto) Lymph % (Auto) [place] % (Auto) Eos % (Auto) Baso % (Auto) Lymph # (Auto) [place] # (Auto) Eos # (Auto) Baso # (Auto) Abs Immat Gran (auto) Absolute Neuts (auto) Absolute Nucleated RBC 0.000 Nucleated RBC % (auto) 0.0 Anion Gap Estim Creat Clear Calc Estimated GFR Random Glucose Lactic Acid 0.8 Calcium Magnesium Total Bilirubin AST ALT Alkaline Phosphatase Total Protein Albumin Lipase Urine Color Yellow Urine Appearance Turbid Urine pH 7.0 Ur Specific [place] >= 1.030 H Urine Protein 30 (1+) H Urine Glucose (UA) Negative Urine Ketones 15 Urine Blood Moderate (2+) H Urine Nitrite Positive H Ur Leukocyte Esterase Large (3+) H Urine RBC >20 H Urine WBC >50 H Ur Squamous Epith Cells 0-2 Urine Bacteria 4+ Hyaline Casts >20 Stool Occult Blood COVID-19 (NIKUNJ) COVID-19 Clin Com Microbiology Microbiology Results: Microbiology 01/30/23 Unknown Urine Culture - Preliminary Urine Catheterized - Straight Catheter Culture in progress. Assessment and Plan (1) Acute UTI: Status: Acute (2) Metastatic cancer to brain: Status: Acute (3) Bladder stone: Status: Acute (4) Anemia: Status: Acute Plan Pt is a 72-year-old male with a PMH significant for?esophageal cancer currently on radiation, central pain syndrome, paraplegia from work-related accident in 2005, chronic indwelling Daniels catheter, and colostomy who presents to the ED with?multiple complaints but primarily of suprapubic abdominal pain x1 week. Pt will be admitted to the hospital for treatment and further evaluation of likely GI bleed in the setting of esophageal cancer with new metastasis to the brain. GI bleed likely 2/2 esophageal cancer H&H 8.6 stool positive for occult blood GI to do EGD today IV Protonix NPO, hold tube feed Follow CBC Pneumatic boots for DVT prophylaxis RUE weakness CT of head shows 2.2 cm mass in left frontoparietal junction in 2.6 cm mass in right occipital lobe, concerning for metastasis Oncology consult possible cranial Radiation therapy along with Dexamethasone Consider palliative care Bladder stone Pt with suprapubic abdominal pain, CT showing 3.5 cm bladder stone Patient was scheduled for lithotripsy in February Urology consult for possible inpatient lithotripsy Diet Pt with PEG tube since end december Has had difficulty finding formula that agrees with him, currently on Peptamen Nutrition consult Acute UTI Diagnosed with UTI on 01/24, started on cefdinir 01/25 UA still positive Will treat with ceftriaxone started, 01/30/2023 Patient does not meet sepsis criteria: Tachypneic, but no tachycardia, leukocytosis, or fever; lactic acid 0.8 Chronic wounds Pt with chronic pelvic wound with purulent discharge and healed wound on right buttock Wound care consult DNR/DNI DVT Prophylaxis: Pneumatic boots due to GI bleed Patient requires overnight hospital stay for treatment of?and further evaluation of likely GI bleed in the setting of esophageal cancer with new metastasis to the brain. Patient will be treated with IV antibiotics for UTI, and will require specialist consultation GI for EGD tomorrow for evaluation of possible upper GI bleed, specialist consultation with Urology for lithotripsy of bladder stone, and specialist consultation with Oncology for likely metastasis of esophageal cancer. Quality Stroke Does the patient have a stroke diagnosis?: No VTE Prior VTE?: No VTE Risk Level:: Medical - moderate - high VTE Device Contraindication: N/A - Device Ordered VTE Drug Contraindication: Treatment Not Indicated
[2023-01-31] MEDS: dexAMETHasone 4 MG TABLET PO ×3 (09:45→20:31)
[2023-01-31 09:51] LABS: Anion Gap 14 (12-20); Blood Urea Nitrogen 8 mg/dL (9-16); Calcium 9.4 mg/dL (8.4-10.2); Carbon Dioxide 24 mmol/L (22-29); Chloride 105 mmol/L (96-108); Creatinine Clr Calc Pharmacy 107.9; Estimated Glomerular Filt Rate > 60; Glucose Random 109 mg/dL (60-115); Potassium 4.2 mmol/L (3.3-5.1); Sodium 139 mmol/L (135-145)
[2023-01-31 11:08] VITALS: BMI 22.5
--- NOTE | 2023-01-31 11:16 | HO.WOUND ---
Wound Consult: Initial 72yr old male admitted to [facility] on?01/30/23 16:44 - See progress notes and H&P for detailed history. Wound consult placed for Right groin - per direct care nurse - Left heel, Right hip and buttocks need assessment. Pt and agreeable to assessment and photo documentation. The pt reports he was treating at the outpt wound clinic for his sacral wound that has since healed. Last visit 11/2021 per chart review. Based on todays assessment of the right Anterior Hip wound - I would recommend he follow up with outpt wound clinic for continued care and treatment. The patient states he is not interested in outpt Wound Clinic at this time since he is to start radiation and and will be too difficult to attend two appointments. Pt states he does have VNA services at home and they will be able to follow wound care orders and he is willing to follow up with Wound clinic once he is completed his radiation treatments approximately 5 weeks. Of note Colostomy bag in place - no leaking noted- pt reports no issues with pouch adherence and uses Coloplast and gloria ring along with barrier elastic strips - No intervention needed for ostomy care at this time. TT with provider Dr. Lara with updated information. Right Anterior Hip Etiology: Unstageable Pressure Injury??Present on Admission Pt states from old wheelchair - pt states he has not saught treatment for wound and has been applying dry dressing and wound gel per VNA. Measurements: see chart for detailed measurements Wound Bed: adherent yellow beal thick moist slough Drainage / Odor: No odor but creamy yellow fermin drainage noted on dressing Edges: ? epibole and irregular Susy wound: mild erythema - ? No Induration, Fluctuance or Warmth noted Pain: denies - paraplegia Goals of Treatment: ? Santyl for enzymatic debridement Right Lateral Hip / Trochanter Etiology: Resolving Pressure Injury??Present on Admission Suspect stage 2 pressure injury as no scar tissue noted in immediate periwound - scar tissue noted at inferior site indicative of previsous full thickness pressure injury - since resolved and resurfaced. Measurements: see chart for detailed measurements Wound Bed: small dried scab Drainage / Odor: No odor no drainage Edges: ? attached Susy wound: No Induration, Fluctuance or Warmth noted Pain: denies - paraplegia Goals of Treatment: ? Hydorocolloid to allow for moist wound healing and protect from friction Sacrum Etiology: Resurfaced Pressure Injury??Present on Admission Wound Bed: intact dry desquamation tissue noted Drainage / Odor: No odor no drainage Edges: ? attached Susy wound: No Induration, Fluctuance or Warmth noted Pain: denies - paraplegia Goals of Treatment: ? Hydorocolloid to protect from friction Left Medial Heel Etiology: Stage 2 Pressure Injury??Present on Admission Measurements: see chart for detailed measurements Wound Bed: dried pale pink partial thickness tissue loss Drainage / Odor: No odor no drainage Edges: ? well defined Susy wound: No Induration, Fluctuance or Warmth noted Pain: denies - paraplegia Goals of Treatment: ?Wound gel to allow for moist wound healing - Foam application and heel boot protectors from storeroom Right Lateral Ankle heel - Dry thick callused hyperpigmented intact tissue - pink remains blanchable throughout - at risk of injury breakdown - Foam application and heel boot protectors from storeroom. Recommendations: 1. Turn and Reposition every 2 hours and as needed for patient comfort. Consider pillows and wedges for positioning. 2. Off Load all bony prominences with use of pillows and heel boots if needed.? Apply Preventative foams where needed. ?[employer] called to deliver boots. 3. Provide adequate and supplemental nutrition. 4. Order low air loss mattress. 5. Right Hip - Cleanse with normal saline, pat dry. ?Apply barrier to the immediate susy wound, apply thick layer of Santyl to entire wound bed, cover with dry gauze, secure foam dressing, change Daily. 6. Right Lateral Hip / Trochanter - Hydorcolloid - Cleanse with routine cleansing, dry well. Apply hydrocolloid dressing - change every three days. 7. Left Medial Heel - Off Load Pressure - Apply heel boot protectors. Cleanse with NS, pat dry. Apply wound gel to wound bed cover with dry gauze, secure in place with tape. Change Daily. 8. Sacrum - Hydorcolloid - Cleanse with routine cleansing, dry well. Apply hydrocolloid dressing - change every three days. 9. Right Lateral Ankle / heel - Off Load Pressure - Foam application or heel boot protectors to off load pressure and protect from friction. Refer patient to outpatient wound clinic for continued care and treatment. Until Wound Care follow up continue topical recommendations through VNA nurses. Right Hip can continue with Santyl while necrotic tissue remains in place then may switch to Alginate for moisture management. Re-consult wound care Nurse for wound deterioration or wound changes.
--- NOTE | 2023-01-31 11:26 | MHC.CLN ---
RE: CONSULT PT REPORTS PEG TUBE SINCE DECEMBER. PT HAS TRIALED 2-3 OTHER FORMULAS AND CURRENTLY ON PEPTAMEN 1.5 BUT STATES IT DOES NOT AGREE WITH HIM. WHEN ASKED FOR DETAILS ABOUT TOLERANCE PT STATES TF MAKES HIM FEEL TIRED , DENIES NAUSEA, VOMITING, HIGH RESIDUALS. PT C/O OCCASIONAL DIARRHEA. PT'S COMPLAINTS OF TF INTOLERANCE ARE VAGUE. DISLIKES FEEDING VIA PUMP AND PREFERS GRAVITY FEEDINGS. DISCUSSED WITH PT'S NURSE REGARDING TRIAL OF NEW TF PRODUCT. PT AGREES TO TRIAL VITAL 1.5 (IN HOUSE) ELEMENTAL TF FORMULA VIA GRAVITY FEED. RECOMMEND VITAL 1.5 VIA GRAVITY DRIP WITH 240ML FREE WATER FLUSHES Q 6 HRS TO PROVIDE 1200ML FORMULA PER DAY, 1800KCALS (28.5KCALS/KG), 81G PROTEIN (1.3G/KG), 1877ML TOTAL WATER FROM FORMULA AND FLUSH (30ML/KG) VITAL 1.5 FORMULA DELIVERED TO NURSES STATION VIA THIS RUBBER TILE FLOOR LAYER. PT IS CURRENTLY NPO AWAITING PROCEDURE MONITOR TOLERANCE, RESIDUALS AND LYTES WHEN TF STARTS SEE ALSO FULL CLINICAL NUTRITION ASSESSMENT
[2023-01-31 11:47] VITALS: BP 141/75; PULSE 81; RESP 20; TEMP 36.5; O2SAT 94
--- NOTE | 2023-01-31 12:39 | MHC.CM.PN ---
Pt lives with his , he has VNA services from [facility], he has med. equip in the home of yovany lift, w/c, IV pump with pole. HCP is his , Erika, form was completed here and uploaded to chart. Family can transport him home upon DC. CM to follow and assist with DC plan.
--- NOTE | 2023-01-31 13:16 | MHC.CM.PN ---
Pt is active with [facility], his PCP is: García Lovell.
[2023-01-31 15:47] VITALS: BP 147/78; PULSE 87; RESP 16; TEMP 36.2; O2SAT 97
[2023-01-31] MEDS: cefTRIAXone sodium 1 GM in 0.9 % Sodium Chloride 50 ML IV (17:55)
--- NOTE | 2023-01-31 18:53 | P.CNNE_ITS ---
History of Present Illness Data of Consult Service Date: 01/31/23 Primary Care Provider: Unknown Physician HPI Reason for consult: Right upper extremity weakness This is a 72-year-old male with ?esophageal cancer currently on radiationx3 , central pain syndrome, paraplegia from work-related accident in 2005, chronic indwelling Daniels catheter, and colostomy who presents to the ED with?right upper extremity and multiple complaints suprapubic abdominal pain x1 week. Patient is a paraplegic and normally does not feel anything below T5 level, however has been experiencing what he describes as a suprapubic ?nerve pain for approximately the past week. Also experienced multiple other symptoms, including tiredness, fatigue, not sleeping well. Patient has also noticed that he has been having difficulty thinking in speaking during this time, and also lost most of the function of his right arm. Denies any headache or acute vision changes. No difficulty breathing. No chest pain/pressure, palpitations. Is scheduled to begin chemotherapy sometime in the near future. Had an elective colostomy 2 years ago d/t chronic decubitus ulcers. And more recently at the end of December of this year had a G-tube placed. Reports having difficulty finding a formula that ?agrees? with him, currently on Peptamen. Patient denies any diarrhea, but reports dark-colored stools since starting on G-tube feeding. Denies any hematochezia. Labs were significant for anemia of 8.7/26.5 (down from 9.4 over 28.4 on 01/24/2023) and stool positive for occult blood, otherwise grossly unremarkable. No leukocytosis, electrolytes WNL. Kidney function baseline. Renal function WNL. UA positive for UTI. CT?of head showed 2.2 cm mass in the high left frontoparietal junction and a 2.6 cm mass in the right occipital lobe with moderate perilesional edema, consistent with metastatic disease. CT of abdomen and pelvis found large mass involving the distal thoracic esophagus and stomach with increasing peritoneal disease, new small ascites, and increasing lymphadenopathy. Also found large 3.5 cm bladder stone and diffuse bladder wall thickening. Pt was treated with morphine and ceftriaxone. Pt will be admitted to the hospital for treatment and further evaluation of likely GI bleed in the setting of esophageal cancer with new metastasis to the brain. Review of Systems 2 Review of Systems: Constitutional : + Weight loss, No Fever, No Chills ENT/Mouth : No sore throat, No Rhinorrhea Eyes: No Swelling, No Redness Cardiovascular : No Chest Pain, No SOB, No Edema Respiratory : No Cough, No Sputum, No Wheezing Gastrointestinal : see HPI Genitourinary : NO Dysuria, No Urinary Frequency, No Hematuria, No Urgency Musculoskeletal : No joint pain, No Myalgias, No Joint Swelling Skin : No Skin Lesions, No rash Neuro : + Weakness, No Numbness, No Dizziness, No Headache Psych : No Anxiety/Panic, No Depression Heme/Lymph: No Bruising, No Lymphadenopathy Endocrine : No Polyuria, No Polydipsia All other systems reviewed and are negative. Yes all other systems are reviewed and are negative [facility] Past Medical History Medical History Acute hyponatremia Central pain syndrome Chronic pain syndrome Paraplegia T5 spinal cord injury Family History Family History Brother Liver cancer Surgical History Surgical History Hx of colonoscopy History of esophagogastroduodenoscopy (EGD) History of creation of ostomy (11/02/21) Social History Social History Household Members: Spouse Housing: House Do you presently have visiting nurse or other home services: Yes Alcohol intake: never Comment: . Patient Tobacco Use Status: Never used Tobacco Substance Use Type: Marijuana service: No Current occupational status: retired Meds Allergies Allergy/AdvReac Type Severity Reaction Status Date / Time No Known Allergies Allergy Mild NOT Verified 01/30/23 10:49 APPLICABLE Active Medications: Current Medications Acetaminophen (Acetaminophen 325 Mg Tablet) 650 mg PO Q6H PRN PRN Reason: Pain, Mild (Pain Scale 1-3) Benzonatate (Benzonatate 100 Mg Capsule) 100 mg PO TID PRN PRN Reason: Cough Dexamethasone (Dexamethasone 4 Mg Tablet) 4 mg PO TID [facility] Last Admin: 01/31/23 17:33 Dose: 4 mg Docusate Sodium (Docusate Sodium 100 Mg Capsule) 100 mg PO DAILY PRN PRN Reason: Constipation Sodium Chloride (Ns) 1,000 mls @ 100 mls/hr IVCONT .Q10H [facility] Last Infusion: 01/31/23 15:36 Dose: Infused Ceftriaxone Sodium 1 gm/ (Sodium Chloride) 50 mls @ 100 mls/hr IV Q24H [facility] Last Infusion: 01/31/23 18:49 Dose: Infused Melatonin (Melatonin 3 Mg Tablet) 6 mg PO BEDTIME PRN PRN Reason: Insomnia Morphine Sulfate (Morphine Sulfate 4 Mg/Ml Cartridge) 4 mg IVPUSH Q4H PRN; Protocol PRN Reason: Pain, Severe (Pain Scale 7-10) Last Admin: 01/31/23 03:16 Dose: 4 mg Patient Own Med ( Gabapentin 250 Mg/5 Ml Solution) 500 mg PO Q4H [facility] Last Admin: 01/31/23 17:34 Dose: 500 mg Ondansetron HCl (Ondansetron Hcl 4 Mg/2 Ml Vial) 4 mg IVPUSH Q8H PRN PRN Reason: Nausea and Vomiting Pantoprazole Sodium (Pantoprazole Sodium 40 Mg/10 Ml Vial) 40 mg IVPUSH BID@0630,1630 [facility] Last Admin: 01/31/23 17:34 Dose: 40 mg Sodium Chloride (0.9 % Sodium Chloride Flush 3 Ml Syringe) 3 ml IVFLUSH QSHIFT [facility] Last Admin: 01/31/23 17:56 Dose: Not Given Home Medications Medication Instructions Recorded Confirmed Last Taken Type baclofen 20,000 mcg/20 mL (1,000 See Rx Instructions .Route .COMPLEX 11/02/21 01/30/23 Unknown History mcg/mL) intrathecal solution gabapentin 250 mg/5 mL oral 500 mg PO Q4H 01/30/23 01/30/23 01/30/23 09:00 History solution Physical Exam 2 Vital Signs: Vital Signs: Last Vital Signs Temp 97.2 F 01/31/23 15:47 Pulse 87 01/31/23 15:47 Resp 16 01/31/23 15:47 BP 147/78 H 01/31/23 15:47 Pulse Ox 97 01/31/23 15:47 O2 Del Method Room Air 01/31/23 15:47 BMI result Body Mass Index 22.5 Const: Other: Constitutional : Awake, interactive, not in distress Neck : Normal inspection, Supple Cardiovascular : RRR, no JVP, no lower extremity edema Respiratory : good bilateral air entry, no crackles, wheezes or rhonchi Gastrointestinal: soft, lax, Normal bowel sounds, Non tender, G-tube, Colostomy in place Skin : Warm, Dry Neurological : Alert & oriented x3, RUE weakness, below T5 paraplegia Neuro: Other: He is alert and oriented x3 with normal. Cranial nerves and intellectual functions. Speech and language functions are normal. He has no visual field deficit and no aphasia. He has weakness of the right upper extremity proximal greater than distal. Proximal strength is 4/5 distal strength, 5 minus/5. He has paraplegia with loss of sensation below T5 which is old. Results Labs 01/31/23 08:26 01/31/23 08:26 Labs: Short CBC 01/31/23 Range/Units 08: WBC 4.9 (4.8-10.8) X10*3/uL Hgb 8.6 L (14.0-18.0) g/dl Hct 26.7 L (42.0-52.0) % Plt Count 354 (160-400) X10*3/uL BMP 01/31/23 08:26 Sodium 139 Potassium 4.2 Chloride 105 Carbon Dioxide 24 BUN 8 L Creatinine 0.56 Calcium 9.4 Microbiology Microbiology Results: Microbiology 01/30/23 16:45 Blood - Venous Blood Culture - Preliminary No growth after 24 hours. 01/30/23 Unknown Urine Catheterized - Straight Catheter Urine Culture - Preliminary Culture in progress. Assessment and Plan (1) Metastatic cancer to brain: Status: Acute Left parietal and right occipital metastatic lesions from esophageal cancer stage IV. Recommendations: Whole brain radiation. Decadron 4 mg 3 times a day via G-tube. 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 also found to have brain mets. PLAN: 1/ Recommend carafate BID 1 g as well as PPI, endoscopic treatment of friable tumour or radiation esophagitis is difficult, and may exacerbate bleeding at this time 2/ treat for UTI as doing, consider consulting urology for input on the large bladder stone Procedures Date of Service Date of Service: 01/31/23
[2023-01-31 20:00] VITALS: BP 158/77; PULSE 80; RESP 20; TEMP 36.3; O2SAT 94
[2023-01-31 23:14] VITALS: BP 132/79; PULSE 76; RESP 18; TEMP 36.8; O2SAT 96
[2023-02-01] MEDS: 0.9 % Sodium Chloride Flush 3 ML SYRINGE IVFLUSH ×3 (02:00→21:12)
[2023-02-01] MEDS: Morphine Sulfate 4 MG/ML CARTRIDGE IVPUSH ×2 (02:10→06:43)
[2023-02-01 02:58] VITALS: BP 125/72; PULSE 83; RESP 18; TEMP 36.6; O2SAT 96
[2023-02-01] MEDS: Pantoprazole Sodium 40 MG/10 ML VIAL IVPUSH (05:29)
[2023-02-01 07:43] VITALS: BP 145/71; PULSE 71; RESP 18; TEMP 36.2; O2SAT 97
[2023-02-01 07:47] VITALS: BP 145/74; PULSE 66; RESP 18; TEMP 36.2; O2SAT 96
[2023-02-01] MEDS: dexAMETHasone 4 MG TABLET PO ×3 (08:24→21:11)
[2023-02-01] MEDS: 0.9 % Sodium Chloride 1,000 ML 100 ML IVCONT (09:08)
--- NOTE | 2023-02-01 10:35 | P.CNUR_ITS ---
History of Present Illness Consult details Consult date: 02/01/23 Narrative: 72-year-old male history of chronic paraplegia, indwelling Rivera catheter, esophageal cancer currently on radiation scheduled to begin chemotherapy soon, central pain syndrome, chronic wounds with colostomy bag in place, presented to the emergency department on 01/30/23 with complaints of diffuse abdominal pain, fatigue, malaise, ongoing for the past 5 days. Inpatient work-up is notable for metastatic brain lesions. Timothy has chronic indwelling rivera for neurogenic bladder, and has developed a large bladder stone. Consult to Urology for Bladder stone. Review of Systems 2 Review of Systems: 10 point ROS negative other than stated in HPI [facility] Past Medical History Medical History (Updated 02/26/23 @ 11:32 by Sondra Torres RN) Presence of intrathecal baclofen pump Colostomy in place Port-A-Cath in place Esophageal cancer Anemia Carcinoma of esophagus Acute hyponatremia Central pain syndrome Chronic pain syndrome Paraplegia T5 spinal cord injury Family History Family History Brother Liver cancer Surgical History Surgical History Hx of colonoscopy History of esophagogastroduodenoscopy (EGD) History of creation of ostomy (11/02/21) Social History Social History Household Members: Spouse Housing: House Do you presently have visiting nurse or other home services: Yes Alcohol intake: never Comment: . Patient Tobacco Use Status: Never used Tobacco Substance Use Type: Marijuana service: No Current occupational status: retired Meds Allergies Allergy/AdvReac Type Severity Reaction Status Date / Time No Known Allergies Allergy Mild NOT Verified 02/04/23 10:05 APPLICABLE Active Medications: Current Medications Acetaminophen (Acetaminophen 325 Mg Tablet) 650 mg PO Q6H PRN PRN Reason: Pain, Mild (Pain Scale 1-3) Benzonatate (Benzonatate 100 Mg Capsule) 100 mg PO TID PRN PRN Reason: Cough Collagenase (Collagenase Clostridium Hist. 30 Gm Tube) 1 appl TOPICAL DAILY [facility]; Protocol Dexamethasone (Dexamethasone 4 Mg Tablet) 4 mg PO TID [facility] Last Admin: 02/01/23 08:24 Dose: 4 mg Docusate Sodium (Docusate Sodium 100 Mg Capsule) 100 mg PO DAILY PRN PRN Reason: Constipation Sodium Chloride (Ns) 1,000 mls @ 100 mls/hr IVCONT .Q10H [facility] Last Admin: 02/01/23 09:08 Dose: 100 mls/hr Ceftriaxone Sodium 1 gm/ (Sodium Chloride) 50 mls @ 100 mls/hr IV Q24H [facility] Last Infusion: 01/31/23 18:49 Dose: Infused Melatonin (Melatonin 3 Mg Tablet) 6 mg PO BEDTIME PRN PRN Reason: Insomnia Morphine Sulfate (Morphine Sulfate 4 Mg/Ml Cartridge) 4 mg IVPUSH Q4H PRN; Protocol PRN Reason: Pain, Severe (Pain Scale 7-10) Last Admin: 02/01/23 06:43 Dose: 4 mg Patient Own Med ( Gabapentin 250 Mg/5 Ml Solution) 500 mg PO Q4H [facility] Last Admin: 02/01/23 08:26 Dose: 500 mg Ondansetron HCl (Ondansetron Hcl 4 Mg/2 Ml Vial) 4 mg IVPUSH Q8H PRN PRN Reason: Nausea and Vomiting Pantoprazole Sodium (Pantoprazole Sodium 40 Mg/10 Ml Vial) 40 mg IVPUSH BID@0630,1630 [facility] Last Admin: 02/01/23 05:29 Dose: 40 mg Sodium Chloride (0.9 % Sodium Chloride Flush 3 Ml Syringe) 3 ml IVFLUSH QSHIFT [facility] Last Admin: 02/01/23 08:27 Dose: Not Given Home Medications Medication Instructions Recorded Confirmed Last Taken Type baclofen 20,000 mcg/20 mL (1,000 See Rx Instructions .Route .COMPLEX 11/02/21 02/13/23 Unknown History mcg/mL) intrathecal solution gabapentin 250 mg/5 mL oral 500 mg PO Q4H 01/30/23 02/13/23 02/26/23 01:00 History solution ciprofloxacin HCl 250 mg tablet 250 mg PO BID 02/26/23 02/26/23 02/25/23 History Physical Exam 2 Vital Signs: Vital Signs: Last Vital Signs Temp 97.1 F 02/01/23 07:47 Pulse 66 02/01/23 07:47 Resp 18 02/01/23 07:47 BP 145/74 H 02/01/23 07:47 Pulse Ox 96 02/01/23 07:47 O2 Del Method Room Air 02/01/23 07:47 BMI result Body Mass Index 22.5 HEENT: Head: Yes normal to inspection Ears: hearing grossly normal bilaterally Eyes: General: appearance normal, both eyes and all related structures Neck: Neck: Yes normal visual inspection Chest: Chest palpation & inspection: normal inspection of the chest Resp: Effort & Inspection: normal respiratory effort : Other: catheter in place, draining lawanda colored urine Results Labs 02/02/23 07:07 02/02/23 07:07 Labs: Urine 01/30/23 Range/Units 15:27 Urine Color Yellow Urine Appearance Turbid Urine pH 7.0 (5.0-9.0) Ur Specific [place] >= 1.030 H (1.005-1.025) Urine Protein 30 (1+) H (Neg-Trace) mg/dL Urine Glucose (UA) Negative (Negative) mg/dL All other labs normal. Assessment and Plan (1) Bladder stone: Status: Acute (2) Chronic indwelling Rivera catheter: Status: Acute (3) Acute UTI: Status: Resolved (4) Metastatic cancer to brain: Status: Acute (5) Malnutrition of moderate degree: Status: Acute Plan Pt with new diagnosis of metastatic brain cancer Will monitor urological conditions conservatively for now Cont rivera Procedures Date of Service Date of Service: 02/26/23
--- NOTE | 2023-02-01 11:10 | P.PNIM_ITS ---
Subjective Subjective Date of Service: 02/01/23 Interval History: Seen and evaluated this morning RUE weakness the same Pain better controlled tolerate tube feed overnight No reported bleeding Review of Systems Review of Systems: Yes all other systems are reviewed and are negative Physical Exam 2 Vital Signs: Vital Signs: Last Vital Signs Temp 97.1 F 02/01/23 07:47 Pulse 66 02/01/23 07:47 Resp 18 02/01/23 07:47 BP 145/74 H 02/01/23 07:47 Pulse Ox 96 02/01/23 07:47 O2 Del Method Room Air 02/01/23 07:47 BMI result Body Mass Index 22.5 Const: Other: Constitutional : Awake, interactive, not in distress Neck : Normal inspection, Supple Cardiovascular : RRR, no JVP, no lower extremity edema Respiratory : good bilateral air entry, no crackles, wheezes or rhonchi Gastrointestinal: soft, lax, Normal bowel sounds, Non tender, G-tube, Colostomy in place Skin : Warm, Dry Neurological : Alert & oriented x3, RUE weakness, below T5 paraplegia Objective Data Active Medications Acetaminophen (Acetaminophen 325 Mg Tablet) 650 mg PO Q6H PRN PRN Reason: Pain, Mild (Pain Scale 1-3) Benzonatate (Benzonatate 100 Mg Capsule) 100 mg PO TID PRN PRN Reason: Cough Collagenase (Collagenase Clostridium Hist. 30 Gm Tube) 1 appl TOPICAL DAILY [facility]; Protocol Dexamethasone (Dexamethasone 4 Mg Tablet) 4 mg PO TID [facility]CLUD[facility] Last Admin: 02/01/23 08:24 Dose: 4 mg Documented By: JUNIOR Docusate Sodium (Docusate Sodium 100 Mg Capsule) 100 mg PO DAILY PRN PRN Reason: Constipation Sodium Chloride (Ns) 1,000 mls @ 100 mls/hr IVCONT .Q10H COUNT [facility]CLUD[facility] Last Admin: 02/01/23 09:08 Dose: 100 mls/hr Documented By: SIM Ceftriaxone Sodium 1 gm/ (Sodium Chloride) 50 mls @ 100 mls/hr IV Q24H [facility] Last Infusion: 01/31/23 18:49 Dose: Infused Documented By: AIDA Melatonin (Melatonin 3 Mg Tablet) 6 mg PO BEDTIME PRN PRN Reason: Insomnia Morphine Sulfate (Morphine Sulfate 4 Mg/Ml Cartridge) 4 mg IVPUSH Q4H PRN; Protocol PRN Reason: Pain, Severe (Pain Scale 7-10) Last Admin: 02/01/23 06:43 Dose: 4 mg Documented By: JONO Patient Own Med ( Gabapentin 250 Mg/5 Ml Solution) 500 mg PO Q4H [facility] Last Admin: 02/01/23 08:26 Dose: 500 mg Documented By: JUNIOR Ondansetron HCl (Ondansetron Hcl 4 Mg/2 Ml Vial) 4 mg IVPUSH Q8H PRN PRN Reason: Nausea and Vomiting Pantoprazole Sodium (Pantoprazole Sodium 40 Mg/10 Ml Vial) 40 mg IVPUSH BID@0630,1630 [facility]CLUD[facility] Last Admin: 02/01/23 05:29 Dose: 40 mg Documented By: JONO Sodium Chloride (0.9 % Sodium Chloride Flush 3 Ml Syringe) 3 ml IVFLUSH QSHIFT COUNT [facility]CLUDES [facility] Last Admin: 02/01/23 08:27 Dose: Not Given Documented By: JUNIOR Non-Admin Reason: IV Running Labs 01/31/23 08:26 01/31/23 08:26 Microbiology Microbiology Results: Microbiology 01/30/23 Unknown Urine Culture - Preliminary Urine Catheterized - Straight Catheter Gram negative karine 01/30/23 16:54 Blood Culture - Preliminary Blood - Venous No growth after 24 hours. 01/30/23 16:45 Blood Culture - Preliminary Blood - Venous No growth after 24 hours. Assessment and Plan (1) Acute UTI: Status: Acute (2) Metastatic cancer to brain: Status: Acute (3) Bladder stone: Status: Acute (4) Anemia: Status: Acute (5) Carcinoma of esophagus: Status: Acute (6) Malnutrition of moderate degree: Status: Acute Plan Pt is a 72-year-old male with a PMH significant for?esophageal cancer currently on radiation, central pain syndrome, paraplegia from work-related accident in 2005, chronic indwelling Daniels catheter, and colostomy who presents to the ED with?multiple complaints but primarily of suprapubic abdominal pain x1 week. Pt will be admitted to the hospital for treatment and further evaluation of likely GI bleed in the setting of esophageal cancer with new metastasis to the brain. GI bleed likely 2/2 esophageal cancer stable H&H 8.6 stool positive for occult blood GI decided for medical management rather than EGD dc IV Protonix , Carafate and Omeprazole for now NPO, hold tube feed Follow CBC Started tube feed, increase as tolerated Pneumatic boots for DVT prophylaxis RUE weakness 2/[address] of head shows 2.2 cm mass in left frontoparietal junction in 2.6 cm mass in right occipital lobe, concerning for metastasis Oncology consult appreciated; to follow with radiation therapy as outpatient, continue Dexa possible cranial Radiation therapy along with Dexamethasone Consider palliative care , he will have discussion with dr Sebastian Bladder stone Pt with suprapubic abdominal pain, CT showing 3.5 cm bladder stone Patient was scheduled for lithotripsy in February Urology consult , monitor and hold on any intervention at this point Diet Pt with PEG tube since end of December Has had difficulty finding formula that agrees with him, currently on Peptamen Nutrition consult Acute UTI Diagnosed with UTI on 01/24, started on cefdinir 01/25 Cx growing GNR Will treat with ceftriaxone started, 01/30/2023 Chronic wounds Pt with chronic pelvic wound with purulent discharge and healed wound on right buttock Wound care consult DNR/DNI DVT Prophylaxis: Pneumatic boots due to GI bleed Patient requires overnight hospital stay for treatment of?and further evaluation of likely GI bleed in the setting of esophageal cancer with new metastasis to the brain. Patient will be treated with IV antibiotics for UTI, and will require specialist consultation GI for EGD tomorrow for evaluation of possible upper GI bleed, specialist consultation with Urology for lithotripsy of bladder stone, and specialist consultation with Oncology for likely metastasis of esophageal cancer. Quality Stroke Does the patient have a stroke diagnosis?: No VTE Prior VTE?: No VTE Risk Level:: Medical - moderate - high VTE Device Contraindication: N/A - Device Ordered VTE Drug Contraindication: Treatment Not Indicated
[2023-02-01] MEDS: Collagenase Clostridium Hist. 30 GM TUBE 1 APPL TOPICAL (11:23)
[2023-02-01] MEDS: Sucralfate Oral Suspension 1 GM/10 ML ORAL.SUSP G-TUBE ×3 (11:32→21:11)
[2023-02-01] MEDS: HYDROmorphone HCl 0.5 MG/0.5 ML SYRINGE IVPUSH ×2 (13:28→21:11)
[2023-02-01 15:06] VITALS: BP 114/64; PULSE 75; RESP 20; TEMP 36.1; O2SAT 94
[2023-02-01 15:08] VITALS: BP 114/64; PULSE 80; RESP 20; TEMP 36.1; O2SAT 96
[2023-02-01] MEDS: cefTRIAXone sodium 1 GM in 0.9 % Sodium Chloride 50 ML IV (16:20)
[2023-02-01] MEDS: Omeprazole/Na Bicarb Oral Susp 20 MG/10 ML UD Cup 40 MG G-TUBE (16:21)
[2023-02-01 19:05] VITALS: BP 130/62; PULSE 59; RESP 20; TEMP 36.9; O2SAT 96
[2023-02-02] VITALS (8 sets, daily range): BP systolic 117–157; BP diastolic 53–88; PULSE 63–99; RESP 16–20; TEMP 36.3–36.8; O2SAT 92–96
[2023-02-02] MEDS: HYDROmorphone HCl 0.5 MG/0.5 ML SYRINGE IVPUSH ×2 (00:57→05:50)
[2023-02-02] MEDS: Omeprazole/Na Bicarb Oral Susp 20 MG/10 ML UD Cup 40 MG G-TUBE ×2 (05:50→16:35)
[2023-02-02 07:31] LABS: Hematocrit 25.1 % (42.0-52.0); Hemoglobin 8.2 g/dl (14.0-18.0); Mean Corpuscular HGB Conc 32.7 g/dl (31.0-36.0); Mean Corpuscular Hemoglobin 30.1 pg (27.0-33.0); Mean Corpuscular Volume 92.3 fL (80.0-98.0); Mean Platelet Volume 9.5 fL (9.4-12.4); Platelet Count 247 X10*3/uL (160-400); Red Blood Count 2.72 X10*6/uL (4.60-5.80); Red Cell Distribution Width 15.6 % (11.0-16.0)
[2023-02-02 07:49] LABS: Anion Gap 14 (12-20); Blood Urea Nitrogen 13 mg/dL (9-16); Calcium 8.7 mg/dL (8.4-10.2); Carbon Dioxide 25 mmol/L (22-29); Chloride 103 mmol/L (96-108); Estimated Glomerular Filt Rate > 60; Glucose Random 126 mg/dL (60-115); Potassium 4.5 mmol/L (3.3-5.1); Sodium 137 mmol/L (135-145)
[2023-02-02] MEDS: levoFLOXacin 500 MG TABLET PO (09:33)
[2023-02-02] MEDS: Collagenase Clostridium Hist. 30 GM TUBE 1 APPL TOPICAL (09:33)
[2023-02-02] MEDS: dexAMETHasone 4 MG TABLET PO ×3 (09:34→20:31)
[2023-02-02] MEDS: Sucralfate Oral Suspension 1 GM/10 ML ORAL.SUSP G-TUBE ×4 (09:34→20:31)
[2023-02-02] MEDS: 0.9 % Sodium Chloride Flush 3 ML SYRINGE IVFLUSH ×3 (09:35→20:45)
--- NOTE | 2023-02-02 09:50 | HO.PM.IMPN ---
Subjective Subjective Date of Service: 02/02/23 Interval History: Seen and evaluated this morning RUE weakness the same Pain better controlled with IV Dilaudid tolerate tube feed overnight up to 50ml\hr No reported bleeding Review of Systems Review of Systems: Yes all other systems are reviewed and are negative Physical Exam Vital Signs: Vital Signs: Last Vital Signs Temp 98.2 F 02/02/23 07:31 Pulse 78 02/02/23 07:31 Resp 18 02/02/23 07:31 BP 134/69 02/02/23 07:31 Pulse Ox 94 02/02/23 07:31 O2 Del Method Room Air 02/02/23 07:31 BMI result Body Mass Index 22.5 Const: Other: Constitutional : Awake, interactive, not in distress Neck : Normal inspection, Supple Cardiovascular : RRR, no JVP, no lower extremity edema Respiratory : good bilateral air entry, no crackles, wheezes or rhonchi Gastrointestinal: soft, lax, Normal bowel sounds, Non tender, G-tube clean, Colostomy in place Skin : Warm, Dry Neurological : Alert & oriented x3, RUE weakness, below T5 paraplegia Objective Data Active Medications Acetaminophen (Acetaminophen 325 Mg Tablet) 650 mg PO Q6H PRN PRN Reason: Pain, Mild (Pain Scale 1-3) Benzonatate (Benzonatate 100 Mg Capsule) 100 mg PO TID PRN PRN Reason: Cough Collagenase (Collagenase Clostridium Hist. 30 Gm Tube) 1 appl TOPICAL DAILY [facility]; Protocol Last Admin: 02/02/23 09:33 Dose: 1 appl Documented By: SIM Dexamethasone (Dexamethasone 4 Mg Tablet) 4 mg PO TID [facility] Last Admin: 02/02/23 09:34 Dose: 4 mg Documented By: SIM Docusate Sodium (Docusate Sodium 100 Mg Capsule) 100 mg PO DAILY PRN PRN Reason: Constipation Levofloxacin (Levofloxacin 500 Mg Tablet) 500 mg PO Q24H [facility] Last Admin: 02/02/23 09:33 Dose: 500 mg Documented By: SIM Melatonin (Melatonin 3 Mg Tablet) 6 mg PO BEDTIME PRN PRN Reason: Insomnia Patient Own Med ( Gabapentin 250 Mg/5 Ml Solution) 500 mg PO Q4H [facility] Last Admin: 02/02/23 09:34 Dose: 500 mg Documented By: SIM Omeprazole (Omeprazole/Na Bicarb Oral Susp 20 Mg/10 Ml Ud Cup) 40 mg G-TUBE BID@0630,1630 [facility] Last Admin: 02/02/23 05:50 Dose: 40 mg Documented By: SHAMA Ondansetron HCl (Ondansetron Hcl 4 Mg/2 Ml Vial) 4 mg IVPUSH Q8H PRN PRN Reason: Nausea and Vomiting Oxycodone HCl (Oxycodone Hcl Immed Release 5 Mg Tablet) 5 mg PO Q4H PRN PRN Reason: Pain, Severe (Pain Scale 7-10) Sodium Chloride (0.9 % Sodium Chloride Flush 3 Ml Syringe) 3 ml IVFLUSH QSHIFT [facility] Last Admin: 02/02/23 09:35 Dose: 3 ml Documented By: SIM Sucralfate (Sucralfate Oral Suspension 1 Gm/10 Ml Oral.Susp) 1 gm G-TUBE QIDACHS [facility] Last Admin: 02/02/23 09:34 Dose: 1 gm Documented By: SIM Labs 02/02/23 07:07 02/02/23 07:07 Labs: Laboratory Results - last 24 hr 02/02/23 07:07 MCV 92.3 MCH 30.1 MCHC 32.7 RDW 15.6 Plt Count 247 D MPV 9.5 Absolute Nucleated RBC 0.000 Nucleated RBC % (auto) 0.0 Anion Gap 14 Estim Creat Clear Calc 106.0 Estimated GFR > 60 Random Glucose 126 H Calcium 8.7 D Microbiology Microbiology Results: Microbiology 01/30/23 Unknown Urine Culture - Final Urine Catheterized - Straight Catheter Pseudomonas aeruginosa Pseudomonas fluorescens 01/30/23 16:54 Blood Culture - Preliminary Blood - Venous No growth after 48 hours. 01/30/23 16:45 Blood Culture - Preliminary Blood - Venous No growth after 48 hours. Assessment and Plan (1) Acute UTI: Status: Acute (2) Metastatic cancer to brain: Status: Acute (3) Bladder stone: Status: Acute (4) Acute GI bleeding: Status: Acute Plan Pt is a 72-year-old male with a PMH significant for?esophageal cancer currently on radiation, central pain syndrome, paraplegia from work-related accident in 2005, chronic indwelling Daniels catheter, and colostomy who presents to the ED with?multiple complaints but primarily of suprapubic abdominal pain x1 week. Pt will be admitted to the hospital for treatment and further evaluation of likely GI bleed in the setting of esophageal cancer with new metastasis to the brain. GI bleed likely 2/2 esophageal cancer H&H 8.2 stool positive for occult blood but GI decided for medical management rather than EGD given multiple other medical problems and 2nd source of bleeding dc IV Protonix , Carafate and Omeprazole for now NPO Started tube feed, increase as tolerated Pneumatic boots for DVT prophylaxis Follow CBC RUE weakness 2/[address] of head shows 2.2 cm mass in left frontoparietal junction in 2.6 cm mass in right occipital lobe, concerning for metastasis Oncology consult appreciated; to follow with radiation therapy as outpatient, continue Dexa possible cranial Radiation therapy along with Dexamethasone Consider palliative care , he will have discussion with dr Sebastian Bladder stone Pt with suprapubic abdominal pain, CT showing 3.5 cm bladder stone Patient was scheduled for lithotripsy in February Urology consult , monitor and hold on any intervention at this point Diet Pt with PEG tube since end december Has had difficulty finding formula that agrees with him, currently on Peptamen Nutrition consult Acute UTI Diagnosed with UTI on 01/24, started on cefdinir 01/25 Cx growing Pseudomonas Will treat with Levofloxacin started 02/02 Chronic wounds Pt with chronic pelvic wound with purulent discharge and healed wound on right buttock Wound care consult DNR/DNI DVT Prophylaxis: Pneumatic boots due to GI bleed Patient requires overnight hospital stay for treatment of?and further evaluation of likely GI bleed in the setting of esophageal cancer with new metastasis to the brain. Patient will be treated with IV antibiotics for UTI, and will require specialist consultation GI for EGD tomorrow for evaluation of possible upper GI bleed, specialist consultation with Urology for lithotripsy of bladder stone, and specialist consultation with Oncology for likely metastasis of esophageal cancer. Quality Stroke Does the patient have a stroke diagnosis?: No VTE Prior VTE?: No VTE Risk Level:: Medical - moderate - high VTE Device Contraindication: N/A - Device Ordered VTE Drug Contraindication: Treatment Not Indicated
[2023-02-02] MEDS: oxyCODONE HCl Immed Release 5 MG TABLET PO ×2 (11:50→16:36)
--- NOTE | 2023-02-02 11:55 | MHC.CLN ---
F/U REVIEWED LABS PT AGREED TO TRY TF WITH PUMP AT CONTINUOUS FEED PT RECEIVING VITAL 1.5 AT MAX GOAL RATE 50ML/HR CONTINUOUS WITH 240ML FREE WATER FLUSHES Q 6 HRS PROVIDES 1800KCALS (28.5KCALS/KG), 81G PROTEIN (1.3G/KG), 1877ML TOTAL WATER FROM FORMULA AND FLUSH (30ML/KG) PT TOLERATING WELL WITH LOW RESIDUALS TF WILL PROMOTE WOUND HEALING MONITOR TOLERANCE, RESIDUALS AND LYTES
--- NOTE | 2023-02-02 12:35 | P.CDIM_ITS ---
PROVIDER RESPONSE TEXT: To clarify, the appropriate diagnosis supported by the clinical indicators: Pressure (decubitus) injury Stage 2 left medial heel QUERY TEXT: PHYSICIAN'S DOCUMENTATION REQUEST Date of Query: 02/02/2023 10:20 AM EST Patient Name: Timothy Keating Admit Date: 01/30/2023 Dear [place] Ron, A review of the medical record indicates additional documentation may be needed. Please review below and update the documentation accordingly. Clinical Indicators: Wound care assessment notes 01/31 - Left medial heel pressure injury stage 2, present on arrival. Wound gel to allow for moist wound healing - Foam application and heel boot protectors from storeroom . Based on the above, could you please provide further information regarding the ulcer/wound/injury: Pressure (decubitus) injury Stage 2 left medial heel Other Other (explain) Clinically unable to determine (explain) Thank you, Lianet Loza, CCS, CDIS Use of terms such as suspected, likely, concern for, or probable (associated with a specific diagnosi s that is being evaluated, monitored, or treated as if it exists) are acceptable and can be coded in the inpatient se tting, when documented at the time of discharge. Please use your independent medical judgment in providing your response. THIS QUERY IS PART OF THE PERMANENT MEDICAL RECORD
--- NOTE | 2023-02-02 12:35 | P.CDIM_ITS ---
PROVIDER RESPONSE TEXT: To clarify, the appropriate diagnosis supported by the clinical indicators: Pressure (decubitus) ulcer right hip, unstageable QUERY TEXT: PHYSICIAN'S DOCUMENTATION REQUEST Date of Query: 02/02/2023 10:15 AM EST Patient Name: Timothy Keating Admit Date: 01/30/2023 Dear [place] Ron, A review of the medical record indicates additional documentation may be needed. Please review below and update the documentation accordingly. Clinical Indicators: Wound care notes 01/31 - Right anterior hip, unstageable pressure injury, POA. Santyl for enzymatic debridement Based on the above, could you please provide further information regarding the ulcer/wound: Pressure (decubitus) ulcer right hip, unstageable Other Other (explain) Clinically unable to determine (explain) Thank you, Lianet Loza, CCS, CDIS Use of terms such as suspected, likely, concern for, or probable (associated with a specific diagnosi s that is being evaluated, monitored, or treated as if it exists) are acceptable and can be coded in the inpatient se tting, when documented at the time of discharge. Please use your independent medical judgment in providing your response. THIS QUERY IS PART OF THE PERMANENT MEDICAL RECORD
--- NOTE | 2023-02-02 12:35 | P.CDIM_ITS ---
PROVIDER RESPONSE TEXT: To clarify, the appropriate diagnosis supported by the clinical indicators: Pressure (decubitus) injury right lateral hip/Trochanter, Stage 2 QUERY TEXT: PHYSICIAN'S DOCUMENTATION REQUEST Date of Query: 02/02/2023 10:17 AM EST Patient Name: Timothy Keating Admit Date: 01/30/2023 Dear [place] Ron, A review of the medical record indicates additional documentation may be needed. Please review below and update the documentation accordingly. Clinical Indicators: Pressure injury Stage 2 right hip, present on arrival. Hydorocolloid to allow for moist wound healing and protect from friction. Based on the above, could you please provide further information regarding the ulcer/wound: Pressure (decubitus) injury right lateral hip/Trochanter, Stage 2 Other Other (explain) Clinically unable to determine (explain) Thank you, Lianet Loza, CCS, CDIS Use of terms such as suspected, likely, concern for, or probable (associated with a specific diagnosi s that is being evaluated, monitored, or treated as if it exists) are acceptable and can be coded in the inpatient se tting, when documented at the time of discharge. Please use your independent medical judgment in providing your response. THIS QUERY IS PART OF THE PERMANENT MEDICAL RECORD
[2023-02-03] MEDS: oxyCODONE HCl Immed Release 5 MG TABLET PO ×3 (00:07→09:30)
[2023-02-03 03:11] VITALS: BP 146/70; PULSE 84; RESP 18; TEMP 36.2; O2SAT 92
[2023-02-03] MEDS: Omeprazole/Na Bicarb Oral Susp 20 MG/10 ML UD Cup 40 MG G-TUBE (05:15)
[2023-02-03 07:55] VITALS: BP 150/72; PULSE 88; RESP 20; TEMP 36.8; O2SAT 95
[2023-02-03] MEDS: Sucralfate Oral Suspension 1 GM/10 ML ORAL.SUSP G-TUBE (09:30)
[2023-02-03] MEDS: dexAMETHasone 4 MG TABLET PO (09:31)
[2023-02-03] MEDS: Collagenase Clostridium Hist. 30 GM TUBE 1 APPL TOPICAL (09:31)
[2023-02-03] MEDS: levoFLOXacin 500 MG TABLET PO (09:31)
[2023-02-03] MEDS: 0.9 % Sodium Chloride Flush 3 ML SYRINGE IVFLUSH (09:50)
--- NOTE | 2023-02-03 11:52 | P.DS_ITS ---
DS: Providers Provider Date of Service: 02/03/23 Date of admission: 01/30/23 16:44 Primary care physician: García Lovell MD Consults: 01/30/23 16:55 Consult to Gastroenterology Routine Consulting Provider: Janet Ortez Reason for consultation: OBS+, ?GI bleed; pt with esophageal cancer 01/30/23 16:58 Consult to Hematology / Oncology Routine Consulting Provider: Inez Barry Reason for consultation: Pt with esophageal cancer on radiation at [facility], newly mets to brain 01/30/23 16:59 Consult to Urology Routine Consulting Provider: Rocky Santos Reason for consultation: 3.5 cm bladder stone 01/30/23 17:08 Consult to Wound Care Routine Reason for consultation: Chronic right groin and buttuck wounds; pt is a parapalegic DS: Diagnosis Discharge Diagnosis (1) Acute UTI: Status: Acute (2) Metastatic cancer to brain: Status: Acute (3) Bladder stone: Status: Acute (4) Acute GI bleeding: Status: Acute (5) Anemia: Status: Acute (6) Malnutrition of moderate degree: Status: Acute (7) Chronic indwelling Daniels catheter: Status: Acute DS: Summary Hospital Course Hospital Course: Admission note HPI Pt is a 72-year-old male with a PMH significant for?esophageal cancer currently on radiation, central pain syndrome, paraplegia from work-related accident in 2005, chronic indwelling Daniels catheter, and colostomy who presents to the ED with?multiple complaints but primarily of suprapubic abdominal pain x1 week. Patient is a paraplegic and normally does not feel anything below T5 level, however has been experiencing what he describes as a suprapubic ?nerve pain for approximately the past week. Also experienced multiple other symptoms, including tiredness, fatigue, not sleeping well. Patient has also noticed that he has been having difficulty thinking in speaking during this time, and also lost most of the function of his right arm. Denies any headache or acute vision changes. No difficulty breathing. No chest pain/pressure, palpitations. Patient has a complex PMH and was recently diagnosed with esophageal cancer is started on radiation at [facility] for which he has received 3 different treatments. Is scheduled to begin chemotherapy sometime in the near future. Had an elective colostomy 2 years ago d/t chronic decubitus ulcers. And more recently at the end of December of this year had a G-tube placed. Reports having difficulty finding a formula that ?agrees? with him,currently on Peptamen. Patient denies any diarrhea, but reports dark-colored stools since starting on G-tube feeding. Denies any hematochezia. In the ED pt with mildly elevated temperature of 99.3 degrees, tachypneic up to 21, otherwise vitals grossly WNL. Labs were significant for anemia of 8.7/26.5 (down from 9.4 over 28.4 on 01/24/2023) and stool positive for occult blood, otherwise grossly unremarkable. No leukocytosis, electrolytes WNL. Kidney function baseline. Renal function WNL. UA positive for UTI. CT?of head showed 2.2 cm mass in the high left frontoparietal junction and a 2.6 cm mass in the right occipital lobe with moderate perilesional edema, finding suggestive of metastatic disease. Did not find any evidence of acute intracranial hemorrhage or edematous territorial infarction. CT of abdomen and pelvis found large mass involving the distal thoracic esophagus and stomach with increasing peritoneal disease, new small ascites, and increasing lymphadenopathy. Also found large 3.5 cm bladder stone and diffuse bladder wall thickening. Pt was treated with morphine and ceftriaxone. Pt will be admitted to the hospital for treatment and further evaluation of likely GI bleed in the setting of esophageal cancer with new metastasis to the brain. Hospital course 1. Anemia and gastrointestinal bleeding. Hemoglobin dropped but remained stable. GI saw you and recommended medical management. - To use Omeprazole and Carafate - Tube feed as continuos rather than bolus 2- Right upper extremitry weakness from metastatic brain lesion. evaluated by oncologist who recommended radiationtherapy as outpatient and dexamethason - Continue Dexamethasone 3 times daily - Follow with dr Sebastian and Radiation oncology as outpatient 3- Bladder stone: seen as 3.5cm stone in bladder, evaluated by urologist who recommended no intervention at this point and outpatient follow up as planned. 4- Urine infection with pseuodomonas bacteria. treated with Levofloxacin and Daniels catheter changed. - Continue Levofloxacin for 1 more week Time Attestation Discharge coordination time: Greater than 30 minutes Quality: Safe Use of Opioids Does Pt have an Active Cancer Diagnosis on the Problem List?: No Quality: Stroke Does the patient have a stroke diagnosis?: No Physical Exam Vital Signs: Vital Signs: Last Vital Signs Temp 98.2 F 02/03/23 07:55 Pulse 88 02/03/23 07:55 Resp 20 02/03/23 07:55 BP 150/72 H 02/03/23 07:55 Pulse Ox 95 02/03/23 07:55 O2 Del Method Room Air 02/03/23 07:55 BMI result Body Mass Index 22.5 Const: Other: Constitutional : Awake, interactive, not in distress Neck : Normal inspection, Supple Cardiovascular : RRR, no JVP, no lower extremity edema Respiratory : good bilateral air entry, no crackles, wheezes or rhonchi Gastrointestinal: soft, lax, Normal bowel sounds, Non tender, G-tube clean, Colostomy in place Skin : Warm, Dry, multiple chronic wounds with no signs of infection Neurological : Alert & oriented x3, RUE weakness, below T5 paraplegia DS: Data Data Completed and Pending Completed studies during hospitalization [Text1]: Procedures Bypass Transverse Colon to Cutaneous, Percutaneous Endoscopic Approach (11/02/21) Labs on day of discharge: Preliminary micro results at discharge 01/30/23 16:54 Blood Culture - Preliminary Blood - Venous No growth after 48 hours. 01/30/23 16:45 Blood Culture - Preliminary Blood - Venous No growth after 48 hours. Imaging Chest x-ray: Radiologist's impression: ITS Impressions Head CT 01/30/23 14:24 IMPRESSION: 1. There is a 2.2 cm mass in the high left frontoparietal junction and a 2.6 cm mass in the right occipital lobe. Moderate perilesional edema associated with these lesions. Findings are suggestive of metastatic disease. 2. No evidence of acute intracranial hemorrhage or edematous territorial infarction. This critical result was discussed with Dr. Rowland at 15:48 on 01/30/2023 and it was ascertained that the content and urgency of the report was understood at the time of direct communication. Abdomen/Pelvis CT 01/30/23 14:42 IMPRESSION: Large mass involving the distal thoracic esophagus and stomach. Increasing peritoneal disease, new small amount of ascites and increasing lymphadenopathy. Question new small subcapsular implants in the liver. Increasing pulmonary nodules. Question mild colitis of the distal colon. Enlarged prostate gland that protrudes into the base of the bladder. Daniels catheter. Large 3.5 cm bladder stone and diffuse bladder wall thickening. Severe stenosis /occlusion of the right common and external iliac artery. Fleischner guidelines were followed. Discharge Plan Discharge Anticipated Discharge Date/Time: 02/03/23 11:34 Patient Disposition: Home Health Service Discharge Diagnosis: Intractable pain Right sided weakness Referrals: Loly GARSIA [Outside] - 1 Week Physician,Unknown J [Physician] - 1 Week Discharge Medications: New sucralfate 100 mg/mL Suspension 1 g G-tube QIDACHS Qty: 1000 2RF dexamethasone 4 mg Tablet 4 mg PO TID Qty: 90 0RF Santyl 250 unit/gram Ointment 1 appl topical DAILY Qty: 90 1RF Protocol: Apply to: Apply to: Abdominal wall wound levofloxacin 500 mg Tablet 500 mg PO Q24H Qty: 7 0RF oxycodone 5 mg Tablet 5 mg PO Q4H PRN (Reason: Pain, Severe (Pain Scale 7-10)) Qty: 30 0RF Rx Instructions: Partial Fill upon patient request. Konvomep 2-84 mg/mL Suspension For Reconstitution 10 ml G-tube BID@0630,1630 Qty: 300 2RF Continued baclofen 20,000 mcg/20mL (1,000 mcg/mL) Solution See Rx Instructions .ROUTE .COMPLEX Rx Instructions: patient has a pump cefdinir 250 mg/5 mL suspension for reconstitution 300 mg PO Q12H 14 Days Qty: 168 0RF Rx Instructions: ORDERED 01/25/23 FOR 2 WEEKS gabapentin 250 mg/5 mL Solution 500 mg PO Q4H Discharge Orders: Discharge Order (Routine); Ordered 02/03/23 Ordered By: [place] Ron Diet: Advance to usual diet Activity on Discharge: As tolerated Stand Alone Forms: Patient Portal Discharge page Activity Restrictions/Additional Instructions: Topical Wound Care Recommendations: 1. Turn and Reposition every 2 hours and as needed for patient comfort. Consider pillows and wedges for positioning. 2. Off Load all bony prominences with use of pillows and heel boots if needed.? Apply Preventative foams where needed. ? 3. Provide adequate and supplemental nutrition. 4. Order low air loss mattress. 5. Right Anterior Hip - Cleanse with normal saline, pat dry. ?Apply barrier to the immediate jhonatan wound, apply thick layer of Santyl to entire wound bed, cover with dry gauze, secure foam dressing, change Daily. 6. Right Lateral Hip / Trochanter - Hydorcolloid - Cleanse with routine cleansing, dry well. Apply hydrocolloid dressing - change every three days. 7. Left Medial Heel - Off Load Pressure - Apply heel boot protectors. Cleanse with NS, pat dry. Apply wound gel to wound bed cover with dry gauze, secure in place with tape. Change Daily. 8. Sacrum - Hydrocolloid - Cleanse with routine cleansing, dry well. Apply hydrocolloid dressing - change every three days. 9. Right Lateral Ankle / heel - Off Load Pressure - Foam application or heel boot protectors to off load pressure and protect from friction. Refer patient to outpatient wound clinic for continued care and treatment. Until Wound Care follow up continue topical recommendations through [facility] nurses. Right Hip can continue with Santyl while necrotic tissue remains in place then may switch to Alginate for moisture management. Care Plan Goals: Read below Health Concerns: Read below Plan of Treatment: Read below Assessment: 1. Anemia and gastrointestinal bleeding. Hemoglobin dropped but remained stable. GI saw you and recommended medical management. - To use Omeprazole and Carafate - Tube feed as continuos rather than bolus 2- Right upper extremitry weakness from metastatic brain lesion. evaluated by oncologist who recommended radiationtherapy as outpatient and dexamethason - Continue Dexamethasone 3 times daily - Follow with dr Sebastian and Radiation oncology as outpatient 3- Bladder stone: seen as 3.5cm stone in bladder, evaluated by urologist who recommended no intervention at this point and outpatient follow up as planned. 4- Urine infection with pseuodomonas bacteria. treated with Levofloxacin and Daniels catheter changed. - Continue Levofloxacin for 1 more week
--- NOTE | 2023-02-03 11:54 | MHC.CM.PN ---
Patient has been medically cleared for dc to home with services today. A referral was made to [facility], who has been made aware of today's dc.
--- NOTE | 2023-02-03 13:12 | PM.HEMONCPN ---
Medical Summary - Medical Summary Date of Service: 02/03/23 Chief complaint: esophageal cancer with brain metastases Primary Care Provider: García Lovell MD Medical Summary: Diagnosis: Esophageal adenocarcinoma He was referred by Dr. Doty on account of recently diagnosed mass at the GEJ. He presented to the ED on 10/17 with the 1 month history of feeling inside pain. He felt spasms from chest down to the top of the legs. He felt weak. His rectum was leaking stool he even though he has a colostomy. He was on Augmentin for pneumonia and had a recent UTI: Klebsiella and Enterococcus for which he was given Levaquin He has a chronic catheter. He just felt bad. CT scan of the abdomen from 10/17: * Again noted is the lymphadenopathy in the visualized lower posterior mediastinum and along the gastrohepatic ligament, and a moderate hiatal hernia. Given presence of lymphadenopathy in the region, if not already performed, consider correlation with upper endoscopy to exclude proximal gastric carcinoma. * No evidence of bowel obstruction. No acute findings in smaller large bowel compared to 10/10/2022. * Chronic prostatomegaly and chronically thickened urinary bladder wall. A large stone is present within the bladder. * Interval development of intrahepatic ductal dilatation. Mildly dilated common bile duct is 0.8 cm diameter. The cause of the ductal dilatation is uncertain. No stones are seen within the common duct. EGD Findings:? Esophagus:? Friable, ulcerated and fungating partially obstructing mass was noted at the GEJ from 37 cm to 40 cm. The gastroscope was able to traverse through this with contact oozing. Multiple cold forceps biopsies were taken for histology. Stomach:? Abnormal mucosa was noted in the cardia with prominent reticular pattern. Cold forceps biopsies were taken. Remaing stomach mucosa appeared normal. Duodenum:? Normal mucosa was noted in the whole of the examined duodenum. ? EGD Impressions:? 3 cm partially obstructing GEJ mass suspicious for malignancy (biopsy) Abnormal mucosa in cardia (biopsy) Normal duodenum ??He continues to have weakness in the RUE. His feeding tube is functional. His vital signs are stable. He is awake and alert without seizures. He will be discharged today to see Dr. 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 Dr. Sebastian will return to work on February 06, 2022 to resume his care. Recommend he be sent home on oral dexameethasone. Interval History Interval history: Timothy Keating is a 72 year old male with history of advanced esophageal cancer was receiving palliative chemotherapy and recently started palliative radiation therapy to the esophageal mass at [facility]. He presents with symptoms of right upper extremity weakness. 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 This has been ongoing or worsening for about a week. He also reports worsening generalized weakness. No headache, fever or chills. No loss of vision or speech difficulty. He has difficulty swallowing or eating anything by mouth since his diagnosis of esophageal cancer. He has been getting G tubes feeds but not tolerating it well. He has received 3 cycles of palliative chemotherapy so far. Unfortunately, imaging has revealed progressive disease including brain metastasis. Review of Systems - Eyes Reports other - ENT Reports odynophagia - Cardiovascular Reports shortness of breath - Gastrointestinal Reports abdominal pain, Reports belching, Reports change in bowel habits, Reports coffee ground vomit, Reports feeling full early - Genitourinary Genitourinary: Reports frequent nighttime urination - Musculoskeletal Reports muscle weakness - Neurologic Reports focal weakness, Reports weakness - Psychiatric Reports hopelessness [facility] Medical History: Medical History (Last Reviewed 02/02/23 @ 10:07 by ROSEANNA Lyons-Benita) Acute hyponatremia Central pain syndrome Chronic pain syndrome Paraplegia T5 spinal cord injury Family History: Family History (Last Reviewed 01/30/23 @ 13:54 by TWAN Eduardo) Brother Liver cancer Surgical History: Surgical History (Last Reviewed 02/02/23 @ 10:07 by GLORIA Lyons) History of creation of ostomy Onset Date: 11/02/21 History of esophagogastroduodenoscopy (EGD) Hx of colonoscopy Social History: Social History (Last Reviewed 01/30/23 @ 13:54 by TWAN Eduardo) Living Situation History: Household Members: Spouse Housing: House Do you presently have visiting nurse or other home services: Yes Tobacco History: Patient Tobacco Use Status: Never used Tobacco Substance Use History: Substance Use Type: Marijuana Occupation Assessmet: service: No Current occupational status: retired Home Medications and Allergies Current Medications: Current Medications Acetaminophen (Acetaminophen 325 Mg Tablet) 650 mg PO Q6H PRN PRN Reason: Pain, Mild (Pain Scale 1-3) Benzonatate (Benzonatate 100 Mg Capsule) 100 mg PO TID PRN PRN Reason: Cough Collagenase (Collagenase Clostridium Hist. 30 Gm Tube) 1 appl TOPICAL DAILY [facility]; Protocol Last Admin: 02/03/23 09:31 Dose: 1 appl Dexamethasone (Dexamethasone 4 Mg Tablet) 4 mg PO TID [facility] Last Admin: 02/03/23 09:31 Dose: 4 mg Docusate Sodium (Docusate Sodium 100 Mg Capsule) 100 mg PO DAILY PRN PRN Reason: Constipation Levofloxacin (Levofloxacin 500 Mg Tablet) 500 mg PO Q24H [facility] Last Admin: 02/03/23 09:31 Dose: 500 mg Melatonin (Melatonin 3 Mg Tablet) 6 mg PO BEDTIME PRN PRN Reason: Insomnia Patient Own Med ( Gabapentin 250 Mg/5 Ml Solution) 500 mg PO Q4H [facility] Last Admin: 02/03/23 09:48 Dose: 500 mg Omeprazole (Omeprazole/Na Bicarb Oral Susp 20 Mg/10 Ml Ud Cup) 40 mg G-TUBE BID@0630,1630 [facility] Last Admin: 02/03/23 05:15 Dose: 40 mg Ondansetron HCl (Ondansetron Hcl 4 Mg/2 Ml Vial) 4 mg IVPUSH Q8H PRN PRN Reason: Nausea and Vomiting Oxycodone HCl (Oxycodone Hcl Immed Release 5 Mg Tablet) 5 mg PO Q4H PRN PRN Reason: Pain, Severe (Pain Scale 7-10) Last Admin: 02/03/23 09:30 Dose: 5 mg Sodium Chloride (0.9 % Sodium Chloride Flush 3 Ml Syringe) 3 ml IVFLUSH QSHIFT [facility] Last Admin: 02/03/23 09:50 Dose: 3 ml Sucralfate (Sucralfate Oral Suspension 1 Gm/10 Ml Oral.Susp) 1 gm G-TUBE QIDACHS [facility] Last Admin: 02/03/23 09:30 Dose: 1 gm Home Medications Medication Instructions Recorded Confirmed Type baclofen 20,000 mcg/20 mL (1,000 See Rx Instructions .Route .COMPLEX 11/02/21 01/30/23 History mcg/mL) intrathecal solution gabapentin 250 mg/5 mL oral 500 mg PO Q4H 01/30/23 01/30/23 History solution Allergies Allergy/AdvReac Type Severity Reaction Status Date / Time No Known Allergies Allergy Mild NOT Verified 01/30/23 10:49 APPLICABLE Exam Vital signs: Vital Signs Temp 98.2 F 02/03/23 07:55 Pulse 88 02/03/23 07:55 Resp 20 02/03/23 07:55 BP 150/72 H 02/03/23 07:55 Pulse Ox 95 02/03/23 07:55 O2 Del Method Room Air 02/03/23 07:55 Intake & Output 02/02/23 02/03/23 02/03/23 18:59 06:59 18:59 Intake Total 1320 / 1740 420 / 1740 Output Total 1150 / 2825 1675 / 2825 Balance 170 / -1085 -1255 / -1085 Urine Output (Average ml/kg/hr) 1.25 1.82 Intake: Intake, Oral Amount 420 / 420 Intake, Oral Supplement Amount 0 / 0 Intake, Tube Feeding Amount 600 / 600 Intake, Tube Irrigant Amount 720 / 720 Output: Output, Urine Amount 600 / 600 Output, Stool Amount 200 / 500 300 / 500 Output, Urine Amount (Catheter) 950 / 1725 775 / 1725 Rivera 950 / 1725 775 / 1725 Other: NPO Yes Number of Incontinent Voids 0 Number of Unmeasured Voids 0 Number of Bowel Movements 1 Urine rivera Urine Color Yellow Last Bowel Movement 02/02/23 Stool Ostomy colostomy Stool Amount Moderate Small Stool Color Brown Brown Stool Consistency Liquid Watery Weight 63.1 kg BMI result Body Mass Index 22.5 - Constitutional Present: no acute distress, mild distress, cachectic, chronically ill appearing - Routine HEENT Exam Head: Present: normal inspection ENT: Present: normal exam - Routine Respiratory Exam Present: decreased breath sounds. Absent: accessory muscle use - Routine Cardiovascular Exam Cardiovascular: Present: RRR, S1, S2 - Routine Abdominal Exam Present: diminished bowel sounds - Routine Extremities Exam Present: nontender - Routine Skin Exam Present: intact - Routine Neurological Exam Present: alert, oriented X3 (weakness RUE) Data - Labs CBC & Chem 7: 02/02/23 07:07 02/02/23 07:07 Labs: Laboratory Last Values WBC 8.0 X10*3/uL (4.8-10.8) 02/02/23 07:07 RBC 2.72 X10*6/uL (4.60-5.80) L 02/02/23 07:07 Hgb 8.2 g/dl (14.0-18.0) L 02/02/23 07:07 Hct 25.1 % (42.0-52.0) L 02/02/23 07:07 MCV 92.3 fL (80.0-98.0) 02/02/23 07:07 MCH 30.1 pg (27.0-33.0) 02/02/23 07:07 MCHC 32.7 g/dl (31.0-36.0) 02/02/23 07:07 RDW 15.6 % (11.0-16.0) 02/02/23 07:07 Plt Count 247 X10*3/uL (160-400) D 02/02/23 07:07 MPV 9.5 fL (9.4-12.4) 02/02/23 07:07 Immature Gran % (Auto) 0.8 % (0.0-0.4) H 01/30/23 12:22 Neut % (Auto) 80.7 % (45-73) H 01/30/23 12:22 Lymph % (Auto) 7.4 % (20-40) L 01/30/23 12:22 Cameron % (Auto) 9.5 % (2-11) 01/30/23 12:22 Eos % (Auto) 1.0 % (0-4) 01/30/23 12:22 Baso % (Auto) 0.6 % (0-2) 01/30/23 12:22 Lymph # (Auto) 0.5 X10*3/uL (1.2-4.9) L 01/30/23 12:22 Cameron # (Auto) 0.7 X10*3/uL (0.1-1.2) 01/30/23 12:22 Eos # (Auto) 0.1 X10*3/uL (0.0-0.4) 01/30/23 12:22 Baso # (Auto) 0.0 X10*3/uL (0.0-0.2) 01/30/23 12:22 Abs Immat Gran (auto) 0.06 X10*3/uL (0.00-0.03) H 01/30/23 12:22 Absolute Neuts (auto) 5.9 x10*3/uL (2.0-8.3) 01/30/23 12:22 Absolute Nucleated RBC 0.000 X10*3/uL (0.0-0.012) 02/02/23 07:07 Nucleated RBC % (auto) 0.0 /100WBC (0.0-0.2) 02/02/23 07:07 Sodium 137 mmol/L (135-145) 02/02/23 07:07 Potassium 4.5 mmol/L (3.3-5.1) 02/02/23 07:07 Chloride 103 mmol/L (96-108) 02/02/23 07:07 Carbon Dioxide 25 mmol/L (22-29) 02/02/23 07:07 Anion Gap 14 (12-20) 02/02/23 07:07 BUN 13 mg/dL (9-16) 02/02/23 07:07 Creatinine 0.57 mg/dL (0.5-1.4) 02/02/23 07:07 Estim Creat Clear Calc 106.0 02/02/23 07:07 Estimated GFR > 60 02/02/23 07:07 Random Glucose 126 mg/dL (60-115) H 02/02/23 07:07 Lactic Acid 0.8 mmol/L (0.5-2.0) 01/30/23 16:45 Calcium 8.7 mg/dL (8.4-10.2) D 02/02/23 07:07 Magnesium 2.0 mg/dL (1.6-2.6) 01/30/23 12:22 Total Bilirubin 0.5 mg/dL (0.0-1.0) 01/30/23 12:22 AST 18 U/L (5-37) 01/30/23 12:22 ALT 8 U/L (0-40) 01/30/23 12:22 Alkaline Phosphatase 84 U/L (39-117) 01/30/23 12:22 Total Protein 6.1 g/dL (6.5-8.0) L 01/30/23 12:22 Albumin 3.4 g/dL (3.5-5.0) L 01/30/23 12:22 Lipase 13 U/L (8-78) 01/30/23 12:22 Urine Color Yellow 01/30/23 15:27 Urine Appearance Turbid 01/30/23 15:27 Urine pH 7.0 (5.0-9.0) 01/30/23 15:27 Ur Specific [place] >= 1.030 (1.005-1.025) H 01/30/23 15:27 Urine Protein 30 (1+) mg/dL (Neg-Trace) H 01/30/23 15:27 Urine Glucose (UA) Negative mg/dL (Negative) 01/30/23 15: Urine Ketones 15 mg/dL (Negative) 01/30/23 15:27 Urine Blood Moderate (2+) (Negative) H 01/30/23 15:27 Urine Nitrite Positive (Negative) H 01/30/23 15:27 Ur Leukocyte Esterase Large (3+) (Negative) H 01/30/23 15:27 Urine RBC >20 /HPF (0-2) H 01/30/23 15:27 Urine WBC >50 /HPF (0-5) H 01/30/23 15:27 Ur Squamous Epith Cells 0-2 /HPF (0-2) 01/30/23 15: Urine Bacteria 4+ (None Seen) 01/30/23 15: Hyaline Casts >20 /LPF (0-2) 01/30/23 15:27 Stool Occult Blood POSITIVE (NEGATIVE) 01/30/23 13:17 COVID-19 (NIKUNJ) Negative (Negative) 01/30/23 11:53 COVID-19 Clin Com See Note 01/30/23 11:53 - Imaging Radiologist's impression: ITS Impressions Head CT 01/30/23 14:24 IMPRESSION: 1. There is a 2.2 cm mass in the high left frontoparietal junction and a 2.6 cm mass in the right occipital lobe. Moderate perilesional edema associated with these lesions. Findings are suggestive of metastatic disease. 2. No evidence of acute intracranial hemorrhage or edematous territorial infarction. This critical result was discussed with Dr. Rowland at 15:48 on 01/30/2023 and it was ascertained that the content and urgency of the report was understood at the time of direct communication. Abdomen/Pelvis CT 01/30/23 14:42 IMPRESSION: Large mass involving the distal thoracic esophagus and stomach. Increasing peritoneal disease, new small amount of ascites and increasing lymphadenopathy. Question new small subcapsular implants in the liver. Increasing pulmonary nodules. Question mild colitis of the distal colon. Enlarged prostate gland that protrudes into the base of the bladder. Rivera catheter. Large 3.5 cm bladder stone and diffuse bladder wall thickening. Severe stenosis /occlusion of the right common and external iliac artery. Fleischner guidelines were followed. Assessment and Plan Patient Active problem list reviewed?: Yes (1) Carcinoma of esophagus Status: Acute Assessment and plan: He may go home on steroids to receive RT to the brain. He may benefit from additional systemic therapy, - Time Spent With Patient Time Spent with Patient (in minutes): 20
== END 2023-02-03 13:59 | disposition home health service (06) | DRG 55 ==
LOC: HO.ED 16:06 → HO.EDOVER 16:58 → HO.IMC 19:41
PROVIDERS: Physician Assistant; Admitting Provider Student in an Organized Health Care Education/Training Program; Emergency Provider Emergency Medicine; PCP Internal Medicine; Visit Provider Student in an Organized Health Care Education/Training Program
DX: C79.31 Secondary malignant neoplasm of brain (principal); G82.20 Paraplegia, unspecified; C16.0 Malignant neoplasm of cardia; N39.0 Urinary tract infection, site not specified; E44.0 Moderate protein-calorie malnutrition; K92.2 Gastrointestinal hemorrhage, unspecified; L89.212 Pressure ulcer of right hip, stage 2; Z66 Do not resuscitate; B96.5 Pseudomonas (aeruginosa) (mallei) (pseudomallei) as the cause of diseases classified elsewhere; N31.9 Neuromuscular dysfunction of bladder, unspecified; Z96.0 Presence of urogenital implants; D63.0 Anemia in neoplastic disease; L89.622 Pressure ulcer of left heel, stage 2; N21.0 Calculus in bladder; G89.0 Central pain syndrome; S24.102S Unspecified injury at T2-T6 level of thoracic spinal cord, sequela; X58.XXXS Exposure to other specified factors, sequela; Z20.822 Contact with and (suspected) exposure to COVID-19; Z93.1 Gastrostomy status; Z68.22 Body mass index [BMI] 22.0-22.9, adult; Z93.3 Colostomy status; Z79.899 Other long term (current) drug therapy
CPT/HCPCS: 36415; 70450; 74177; 80048; 80053; 81001; 82272; 83605; 83690; 83735; 85025; 85027; 87040; 87086; 87088; 87186; 87635; 97110; 97167; 99285; C1758; C9113; J0696; J1170; J2270; J8540; Q9967

== ENCOUNTER → 2023-01-30 16:44 | Outpatient (BNV) | payer MEDICARE, SELFPAY | PROVIDERS: Admitting Provider Student in an Organized Health Care Education/Training Program; Emergency Provider Emergency Medicine; Visit Provider Internal Medicine | DX: C15.9 Malignant neoplasm of esophagus, unspecified (principal); C79.31 Secondary malignant neoplasm of brain | CPT/HCPCS: 99222 ==

== ENCOUNTER → 2023-01-30 16:44 | Outpatient (BNV) | payer OTHER, MEDICARE, SELFPAY | PROVIDERS: Admitting Provider Student in an Organized Health Care Education/Training Program; Emergency Provider Emergency Medicine; Visit Provider Internal Medicine Gastroenterology | DX: D64.9 Anemia, unspecified (principal) | CPT/HCPCS: 99222 ==

== ENCOUNTER → 2023-01-30 16:44 | Outpatient (BNV) | payer OTHER, MEDICARE, SELFPAY | PROVIDERS: Admitting Provider Student in an Organized Health Care Education/Training Program; Emergency Provider Emergency Medicine; PCP Internal Medicine; Visit Provider Urology | DX: N21.0 Calculus in bladder (principal); Z97.8 Presence of other specified devices; N39.0 Urinary tract infection, site not specified; C79.31 Secondary malignant neoplasm of brain; E44.0 Moderate protein-calorie malnutrition | CPT/HCPCS: 99222 ==

== ENCOUNTER → 2023-01-30 16:44 | Outpatient (BNV) | payer MEDICARE, SELFPAY | PROVIDERS: Admitting Provider Student in an Organized Health Care Education/Training Program; Emergency Provider Emergency Medicine; Visit Provider Student in an Organized Health Care Education/Training Program | DX: N39.0 Urinary tract infection, site not specified (principal); C79.31 Secondary malignant neoplasm of brain; E44.0 Moderate protein-calorie malnutrition; N21.0 Calculus in bladder; K92.2 Gastrointestinal hemorrhage, unspecified; D64.9 Anemia, unspecified; Z97.8 Presence of other specified devices | CPT/HCPCS: 99223; 99232; 99233; 99239 ==

== ENCOUNTER 2023-02-04 09:27 | Observation (INO) | payer OTHER, MEDICARE, SELFPAY ==
[2023-02-04] VITALS (7 sets, daily range): BP systolic 80–119; BP diastolic 55–76; PULSE 70–130; RESP 17–20; TEMP 36.5–36.9; O2SAT 96–99; BMI 20.9; BMI 20.3
--- NOTE | ~2023-02-04 | XR_ITS ---
EXAMINATION: XR CHEST CLINICAL INFORMATION: Weakness. COMPARISON: Most recent CT chest dated 11/08/2022. TECHNIQUE: Frontal view of the chest was obtained. FINDINGS: Redemonstration of a right chest port with the catheter tip in the region of the SVC. Orthopedic hardware again noted within the thoracic spine. Multiple, chronic rib fractures are redemonstrated. No new airspace consolidation. No pleural effusion or pneumothorax. Stable cardiomediastinal silhouette. XR/XR chest 1V IMPRESSION: No acute cardiopulmonary findings.
--- NOTE | 2023-02-04 10:16 | ECG_ITS ---
Test Reason : tachcyardia Blood Pressure : / mmHG Vent. Rate : 110 BPM Atrial Rate : 110 BPM P-R Int : 130 ms QRS Dur : 078 ms QT Int : 328 ms P-R-T Axes : 067 057 062 degrees QTc Int : 443 ms Sinus tachycardia Nonspecific ST abnormality Borderline ECG When compared with ECG of 24-JAN-2023 16:56, No significant change was found Referred By: Oriana Ortiz Electronically Signed By:JEANETTE RICHARDSON
--- NOTE | 2023-02-04 10:23 | ED_ITS ---
HPI - Male Genitourinary General Chief complaint: Urogenital-Male Stated complaint: BLOOD IN F/C BAG ,DECR OUTPUT PER EMS Time Seen by Provider: 02/04/23 09:58 Source: patient and old records reviewed Mode of arrival: EMS Limitations: no limitations History of Present Illness HPI Narrative: 72 yo male with PMH of esophageal cancer managed at [facility] with radiation and mets to the brain with R arm weakness - currently on dexamethasone TID, T5 paraplegia from work accident 2005, anemia with GIB GI recommended PPI and carafate - no interventions hemoglobin 8.2 yesterday on DC. He has a chronic rivera with current 3.5 bladder stone (hold interventions) and DC yesterday on levofloxacin s/p rivera change by him this AM - left hospital with hematuria. He was discharged on one week of levofloxacin. He comes back with c/o hematuria. He states he had clots so he changed the catheter at home. He came back for the hematuria. Found to be tachycardic and hypotensive - no pain, fevers, vomiting/CP/SOB, dizziness. MD Complaint: other (hematuria) Onset (ago): day(s) (1) Duration: constant Location: penis Radiation: penis Severity: mild Relieving factors: none Exacerbating factors: urination Context: other (new rivera, infection, bladder stone) Associated symptoms: Reports blood in urine Related Data Home Medications Medication Instructions Recorded Confirmed baclofen 20,000 mcg/20 mL (1,000 See Rx Instructions .Route .COMPLEX 11/02/21 01/30/23 mcg/mL) intrathecal solution gabapentin 250 mg/5 mL oral 500 mg PO Q4H 01/30/23 01/30/23 solution Previous Rx's Medication Instructions Recorded cefdinir 250 mg/5 mL oral 300 mg (6 mL) PO Q12H 14 days #168 01/24/23 suspension mL collagenase clostridium histo. 250 1 appl topical DAILY #90 grams 02/03/23 unit/gram topical ointment (Santyl) dexamethasone 4 mg tablet 4 mg PO TID #90 tabs 02/03/23 levofloxacin 500 mg tablet 500 mg PO Q24H #7 tabs 02/03/23 omeprazole 2 mg-sodium bicarbonate 10 ml G-tube BID@0630,1630 #300 mL 02/03/23 84 mg/mL oral suspension (Konvomep) oxycodone 5 mg tablet 5 mg PO Q4H PRN Pain, Severe (Pain 02/03/23 Scale 7-10) #30 tabs sucralfate 100 mg/mL oral 1 g (10 mL) G-tube QIDACHS #1,000 02/03/23 suspension mL Allergies Allergy/AdvReac Type Severity Reaction Status Date / Time No Known Allergies Allergy Mild NOT Verified 02/04/23 10:05 APPLICABLE Review of Systems 2 Review of Systems: Constitutional : No Fever, No Chills, No Fatigue ENT/Mouth : No sore throat, No Rhinorrhea Eyes: No Eye Pain, No Swelling, No Redness Cardiovascular : No Chest Pain, No SOB, No Dyspnea on Exertion Respiratory : No Cough, No Sputum Gastrointestinal : No Nausea, No Vomiting, No Diarrhea, No abdominal Pain Genitourinary : No Dysuria, No Urinary Frequency, pos Hematuria, Musculoskeletal : No joint pain, No Myalgias, No Joint Swelling Skin : No Skin Lesions, No rash Neuro : No Weakness, No Numbness, No Dizziness, no Headache Psych : No Anxiety/Panic, No Depression All other systems reviewed and are negative [facility] Past Medical History Attestation statement: The following information was validated with the patient. Source: old records reviewed Medical History Acute hyponatremia Central pain syndrome Chronic pain syndrome Paraplegia T5 spinal cord injury Surgical History Hx of colonoscopy History of esophagogastroduodenoscopy (EGD) History of creation of ostomy (11/02/21) Family History Family History Brother Liver cancer Social History Social History Household Members: Spouse Housing: House Do you presently have visiting nurse or other home services: Yes Alcohol intake: never Comment: . Patient Tobacco Use Status: Never used Tobacco Smoked in Last 30 Days: No Use of substances other than those prescribed or required for medical reasons: Yes Substance Use Type: Marijuana Substance Use Frequency Other:: Uses for CA tx Advance Directives: No Advance Directives Information Provided: No service: No Current occupational status: retired Physical Exam 2 Vital Signs: Vital Signs: Last Vital Signs Temp 98.4 F 02/04/23 11:17 Pulse 97 02/04/23 12:10 Resp 17 02/04/23 12:10 BP 113/70 02/04/23 12:10 Pulse Ox 97 02/04/23 12:10 O2 Del Method Room Air 02/04/23 12:10 BMI result Body Mass Index 20.9 Appearance: Alert. Oriented X3. No acute distress. Eyes: Pupils equal, round and reactive to light. ENT: Pharynx normal. Neck: Normal inspection. Neck supple. CVS: Normal heart rate and rhythm. Pulses normal. Respiratory: No respiratory distress. Breath sounds normal. Abdomen: Soft and nontender. : red tinged urine no clots noted Skin: Skin warm and dry. Normal skin color. Normal skin turgor. Extremities: No lower extremity edema. No calf ttp Neuro: Oriented X 3. T5 paraplegia Course Course Course Narrative: BP 102/63 after onset of fluids, HR improving Reevaluation(s) Reevaluation #1: BP still improved, looks much better Reevaluation #2: focused exam for sepsis performed at 1pm Medications Administered Discontinued Medications Generic Name Dose Route Start Last Admin Trade Name Freq PRN Reason Stop Dose Admin Levofloxacin 750 mg in 150 mls @ 100 mls/hr 02/04/23 10:16 02/04/23 11:18 Levaquin IV 02/04/23 11:45 100 mls/hr ONCE ONE Administration Sodium Chloride 1,983 mls @ 1,983 mls/hr 02/04/23 10:17 02/04/23 11:18 Ns 30 ml/kg infuse over 1 hr (1983 ml) 02/04/23 11:16 1,983 mls/hr IV Administration .Q1H STA Pantoprazole Sodium 40 mg 02/04/23 10:18 02/04/23 11:19 Pantoprazole Sodium 40 Mg/10 Ml Vial IVPUSH 02/04/23 10:19 40 mg ONCE ONE Administration Medical Decision Making Medical Decision Making [facility] Narrative: 72 yo male with PMH of T5 SCI, chronic rivera, colostomy G tube, GI bleed, esophageal cancer and mets to brain with R arm weakness - current treatment steroids and radiation - just treated medically and DC yesterday for 3.5cm bladder stone and pseudomonas UTI with levofloxacin didnt' take his dose today along with GI bleed - PPI and carafate. Comes back for hematuria and he changed his catheter this AM as he doesn't like ours - saw some clots and blood wanted it checked out was having hematuria on DC. He is hypotensive and tachycardic - 30cc/kg bolus ordered, labs, type and screen, rivera is draining, levofloxacin - possible anemia vs UTI and release of bacteria after repeat cath at home. Possible admit Differential Diagnosis Differential Diagnoses: The differential diagnosis associated with the presentation includes UTI, known bladder stone with hematuria, anemia Admission/Observation Consideration of admission/observation: Escalation of care including admission/observation considered admit given WBC count, hypotension, tachycardia Consult Healthcare Provider Management of the patient was discussed with: Hospitalist (will admit) Lab Data MDM Lab Attestation statement: I reviewed the patient's lab results. 02/04/23 10:28 02/04/23 10:28 Labs: Lab Results 02/04/23 02/04/23 02/04/23 Range/Units 10:28 10:55 12:11 WBC 14.2 H (4.8-10.8) X10*3/uL RBC 3.00 L (4.60-5.80) X10*6/uL Hgb 9.0 L (14.0-18.0) g/dl Hct 26.9 L (42.0-52.0) % MCV 89.7 (80.0-98.0) fL MCH 30.0 (27.0-33.0) pg MCHC 33.5 (31.0-36.0) g/dl RDW 15.7 (11.0-16.0) % Plt Count 240 (160-400) X10*3/uL MPV 9.7 (9.4-12.4) fL Immature Gran % (Auto) 1.1 H (0.0-0.4) % Neut % (Auto) 84.4 H (45-73) % Lymph % (Auto) 3.8 L (20-40) % [place] % (Auto) 10.6 (2-11) % Eos % (Auto) 0.0 (0-4) % Baso % (Auto) 0.1 (0-2) % Lymph # (Auto) 0.5 L (1.2-4.9) X10*3/uL [place] # (Auto) 1.5 H (0.1-1.2) X10*3/uL Eos # (Auto) 0.0 (0.0-0.4) X10*3/uL Baso # (Auto) 0.0 (0.0-0.2) X10*3/uL Abs Immat Gran (auto) 0.15 H (0.00-0.03) X10*3/uL Absolute Neuts (auto) 12.0 H (2.0-8.3) x10*3/uL Absolute Nucleated RBC 0.000 (0.0-0.012) X10*3/uL Nucleated RBC % (auto) 0.0 (0.0-0.2) /100WBC PT 12.9 (11.1-13.3) SEC INR 1.1 (0.9-1.1) Sodium 133 L (135-145) mmol/L Potassium 3.4 D (3.3-5.1) mmol/L Chloride 100 (96-108) mmol/L Carbon Dioxide 24 (22-29) mmol/L Anion Gap 12 (12-20) BUN 18 H (9-16) mg/dL Creatinine 0.63 (0.5-1.4) mg/dL Estim Creat Clear Calc 100.5 Estimated GFR > 60 Random Glucose 91 (60-115) mg/dL Lactic Acid 1.8 (0.5-2.0) mmol/L Calcium 9.2 (8.4-10.2) mg/dL Magnesium 2.0 (1.6-2.6) mg/dL Total Bilirubin 1.0 (0.0-1.0) mg/dL Direct Bilirubin 0.4 (0.0-0.5) mg/dL AST 20 (5-37) U/L ALT 14 (0-40) U/L Alkaline Phosphatase 89 (39-117) U/L Troponin I High Sens 5.1 D (<3.5-35.0) ng/L B-Natriuretic Peptide 31 (<100) pg/mL Total Protein 6.5 (6.5-8.0) g/dL Albumin 3.7 (3.5-5.0) g/dL Lipase 8 (8-78) U/L Procalcitonin 0.06 ng/mL Urine Color [place] Urine Appearance Cloudy Urine pH 6.0 (5.0-9.0) Ur Specific [place] 1.025 (1.005-1.025) Urine Protein 300 (3+) H (Neg-Trace) mg/dL Urine Glucose (UA) Negative (Negative) mg/dL Urine Ketones Trace (Negative) mg/dL Urine Blood Large (3+) H (Negative) Urine Nitrite Positive H (Negative) Ur Leukocyte Esterase Small (1+) H (Negative) Blood Type O Negative Antibody Screen NEGATIVE Independent Interpretation I performed an independent interpretation of an: EKG and Plain X-Ray (no pneumonia) Interpretation: Rate: 110 Rhythm: sinus tachycardia [place]: normal Normal P waves. Normal OFE. Normal QRS complex. ST T wave : no GRACE, nonspecific ST T wave changes qTC: 443 prior studies: no sig ischemia The study has been interpreted contemporaneously by me. . Radiology Impression Discussion of test interpretation with radiology: I have reviewed the radiologist's reading. Independent Historian Clinical information obtained from an independent historian. History obtained from or confirmed by: EMS External Record Review External record reviewed: Inpatient record Critical Care Time Critical Care Time Critical Care Time: Yes Total Critical Care Time: 45 Attestation: IVF 30cc/kg bolus, review of records, admit for further workup, sepsis workup I attest to this time spent taking care of the patient Discharge Plan Discharge Clinical Impression: Acute UTI, Acute hypotension Elevated WBC count Qualifiers: Leukocytosis type: unspecified Qualified Code(s): D72.829 - Elevated white blood cell count, unspecified Hematuria Qualifiers: Hematuria type: gross Qualified Code(s): R31.0 - Gross hematuria Patient Disposition: Admitted As Inpatient
[2023-02-04 10:33] LABS: MANUAL DIFF FLAG NO
[2023-02-04 10:36] LABS: Basophils Percent Auto 0.1 % (0-2); Hematocrit 26.9 % (42.0-52.0); Imm Gran Abs Auto 0.15 X10*3/uL (0.00-0.03); Imm Gran Pct Auto 1.1 % (0.0-0.4); Lymphocytes Absolute Auto 0.5 X10*3/uL (1.2-4.9); Lymphocytes Percent Auto 3.8 % (20-40); Mean Corpuscular HGB Conc 33.5 g/dl (31.0-36.0); Mean Corpuscular Volume 89.7 fL (80.0-98.0); Mean Platelet Volume 9.7 fL (9.4-12.4); Monocytes Absolute Auto 1.5 X10*3/uL (0.1-1.2); Monocytes Percent Auto 10.6 % (2-11); Neutrophils Percent Auto 84.4 % (45-73); Platelet Count 240 X10*3/uL (160-400); Red Cell Distribution Width 15.7 % (11.0-16.0); White Blood Count 14.2 X10*3/uL (4.8-10.8)
[2023-02-04 10:46] LABS: INTERNATIONAL NORM RATIO 1.1 (0.9-1.1); Lactic Acid 1.8 mmol/L (0.5-2.0); Prothrombin Time 12.9 SEC (11.1-13.3)
[2023-02-04 10:57] LABS: B Type Natriuretic Peptide 31 pg/mL (<100); Troponin-I High Sensitivity 5.1 ng/L (<3.5-35.0)
[2023-02-04 11:10] LABS: Alanine Aminotransferase 14 U/L (0-40); Albumin Level 3.7 g/dL (3.5-5.0); Alkaline Phosphatase 89 U/L (39-117); Anion Gap 12 (12-20); Aspartate Amino Transferase 20 U/L (5-37); Bilirubin Direct 0.4 mg/dL (0.0-0.5); Blood Urea Nitrogen 18 mg/dL (9-16); Calcium 9.2 mg/dL (8.4-10.2); Carbon Dioxide 24 mmol/L (22-29); Chloride 100 mmol/L (96-108); Creatinine Clr Calc Pharmacy 100.5; Estimated Glomerular Filt Rate > 60; Glucose Random 91 mg/dL (60-115); Lipase 8 U/L (8-78); Potassium 3.4 mmol/L (3.3-5.1); Sodium 133 mmol/L (135-145); Total Protein 6.5 g/dL (6.5-8.0)
[2023-02-04 11:12] LABS: Procalcitonin 0.06 ng/mL
[2023-02-04] MEDS: levoFLOXacin/D5W 750 MG/150 ML PIGGYBACK 100 MG IV (11:18)
[2023-02-04] MEDS: 0.9 % Sodium Chloride 1,983 ML 1983 ML IV (11:18)
[2023-02-04] MEDS: Pantoprazole Sodium 40 MG/10 ML VIAL IVPUSH (11:19)
--- NOTE | 2023-02-04 12:17 | PC.NURSE ---
assumed care of pt at 1100, delay in abx administration d/t pt difficulty stick and needing port accessed for 2nd set of cultures per prior RN. pt a&ox4, vss - initially tachycardic and hypotensive. abx and IVF started per APR. urine sample obtained. pt resting quietly denying any needs at this time, at bedside. pt pending admission orders.
[2023-02-04 12:25] LABS: Appearance Urine Cloudy; Color Urine Orange; Glucose Urine UA Negative (Negative); Leukocyte Esterase Urine Small (1+) (Negative); Nitrite Urine Positive (Negative); Specific Gravity - Urine 1.025 (1.005-1.025); UMIC TRIGGER UACC YES; Urine Blood Large (3+) (Negative); Urine Ketones Trace mg/dL (Negative); Urine Protein 300 (3+) mg/dL (Neg-Trace)
[2023-02-04 12:37] LABS: Bacteria Urine Trace (None Seen); Hyaline Casts Urine 0-2 /LPF (0-2); RBC Urine >20 /HPF (0-2); UACC Culture Trigger YES; WBC Urine >50 /HPF (0-5)
--- NOTE | 2023-02-04 12:51 | PHA.MEDREC ---
Pharmacy Consult ? Medication Reconciliation Pharmacy has completed the medication reconciliation. Patient discharged yesterday 02/03/23. Utilized discharge packet to confirm meds.
--- NOTE | 2023-02-04 13:04 | P.HPHOSP_ITS ---
History of Present Illness Date of Service: 02/04/23 Chief Complaint: Hematuria A 72-year-old male with a PMH significant for?esophageal cancer currently on radiation, central pain syndrome, paraplegia from work-related accident in 2005, chronic indwelling Rivera catheter, and colostomy who was discharged recently from hospital for GI bleed, hematuria, UTI and RUE weakness with mainly medical management as urology and GI held on any procedure given his complicated medical history. Discharged on Levofloxacin for Pseudomonas infection. presents to the ED with hematuria that started after replacing his rivera catheter at the day of discharge. He went back home and noticed clots with the catheter which blocked it so he changed the rivera himself but continued to have hematuria so he decided to come to ED for further evaluation. Hemoglobin stable. will be admitted for monitoring Review of Systems 2 Review of Systems: . Yes all other systems are reviewed and are negative [facility] Medical History Acute hyponatremia Central pain syndrome Chronic pain syndrome Paraplegia T5 spinal cord injury Family History Brother Liver cancer Surgical History Hx of colonoscopy History of esophagogastroduodenoscopy (EGD) History of creation of ostomy (11/02/21) Social History Household Members: Spouse Housing: House Do you presently have visiting nurse or other home services: Yes Alcohol intake: never Comment: . Patient Tobacco Use Status: Never used Tobacco Smoked in Last 30 Days: No Use of substances other than those prescribed or required for medical reasons: Yes Substance Use Type: Marijuana Substance Use Frequency Other:: Uses for CA tx Advance Directives: No Advance Directives Information Provided: No service: No Current occupational status: retired Meds Allergies Allergy/AdvReac Type Severity Reaction Status Date / Time No Known Allergies Allergy Mild NOT Verified 02/04/23 10:05 APPLICABLE Active Medications: Current Medications Acetaminophen (Acetaminophen 325 Mg Tablet) 650 mg PO Q6H PRN PRN Reason: Pain, Mild (Pain Scale 1-3) Ondansetron HCl (Ondansetron Hcl 4 Mg/2 Ml Vial) 4 mg IVPUSH Q8H PRN PRN Reason: Nausea and Vomiting Sodium Chloride (0.9 % Sodium Chloride Flush 3 Ml Syringe) 3 ml IVFLUSH QSHIFT [facility] Home Medications Medication Instructions Recorded Confirmed Last Taken Type baclofen 20,000 mcg/20 mL (1,000 See Rx Instructions .Route .COMPLEX 11/02/21 02/04/23 Unknown History mcg/mL) intrathecal solution gabapentin 250 mg/5 mL oral 500 mg PO Q4H 01/30/23 02/04/23 01/30/23 09:00 History solution Physical Exam 2 Vital Signs and Narrative: Vital Signs: Last Vital Signs Temp 98.4 F 02/04/23 11:17 Pulse 97 02/04/23 12:10 Resp 17 02/04/23 12:10 BP 113/70 02/04/23 12:10 Pulse Ox 97 02/04/23 12:10 O2 Del Method Room Air 02/04/23 12:10 BMI result Body Mass Index 20.9 Const: Other: Constitutional : Awake, interactive, not in distress Neck : Normal inspection, Supple Cardiovascular : RRR, no JVP, no lower extremity edema Respiratory : good bilateral air entry, no crackles, wheezes or rhonchi Gastrointestinal: soft, lax, Normal bowel sounds, Non tender, G-tube clean, Colostomy in place Skin : Warm, Dry, multiple chronic wounds with no signs of infection Neurological : Alert & oriented x3, RUE weakness, below T5 paraplegia Results Labs 02/04/23 10:28 02/04/23 10:28 Labs: Laboratory Results - last 24 hr 02/04/23 02/04/23 02/04/23 10:28 10:55 12:11 MCV 89.7 MCH 30.0 MCHC 33.5 RDW 15.7 Plt Count 240 MPV 9.7 Immature Gran % (Auto) 1.1 H Neut % (Auto) 84.4 H Lymph % (Auto) 3.8 L [place] % (Auto) 10.6 Eos % (Auto) 0.0 Baso % (Auto) 0.1 Lymph # (Auto) 0.5 L [place] # (Auto) 1.5 H Eos # (Auto) 0.0 Baso # (Auto) 0.0 Abs Immat Gran (auto) 0.15 H Absolute Neuts (auto) 12.0 H Absolute Nucleated RBC 0.000 Nucleated RBC % (auto) 0.0 PT 12.9 INR 1.1 Anion Gap 12 Estim Creat Clear Calc 100.5 Estimated GFR > 60 Random Glucose 91 Lactic Acid 1.8 Calcium 9.2 Magnesium 2.0 Total Bilirubin 1.0 Direct Bilirubin 0.4 AST 20 ALT 14 Alkaline Phosphatase 89 B-Natriuretic Peptide 31 Total Protein 6.5 Albumin 3.7 Lipase 8 Procalcitonin 0.06 Urine Color [place] Urine Appearance Cloudy Urine pH 6.0 Ur Specific [place] 1.025 Urine Protein 300 (3+) H Urine Glucose (UA) Negative Urine Ketones Trace Urine Blood Large (3+) H Urine Nitrite Positive H Ur Leukocyte Esterase Small (1+) H Urine RBC >20 H Urine WBC >50 H Ur Squamous Epith Cells 6-10 Urine Bacteria Trace Hyaline Casts 0-2 Blood Type O Negative Antibody Screen NEGATIVE Assessment and Plan (1) Hematuria: Qualifiers: Hematuria type: gross Qualified Code(s): R31.0 - Gross hematuria Status: Acute (2) Acute hypotension: Status: Acute (3) Elevated WBC count: Qualifiers: Leukocytosis type: unspecified Qualified Code(s): D72.829 - Elevated white blood cell count, unspecified Status: Acute Plan A 72-year-old male with a PMH significant for?esophageal cancer currently on radiation, central pain syndrome, paraplegia from work-related accident in 2005, chronic indwelling Rivera catheter, and colostomy presenting with hematuria. Hematuria a result of trauma. no more clots at this point supportive measures Hold on CBI now follow CBC Leukocytosis Likely reactive to Dexamethasone usage Hypotension Not on presentation, likely from large cuff usage Now better close to baseline RUE weakness 2/2 Metastatic brain lesions Continue Dexanethasone To follow as outpatient with Onc radiology UTI continue LEvofloxacin Anemia 2/2 Esophageal cancer stable H&H Carafate and Omeprazole for now DVT Prophylaxis: Pneumatic boots due to GI bleed Quality Stroke Does the patient have a stroke diagnosis?: No VTE Prior VTE?: No VTE Risk Level:: Medical - moderate - high VTE Device Contraindication: N/A - Device Ordered VTE Drug Contraindication: Treatment Not Indicated
[2023-02-04] MEDS: Collagenase Clostridium Hist. 30 GM TUBE 1 APPL TOPICAL (14:00)
--- NOTE | 2023-02-04 16:32 | MHC.EDTECH ---
THIS PCT ASSUMED CARE OF PT AT 1500 ,VITALS TAKEN ,PT WAS CLEAN UP AND REPOSITION ,AND PATIENT BELONINGS LIST DONE ,PT RESTING QUIETLY IN BED .
[2023-02-04] MEDS: 0.9 % Sodium Chloride Flush 3 ML SYRINGE IVFLUSH ×2 (18:22→22:52)
[2023-02-04] MEDS: Sucralfate Oral Suspension 1 GM/10 ML ORAL.SUSP G-TUBE ×2 (18:22→22:51)
[2023-02-04] MEDS: dexAMETHasone 4 MG TABLET G-TUBE ×2 (18:22→22:51)
[2023-02-04] MEDS: Omeprazole/Na Bicarb Oral Susp 20 MG/10 ML UD Cup G-TUBE (18:22)
--- NOTE | 2023-02-05 02:12 | HO.SKINPHOTO ---
Location: coccyx Category: pressure Stage: 2 Length: Width: Depth: cm Location: rt hip Category: pressure Stage:2 Length: Width: Depth: cm Location: Category: Stage: Length: Width: Depth: cm Location: Category: Stage: Length: Width: Depth: cm Location: Category: Stage: Length: Width: Depth: cm Location: Category: Stage: Length: Width: Depth: cm
[2023-02-05 03:07] VITALS: BP 121/59; PULSE 73; RESP 18; TEMP 36.6; O2SAT 98
[2023-02-05] MEDS: Omeprazole/Na Bicarb Oral Susp 20 MG/10 ML UD Cup G-TUBE (05:31)
[2023-02-05 05:46] LABS: Hematocrit 24.4 % (42.0-52.0); Mean Corpuscular HGB Conc 32.8 g/dl (31.0-36.0); Mean Corpuscular Hemoglobin 29.9 pg (27.0-33.0); Mean Platelet Volume 10.2 fL (9.4-12.4); Platelet Count 195 X10*3/uL (160-400); Red Blood Count 2.68 X10*6/uL (4.60-5.80); Red Cell Distribution Width 15.9 % (11.0-16.0); White Blood Count 8.5 X10*3/uL (4.8-10.8)
[2023-02-05 06:02] LABS: Anion Gap 12 (12-20); Blood Urea Nitrogen 18 mg/dL (9-16); Calcium 8.8 mg/dL (8.4-10.2); Carbon Dioxide 23 mmol/L (22-29); Chloride 108 mmol/L (96-108); Creatinine Clr Calc Pharmacy 107.9; Estimated Glomerular Filt Rate > 60; Glucose Random 144 mg/dL (60-115); Potassium 4.1 mmol/L (3.3-5.1); Sodium 139 mmol/L (135-145)
--- NOTE | 2023-02-05 06:36 | HO.SKINPHOTO ---
Location: RLQ abd Category: pressure Stage: unstage Length: Width: Depth: cm Location: lt inner ankle Category: pressure Stage: 2 Length: Width: Depth: cm Location: Category: Stage: Length: Width: Depth: cm Location: Category: Stage: Length: Width: Depth: cm Location: Category: Stage: Length: Width: Depth: cm Location: Category: Stage: Length: Width: Depth: cm
[2023-02-05 08:00] VITALS: BP 129/69; PULSE 84; RESP 16; TEMP 37.1; O2SAT 99
[2023-02-05] MEDS: 0.9 % Sodium Chloride Flush 3 ML SYRINGE IVFLUSH (08:00)
[2023-02-05] MEDS: Collagenase Clostridium Hist. 30 GM TUBE 1 APPL TOPICAL (08:00)
[2023-02-05] MEDS: Sucralfate Oral Suspension 1 GM/10 ML ORAL.SUSP G-TUBE (08:00)
[2023-02-05] MEDS: dexAMETHasone 4 MG TABLET G-TUBE (08:00)
--- NOTE | 2023-02-05 10:29 | PM.DS ---
DS: Providers Provider Date of Service: 02/05/23 Date of admission: 02/04/23 12:54 Primary care physician: Nonstaff Physician Consults: 02/04/23 22:29 Consult to Wound Care Routine Reason for consultation: skin integrity DS: Diagnosis Discharge Diagnosis (1) Hematuria: Status: Acute (2) Acute hypotension: Status: Acute (3) Elevated WBC count: Status: Acute DS: Summary Hospital Course Hospital Course: Admission note HPI A 72-year-old male with a PMH significant for?esophageal cancer currently on radiation, central pain syndrome, paraplegia from work-related accident in 2005, chronic indwelling Rivera catheter, and colostomy who was discharged recently from hospital for GI bleed, hematuria, UTI and RUE weakness with mainly medical management as urology and GI held on any procedure given his complicated medical history. Discharged on Levofloxacin for Pseudomonas infection. presents to the ED with hematuria that started after replacing his rivera catheter at the day of discharge. He went back home and noticed clots with the catheter which blocked it so he changed the rivera himself but continued to have hematuria so he decided to come to ED for further evaluation. Hemoglobin stable. will be admitted for monitoring. Hospital course # Hematuria, a result of trauma. no more clots at this point , supportive measures with good response as urine cleared up. # Leukocytosis , Likely reactive to Dexamethasone usage, resolved. # RUE weakness 2/2 Metastatic brain lesions. Improved since previous admission. Continue Dexanethasone. To follow as outpatient with Onc radiology # UTI, continue LEvofloxacin Continue antibiotics as prescribed Follow with Onco-Radiology as planned Time Attestation Discharge coordination time: Less than 30 minutes Quality: Safe Use of Opioids Does Pt have an Active Cancer Diagnosis on the Problem List?: Yes Opioid Measure Date for [facility] Report: 01/06/23 Opioid Measure Time for [facility] Report: 10:31 Quality: Stroke Does the patient have a stroke diagnosis?: No Physical Exam Vital Signs: Vital Signs: Last Vital Signs Temp 98.7 F 02/05/23 08:00 Pulse 84 02/05/23 08:00 Resp 16 02/05/23 08:00 BP 129/69 02/05/23 08:00 Pulse Ox 99 02/05/23 08:00 O2 Del Method Room Air 02/05/23 08:00 BMI result Body Mass Index 20.3 Const: Other: Constitutional : Awake, interactive, not in distress Neck : Normal inspection, Supple Cardiovascular : RRR, no JVP, no lower extremity edema Respiratory : good bilateral air entry, no crackles, wheezes or rhonchi Gastrointestinal: soft, lax, Normal bowel sounds, Non tender, G-tube clean, Colostomy in place Skin : Warm, Dry, multiple chronic wounds with no signs of infection Neurological : Alert & oriented x3, RUE weakness, below T5 paraplegia DS: Data Data Completed and Pending Completed studies during hospitalization [Text1]: Procedures Bypass Transverse Colon to Cutaneous, Percutaneous Endoscopic Approach (11/02/21) Labs on day of discharge: Laboratory Results - last 24 hr 02/04/23 02/04/23 02/04/23 10:28 10:55 12:11 WBC 14.2 H RBC 3.00 L Hgb 9.0 L Hct 26.9 L MCV 89.7 MCH 30.0 MCHC 33.5 RDW 15.7 Plt Count 240 MPV 9.7 Immature Gran % (Auto) 1.1 H Neut % (Auto) 84.4 H Lymph % (Auto) 3.8 L [place] % (Auto) 10.6 Eos % (Auto) 0.0 Baso % (Auto) 0.1 Lymph # (Auto) 0.5 L [place] # (Auto) 1.5 H Eos # (Auto) 0.0 Baso # (Auto) 0.0 Abs Immat Gran (auto) 0.15 H Absolute Neuts (auto) 12.0 H Absolute Nucleated RBC 0.000 Nucleated RBC % (auto) 0.0 PT 12.9 INR 1.1 Sodium 133 L Potassium 3.4 D Chloride 100 Carbon Dioxide 24 Anion Gap 12 BUN 18 H Creatinine 0.63 Estim Creat Clear Calc 100.5 Estimated GFR > 60 Random Glucose 91 Lactic Acid 1.8 Calcium 9.2 Magnesium 2.0 Total Bilirubin 1.0 Direct Bilirubin 0.4 AST 20 ALT 14 Alkaline Phosphatase 89 Troponin I High Sens 5.1 D B-Natriuretic Peptide 31 Total Protein 6.5 Albumin 3.7 Lipase 8 Procalcitonin 0.06 Urine Color [place] Urine Appearance Cloudy Urine pH 6.0 Ur Specific [place] 1.025 Urine Protein 300 (3+) H Urine Glucose (UA) Negative Urine Ketones Trace Urine Blood Large (3+) H Urine Nitrite Positive H Ur Leukocyte Esterase Small (1+) H Urine RBC >20 H Urine WBC >50 H Ur Squamous Epith Cells 6-10 Urine Bacteria Trace Hyaline Casts 0-2 Blood Type O Negative Antibody Screen NEGATIVE 02/05/23 05:23 WBC 8.5 RBC 2.68 L Hgb 8.0 L Hct 24.4 L MCV 91.0 MCH 29.9 MCHC 32.8 RDW 15.9 Plt Count 195 MPV 10.2 Immature Gran % (Auto) Neut % (Auto) Lymph % (Auto) [place] % (Auto) Eos % (Auto) Baso % (Auto) Lymph # (Auto) [place] # (Auto) Eos # (Auto) Baso # (Auto) Abs Immat Gran (auto) Absolute Neuts (auto) Absolute Nucleated RBC 0.000 Nucleated RBC % (auto) 0.0 PT INR Sodium 139 Potassium 4.1 D Chloride 108 Carbon Dioxide 23 Anion Gap 12 BUN 18 H Creatinine 0.57 Estim Creat Clear Calc 107.9 Estimated GFR > 60 Random Glucose 144 H Lactic Acid Calcium 8.8 Magnesium Total Bilirubin Direct Bilirubin AST ALT Alkaline Phosphatase Troponin I High Sens B-Natriuretic Peptide Total Protein Albumin Lipase Procalcitonin Urine Color Urine Appearance Urine pH Ur Specific [place] Urine Protein Urine Glucose (UA) Urine Ketones Urine Blood Urine Nitrite Ur Leukocyte Esterase Urine RBC Urine WBC Ur Squamous Epith Cells Urine Bacteria Hyaline Casts Blood Type Antibody Screen Discharge Plan Discharge Anticipated Discharge Date/Time: 02/05/23 10:27 Patient Disposition: Home Health Service Discharge Diagnosis: Hematuria Referrals: Physician,Nonstaff [Primary Care Provider] - 1 Week Discharge Medications: Continued baclofen 20,000 mcg/20mL (1,000 mcg/mL) Solution See Rx Instructions .ROUTE .COMPLEX Rx Instructions: patient has a pump cefdinir 250 mg/5 mL suspension for reconstitution 300 mg PO Q12H 14 Days Qty: 168 0RF Rx Instructions: ORDERED 01/25/23 FOR 2 WEEKS gabapentin 250 mg/5 mL Solution 500 mg PO Q4H sucralfate 100 mg/mL Suspension 1 g G-tube QIDACHS Qty: 1000 2RF dexamethasone 4 mg Tablet 4 mg PO TID Qty: 90 0RF Santyl 250 unit/gram Ointment 1 appl topical DAILY Qty: 90 1RF Protocol: Apply to: Apply to: Abdominal wall wound levofloxacin 500 mg Tablet 500 mg PO Q24H Qty: 7 0RF Rx Instructions: END DATE: 02/10/23 oxycodone 5 mg Tablet 5 mg PO Q4H PRN (Reason: Pain, Severe (Pain Scale 7-10)) Qty: 30 0RF Rx Instructions: Partial Fill upon patient request. Konvomep 2-84 mg/mL Suspension For Reconstitution 10 ml G-tube BID@0630,1630 Qty: 300 2RF Discharge Orders: Discharge Order (Routine); Ordered 02/05/23 Ordered By: [place] Ron Diet: Advance to usual diet Activity on Discharge: As tolerated Stand Alone Forms: Patient Portal Discharge page Care Plan Goals: Read below Health Concerns: Read below Plan of Treatment: Read below Assessment: Continue antibiotics as prescribed Follow with Onco-Radiology as planned
--- NOTE | 2023-02-05 10:56 | MHC.CM.PN ---
met with pt and his wifw pt is being dcd today he is active with [facility] who have been notified of dc via [email or web address] pt has own transport home
[2023-02-05] MEDS: oxyCODONE HCl Immed Release 5 MG TABLET G-TUBE (11:00)
[2023-02-05] MEDS: levoFLOXacin 500 MG TABLET G-TUBE (11:01)
== END 2023-02-05 12:03 | disposition home health service (06) ==
LOC: HO.ED 11:22 → HO.EDOVER 13:03 → HO.S3 19:15
PROVIDERS: Admitting Provider Student in an Organized Health Care Education/Training Program; Emergency Provider Emergency Medicine; Visit Provider Student in an Organized Health Care Education/Training Program
DX: R31.0 Gross hematuria (principal); D72.829 Elevated white blood cell count, unspecified; N39.0 Urinary tract infection, site not specified; R53.1 Weakness; G89.0 Central pain syndrome; Z92.3 Personal history of irradiation; G82.20 Paraplegia, unspecified; G93.89 Other specified disorders of brain; I95.9 Hypotension, unspecified; R00.0 Tachycardia, unspecified; Z96.0 Presence of urogenital implants; Z93.3 Colostomy status; C15.9 Malignant neoplasm of esophagus, unspecified; D63.8 Anemia in other chronic diseases classified elsewhere; Z79.899 Other long term (current) drug therapy
CPT/HCPCS: 36415; 71045; 80048; 80076; 81001; 83605; 83690; 83735; 83880; 84145; 84484; 85025; 85027; 85610; 86850; 86900; 86901; 87040; 87086; 93005; 96361; 96365; 96366; 96375; 99221; 99285; C9113; J1642; J1956; J8540

== ENCOUNTER → 2023-02-04 10:16 | Outpatient (BNV) | payer OTHER, MEDICARE, SELFPAY | PROVIDERS: Admitting Provider Student in an Organized Health Care Education/Training Program; Emergency Provider Emergency Medicine; Visit Provider Internal Medicine | DX: R00.0 Tachycardia, unspecified (principal) | CPT/HCPCS: 93010 ==

== ENCOUNTER → 2023-02-04 12:54 | Outpatient (BNV) | payer MEDICARE, SELFPAY | PROVIDERS: Admitting Provider Student in an Organized Health Care Education/Training Program; Emergency Provider Emergency Medicine; Visit Provider Student in an Organized Health Care Education/Training Program | DX: R31.0 Gross hematuria (principal); I95.9 Hypotension, unspecified; D72.829 Elevated white blood cell count, unspecified | CPT/HCPCS: 99223; 99238 ==

== ENCOUNTER 2023-02-13 15:08 | Outpatient (AMB) | payer MEDICARE, SELFPAY ==
--- NOTE | 2023-02-13 15:10 | MHC.OFFVIS ---
Intake Intake Visit Reasons: ER follow up/Surgery discussion Intake Note: Patient is Present for Telephone Follow Up ER Follow Up/ H&P For upcoming surgery Urology Med: None Antibiotic Allergy: None Blood Thinner: None Allergies No Known Allergies Allergy (Mild, Verified 02/04/23 10:05) NOT APPLICABLE Medication List - Last Reconciled 02/13/23 by Rocky Santos MD baclofen patient has a pump cefdinir 300 mg (6 mL) PO Q12H 14 days ciprofloxacin HCl 250 mg PO DAILY 14 days collagenase clostridium histo. (Santyl) 1 appl See Protocol topical DAILY dexamethasone 4 mg PO TID gabapentin 500 mg PO Q4H levofloxacin 500 mg PO Q24H omeprazole-sodium bicarbonate 2-84 mg/mL (Konvomep) 10 mL G-tube BID@0630,1630 oxycodone 5 mg PO Q4H PRN sucralfate 1 g (10 mL) G-tube QIDACHS HPI HPI Comments History of Present Illness Details Timothy is a pleasant male. He is a patient Dr. Lovell. He seen for the following urologic cnditions - neurogenic bladder - history of T5 spinal injury in 2006 with equipment malfunction - bladder stone with recurrent UTI Telemedicine Evaluation 15 min Consultation [employer] Marissa Video attempted Planned surgery coming up Just finished antibiotics Will continue with low-dose ciprofloxacin which should cover Pseudomonas that grew from urine Large bladder stone Manages with Daniels catheter which he changes every 2-3 weeks. This could secondary to bladder spasm with leakage when performing intermittent catheterization. Recent diagnosis of GE junction adenocarcinoma. Scheduled for radiation with chemotherapy Has consents chemotherapy result and UTI given stone in bladder Prior surgery consist of colostomy Recommendation for high-powered holmium laser of bladder stone with suprapubic tube placement He understands this may disrupt his radiation Printed copy of CT scan provided [facility] Medical History Anemia Carcinoma of esophagus Acute hyponatremia Central pain syndrome Chronic pain syndrome Paraplegia T5 spinal cord injury Surgical History Hx of colonoscopy History of esophagogastroduodenoscopy (EGD) History of creation of ostomy (11/02/21) Family History Brother Liver cancer Social History Household Members: Spouse Housing: House Do you presently have visiting nurse or other home services: Yes Alcohol intake: never Comment: . Patient Tobacco Use Status: Never used Tobacco Substance Use Type: Marijuana service: No Current occupational status: retired Review of Systems Const All systems reviewed & are unremarkable except as noted in HPI and below Reports no additional complaints Resp Reports no additional complaints GI Reports no additional complaints Reports as per HPI Musc Reports no additional complaints Physical Exam Telemedicine evaluation Appropriate responses Regular breathing rate and rhythm HEENT Head: Yes normal to inspection Ears: hearing grossly normal bilaterally Eyes General: appearance normal, both eyes and all related structures Neck Neck: Yes normal visual inspection Chest Chest palpation & inspection: normal inspection of the chest Resp Effort & Inspection: normal respiratory effort and able to speak in complete sentences Assessment & Plan Assessment & Plan (1) Bladder stone: Code(s): N21.0 - Calculus in bladder (2) Chronic indwelling Daniels catheter: Code(s): Z97.8 - Presence of other specified devices Plan Risks, benefits and alternatives to therapy were discussed. These include but are not limited to infection, bleeding, damage to local organs and tissues, need for further interventions. Anesthetic risks regarding cardiac arrhythmia, blood clots, and potential mortality were discussed. The patient understands the typical recovery time and the outpatient nature of the procedure. After consideration of these risks the patient gives full informed consent and they wish to move ahead with the procedure. Laser of large bladder stone Medications: New ciprofloxacin HCl 250 mg PO DAILY 14 days 14 tabs 0RF N21.0 - Calculus in bladder, N32.81 - Overactive bladder Patient Instructions: Imaging studies, laboratory and physical exam results were discussed and reviewed in detail. No major barriers to patient understanding were identified. An opportunity to ask questions regarding the treatment plan was provided. All questions were answered. The patient expressed understanding and agreement with the above treatment plan. The patient is aware they should contact our office by phone for worsening of their current condition or the appearance of new urologic symptoms. Compliance is encouraged with any medications and followup testing that is ordered. It is a privilege to participate in the urologic care of your patient. If you have any questions or concerns regarding treatment for the above conditions, or other urologic issues, please do not hesitate to contact me. The office telephone contact is [phone]. This note is constructed using voice recognition software. While every effort has been made to ensure accuracy ship's engineer errors may have been included. Yours sincerely, Dr Rocky Santos MD, [place] [facility] - Urology Providers of Expert, Compassionate Care for the Genitourinary System Telehealth Telehealth Location of provider rendering services: practice address Location of patient: address on file Patient Identification confirmed using: Name, : Yes Telehealth method: voice only Patient verbally consented to treatment: Yes Patient verbally consented to billing insurance company: Yes Patient informed of any privacy concerns related to visit: Yes Coding Level of Care Code Tele Est Pt Level 4 (41171) Diagnoses Bladder stone N21.0 Chronic indwelling Daniels catheter Z97.8
== END 2023-02-13 15:31 | disposition home or self-care (01) ==
LOC: HO.HUSH 15:08
PROVIDERS: Visit Provider Urology
DX: N21.0 Calculus in bladder (principal); Z97.8 Presence of other specified devices
CPT/HCPCS: 99214

== ENCOUNTER → 2023-02-13 15:08 | Outpatient (BNVA) | payer OTHER, MEDICARE, SELFPAY | PROVIDERS: Visit Provider Urology ==

== ENCOUNTER 2023-02-26 09:57 | Day surgery (SDC) | payer OTHER, SELFPAY ==
--- NOTE | 2023-02-23 10:57 | P.CONAN_ITS ---
Documented by User: Betty Orozco NP 02/23/23 11:00 HPI - Anesthesia Eval Consult details Narrative: 72yo M for Cystoscopy Bladder Stone Laser, Insertion Suprapubic Tube Esophageal ca s/p Port-a-Cath Insertion, Gastrostomy Tube Open Placement 10/2022 with TIVA colostomy in situ T5 spinal cord injury with paraplegia [facility] admit 01/2023-02/2023 with hematuria PMFSH Active Problems Active Problems: All Active Problems (Updated 02/23/23 @ 09:49 by Faith Knott, RN) Metastatic cancer to brain (Acute) Bladder stone (Acute) Malnutrition of moderate degree (Acute) Chronic indwelling Daniels catheter (Acute) Hepatitis C antibody positive in blood (Acute) Mass of gastroesophageal junction (Acute) Lymphadenopathy of lesser curvature of stomach (Acute) Abnormal CT of the abdomen (Acute) Neuropathic pain (Acute) Colostomy in place (Acute) Chronic constipation (Acute) Sacral decubitus ulcer (Acute) Central pain syndrome (Acute) Chronic pain syndrome (Acute) Paraplegia (Acute) T5 spinal cord injury (Acute) Past Medical History Medical History (Updated 02/26/23 @ 11:32 by Sondra Torres RN) Presence of intrathecal baclofen pump Colostomy in place Port-A-Cath in place Esophageal cancer Anemia Carcinoma of esophagus Acute hyponatremia Central pain syndrome Chronic pain syndrome Paraplegia T5 spinal cord injury Family History Family History Brother Liver cancer Family history of problems with anesthesia: No Surgical History Surgical History Hx of colonoscopy History of esophagogastroduodenoscopy (EGD) History of creation of ostomy (11/02/21) History of Problems with Anesthesia: No Social History Social History Household Members: Spouse Housing: House Do you presently have visiting nurse or other home services: Yes Alcohol intake: never Comment: . Patient Tobacco Use Status: Never used Tobacco Substance Use Type: Marijuana Are you DNR?: Yes Advance Directives: No Advance Directives Information Provided: Yes Recently lost weight without trying: Yes How much weight loss: 34pounds or more Eating poorly because of decreased appetite: Yes Nutrition screen score: 7 service: No Current occupational status: retired Meds Allergies Allergy/AdvReac Type Severity Reaction Status Date / Time No Known Allergies Allergy Mild NOT Verified 02/04/23 10:05 APPLICABLE Home Medications Medication Instructions Recorded Confirmed Last Taken Type baclofen 20,000 mcg/20 mL (1,000 See Rx Instructions .Route .COMPLEX 11/02/21 02/13/23 Unknown History mcg/mL) intrathecal solution gabapentin 250 mg/5 mL oral 500 mg PO Q4H 01/30/23 02/13/23 02/26/23 01:00 History solution ciprofloxacin HCl 250 mg tablet 250 mg PO BID 02/26/23 02/26/23 02/25/23 History Exam Pertinent Lab Results Pertinent Lab Results: Laboratory Tests 02/05/23 05:23 WBC 8.5 Hgb 8.0 L Hct 24.4 L Plt Count 195 Sodium 139 Potassium 4.1 D Chloride 108 Carbon Dioxide 23 BUN 18 H Creatinine 0.57 Narrative Narrative: EKG 01/2023 Vent. Rate : 110 BPM Atrial Rate : 110 BPM P-R Int : 130 ms QRS Dur : 078 ms QT Int : 328 ms P-R-T Axes : 067 057 062 degrees QTc Int : 443 ms Sinus tachycardia Nonspecific ST abnormality Borderline ECG When compared with ECG of 24-JAN-2023 16:56, No significant change was found Assessment and Plan Assessment Anesthesia Assessment: Chart Reviewed Final Anesthetic Review Family History of Problems with Anesthesia: No History of Problems with Anesthesia: No Documented by User: Chano De La Rosa MD 02/26/23 13:02 [facility] Past Medical History Medical History (Updated 02/26/23 @ 11:32 by Sondra Torres RN) Presence of intrathecal baclofen pump Colostomy in place Port-A-Cath in place Esophageal cancer Anemia Carcinoma of esophagus Acute hyponatremia Central pain syndrome Chronic pain syndrome Paraplegia T5 spinal cord injury Family History Family History Brother Liver cancer Surgical History Surgical History Hx of colonoscopy History of esophagogastroduodenoscopy (EGD) History of creation of ostomy (11/02/21) Social History Social History Household Members: Spouse Housing: House Do you presently have visiting nurse or other home services: Yes Alcohol intake: never Comment: . Patient Tobacco Use Status: Never used Tobacco Substance Use Type: Marijuana Are you DNR?: Yes Advance Directives: No Advance Directives Information Provided: Yes Recently lost weight without trying: Yes How much weight loss: 34pounds or more Eating poorly because of decreased appetite: Yes Nutrition screen score: 7 service: No Current occupational status: retired [employer] Allergies Allergy/AdvReac Type Severity Reaction Status Date / Time No Known Allergies Allergy Mild NOT Verified 02/04/23 10:05 APPLICABLE Home Medications Medication Instructions Recorded Confirmed Last Taken Type baclofen 20,000 mcg/20 mL (1,000 See Rx Instructions .Route .COMPLEX 11/02/21 02/13/23 Unknown History mcg/mL) intrathecal solution gabapentin 250 mg/5 mL oral 500 mg PO Q4H 01/30/23 02/13/23 02/26/23 01:00 History solution ciprofloxacin HCl 250 mg tablet 250 mg PO BID 02/26/23 02/26/23 02/25/23 History Exam Airway Mallampati Class: I TM Dist: >3cm Neck ROM: Full Heart: ok Lungs: ok Assessment and Plan Assessment Anesthesia Assessment: Anesthesia Plan Discussed Final Anesthetic Review NPO: Yes ASA Class: IV Final Preanesthetic Review: No Changes in Pt Med Stat, Meds/Allgs Chart Reviewed, Consent Obtained/Reviewed and Anes Risks/Benef Reviewed Procedure Risk: Low Anesthetic Plan Anesthetic Plan: GA and Agree w/ Assess. and Plan Disposition: Standard PACU
[2023-02-26] VITALS (10 sets, daily range): BP systolic 97–114; BP diastolic 60–75; PULSE 1–106; RESP 16–18; TEMP 36.1–36.9; O2SAT 93–98; BMI 20.7
[2023-02-26 11:32] LABS: Hematocrit 30.1 % (42.0-52.0); Hemoglobin 9.9 g/dl (14.0-18.0)
--- NOTE | 2023-02-26 12:57 | MHC.SHP ---
Pre-Procedural Eval Section A Date of Service: 02/26/23 The patient is an INPATIENT: No Changes since office visit: No Cold of Flu in the past 2 weeks, No New Medical Problems, No Changes in Medication and No Patient answered all questions The History & Physical has been completed within 30 days and I have reviewed it.: Yes Section B Chief Complaint: Calculus in bladder Details of Present Illness: Neurogenic bladder with bladder stone Allergies: Allergies Allergy/AdvReac Type Severity Reaction Status Date / Time No Known Allergies Allergy Mild NOT Verified 02/04/23 10:05 APPLICABLE Plan I have reviewed the history and physical and performed a pertinent physical examination on my patient. No changes have occurred unless specified. Time Spent With Patient Time: Total time managing care of this patient today ____ minutes.
--- NOTE | 2023-02-26 14:56 | P.OP_ITS ---
Operative Note Operative Note Date of Service: 02/26/23 Narrative: PreOperative Diagnosis: 1. Neurogenic bladder 2. Bladder stone large greater than 2.5 cm Post Operative Diagnosis: 1. Neurogenic bladder 2. Bladder stone large greater than 2.5 cm Procedure: 1. Cystoscopy with suprapubic tube placement 2. Laser litholapaxy extended modifier 22 200 % longer than typical Surgeon: Dr Rocky Santos Anesthesia: General Indications for procedure: Longstanding neurogenic bladder with Rivera catheter in place secondary to spine injury. Recent development of recurrent UTI and spasm. Found to have a 4.4 cm bladder stone Procedure: After informed consent was verified the patient was brought to the operating room and placed in a supine position. Anesthesia was administered per protocol. Patient is placed in modified dorsal lithotomy position. The patient was prepped and draped in a sterile fashion. Safety pause time-out was performed. Antibiotics being given. The laser bridge cystoscope was inserted per urethra. The large stone was seen. Decision was made to proceed 1st with suprapubic tube placement Bladder was examined in its entirety. No abnormalities seen. Air bubble was located at the dome of the bladder. A finder needle was inserted 2 fingerbreaths above the symphysis pubis on the abdomen into the bladder.? The ne edle was visualized in the bladder via cystoscopy. Local anesthetic was infiltrated subcutaneously around the needle introduction site. A small, 1cm horizontal incision was made.? A trocar introducer was advanced through the abdominal wall into the bladder under visualization. The obturator was removed and a 16 Fr rivera catheter placed. 7cc was used to inflate the balloon. The external portion of the trocar was removed. Attention was then directed towards the large bladder stone. Using a 930 nm holmium laser fiber the stone was broken into small pieces. This took 200% longer than typical. Approximately 90 minutes. At the end bladder stone fragments were then irrigated and washed from the bladder. Bladder holmium laser settings approximately 15 hertz with 3.6 joules for a total energy of 55 kw. Total energy 146 kilojoules The patient tolerated the procedure well and at completion dressing was placed on suprapubic tube. Patient was extubated and transferred in stable condition to the recovery area. Pathology: Stone fragments Drains: Suprapubic tube
[2023-02-26] MEDS: Phenazopyridine HCL 100 MG TABLET PO (16:19)
== END 2023-02-26 16:47 | disposition home or self-care (01) ==
PROVIDERS: Nurse Practitioner; Visit Provider Urology
PROC: (CPT 52318; principal; 2023-02-26 12:10)
PROC: (CPT 51102; 2023-02-26 12:10)
DX: N21.0 Calculus in bladder (principal); Z96.0 Presence of urogenital implants; Z87.440 Personal history of urinary (tract) infections; C15.9 Malignant neoplasm of esophagus, unspecified; C79.31 Secondary malignant neoplasm of brain; G82.20 Paraplegia, unspecified; Z93.3 Colostomy status; Z79.899 Other long term (current) drug therapy
CPT/HCPCS: 52318; 51102; 36415; 85014; 85018; 88300; J1956; J2371; J2704; J3010

== ENCOUNTER → 2023-02-26 09:57 | Outpatient (BNV) | payer MEDICARE, SELFPAY | PROVIDERS: Visit Provider Urology | DX: N21.0 Calculus in bladder (principal); N31.9 Neuromuscular dysfunction of bladder, unspecified | CPT/HCPCS: 51102; 52317 ==

== ENCOUNTER 2023-03-15 11:50 | Outpatient (AMB) | payer OTHER, MEDICARE, SELFPAY ==
--- NOTE | 2023-03-15 12:00 | A.OFFVIS_ITS ---
Intake Intake Visit Reasons: SPT change (first) Intake Note: Patient presents today for a SPT change Meds- None Allergies to Antibiotic- No Known Allergies Blood Thinner- None [employer] Required: No Allergies No Known Allergies Allergy (Mild, Verified 03/15/23 12:06) NOT APPLICABLE Medication List - Last Reconciled 03/15/23 by Rocky Santos MD ascorbic acid (vitamin C) 1,000 mg PO DAILY 90 days baclofen patient has a pump ciprofloxacin HCl 250 mg PO BID collagenase clostridium histo. (Santyl) 1 appl See Protocol topical DAILY dexamethasone 4 mg PO TID gabapentin 500 mg PO Q4H methenamine hippurate 1 g PO daily 90 days oxycodone 5 mg PO Q4H PRN HPI HPI Comments History of Present Illness Details Timothy is a pleasant male. He is a patient Dr. Lovell. He seen for the following urologic cnditions - neurogenic bladder - history of T5 spi nal injury in 2006 with equipment malfunction - bladder stone with recurrent UTI Here for suprapubic tube change Upgrade to 18 [place] Add vitamin-C and methenamine Neurogenic Bladder 02/28 suprapubic tube placement with stane r of bladder stone Large Bladder Stone Manages with Daniels catheter which he changes every 2-3 weeks. This could secondary to bladder spasm with leakage when performing intermittent catheterization. Recent diagnosis of GE junction adenocarcinoma. Scheduled for radiation with chemotherapy Has consents chemotherapy result and UTI given stone in bladder Prior surgery consist of colostomy [facility] Medical History (Updated 03/15/23 @ 12:13 by Rocky Santos MD) Presence of intrathecal baclofen pump Colostomy in place Port-A-Cath in place Esophageal cancer Anemia Carcinoma of esophagus Acute hyponatremia Central pain syndrome Chronic pain syndrome Paraplegia T5 spinal cord injury Surgical History Hx of colonoscopy History of esophagogastroduodenoscopy (EGD) History of creation of ostomy (11/02/21) Family History Brother Liver cancer Social History Household Members: Spouse Housing: House Do you presently have visiting nurse or other home services: Yes Alcohol intake: never Comment: . Patient Tobacco Use Status: Never used Tobacco Substance Use Type: Marijuana service: No Current occupational status: retired Review of Systems Const Denies chills and Denies fever(s) Card Reports no additional complaints and Denies syncope Resp Denies cough GI Denies abdominal pain and Denies heartburn Reports as per HPI and Denies change in libido Neuro Denies syncope Psych Denies change in libido Endo Denies change in libido Physical Exam Const General: cooperative, healthy appearing, comfortable and no acute distress Orientation/consciousness: patient oriented x3 HEENT Face and sinus: Yes normal facial exam Mouth: moist mucous membranes Neck Neck: Yes normal visual inspection, Yes full ROM and Yes trachea midline Chest Chest palpation & inspection: normal inspection of the chest Resp Effort & Inspection: normal respiratory effort, able to speak in complete sentences and no respiratory distress GI Inspection: Yes normal to inspection Back/Spine/Pelvis Cervical Spine: normal cervical lordosis Thoracic/Lumbar Spine: thoracic and lumbar spine normal to inspection Skin General skin exam: no rashes or lesions noted Neuro General: patient oriented x3, gait normal, tone normal and moves all extremities Extrem General: Yes normal to inspection and Yes capillary refill normal Office Procedures Bladder/Catheter Procedure Details: Clean technique Suprapubic changed from 16 [place] to 18 [place] Irrigated freely [id number] of bladder tube Procedure code (CPT) selection complete Assessment & Plan Assessment & Plan (1) Bladder stone: Code(s): N21.0 - Calculus in bladder (2) Neurogenic urinary bladder disorder: Code(s): N31.9 - Neuromuscular dysfunction of bladder, unspecified Plan Continue to change q.4 weeks Six-month follow-up office Medications: New methenamine hippurate 1 g PO daily 90 days 90 tabs 1RF N31.9 - Neuromuscular dysfunction of bladder, unspecified ascorbic acid (vitamin C) 1,000 mg PO DAILY 90 days 90 tabs 1RF N31.9 - Neuromuscular dysfunction of bladder, unspecified Patient Instructions: Imaging studies, laboratory and physical exam results were discussed and reviewed in detail. No major barriers to patient understanding were identified. An opportunity to ask questions regarding the treatment plan was provided. All questions were answered. The patient expressed understanding and agreement with the above treatment plan. The patient is aware they should contact our office by phone for worsening of their current condition or the appearance of new urologic symptoms. Compliance is encouraged with any medications and followup testing that is ordered. It is a privilege to participate in the urologic care of your patient. If you have any questions or concerns regarding treatment for the above conditions, or other urologic issues, please do not hesitate to contact me. The office telephone contact is [phone]. This note is constructed using voice recognition software. While every effort has been made to ensure accuracy dryer feeder errors may have been included. Yours sincerely, Dr Rocky Santos MD, [facility] Providers of Expert, Compassionate Care for the Genitourinary System Coding Level of Care Code Est Pt Level 4 (64528) Diagnoses Bladder stone N21.0 Neurogenic urinary bladder disorder N31.9 CPT Codes Bladder/Catheter Procedure - CPT: 96931-Ovevlk of bladder tube ([id number])
== END 2023-03-15 12:16 | disposition home or self-care (01) ==
LOC: HO.HUSH 11:50
PROVIDERS: Visit Provider Urology
DX: N21.0 Calculus in bladder (principal); N31.9 Neuromuscular dysfunction of bladder, unspecified; Z96.0 Presence of urogenital implants
CPT/HCPCS: 51705; 99213

== ENCOUNTER → 2023-03-15 11:50 | Outpatient (BNVA) | payer OTHER, MEDICARE, SELFPAY | PROVIDERS: Visit Provider Urology | DX: Z43.5 Encounter for attention to cystostomy (principal); N31.9 Neuromuscular dysfunction of bladder, unspecified; N21.0 Calculus in bladder | CPT/HCPCS: 51705 ==

== ENCOUNTER 2023-03-23 10:21 | Outpatient (RCR) | payer OTHER, SELFPAY | END 2023-05-14 12:17 | disposition hospice, inpatient (51) | LOC: HO.WCC 10:21 | PROVIDERS: PCP Internal Medicine; Visit Provider Physician Assistant | DX: L89.44 Pressure ulcer of contiguous site of back, buttock and hip, stage 4 (principal); L89.153 Pressure ulcer of sacral region, stage 3; L89.623 Pressure ulcer of left heel, stage 3; L89.610 Pressure ulcer of right heel, unstageable; C15.9 Malignant neoplasm of esophagus, unspecified; G82.20 Paraplegia, unspecified; F12.90 Cannabis use, unspecified, uncomplicated; Z86.19 Personal history of other infectious and parasitic diseases | CPT/HCPCS: 99215 ==